=== PATIENT | male | born 1975 | race Caucasian/White ===

== ENCOUNTER 2020-04-12 09:18 | Outpatient (REF) | payer MEDICAID, SELFPAY ==
--- NOTE | 2020-04-12 09:54 | XR_ITS ---
EXAMINATION: XR SHOULDER, LEFT CLINICAL INFORMATION: Pain COMPARISON: Previous x-ray May 2019 TECHNIQUE: AP external rotation, Grashey, scapular Y, and axillary views of the left shoulder. FINDINGS: Bone alignment is normal. No fracture or dislocation is seen. The glenohumeral joint is normal. There is mild arthritis at the acromioclavicular joint. Soft tissues are unremarkable. XR/XR shoulder LT min 2V IMPRESSION: Mild arthritis at the acromioclavicular joint.
[2020-04-12 10:15] LABS: Hematocrit 39.8 % (42-52); Hemoglobin 12.7 g/dl (14.0-18.0); Mean Corpuscular HGB Conc 31.9 g/dl (31.0-36.0); Mean Corpuscular Hemoglobin 27.1 pg (27.0-33.0); Mean Corpuscular Volume 84.9 fL (80-98); Mean Platelet Volume 11.3 fL (9.4-12.4); Platelet Count 146 X10*3/uL (160-400); Red Blood Count 4.69 X10*6/uL (4.60-5.80); White Blood Count 4.4 X10*3/uL (4.8-10.8)
[2020-04-12 10:21] LABS: Estimated Average Glucose 111 mg/dL; Hemoglobin A1c % 5.5 %
[2020-04-12 10:38] LABS: Alanine Aminotransferase 28 U/L (0-40); Albumin Level 4.5 g/dL (3.5-5.0); Alkaline Phosphatase 67 U/L (39-117); Anion Gap 13 (12-20); Aspartate Amino Transferase 25 U/L (5-37); Bilirubin Direct 0.6 mg/dL (0.0-0.5); Bilirubin Total 1.4 mg/dL (0.0-1.0); Blood Urea Nitrogen 15 mg/dL (9-16); Calcium 9.1 mg/dL (8.4-10.2); Carbon Dioxide 28 mmol/L (22-29); Chloride 103 mmol/L (96-108); Cholesterol 103 mg/dL; Estimated Glomerular Filt Rate > 60; Glucose Random 86 mg/dL (60-115); HDL Cholesterol 50 mg/dL; LDL Cholesterol Calculated 46 mg/dl; Potassium 4.1 mmol/l (3.3-5.1); Sodium 140 mmol/L (135-145); Total Protein 7.5 g/dL (6.5-8.0); Triglycerides 37 mg/dL
[2020-04-12 10:56] LABS: TSH reflex Free T4 0.66 mIU/mL (0.32-4.0)
== END 2020-04-12 09:19 | disposition home or self-care (01) ==
LOC: HO.LAB 09:18
PROVIDERS: PCP General Practice; Visit Provider General Practice
DX: R53.83 Other fatigue (principal); M25.512 Pain in left shoulder
CPT/HCPCS: 36415; 73030; 80048; 80061; 80076; 83036; 84443; 85027

== ENCOUNTER 2020-07-19 08:44 | Outpatient (REF) | payer MEDICAID, SELFPAY ==
[2020-07-19 09:42] LABS: Hematocrit 41.3 % (42-52); Hemoglobin 13.2 g/dl (14.0-18.0); Mean Corpuscular Hemoglobin 27.2 pg (27.0-33.0); Mean Corpuscular Volume 85.2 fL (80-98); Mean Platelet Volume 11.5 fL (9.4-12.4); Platelet Count 149 X10*3/uL (160-400); Red Blood Count 4.85 X10*6/uL (4.60-5.80); White Blood Count 4.1 X10*3/uL (4.8-10.8)
[2020-07-19 10:10] LABS: Alanine Aminotransferase 24 U/L (0-40); Albumin Level 4.8 g/dL (3.5-5.0); Alkaline Phosphatase 69 U/L (39-117); Anion Gap 12 (12-20); Aspartate Amino Transferase 22 U/L (5-37); Bilirubin Direct 0.7 mg/dL (0.0-0.5); Bilirubin Total 1.3 mg/dL (0.0-1.0); Blood Urea Nitrogen 13 mg/dL (9-16); Calcium 9.3 mg/dL (8.4-10.2); Carbon Dioxide 28 mmol/L (22-29); Chloride 105 mmol/L (96-108); Cholesterol 103 mg/dL; Estimated Glomerular Filt Rate > 60; Glucose Random 105 mg/dL (60-115); HDL Cholesterol 53 mg/dL; LDL Cholesterol Calculated 44 mg/dl; Potassium 4.3 mmol/L (3.3-5.1); Sodium 141 mmol/L (135-145); Total Protein 7.9 g/dL (6.5-8.0); Triglycerides 30 mg/dL
[2020-07-19 10:17] LABS: Estimated Average Glucose 108 mg/dL; Hemoglobin A1c % 5.4 %
[2020-07-19 10:30] LABS: TSH reflex Free T4 1.21 uIU/mL (0.32-4.0)
== END 2020-07-19 08:45 | disposition home or self-care (01) ==
LOC: HO.LAB 08:44
PROVIDERS: Visit Provider General Practice
DX: R53.83 Other fatigue (principal)
CPT/HCPCS: 36415; 80048; 80061; 80076; 83036; 84443; 85027

== ENCOUNTER → 2020-07-26 10:34 | Outpatient (BNVA) | payer MEDICAID, SELFPAY | PROVIDERS: Visit Provider Internal Medicine | DX: I25.10 Atherosclerotic heart disease of native coronary artery without angina pectoris (principal); I49.9 Cardiac arrhythmia, unspecified | CPT/HCPCS: 93005; 99212 ==

== ENCOUNTER → 2020-09-15 13:51 | Outpatient (REF) | payer MEDICAID, SELFPAY ==
--- NOTE | 2020-09-15 13:55 | HM_ITS ---
IDENTIFICATION DATA: The patient is a 45-year-old male. REQUESTING PROVIDER: Dr. Fitzpatrick. REASON FOR TEST: Palpitations. HOOKUP DATE: 09/15/2020 for a total period of 30 days. FINDINGS: Baseline rhythm was normal sinus rhythm varying from 58 to 72 beats per minute. There were no arrhythmias noted. There were no patient reported events. CONCLUSION: Event monitor is remarkable for: 1. Baseline normal sinus rhythm with no significant pauses. 2. No significant arrhythmias. 3. No patient reported events. Aldo Light MD NRS/MODL / [id number]
== END ==
LOC: HO.CARD 13:51
PROVIDERS: Visit Provider Internal Medicine
DX: I49.9 Cardiac arrhythmia, unspecified (principal); R00.2 Palpitations
CPT/HCPCS: 93270; 93272

== ENCOUNTER 2020-10-06 09:09 | Outpatient (REF) | payer MEDICAID, SELFPAY ==
[2020-10-06 10:19] LABS: COVID-19 Test Negative (Negative)
== END 2020-10-06 09:10 | disposition home or self-care (01) ==
LOC: HO.LAB 09:09
PROVIDERS: Visit Provider Internal Medicine
DX: Z20.822 Contact with and (suspected) exposure to COVID-19 (principal)
CPT/HCPCS: 36415; 87635; C9803

== ENCOUNTER → 2020-10-25 14:53 | Outpatient (BNVA) | payer MEDICAID, SELFPAY | PROVIDERS: PCP General Practice; Visit Provider Surgery Vascular Surgery | DX: I83.12 Varicose veins of left lower extremity with inflammation (principal) | CPT/HCPCS: 99212 ==

== ENCOUNTER 2020-10-27 08:12 | Emergency (ER) | payer MEDICAID, SELFPAY ==
--- NOTE | ~2020-10-27 | CT_ITS ---
EXAMINATION: CT ABDOMEN AND PELVIS WITH CONTRAST CLINICAL INFORMATION: Suprapubic and left lower quadrant pain. COMPARISON: None TECHNIQUE: Multidetector volumetric images were obtained from the superior aspect of the liver through the pubic symphysis following administration 85 mL of Omnipaque 350 intravenous contrast. Sagittal and coronal reformatted images were obtained on the technologist's workstation. Oral contrast: No This CT examination was performed using dose optimization techniques as appropriate, variously including the following: *Automated exposure control *Adjustment of mA and/or kV according to patient size (this includes techniques or standardized protocols for targeted exams where dose is matched to indication/reason for exam; i.e. extremities or head) *Use of iterative reconstruction technique DLP: 745 mGy-cm FINDINGS: LUNG BASES: The visualized lung bases are unremarkable. LIVER, GALLBLADDER, AND BILIARY TREE: The liver is normal in size, shape, and attenuation. No focal hepatic lesion or biliary ductal dilatation is present. The gallbladder is unremarkable with no evidence of radiopaque gallstones, gallbladder wall thickening, or obvious pericholecystic inflammatory changes. PANCREAS: Unremarkable. SPLEEN: Unremarkable. ADRENAL GLANDS: Unremarkable. KIDNEYS AND URETERS: The kidneys are normal in size, shape, and attenuation. No hydronephrosis, hydroureter, or calculi seen. No perinephric stranding. BLADDER: Unremarkable. GASTROINTESTINAL TRACT: There is a short retrocecal appendix only 2 cm in length possibly an appendiceal stump. The diameter is 0.9 cm. There is no fluid in the lumen or hyperenhancement of the wall or surrounding inflammatory changes. There is no bowel obstruction or inflammatory changes in the bowel or mesentery. No ascites or fluid collection. No pneumatosis or free air. ABDOMINAL WALL: No significant hernia is appreciated. Borderline fat-containing umbilical hernia under 2 cm and small fat-containing left inguinal hernia 3 cm in length. LYMPH NODES: No lymphadenopathy. VASCULAR: Unremarkable. PELVIC VISCERA: Unremarkable. OSSEOUS STRUCTURES: Unremarkable. CT/CT abdomen pelvis w con IMPRESSION: 1. Short mildly thickened appendix versus appendiceal stump. No fluid in the lumen or enhancing wall or surrounding inflammatory changes to suggest appendicitis. Recommend correlation with clinical impression. 2. No bowel obstruction or inflammatory changes in bowel or mesentery. No ascites or fluid collection. 3. No hydronephrosis or calculi.
[2020-10-27 08:26] VITALS: BP 135/76; PULSE 74; RESP 18; TEMP 37.1; O2SAT 99; BMI 32.8
[2020-10-27 09:21] LABS: Glucose Urine UA NEG (NEG); Leukocyte Esterase Urine NEG (NEG); Nitrite Urine NEG (NEG); Specific Gravity - Urine <= 1.005 (1.005-1.025); Urine Blood NEG (NEG); Urine Ketones NEG (NEG); Urine Protein NEG (NEG-TRACE)
[2020-10-27 09:22] LABS: Basophils Percent Auto 0.3 % (0-2); Eosinophils Absolute Auto 0.1 X10*3/uL (0.0-0.4); Eosinophils Percent Auto 1.7 % (0-4); MANUAL DIFF FLAG SCAN; Mean Platelet Volume 10.9 fL (9.4-12.4); PLT CLUMP 1; SCAN SMEAR FLAG 1
[2020-10-27 09:23] LABS: Appearance Urine CLEAR; Color Urine YELLOW
[2020-10-27 09:24] LABS: Hematocrit 37.3 % (42-52); Hemoglobin 11.9 g/dl (14.0-18.0); Imm Gran Abs Auto 0.01 X10*3/uL (0.00-0.03); Imm Gran Pct Auto 0.3 % (0.0-0.4); Lymphocytes Absolute Auto 1.3 X10*3/uL (1.2-4.9); Lymphocytes Percent Auto 36.7 % (20-40); Mean Corpuscular HGB Conc 31.9 g/dl (31.0-36.0); Mean Corpuscular Volume 84.8 fL (80-98); Monocytes Absolute Auto 0.3 X10*3/uL (0.1-1.2); Monocytes Percent Auto 9.3 % (2-11); Neutrophils Absolute Auto 1.8 X10*3/uL (2.0-8.3); Neutrophils Percent Auto 51.7 % (45-73); Platelet Count 135 X10*3/uL (160-400); Red Cell Distribution Width 12.8 % (11.0-16.0)
[2020-10-27 09:27] LABS: White Blood Count 3.5 X10*3/uL (4.8-10.8)
[2020-10-27 09:49] LABS: Alanine Aminotransferase 23 U/L (0-40); Albumin Level 4.2 g/dL (3.5-5.0); Alkaline Phosphatase 65 U/L (39-117); Anion Gap 10 (12-20); Aspartate Amino Transferase 19 U/L (5-37); Bilirubin Total 1.1 mg/dL (0.0-1.0); Blood Urea Nitrogen 11 mg/dL (9-16); Calcium 9.2 mg/dL (8.4-10.2); Carbon Dioxide 28 mmol/L (22-29); Chloride 105 mmol/L (96-108); Creatinine Clr Calc Pharmacy 124.7; Estimated Glomerular Filt Rate > 60; Glucose Random 91 mg/dL (60-115); Lipase 42 U/L (8-78); Potassium 4.2 mmol/L (3.3-5.1); Sodium 139 mmol/L (135-145); Total Protein 6.9 g/dL (6.5-8.0)
[2020-10-27] MEDS: iohexoL 350 MG/ML 100 ML INFUS..BTL 85 ML IV (10:23)
--- NOTE | 2020-10-27 11:23 | ED.ABDPAIN ---
HPI - Abdominal Pain General Chief Complaint: Abdominal Pain Stated Complaint: hip to leg pain Time Seen by Provider: 10/27/20 08:33 Source: patient Mode of arrival: ambulatory Limitations: language barrier (Ukrainian speaking only, fountain pen nibs inspector used) History of Present Illness HPI narrative: 45-year-old male who presents emergency department for evaluation of left lower quadrant pain. The patient states that he has had constant left-sided abdominal pain x3 weeks. He states the pain waxes and wanes in intensity and is 6/10 at its worst. The pain is sharp pain. The pain does radiate to his left groin into his testicles bilaterally. He denied frequency, urgency or dysuria. He denied penile discharge. He denied fever, chills, nausea, vomiting. He states that he is constipated and moves his bowels once every 7 days. States that he moved his bowels on Saturday, 3 days prior to evaluation. Patient states he called his PCP's office and was referred to the emergency department for evaluation. The patient states that he has not had a COVID-19 infection during this pandemic. He states that he got his 1st trend.ly COVID 19 vaccination 1 week prior. Related Data Home Medications Medication Instructions Recorded Confirmed aspirin 81 mg tablet,delayed 81 mg PO DAILY 07/26/20 07/26/20 release ferrous sulfate 325 mg (65 mg 325 mg PO DAILY 10/25/20 iron) tablet fluticasone propionate 50 2 spray INTRANASAL DAILY 10/25/20 mcg/actuation nasal spray,suspension gabapentin 300 mg capsule 300 mg PO BID 10/25/20 tramadol 50 mg tablet 50 mg PO DAILY 10/25/20 Previous Rx's Medication Instructions Recorded rosuvastatin 10 mg tablet 10 mg PO DAILY #90 tab 07/15/20 Allergies Allergy/AdvReac Type Severity Reaction Status Date / Time No Known Allergies Allergy Verified 10/25/20 14:56 [No Known Allergies*] Review of Systems Review of Systems Yes all other systems are reviewed and are negative Physical Exam Vital Signs: Vital Signs: Last Vital Signs Temp 98.7 F 10/27/20 08:26 Pulse 74 10/27/20 08:26 Resp 18 10/27/20 08:26 BP 135/76 10/27/20 08:26 Pulse Ox 99 10/27/20 08:26 Body Mass Index 32.8 Const: General: cooperative Orientation/consciousness: oriented to person and oriented to place Limitations: no limitations HENMT: Head: Yes normal to inspection, Yes normocephalic and Yes atraumatic Ears: external ears normal General nose exam: Normal external nose present Face and sinus: Yes normal facial exam Mouth: Normal oral and palatal mucosa present Throat: Yes posterior oropharynx normal Eyes: Periorbital: periorbital findings normal Eyelids: Yes eyelids normal Conjunctivae: conjunctivae normal Sclerae: sclerae normal Corneas: corneas normal Pupils: Equal, round and reactive pupils present Direct Ophthalmoscopy: normal light reflex Neck: Neck: Yes full ROM, Yes no lymphadenopathy, Yes no meningeal signs, Yes trachea midline and Yes supple Chest: Chest palpation & inspection: normal inspection of the chest and normal palpation of entire chest wall Resp: Effort & Inspection: normal respiratory effort and able to speak in complete sentences Auscultation: clear to auscultation bilaterally Cardio: Rate: regular rate Rhythm: regular rhythm Heart sounds: S1 normal heart sound present, S2 normal heart sound present and no murmurs GI: Inspection: Yes normal to inspection Palpation (GI): Soft to palpation, Tenderness to palpation present (GI) in the LUQ (Moderate) and suprapubicly (Mild), no guarding, not rigid and No hepatosplenomegaly present : General: Yes no CVA tenderness Male General Exam: Yes normal external exam Penis: normal penis and circumcised Meatus: meatus normal Scrotum: scrotum normal, testes descended bilaterally, no inguinal hernias, no masses and no scrotal swelling Testes: Testes normal, no epidiymal tenderness, no testicular swelling and no testicular tenderness Back/Spine/Pelvis: Back: no CVA tenderness Cervical Spine: normal cervical lordosis Thoracic/Lumbar Spine: thoracic and lumbar spine normal to inspection Skin: Lesions: no lesions Rashes: no rashes Wounds: no wounds Neuro: General: oriented to person, oriented to place and no meningeal signs Cranial nerves: Yes CN's II-XII intact bilaterally and Yes Equal, round and reactive pupils present Cognition (Neuro): normal cognition Motor exam (neuro): 5/5 motor strength present throughout Extrem: General: Yes normal to inspection and Yes full ROM Psych: Appearance: well kempt Mental Status: mental status grossly normal Speech and movement: Normal speech and movement present Affect: normal affect Attitude: cooperative Thought process: Normal thought process present Thought content: Normal thought content present Course Course Course Narrative: 45-year-old male who presents emergency department for evaluation of 3 weeks constant, left-sided abdominal pain radiating to his groin into his testicles. The patient's physical examination did reveal left lower quadrant and left suprapubic tenderness, is examination was unremarkable with no testicular abnormalities or testicular tenderness. I did order laboratory evaluation and a CT scan of the abdomen pelvis with IV contrast. 1129: The patient's laboratory evaluation revealed a slightly low white blood cell count of 3500, anemia with an H&H of 11.9 and 37.3. The platelet count was low at 821776. MCV was normal. CBC findings are chronic. MDM - Abdominal Pain Lab Data Result diagrams: 10/27/20 09:13 10/27/20 09:13 Labs: Lab Results 10/27/20 10/27/20 10/27/20 Range/Units 09:13 09:13 09:13 WBC 3.5 L (4.8-10.8) X10*3/uL RBC 4.40 L (4.60-5.80) X10*6/uL Hgb 11.9 L (14.0-18.0) g/dl Hct 37.3 L (42-52) % MCV 84.8 (80-98) fL MCH 27.0 (27.0-33.0) pg MCHC 31.9 (31.0-36.0) g/dl RDW 12.8 (11.0-16.0) % Plt Count 135 L (160-400) X10*3/uL MPV 10.9 (9.4-12.4) fL Immature Gran % (Auto) 0.3 (0.0-0.4) % Neut % (Auto) 51.7 (45-73) % Lymph % (Auto) 36.7 (20-40) % [place] % (Auto) 9.3 (2-11) % Eos % (Auto) 1.7 (0-4) % Baso % (Auto) 0.3 (0-2) % Lymph # (Auto) 1.3 (1.2-4.9) X10*3/uL [place] # (Auto) 0.3 (0.1-1.2) X10*3/uL Eos # (Auto) 0.1 (0.0-0.4) X10*3/uL Baso # (Auto) 0.0 (0.0-0.2) X10*3/uL Abs Immat Gran (auto) 0.01 (0.00-0.03) X10*3/uL Absolute Neuts (auto) 1.8 L (2.0-8.3) X10*3/uL Absolute Nucleated RBC 0.000 (0.0-0.012) X10*3/uL Nucleated RBC % (auto) 0.0 (0.0-0.2) /100WBC Smear Tech's Comments Not Reportable Sodium 139 (135-145) mmol/L Potassium 4.2 (3.3-5.1) mmol/L Chloride 105 (96-108) mmol/L Carbon Dioxide 28 (22-29) mmol/L Anion Gap 10 L (12-20) BUN 11 (9-16) mg/dL Creatinine 0.84 (0.5-1.4) mg/dL Estim Creat Clear Calc 124.7 Estimated GFR > 60 Random Glucose 91 (60-115) mg/dL Calcium 9.2 (8.4-10.2) mg/dL Total Bilirubin 1.1 H (0.0-1.0) mg/dL AST 19 (5-37) U/L ALT 23 (0-40) U/L Alkaline Phosphatase 65 (39-117) U/L Total Protein 6.9 (6.5-8.0) g/dL Albumin 4.2 (3.5-5.0) g/dL Lipase 42 (8-78) U/L Urine Color YELLOW Urine Appearance CLEAR Urine pH 6.0 (5.0-8.0) Ur Specific [place] <= 1.005 (1.005-1.025) Urine Protein NEG (NEG-TRACE) MG/DL Urine Glucose (UA) NEG (NEG) MG/DL Urine Ketones NEG (NEG) MG/DL Urine Blood NEG (NEG) Urine Nitrite NEG (NEG) Ur Leukocyte Esterase NEG (NEG) Discharge Plan Discharge Prescriptions: No Action rosuvastatin 10 mg tablet 10 mg PO DAILY Qty: 90 RF: 3 aspirin [Adult Low Dose Aspirin] 81 mg tablet,delayed release (DR/EC) 81 mg PO DAILY RF: 0 PMFSH Past Medical History [facility] Narrative: Past medical history significant for coronary artery disease. No past surgical history. He denies tobacco, alcohol and drug use. Medical History Atherosclerotic cardiovascular disease Surgical History History of cardiac catheterization (~04/2015) Family History Family History Other Unknown family medical history Social History Social History Alcohol intake: never Smoking Status: Never smoker Use of substances other than those prescribed or required for medical reasons: No Advance Directives: Yes Advance Directives Information Provided: Yes Advance Directives on File: No
== END 2020-10-27 12:02 | disposition home or self-care (01) ==
PROVIDERS: Emergency Provider Emergency Medicine Emergency Medical Services; PCP General Practice
DX: R10.32 Left lower quadrant pain (principal); K59.00 Constipation, unspecified; D64.9 Anemia, unspecified; D69.6 Thrombocytopenia, unspecified
CPT/HCPCS: 36415; 74177; 80053; 81003; 83690; 85025; 99284; Q9967

== ENCOUNTER 2020-11-14 12:48 | Outpatient (REF) | payer MEDICAID, SELFPAY ==
--- NOTE | ~2020-11-14 | US_ITS ---
EXAMINATION: US VENOUS REFLUX/INSUFFICIENCY CLINICAL INFORMATION: Venous reflux. COMPARISON: None. TECHNIQUE: Bilateral lower extremity venous insufficiency ultrasound was performed with velocity measurements. Color flow Doppler imaging was performed. FINDINGS: RIGHT SIDE: GREATER SAPHENOUS VEIN: The right saphenofemoral junction measures 0.9cm. No reflux. Proximal thigh measures 0.5cm. Reflux time is 2672ms. Mid thigh measures 0.5cm. Reflux time is 3276ms. Above-knee measures 0.3cm. No reflux At the knee measures 0.3cm. Reflux time is 2760ms. Below the knee measures 3.2cm. Reflux time is 07/17/2004ms. Mid calf measures are 0.2cm. Reflux time is 892ms. At the level of the ankle it measures0.2cm. No reflux. SMALL SAPHENOUS VEIN: The upper right small saphenous vein measures 4.3 cm. No reflux The lower small saphenous vein measures 3.4cm. No reflux. LEFT SIDE: GREATER SAPHENOUS VEIN: The left saphenofemoral junction measures 0.7cm. No reflux. Proximal thigh measures 0.6cm. No reflux Mid thigh measures 0.2cm. Reflux time is 3452ms. Above-knee measures 1.2cm. Reflux time is 20 180ms. At the knee measures 0.1cm. No reflux Below the knee measures 0.2cm. Reflux time is 20 124ms. Mid calf measures 0.2cm. Reflux time is 1524ms. At the level of the ankle it measures0.5cm. No reflux SMALL SAPHENOUS VEIN: The upper left small saphenous vein measures 0.3 cm. No reflux The lower small saphenous vein measures 0.2cm. Reflux time is 3020 ms. PERFORATORS: 0.2 cm perforators in the proximal and mid calf on the right and in the mid calf on the left. VARICOSITIES: Multiple varicose veins bilaterally in the thigh, at the knee, and in the proximal calf. DEEP VENOUS ULTRASOUND OF THE RIGHT LOWER EXTREMITY: Common Femoral Vein: Compressible, normal respiratory variation and augmented flow. Femoral vein: Compressible, normal color flow and augmentation. Popliteal Vein: Compressible, normal augmentation. Deep Reflux: Reflux with in the mid femoral vein and popliteal vein. DEEP VENOUS ULTRASOUND OF THE LEFT LOWER EXTREMITY: Common Femoral Vein: Compressible, normal respiratory variation and augmented flow. Femoral vein: Compressible, normal color flow and augmentation. Popliteal Vein: Compressible, normal augmentation. Deep Reflux: Reflux within the mid femoral vein and popliteal vein. US/US venous duplex LE BI IMPRESSION: 1. Bilateral lower extremity venous reflux within both the deep and superficial system. 2. Multiple varicose veins and venous perforators in the thigh, knee, and the calf.
== END 2020-11-14 12:49 | disposition home or self-care (01) ==
LOC: HO.US 12:48
PROVIDERS: PCP General Practice; Visit Provider Surgery Vascular Surgery
DX: I83.12 Varicose veins of left lower extremity with inflammation (principal); I83.893 Varicose veins of bilateral lower extremities with other complications
CPT/HCPCS: 93970

== ENCOUNTER 2020-11-14 15:25 | Outpatient (REF) | payer MEDICAID, SELFPAY ==
--- NOTE | 2020-11-14 16:19 | MHC.AU.ANR ---
Adult Audiological Evaluation Date of Visit: 11/14/20 Car Filler Used: Slovenian- By Phone Reason for Appointment: Audiological evaluation due to concern for decreased hearing. Patient reports difficulties hearing and understanding the TV and music. He notes tinnitus in his right ear and notes that there has been some pain in his right ear as well. 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 Does patient feel they have a hearing loss?: Yes If Yes, Which Ear?: Both Ears Has hearing been tested previously?: No Hearing Handicap Inventory: HHIE SCORE: 40 Based on HHIE score, patient has: Severe perceived hearing handicap Ear History: Bothersome Tinnitus/Ringing/Noises in Ears: Right Ear History of occupational noise exposure?: Yes: Construction, 18 years, HPDs used Medical History: Medical History: Headache, Migraines, Vascular Problems Medical History (Other): Scoliosis, sleep apnea, depression Medication List: Rosuvastatin calcium 10 mg, Flonase, Aspirin 81 mg, Vitamin D3 50 mcg, Ferrous sulfate 325 mg, Vitamin B-12 500 mcg, Tramadol HCl 50 mg, Folic acid 0.4 mg, escitalopram oxalate 10 mg, gabapentin 300 mg, zolpidem 10 mg, fluticasone propionate Otoscopy: Right Ear: Unremarkable Left Ear: Unremarkable Tympanometry: Tympanometry performed due to: To assess integrity of the middle ear system Right Ear: Normal Middle Ear System (Type A) Left Ear: Normal Middle Ear System (Type A) Hearing Evaluation: Transducer(s) Used: Insert Earphones, Bone Conduction Method: Conventional Audiometry Stimuli Used: Pure Tones Right Ear: Description of Hearing: Normal hearing from 250-8000 Hz. Left Ear: Description of Hearing: Normal hearing from 250-2000 Hz, sloping to a mild sensorineural hearing loss at 4000 Hz, and rising to normal hearing at 8000 Hz. Speech Recognition Threshold (SRT): Method Used: Recorded Lists Stimuli Used: Spondee Words Right Ear: 35 dBHL Left Ear: 30 dBHL Word Discrimination: Method: Recorded Lists Word Lists Used: Lista Bisil?bica (Slovenian) Right Ear: 96% at 70 dBHL Left Ear: 100% at 70 dBHL Recommendations: Audiological re-evaluation to monitor in 1-2 years or sooner if changes are noted. Amplification is not warranted at this time. Hearing protection should be used when around loud noise. Diagnosis: Primary Diagnosis: H90.42 SNHL Unilateral Left Side, W/Unrestricted Contralateral Hearing Secondary Diagnosis: H93.11 Tinnitus, Right Ear Services Performed: Services Performed: Comprehensive Audiological Evaluation (CPT 25062) Tympanometry (CPT 72135) Signature: Provider: Brennen Carson, CCC-A
== END 2020-11-14 15:26 | disposition home or self-care (01) ==
LOC: HO.SH 15:25
PROVIDERS: Visit Provider General Practice
DX: H91.93 Unspecified hearing loss, bilateral (principal)
CPT/HCPCS: 92557; 92567

== ENCOUNTER → 2020-11-17 14:54 | Outpatient (BNVA) | payer MEDICAID, SELFPAY | PROVIDERS: PCP General Practice; Visit Provider Surgery Vascular Surgery | DX: I83.12 Varicose veins of left lower extremity with inflammation (principal) | CPT/HCPCS: 99212 ==

== ENCOUNTER 2020-12-21 07:37 | Outpatient (REF) | payer MEDICAID, SELFPAY | END 2020-12-21 07:38 | disposition home or self-care (01) | LOC: HO.LAB 07:37 | PROVIDERS: PCP General Practice; Visit Provider Internal Medicine | DX: Z20.822 Contact with and (suspected) exposure to COVID-19 (principal); K40.90 Unilateral inguinal hernia, without obstruction or gangrene, not specified as recurrent | CPT/HCPCS: 99202; C9803; U0003; U0005 ==

== ENCOUNTER 2021-01-04 11:00 | Outpatient (RCR) | payer MEDICAID, SELFPAY ==
[2020-12-09 10:47] VITALS: BP 140/80
== END 2021-01-09 10:30 | disposition home or self-care (01) ==
LOC: HO.PT 11:00
PROVIDERS: PCP General Practice; Visit Provider General Practice
DX: M25.512 Pain in left shoulder (principal)
CPT/HCPCS: 97110; 97112; 97140; 97162

== ENCOUNTER 2021-01-06 08:28 | Day surgery (SDC) | payer MEDICAID, SELFPAY ==
[2020-12-30 11:13] VITALS: BMI 35.5
--- NOTE | 2021-01-05 12:02 | HO.ANESPROP2 ---
Documented by User: Jackelin López 01/05/21 12:06 HPI - Anesthesia Eval Consult details Narrative: 45yo M for Left Hernia Repair Inguinal PMFSH Active Problems Active Problems: All Active Problems (Updated 12/30/20 @ 11:19 by Abigail Avilez) Cardiac arrhythmia, unspecified (Acute) Varicose veins of left lower extremity with inflammation (Acute) Left inguinal hernia (Acute) Chronic back pain (Acute) Atherosclerotic cardiovascular disease (Acute) Past Medical History Medical History Anxiety and depression Atherosclerotic cardiovascular disease CAD (coronary artery disease) Chronic back pain Left inguinal hernia Family History Family History Other Unknown family medical history Surgical History Surgical History History of cardiac catheterization (~04/2015) Social History Social History Alcohol intake: never Patient Tobacco Use Status: Never used Tobacco Are you DNR?: No Advance Directives: No Advance Directives Information Provided: No Advance Directives on File: No Meds Allergies Allergy/AdvReac Type Severity Reaction Status Date / Time No Known Allergies Allergy Verified 12/30/20 11:14 [No Known Allergies*] Home Medications Medication Instructions Recorded Confirmed Last Taken Type aspirin 81 mg tablet,delayed 81 mg PO DAILY 07/26/20 12/30/20 12/27/20 History release (Adult Low Dose Aspirin) ferrous sulfate 325 mg (65 mg 325 mg PO DAILY 10/25/20 12/30/20 Unknown History iron) tablet fluticasone propionate 50 2 spray INTRANASAL DAILY 10/25/20 12/30/20 Unknown History mcg/actuation nasal spray,suspension (Flonase Allergy Relief) gabapentin 300 mg capsule 300 mg PO BID 10/25/20 12/30/20 Unknown History tramadol 50 mg tablet 50 mg PO DAILY 10/25/20 12/30/20 Unknown History cholecalciferol (vitamin D3) 50 50 mcg PO DAILY 12/21/20 12/30/20 Unknown History mcg (2,000 unit) capsule cyanocobalamin (vitamin B-12) 500 500 mcg PO DAILY 12/21/20 12/30/20 Unknown History mcg tablet,extended release folic acid 400 mcg tablet 0.4 mg PO DAILY 12/21/20 12/30/20 Unknown History zolpidem 10 mg tablet 10 mg PO BEDTIME PRN 12/21/20 12/30/20 Unknown History escitalopram oxalate 20 mg tablet 1 tab PO DAILY 12/30/20 12/30/20 Unknown History Exam Exam Date and Time: January 05, 2021 1202 Height,Weight and Vital Signs: Height 5 ft 6 in Weight 99.79 kg Pertinent Lab Results Pertinent Lab Results: Laboratory Tests 10/27/20 10/27/20 09:13 09:13 WBC 3.5 L Hgb 11.9 L Hct 37.3 L Plt Count 135 L Sodium 139 Potassium 4.2 Chloride 105 Carbon Dioxide 28 BUN 11 Creatinine 0.84 Narrative Narrative: Per cardiac OV 07/2020 Cardiac catheterization [place] 2014-atherosclerotic plaques in LAD, mid to distal, proximal circumflex, proximal and mid RCA based on cath diagram but no obstructive disease. Echocardiogram-LVEF 60-65% and no significant valvular pathology and normal diastolic function. Holter-sinus rhythm, rare PACs and PVCs. EKG 07/2020 sinus rhythm at 65/Min; no significant ST-T changes and otherwise unremarkable. Holter 09/2020 CONCLUSION:? Event monitor is remarkable for: 1. Baseline normal sinus rhythm with no significant pauses. 2. No significant arrhythmias. 3. No patient reported events. Assessment and Plan Assessment Anesthesia Assessment: Chart Reviewed Documented by User: Sonia Muro 01/06/21 10:28 [facility] Past Medical History Medical History Anxiety and depression Atherosclerotic cardiovascular disease CAD (coronary artery disease) Chronic back pain Left inguinal hernia Family History Family History Other Unknown family medical history Family history of problems with anesthesia: No Surgical History Surgical History History of cardiac catheterization (~04/2015) History of Problems with Anesthesia: Yes Social History Social History Alcohol intake: never Patient Tobacco Use Status: Never used Tobacco Are you DNR?: No Advance Directives: No Advance Directives Information Provided: No Advance Directives on File: No Meds Allergies Allergy/AdvReac Type Severity Reaction Status Date / Time No Known Allergies Allergy Verified 12/30/20 11:14 [No Known Allergies*] Home Medications Medication Instructions Recorded Confirmed Last Taken Type aspirin 81 mg tablet,delayed 81 mg PO DAILY 07/26/20 12/30/20 12/27/20 History release (Adult Low Dose Aspirin) ferrous sulfate 325 mg (65 mg 325 mg PO DAILY 10/25/20 12/30/20 Unknown History iron) tablet fluticasone propionate 50 2 spray INTRANASAL DAILY 10/25/20 12/30/20 Unknown History mcg/actuation nasal spray,suspension (Flonase Allergy Relief) gabapentin 300 mg capsule 300 mg PO BID 10/25/20 12/30/20 Unknown History tramadol 50 mg tablet 50 mg PO DAILY 10/25/20 12/30/20 Unknown History cholecalciferol (vitamin D3) 50 50 mcg PO DAILY 12/21/20 12/30/20 Unknown History mcg (2,000 unit) capsule cyanocobalamin (vitamin B-12) 500 500 mcg PO DAILY 12/21/20 12/30/20 Unknown History mcg tablet,extended release folic acid 400 mcg tablet 0.4 mg PO DAILY 12/21/20 12/30/20 Unknown History zolpidem 10 mg tablet 10 mg PO BEDTIME PRN 12/21/20 12/30/20 Unknown History escitalopram oxalate 20 mg tablet 1 tab PO DAILY 12/30/20 12/30/20 Unknown History Exam Airway Mallampati Class: II TM Dist: >3cm Neck ROM: Full Assessment and Plan Assessment Anesthesia Assessment: Anesthesia Plan Discussed Final Anesthetic Review Family History of Problems with Anesthesia: No History of Problems with Anesthesia: Yes NPO: Yes ASA Class: II Final Preanesthetic Review: No Changes in Pt Med Stat, Meds/Allgs Chart Reviewed, Consent Obtained/Reviewed and Anes Risks/Benef Reviewed Patient Risk: Low Procedure Risk: Low Assessment/Block/Sedation in SS: Assess/Block/Sedation-SS Anesthetic Plan Anesthetic Plan: GA Disposition: Standard PACU
[2021-01-06] VITALS (7 sets, daily range): BP systolic 118–152; BP diastolic 60–82; PULSE 65–98; RESP 16–18; TEMP 36.1–36.7; O2SAT 99–100
[2021-01-06] MEDS: Lactated Ringers 1,000 ML 100 ML IVCONT (08:48)
--- NOTE | 2021-01-06 09:48 | MHC.SHP ---
Pre-Procedural Eval Section A Date of Service: 01/06/21 Section B Chief Complaint: Left Inguinal Hernia Allergies: Allergies Allergy/AdvReac Type Severity Reaction Status Date / Time No Known Allergies Allergy Verified 12/30/20 11:14 [No Known Allergies*] Plan I have reviewed the history and physical and performed a pertinent physical examination on my patient. No changes have occurred unless specified.
--- NOTE | 2021-01-06 10:41 | W.PM.OPN ---
Operative Note Operative Note Date of Service: 01/06/21 Narrative: Preop diagnosis: Left inguinal hernia Postop diagnosis: Left inguinal hernia, indirect Procedure: Repair of a left inguinal hernia with mesh Surgeon: Tejas Echols MD assistant cross country coach: GENEVIEVE Hammonds The patient is a 45-year-old male with chronic pain in the left groin. He had a CAT scan showing a small fat containing left inguinal hernia. In view of this hernia along with symptoms that were likely because of this, he wanted to proceed with repair of the hernia. He understood the technique of the procedure as well as the risks, benefits, and alternatives. His was also involved with the decision making The patient was brought to the operating room placed in supine position under general anesthesia via laryngeal mask airway. The left groin was prepped and draped in the usual sterile fashion. A surgical time-out was done. The patient received cefazolin 2 g IV preoperatively. I infiltrated the planned line of incision using lidocaine 1%. I made the incision using blade 15. And this was carried down through the full-thickness of the skin subcutaneous fat. I then proceeded to bluntly dissect the external oblique aponeurosis to expose the external ring. I proceeded to then make an incision on the external oblique aponeurosis using blade 15. And this was extended inferomedially along the fibers to connect with the external ring. The inguinal canal was therefore entered. I applied hemostats on the edges of the external oblique aponeurosis. I bluntly dissected the underside to create space for the mesh. I bluntly dissected the spermatic cord and its contents using an index finger until was able to pass a Gardners drain around this. This Claudio drain was used for retraction. I proceeded to examine the cord contents. The vas deferens was seen along with its accompanying vessels. I was able to be a small hernia sac and this was bluntly dissected off of the rest of the cord contents and reduced to the internal ring. I reinforced the internal ring with a small-sized Prolene plug. The plug was secured to the internal oblique medially and superiorly, as well as the shelving edge of the inguinal meant laterally using its inner leaves. I then used a keyhole mesh to reinforce the floor of the canal. The tails of the mesh were passed around the cord at the level of the internal ring and were secured together with Prolene 2 sutures. The mesh was also secured to the shelving edge of the inguinal and laterally and the internal oblique superiorly as well as medially. I I radiated. I removed the Gardners drain and closed the external oblique aponeurosis with Dexon 2 running stitch to re-create the external ring. The subcutaneous layer was reapposed with Dexon 3-0 interrupted sutures. Skin closure was achieved with Dexon 4-0 subcuticular running stitch. The incision was infiltrated with Marcaine 0.5% for postop analgesia. Steri-Strips and dressings were applied. The procedure was then completed The patient tolerated well. The complication noted. Initial and finalcounts of sponges and instruments were correct. Estimated blood loss was about 3cc. The patient extubated without difficulty and transferred to the recovery room with stable vital signs.
--- NOTE | 2021-01-06 10:49 | PM.OP ---
Brief Operative Note Date of Service: 01/06/21 Pre-op diagnosis: Left inguinal hernia Post-op diagnosis: same Procedure: Repair of left inguinal hernia with mesh Implants: Mesh Surgeon: Tejas Echols MD Anesthesia: GLMA Was an Cartridge Assembling Machine Adjuster used for this Procedure?: No Cartridge Assembling Machine Adjuster: Adilia Hammonds Estimated blood loss (mL): 3 Pathology: none sent Condition: stable Disposition: PACU
[2021-01-06] MEDS: oxyCODONE HCl Immed Release 5 MG TABLET PO (11:39)
[2021-01-06] MEDS: Acetaminophen 325 MG TABLET 650 MG PO (11:39)
== END 2021-01-06 12:31 | disposition home or self-care (01) ==
PROVIDERS: PCP General Practice; Visit Provider Surgery
PROC: (CPT 49505; principal; 2021-01-06 10:10)
DX: K40.90 Unilateral inguinal hernia, without obstruction or gangrene, not specified as recurrent (principal); F32.9 Major depressive disorder, single episode, unspecified; I25.10 Atherosclerotic heart disease of native coronary artery without angina pectoris; Z79.82 Long term (current) use of aspirin; Z79.899 Other long term (current) drug therapy
CPT/HCPCS: 49505; C1781; J0690; J1100; J1885; J2250; J2405; J3010

== ENCOUNTER → 2021-01-18 11:00 | Outpatient (BNVA) | payer MEDICAID, SELFPAY | PROVIDERS: PCP General Practice; Referring Provider General Practice; Visit Provider Physician Assistant ==

== ENCOUNTER → 2021-01-25 14:27 | Outpatient (BNVA) | payer MEDICAID, SELFPAY | PROVIDERS: PCP General Practice; Referring Provider General Practice; Visit Provider Surgery | DX: K40.90 Unilateral inguinal hernia, without obstruction or gangrene, not specified as recurrent (principal); F41.8 Other specified anxiety disorders; I25.10 Atherosclerotic heart disease of native coronary artery without angina pectoris; K62.5 Hemorrhage of anus and rectum | CPT/HCPCS: 99212 ==

== ENCOUNTER → 2021-02-08 14:01 | Outpatient (BNVA) | payer MEDICAID, SELFPAY | PROVIDERS: PCP General Practice; Visit Provider Surgery | DX: K40.90 Unilateral inguinal hernia, without obstruction or gangrene, not specified as recurrent (principal); N50.812 Left testicular pain; I25.10 Atherosclerotic heart disease of native coronary artery without angina pectoris; G89.29 Other chronic pain; M54.9 Dorsalgia, unspecified | CPT/HCPCS: 99212 ==

== ENCOUNTER 2021-03-02 14:22 | Outpatient (REF) | payer MEDICAID, SELFPAY ==
--- NOTE | ~2021-03-02 | US_ITS ---
EXAMINATION: US SCROTUM CLINICAL INFORMATION: Left testicular pain. COMPARISON: None TECHNIQUE: A sonogram of the scrotum was performed assessing morocho-scale appearance and color Doppler flow. Spectral Doppler analysis of the arterial and venous flow were performed in the testes bilaterally. FINDINGS: RIGHT: Right testicle measures 4.4 x 1.8 x 3.5 cm, volume 14.3 mL. No focal testicular parenchymal lesions are visualized. Spectral Doppler analysis of the arterial and venous flow is normal in the right testis. Right epididymal head is normal in size. There is an anechoic cyst with septation measuring 0.4 x 0.8 x 0.4 cm. No right hydrocele or varicocele is seen. Right epididymal Doppler flow is normal. LEFT: Left testicle measures 3.7 x 2.0 x 2.9 cm, volume 11.2 mL. No focal testicular parenchymal lesions are visualized. Spectral Doppler analysis of the arterial and venous flow is normal in the left testis. Left epididymal head is normal in size. There is a small left hydrocele No left varicocele is seen. There is anechoic cyst with echogenic anterior wall measuring 0.3 x 0.4 x 0.2 cm. Left epididymal Doppler flow is normal. US/US scrotum IMPRESSION: 1. Bilateral epididymal cysts. 2. Small left hydrocele. 3. Bilateral testes are unremarkable.
== END 2021-03-02 14:23 | disposition home or self-care (01) ==
LOC: HO.US 14:22
PROVIDERS: Visit Provider Surgery
DX: N50.812 Left testicular pain (principal)
CPT/HCPCS: 76870

== ENCOUNTER → 2021-03-13 11:10 | Outpatient (BNVA) | payer MEDICAID, SELFPAY | PROVIDERS: PCP General Practice; Referring Provider General Practice; Visit Provider Surgery | DX: N50.812 Left testicular pain (principal) | CPT/HCPCS: 99212 ==

== ENCOUNTER 2021-04-11 07:59 | Emergency (ER) | payer MEDICAID, SELFPAY ==
--- NOTE | ~2021-04-11 | US_ITS ---
EXAMINATION: US SCROTUM CLINICAL INFORMATION: Left testicular pain. Rule out torsion. COMPARISON: Ultrasound dated from 03/02/2021. TECHNIQUE: A sonogram of the scrotum was performed assessing morocho-scale appearance and color Doppler flow. Spectral Doppler analysis of the arterial and venous flow were performed in the testes bilaterally. FINDINGS: RIGHT: Right testicle measures 4.2 x 2.5 x 3.4 cm, volume 19 mL. There are a few hyperechoic foci consistent with microlithiasis. No suspicious focal lesions. Spectral Doppler analysis of the arterial and venous flow is normal in the right testis. Right epididymal head is normal in size with multiple epididymal cysts. No right hydrocele or varicocele is seen. Right epididymal Doppler flow is normal. LEFT: Left testicle measures 4.2 x 2.4 x 2.8 cm, volume 15 mL. Similar to the right side, there are a few hyperechoic foci compatible with microlithiasis. No suspicious focal lesions. Spectral Doppler analysis of the arterial and venous flow is normal in the left testis. Left epididymal head is normal in size with also multiple epididymal cysts. No left hydrocele is seen. Left epididymal Doppler flow is normal. There are questionable engorged vessels around the left epididymis raising the possibility of varicocele. OTHERS: The patient is status post left inguinal hernia repair on 01/06/2021 with an indeterminate hypoechoic area measuring up to 1.1 cm in the surgical bed appearing to disrupt the fascial planes although incompletely characterize in this study. There are also a few prominent right inguinal lymph nodes nearby the surgical bed measuring up to 1.7 cm and demonstrating a preserved fatty hilum, these are likely reactive. US/US scrotum doppler IMPRESSION: 1. No evidence of testicular torsion at the moment of this examination. 2. Microlithiasis bilaterally without suspicious focal masses. Recommend attention on follow-up per clinical guidelines. 3. Epididymal cyst without suspicious features. 4. Postsurgical changes in the right inguinal canal with questionable fascial disruption versus surgical scarring in the postoperative bed, and a few reactive lymph nodes. Correlate clinically and consider further evaluation with a CT of the pelvis if clinically indicated.
[2021-04-11 08:08] VITALS: BP 139/74; PULSE 90; RESP 18; TEMP 36.7; O2SAT 100; BMI 35.9
--- NOTE | 2021-04-11 08:46 | ED.GENADULT ---
HPI - General Adult General Chief complaint: General Medical Stated complaint: pain post surgery Time Seen by Provider: 04/11/21 08:07 Source: patient Mode of arrival: ambulatory Limitations: no limitations History of Present Illness HPI narrative: 45-year-old male who presents emergency department for evaluation of left groin pain over his hernia incision site and left testicular pain. Patient states that he has been having pain in his left groin area for approximately 3 months after he had a left inguinal hernia repair with mesh placement. In reviewing his records, the patient was 1st seen in the emergency department by me on 10/27/2020 for left groin pain radiating to his left testicle and he was diagnosed with a left inguinal hernia which contained fat only and no bowel The patient then had a left inguinal hernia repair on 01/06/[address] Echols. The patient has had multiple follow-up visits with Dr. Cunningham and has continued to complain of left groin. He had a scrotal ultrasound on 03/02/2021 left hydrocele and bilateral epidermal cysts otherwise no other significant abnormalities. The patient states that he is continuing to have pain in his left groin area over the inguinal incision site, and he states that the incision site occasionally drains fluid. He also states he is having pain that goes into his left testicle. He states the pain is constant but waxes and wanes in intensity and is 8/10 at its worst. The pain is worse if he coughs or if he moves. He states he has had associated nausea with no vomiting. He states the moves his bowels 2 to 3 times a week. Related Data Home Medications Medication Instructions Recorded Confirmed aspirin 81 mg tablet,delayed 81 mg PO DAILY 07/26/20 03/13/21 release (Adult Low Dose Aspirin) ferrous sulfate 325 mg (65 mg 325 mg PO DAILY 10/25/20 03/13/21 iron) tablet fluticasone propionate 50 2 spray INTRANASAL DAILY 10/25/20 03/13/21 mcg/actuation nasal spray,suspension (Flonase Allergy Relief) gabapentin 300 mg capsule 300 mg PO BID 10/25/20 03/13/21 tramadol 50 mg tablet 50 mg PO DAILY 10/25/20 03/13/21 cholecalciferol (vitamin D3) 50 50 mcg PO DAILY 12/21/20 03/13/21 mcg (2,000 unit) capsule cyanocobalamin (vitamin B-12) 500 500 mcg PO DAILY 12/21/20 03/13/21 mcg tablet,extended release folic acid 400 mcg tablet 0.4 mg PO DAILY 12/21/20 03/13/21 zolpidem 10 mg tablet 10 mg PO BEDTIME PRN 12/21/20 03/13/21 escitalopram oxalate 20 mg tablet 1 tab PO DAILY 12/30/20 03/13/21 Previous Rx's Medication Instructions Recorded rosuvastatin 10 mg tablet 10 mg PO DAILY #90 tab 07/15/20 ibuprofen 600 mg tablet 600 mg PO Q6H PRN #30 tab 01/06/21 oxycodone-acetaminophen 5 mg-325 1 - 2 tab PO Q4-6H PRN #30 tab 01/06/21 mg tablet (Percocet) docusate sodium 100 mg capsule 200 mg PO BEDTIME #60 cap 01/18/21 (Colace) ibuprofen 600 mg tablet 600 mg PO TID PRN #30 tab 01/25/21 oxycodone-acetaminophen 5 mg-325 1 tab PO TID PRN #25 tab 01/25/21 mg tablet (Percocet) ibuprofen 600 mg tablet 600 mg PO TID PRN #30 tab 02/08/21 ibuprofen 600 mg tablet 600 mg PO Q6H PRN #30 tab 04/11/21 ondansetron 4 mg disintegrating 4 mg PO Q6-8H PRN #14 tab 04/11/21 tablet Allergies Allergy/AdvReac Type Severity Reaction Status Date / Time No Known Allergies Allergy Verified 02/08/21 14:10 [No Known Allergies*] Review of Systems Review of Systems: Yes all other systems are reviewed and are negative PMF Past Medical History Medical History Anxiety and depression Atherosclerotic cardiovascular disease CAD (coronary artery disease) Chronic back pain Left inguinal hernia Rectal bleeding Testicular pain, left Surgical History History of cardiac catheterization (~04/2015) History of left inguinal hernia repair Family History Family History Other Unknown family medical history Social History Social History Household Members: Spouse Alcohol intake: never Patient Tobacco Use Status: Never used Tobacco Use of substances other than those prescribed or required for medical reasons: No Advance Directives: No Current occupational status: disabled Physical Exam Vital Signs: Vital Signs: Last Vital Signs Temp 98.1 F 04/11/21 12:15 Pulse 80 04/11/21 12:15 Resp 15 04/11/21 12:15 BP 122/72 04/11/21 12:15 Pulse Ox 100 04/11/21 12:15 Body Mass Index 35.9 Const: General: cooperative and no acute distress Orientation/consciousness: oriented to person and oriented to place Limitations: no limitations HENMT: Head: Yes normal to inspection, Yes normocephalic and Yes atraumatic Ears: external ears normal General nose exam: Normal external nose present Face and sinus: Yes normal facial exam Mouth: Normal oral and palatal mucosa present Throat: Yes posterior oropharynx normal Eyes: General: appearance normal, both eyes and all related structures Pupils: Equal, round and reactive pupils present Neck: Neck: Yes normal visual inspection, Yes no lymphadenopathy, Yes trachea midline and Yes supple Chest: Chest palpation & inspection: normal inspection of the chest and normal palpation of entire chest wall Resp: Effort & Inspection: normal respiratory effort and able to speak in complete sentences Auscultation: clear to auscultation bilaterally Cardio: Rate: regular rate Rhythm: regular rhythm Heart sounds: S1 normal heart sound present, S2 normal heart sound present and no murmurs GI: Other: The patient has a small well-healed incision in his left inguinal region, there is no palpable mass or drainage from the wound, patient does have tenderness palpation over this area. There is no erythema or increased warmth Auscultation: normal bowel sounds : Other: Circumcised male penis, no lesions noted on the penis, both testicles are descended, he has left testicular tenderness compared to the right, there is no swelling of the epididymis. The scrotum appears to be normal with no erythema or increased warmth. There is no penile discharge noted. General: Yes no CVA tenderness Back/Spine/Pelvis: Back: no CVA tenderness Skin: General skin exam: no rashes or lesions noted Neuro: General: oriented to person and oriented to place Cranial nerves: Yes CN's II-XII intact bilaterally and Yes Equal, round and reactive pupils present Cognition (Neuro): normal cognition Motor exam (neuro): 5/5 motor strength present throughout Extrem: General: Yes normal to inspection Psych: Appearance: grossly normal Speech and movement: Normal speech and movement present Affect: normal affect Attitude: cooperative Thought process: Normal thought process present Thought content: Normal thought content present Course Course Course Narrative: 45-year-old male who presents emergency department for evaluation of left groin pain x3 months, the patient had a left inguinal fat hernia repair on 01/06/2021 with mesh placed. The patient had pain in this area for at least 2 months prior to the procedure and continues to complain of similar pain after the procedure. The patient had a negative Doppler ultrasound on 03/02/2021. The patient's exam did reveal tenderness palpation over his left inguinal hernia and with palpation is left testicle. I did order an ultrasound of the left groin area to make sure there is no abscess or fluid collection over the surgeon site as well as a duplex ultrasound of the left testicle rule out torsion. 0048: The patient's duplex ultrasound of the left groin and scrotum bilaterally did not reveal a clear cause for the patient's pain. There are other incidental findings but I do not think that they are causing the patient's pain. The patient was prescribed ibuprofen 600 mg every 6 hours as needed for pain and Zofran 4 mg dissolving tablets every 6-8 hours as needed for nausea and vomiting. I also advised the patient to by a hernia truss to see if pressure over the incision site might help improve his pain. Patient was discharged home with printed and verbal instructions Medical Decision Making Lab Data Labs: Lab Results 04/11/21 Range/Units 08:58 Urine Color YELLOW Urine Appearance CLEAR Urine pH 6.5 (5.0-8.0) Ur Specific [place] 1.020 (1.005-1.025) Urine Protein NEG (NEG-TRACE) MG/DL Urine Glucose (UA) NEG (NEG) MG/DL Urine Ketones NEG (NEG) MG/DL Urine Blood NEG (NEG) Urine Nitrite NEG (NEG) Ur Leukocyte Esterase NEG (NEG) Imaging Data Groin ultrasound: Radiologist's impression: IMPRESSION: 1.? No evidence of testicular torsion at the moment of this examination. 2.? Microlithiasis bilaterally without suspicious focal masses. Recommend attention on follow-up per clinical guidelines. 3.? Epididymal cyst without suspicious features. 4.? Postsurgical changes in the right inguinal canal with questionable fascial disruption versus surgical scarring in the postoperative bed, and a few reactive lymph nodes. Correlate clinically and consider further evaluation with a CT of the pelvis if clinically indicated. Dictated By: Karen Chairez Discharge Plan Discharge Patient Disposition: Home, Self-Care Additional Instructions: The ultrasound of your left groin area over the in syndrome site did not reveal any significant finding to explain your pain. The ultrasound of your testicles did not reveal a clear cause for your pain either. I suspect that the pain in your left groin is part of the healing process in you may have a small seroma (collection of fluid) that is draining by itself but does not need to be surgically drained. Take ibuprofen 600 mg pills, 1 pills every 6 hours as needed for pain. Take Tylenol (acetaminophen) 500 mg pills, 2 pills every 4 to 6 hours as needed for pain. Take Zofran ODT 4 mg pills, 1 pill dissolved in your mouth every 8 hours as needed for nausea and vomiting. Purchase a hernia truss and wear this for at least 2 weeks to see if this improves her pain. Follow-up with your doctor in 2 days. Please return to the emergency department if your symptoms get worse or if you develop any symptoms that are concerning to you. Prescriptions: New ibuprofen 600 mg tablet 600 mg PO Q6H PRN (Reason: pain) Qty: 30 RF: 0 ondansetron 4 mg tablet,disintegrating 4 mg PO Q6-8H PRN (Reason: nausea and vomiting) Qty: 14 RF: 0 No Action rosuvastatin 10 mg tablet 10 mg PO DAILY Qty: 90 RF: 3 escitalopram oxalate 20 mg tablet 1 tab PO DAILY RF: 0 oxycodone-acetaminophen [Percocet] 5-325 mg tablet 1 - 2 tab PO Q4-6H PRN (Reason: pain) Qty: 30 RF: 0 ibuprofen 600 mg tablet 600 mg PO Q6H PRN (Reason: pain) Qty: 30 RF: 0 aspirin [Adult Low Dose Aspirin] 81 mg tablet,delayed release (DR/EC) 81 mg PO DAILY RF: 0 docusate sodium [Colace] 100 mg capsule 200 mg PO BEDTIME Qty: 60 RF: 5 oxycodone-acetaminophen [Percocet] 5-325 mg tablet 1 tab PO TID PRN (Reason: pain) Qty: 25 RF: 0 ibuprofen 600 mg tablet 600 mg PO TID PRN (Reason: pain) Qty: 30 RF: 0 ibuprofen 600 mg tablet 600 mg PO TID PRN (Reason: pain) Qty: 30 RF: 0 tramadol 50 mg tablet 50 mg PO DAILY RF: 0 gabapentin 300 mg capsule 300 mg PO BID RF: 0 fluticasone propionate [Flonase Allergy Relief] 50 mcg/actuation spray,suspension 2 spray intranasal DAILY RF: 0 ferrous sulfate 325 mg (65 mg iron) tablet 325 mg PO DAILY RF: 0 zolpidem 10 mg tablet 10 mg PO BEDTIME PRN (Reason: Insomnia) RF: 0 cholecalciferol (vitamin D3) 50 mcg (2,000 unit) capsule 50 mcg PO DAILY RF: 0 folic acid 400 mcg tablet 0.4 mg PO DAILY RF: 0 cyanocobalamin (vitamin B-12) 500 mcg tablet extended release 500 mcg PO DAILY RF: 0
[2021-04-11 08:55] VITALS: BP 123/69; PULSE 78; RESP 15; TEMP 36.9; O2SAT 100
[2021-04-11 09:15] LABS: Appearance Urine CLEAR; Color Urine YELLOW; Glucose Urine UA NEG (NEG); Leukocyte Esterase Urine NEG (NEG); Nitrite Urine NEG (NEG); PH 6.5 (5.0-8.0); Urine Blood NEG (NEG); Urine Ketones NEG (NEG); Urine Protein NEG (NEG-TRACE)
[2021-04-11 12:15] VITALS: BP 122/72; PULSE 80; RESP 15; TEMP 36.7; O2SAT 100
== END 2021-04-11 13:21 | disposition home or self-care (01) ==
PROVIDERS: Emergency Provider Emergency Medicine Emergency Medical Services; PCP General Practice
DX: R10.32 Left lower quadrant pain (principal); N50.812 Left testicular pain; N50.811 Right testicular pain; R60.0 Localized edema; I25.10 Atherosclerotic heart disease of native coronary artery without angina pectoris; Z79.899 Other long term (current) drug therapy; Z79.82 Long term (current) use of aspirin
CPT/HCPCS: 76870; 81003; 93975; 99284

== ENCOUNTER 2021-05-11 09:05 | Outpatient (REF) | payer MEDICAID, SELFPAY ==
[2021-05-11 09:33] LABS: MANUAL DIFF FLAG NO
[2021-05-11 10:18] LABS: Basophils Percent Auto 0.2 % (0-2); Eosinophils Absolute Auto 0.1 X10*3/uL (0.0-0.4); Eosinophils Percent Auto 1.6 % (0-4); Hemoglobin 13.2 g/dl (14.0-18.0); Imm Gran Abs Auto 0.01 X10*3/uL (0.00-0.03); Imm Gran Pct Auto 0.2 % (0.0-0.4); Lymphocytes Absolute Auto 1.8 X10*3/uL (1.2-4.9); Lymphocytes Percent Auto 41.4 % (20-40); Mean Corpuscular HGB Conc 31.4 g/dl (31.0-36.0); Mean Corpuscular Hemoglobin 26.8 pg (27.0-33.0); Mean Corpuscular Volume 85.4 fL (80.0-98.0); Mean Platelet Volume 11.1 fL (9.4-12.4); Monocytes Absolute Auto 0.4 X10*3/uL (0.1-1.2); Monocytes Percent Auto 8.2 % (2-11); Neutrophils Absolute Auto 2.1 x10*3/uL (2.0-8.3); Neutrophils Percent Auto 48.4 % (45-73); Platelet Count 173 X10*3/uL (160-400); Red Blood Count 4.92 X10*6/uL (4.60-5.80); Red Cell Distribution Width 12.8 % (11.0-16.0); White Blood Count 4.4 X10*3/uL (4.8-10.8)
[2021-05-11 10:58] LABS: Alanine Aminotransferase 23 U/L (0-40); Albumin Level 4.5 g/dL (3.5-5.0); Alkaline Phosphatase 67 U/L (39-117); Anion Gap 12 (12-20); Aspartate Amino Transferase 21 U/L (5-37); Bilirubin Total 1.3 mg/dL (0.0-1.0); Blood Urea Nitrogen 10 mg/dL (9-16); Calcium 9.5 mg/dL (8.4-10.2); Carbon Dioxide 29 mmol/L (22-29); Chloride 104 mmol/L (96-108); Erythrocyte Sedimentation Rate 7 MM/HR (0-15); Estimated Glomerular Filt Rate > 60; Glucose Random 95 mg/dL (60-115); Lipase 63 U/L (8-78); Potassium 4.6 mmol/L (3.3-5.1); Sodium 140 mmol/L (135-145); Total Protein 7.7 g/dL (6.5-8.0)
== END 2021-05-11 09:06 | disposition home or self-care (01) ==
LOC: HO.LAB 09:05
PROVIDERS: Physician Assistant; PCP General Practice; Visit Provider General Practice
DX: R10.9 Unspecified abdominal pain (principal); K62.5 Hemorrhage of anus and rectum
CPT/HCPCS: 36415; 80053; 83690; 85025; 85652; 87338

== ENCOUNTER 2021-06-08 08:18 | Outpatient (REF) | payer MEDICAID, SELFPAY ==
--- NOTE | ~2021-06-08 | XR_ITS ---
EXAMINATION: XR FOOT, LEFT CLINICAL INFORMATION: Pain in left foot COMPARISON: None TECHNIQUE: AP, lateral, and oblique views of the left foot. FINDINGS: No radiographic evidence of acute fracture or subluxation. Joint spaces are maintained. No radiopaque foreign bodies. Tiny spur of the calcaneus at the insertion of the Achilles tendon. XR/XR foot LT min 3V IMPRESSION: Tiny calcaneal spur. No acute findings.
== END 2021-06-08 08:19 | disposition home or self-care (01) ==
LOC: HO.XRAY 08:18
PROVIDERS: PCP Registered Nurse; Visit Provider Registered Nurse
DX: M79.672 Pain in left foot (principal)
CPT/HCPCS: 73630

== ENCOUNTER → 2021-08-07 11:50 | Outpatient (BNVA) | payer MEDICAID, SELFPAY | PROVIDERS: PCP General Practice; Referring Provider General Practice; Visit Provider Physician Assistant | DX: K59.09 Other constipation (principal); K21.9 Gastro-esophageal reflux disease without esophagitis; R68.81 Early satiety; Z78.9 Other specified health status | CPT/HCPCS: 99212 ==

== ENCOUNTER → 2021-08-09 13:53 | Outpatient (BNVA) | payer MEDICAID, SELFPAY | PROVIDERS: PCP General Practice; Referring Provider General Practice; Visit Provider Internal Medicine | DX: I25.10 Atherosclerotic heart disease of native coronary artery without angina pectoris (principal); I49.9 Cardiac arrhythmia, unspecified | CPT/HCPCS: 93005; 99212 ==

== ENCOUNTER → 2021-09-06 14:52 | Outpatient (BNVA) | payer MEDICAID, SELFPAY | PROVIDERS: PCP General Practice; Referring Provider General Practice; Visit Provider Physician Assistant | DX: R21 Rash and other nonspecific skin eruption (principal) | CPT/HCPCS: 99212 ==

== ENCOUNTER → 2021-11-02 13:10 | Outpatient (BNVA) | payer MEDICAID, SELFPAY | PROVIDERS: PCP General Practice; Visit Provider Surgery Vascular Surgery | DX: I83.12 Varicose veins of left lower extremity with inflammation (principal) | CPT/HCPCS: 99212 ==

== ENCOUNTER → 2021-11-10 12:10 | Outpatient (BNVA) | payer MEDICAID, SELFPAY | PROVIDERS: PCP General Practice; Visit Provider Surgery Vascular Surgery | DX: I83.12 Varicose veins of left lower extremity with inflammation (principal) | CPT/HCPCS: 36475 ==

== ENCOUNTER 2021-11-13 15:01 | Outpatient (REF) | payer MEDICAID, SELFPAY ==
--- NOTE | ~2021-11-13 | US_ITS ---
EXAMINATION: US VENOUS ULTRASOUND WITH DOPPLER LOWER EXTREMITY, LEFT CLINICAL INFORMATION: Post RF ablation 11/10/2021 COMPARISON: None TECHNIQUE: Ultrasound of the deep veins is performed from the hip to the calf with compression sonography and color and pulse Doppler assessment. Spectral analysis with color-flow imaging is performed. FINDINGS: There is normal venous compression and respiratory variation and augmented flow. The visualized common femoral vein, superficial femoral vein, profunda femoral vein, popliteal vein, and the trifurcation region shows no evidence of deep venous thrombosis. There is echogenic material in the greater saphenous vein post RF ablation. This extends to 2.2 cm from the saphenofemoral junction. The greater saphenous vein is closed. There is no significant popliteal fossa cyst. US/US venous duplex LE LT IMPRESSION: No DVT demonstrated in the left lower extremity.
== END 2021-11-13 15:02 | disposition home or self-care (01) ==
LOC: HO.US 15:01
PROVIDERS: PCP General Practice; Visit Provider Surgery Vascular Surgery
DX: M79.605 Pain in left leg (principal)
CPT/HCPCS: 93971

== ENCOUNTER → 2021-11-20 09:56 | Outpatient (BNVA) | payer MEDICAID, SELFPAY | PROVIDERS: PCP General Practice; Visit Provider Physician Assistant | DX: K21.9 Gastro-esophageal reflux disease without esophagitis (principal); K59.09 Other constipation | CPT/HCPCS: 99212 ==

== ENCOUNTER → 2021-11-21 14:45 | Outpatient (BNVA) | payer MEDICAID, SELFPAY | PROVIDERS: PCP General Practice; Visit Provider Surgery Vascular Surgery | DX: I83.11 Varicose veins of right lower extremity with inflammation (principal) | CPT/HCPCS: 99212 ==

== ENCOUNTER → 2022-01-01 11:30 | Outpatient (BNVA) | payer MEDICAID, SELFPAY | PROVIDERS: PCP General Practice; Referring Provider General Practice; Visit Provider Physician Assistant | DX: K59.09 Other constipation (principal); K62.5 Hemorrhage of anus and rectum | CPT/HCPCS: 99212 ==

== ENCOUNTER → 2022-02-22 09:08 | Outpatient (BNVA) | payer MEDICAID, SELFPAY | PROVIDERS: PCP General Practice; Visit Provider Surgery Vascular Surgery | DX: I83.11 Varicose veins of right lower extremity with inflammation (principal) | CPT/HCPCS: 99212 ==

== ENCOUNTER 2022-06-08 08:51 | Day surgery (SDC) | payer MEDICAID, SELFPAY ==
[2022-06-01 14:11] VITALS: BMI 38.8
--- NOTE | 2022-06-07 12:31 | HO.ANESPROP2 ---
Documented by User: Jackelin López NP 06/07/22 12:33 HPI - Anesthesia Eval Consult details Narrative: 47yo M for Colonoscopy [facility] Active Problems Active Problems: All Active Problems (Updated 01/01/22 @ 13:09 by Marleen Kim PA-C) Cardiac arrhythmia, unspecified (Acute) Varicose veins of left lower extremity with inflammation (Acute) Poor historian (Acute) Chronic constipation (Acute) Acid reflux (Acute) Early satiety (Acute) Rash (Acute) Varicose veins of right lower extremity with inflammation (Acute) Testicular pain, left (Acute) Rectal bleeding (Acute) Left inguinal hernia (Acute) Chronic back pain (Acute) Atherosclerotic cardiovascular disease (Acute) Past Medical History Medical History Anxiety and depression Atherosclerotic cardiovascular disease CAD (coronary artery disease) Chronic back pain Left inguinal hernia Rectal bleeding Testicular pain, left Family History Family History Other Unknown family medical history Family history of problems with anesthesia: No Surgical History Surgical History History of cardiac catheterization (~04/2015) History of left inguinal hernia repair History of surgery History of Problems with Anesthesia: Yes Social History Social History Household Members: Spouse Alcohol intake: never Patient Tobacco Use Status: Never used Tobacco Use of substances other than those prescribed or required for medical reasons: No Are you DNR?: No Advance Directives: No Advance Directives Information Provided: Yes Current occupational status: disabled Meds Allergies Allergy/AdvReac Type Severity Reaction Status Date / Time No Known Allergies Allergy Verified 02/22/22 09:12 [No Known Allergies*] Home Medications Medication Instructions Recorded Confirmed Last Taken Type aspirin 81 mg tablet,delayed 81 mg PO DAILY 07/26/20 06/01/22 12/27/20 History release (Adult Low Dose Aspirin) ferrous sulfate 325 mg (65 mg 325 mg PO DAILY 10/25/20 06/01/22 Unknown History iron) tablet fluticasone propionate 50 2 spray intranasal DAILY 10/25/20 06/01/22 Unknown History mcg/actuation nasal spray,suspension (Flonase Allergy Relief) gabapentin 300 mg capsule 300 mg PO BID 10/25/20 06/01/22 Unknown History tramadol 50 mg tablet 50 mg PO DAILY 10/25/20 06/01/22 Unknown History cholecalciferol (vitamin D3) 50 50 mcg PO DAILY 12/21/20 06/01/22 Unknown History mcg (2,000 unit) capsule cyanocobalamin (vitamin B-12) 500 500 mcg PO DAILY 12/21/20 06/01/22 Unknown History mcg tablet,extended release folic acid 400 mcg tablet 0.4 mg PO DAILY 12/21/20 06/01/22 Unknown History zolpidem 10 mg tablet 10 mg PO BEDTIME PRN Insomnia 12/21/20 06/01/22 Unknown History escitalopram oxalate 20 mg tablet 1 tab PO DAILY 12/30/20 06/01/22 Unknown History bupropion HCl 150 mg 24 hr tablet, 150 mg PO QAM 08/07/21 11/20/21 Unknown History extended release omeprazole 20 mg capsule,delayed 20 mg PO BID 08/07/21 06/01/22 Unknown History release polyethylene glycol 3350 17 17 g PO DAILY 08/07/21 06/01/22 Unknown History gram/dose oral powder (Miralax) verapamil 120 mg 24 hr 120 mg PO DAILY 08/07/21 06/01/22 Unknown History capsule,extended release bupropion HCl 300 mg 24 hr tablet, 300 mg PO QAM 11/02/21 06/01/22 Unknown History extended release hydroxyzine HCl 10 mg tablet 10 - 20 mg PO BID PRN itch 11/02/21 06/01/22 Unknown History permethrin 5 % topical cream 1 appl topical DAILY 11/02/21 06/01/22 Unknown History chlorthalidone 25 mg tablet 25 mg PO DAILY 11/20/21 06/01/22 Unknown History Exam Exam Date and Time: June 07, 2022 1231 Height,Weight and Vital Signs: Height 5 ft 7 in Weight 112.491 kg Narrative Narrative: EKG 08/2021 sinus rhythm at 67/Min; no significant ST-T changes and otherwise unremarkable. [id number], Complete (Per 08/2021 cardiac office visit note) Cardiac catheterization [place] 2014-atherosclerotic plaques in LAD, mid to distal, proximal circumflex, proximal and mid RCA based on cath diagram but no obstructive disease. Echocardiogram-LVEF 60-65% and no significant valvular pathology and normal diastolic function. Holter-sinus rhythm, rare PACs and PVCs. Assessment and Plan Assessment Anesthesia Assessment: Chart Reviewed Final Anesthetic Review Family History of Problems with Anesthesia: No History of Problems with Anesthesia: Yes Documented by User: Yenifer Holbrook MD 06/08/22 09:37 [facility] Past Medical History Medical History Anxiety and depression Atherosclerotic cardiovascular disease CAD (coronary artery disease) Chronic back pain Left inguinal hernia Rectal bleeding Testicular pain, left Family History Family History Other Unknown family medical history Surgical History Surgical History History of cardiac catheterization (~04/2015) History of left inguinal hernia repair History of surgery History of Problems with Anesthesia: No Social History Social History Household Members: Spouse Alcohol intake: never Patient Tobacco Use Status: Never used Tobacco Use of substances other than those prescribed or required for medical reasons: No Are you DNR?: No Advance Directives: No Advance Directives Information Provided: Yes Current occupational status: disabled Meds Allergies Allergy/AdvReac Type Severity Reaction Status Date / Time No Known Allergies Allergy Verified 02/22/22 09:12 [No Known Allergies*] Home Medications Medication Instructions Recorded Confirmed Last Taken Type aspirin 81 mg tablet,delayed 81 mg PO DAILY 07/26/20 06/01/22 12/27/20 History release (Adult Low Dose Aspirin) ferrous sulfate 325 mg (65 mg 325 mg PO DAILY 10/25/20 06/01/22 Unknown History iron) tablet fluticasone propionate 50 2 spray intranasal DAILY 10/25/20 06/01/22 Unknown History mcg/actuation nasal spray,suspension (Flonase Allergy Relief) gabapentin 300 mg capsule 300 mg PO BID 10/25/20 06/01/22 Unknown History tramadol 50 mg tablet 50 mg PO DAILY 10/25/20 06/01/22 Unknown History cholecalciferol (vitamin D3) 50 50 mcg PO DAILY 12/21/20 06/01/22 Unknown History mcg (2,000 unit) capsule cyanocobalamin (vitamin B-12) 500 500 mcg PO DAILY 12/21/20 06/01/22 Unknown History mcg tablet,extended release folic acid 400 mcg tablet 0.4 mg PO DAILY 12/21/20 06/01/22 Unknown History zolpidem 10 mg tablet 10 mg PO BEDTIME PRN Insomnia 12/21/20 06/01/22 Unknown History escitalopram oxalate 20 mg tablet 1 tab PO DAILY 12/30/20 06/01/22 Unknown History bupropion HCl 150 mg 24 hr tablet, 150 mg PO QAM 08/07/21 11/20/21 Unknown History extended release omeprazole 20 mg capsule,delayed 20 mg PO BID 08/07/21 06/01/22 Unknown History release polyethylene glycol 3350 17 17 g PO DAILY 08/07/21 06/01/22 Unknown History gram/dose oral powder (Miralax) verapamil 120 mg 24 hr 120 mg PO DAILY 08/07/21 06/01/22 Unknown History capsule,extended release bupropion HCl 300 mg 24 hr tablet, 300 mg PO QAM 11/02/21 06/01/22 Unknown History extended release hydroxyzine HCl 10 mg tablet 10 - 20 mg PO BID PRN itch 11/02/21 06/01/22 Unknown History permethrin 5 % topical cream 1 appl topical DAILY 11/02/21 06/01/22 Unknown History chlorthalidone 25 mg tablet 25 mg PO DAILY 11/20/21 06/01/22 Unknown History Exam Airway Mallampati Class: II TM Dist: >3cm Neck ROM: Full Loose/Missing/Broken Teeth: No Heart: RRR Lungs: CTA Assessment and Plan Assessment Anesthesia Assessment: Anesthesia Plan Discussed Final Anesthetic Review History of Problems with Anesthesia: No NPO: Yes ASA Class: II Final Preanesthetic Review: Meds/Allgs Chart Reviewed, Consent Obtained/Reviewed and Anes Risks/Benef Reviewed Patient Risk: Low Procedure Risk: Low Anesthetic Plan Anesthetic Plan: MAC: Disposition: Standard PACU
[2022-06-08 10:02] VITALS: BP 137/77; PULSE 92; RESP 18; TEMP 36.8; O2SAT 99
--- NOTE | 2022-06-08 10:28 | MHC.SHP ---
Pre-Procedural Eval Section A Date of Service: 06/08/22 The patient is an INPATIENT: No The History & Physical has been completed within 30 days and I have reviewed it.: No Section B Chief Complaint: COLON CANCER SCREENING, constipation Details of Present Illness: Colon cancer screening, chronic constipation, rectal bleeding Relevant Family History (Specify if Yes): No Relevant Social History: None Present Medications: see Short Stay Collaborative assessment Medical History: Significant History (Anxiety and depression Atherosclerotic cardiovascular disease CAD (coronary artery disease) Chronic back pain Left inguinal hernia Rectal bleeding Testicular pain, left) History of Previous Operations: Relevant previous surgery/procedure and date(s) (History of cardiac catheterization (~04/2015) History of left inguinal hernia repair) Allergies: Allergies Allergy/AdvReac Type Severity Reaction Status Date / Time No Known Allergies Allergy Verified 02/22/22 09:12 [No Known Allergies*] Review of Systems Sugical H&P ROS: Negative: Constitution, Cardiovascular and Respiratory and Yes, Specify: Gastrointestinal (constipation) Exam Surgical H&P Exam: Normal: Heart, Normal: Lungs, Normal: Extremities and Normal: Abdomen Plan Diagnosis/Plan: Unchanged I have reviewed the history and physical and performed a pertinent physical examination on my patient. No changes have occurred unless specified. Time Spent With Patient Time: Total time managing care of this patient today ____ minutes.
--- NOTE | 2022-06-08 10:30 | PM.OP ---
Brief Operative Note Date of Service: 06/08/22 Pre-op diagnosis: Colon cancer screening, chronic constipation, rectal bleeding Post-op diagnosis: other (Diverticulosis, hemorrhoids, melanosis coli) Procedure: COLONOSCOPY TO CECUM WITH BIOPSIES Surgeon: Sidra Seymour MD Anesthesia: MAC Was an Social Worker Psychiatric used for this Procedure?: Yes Social Worker Psychiatric: Shaquille Osorio Estimated blood loss (mL): 0 Pathology: other (A) BX Right Colon (R/O Melanosis Coli)) Condition: stable Disposition: PACU
--- NOTE | 2022-06-08 10:30 | W.PM.OPN ---
Operative Note Operative Note Date of Service: 06/08/22 Narrative: Pre-op diagnosis: Colon cancer screening, chronic constipation, rectal bleeding Post-op diagnosis:?other (Diverticulosis, hemorrhoids, melanosis coli) Surgeon: Sidra Seymour MD Anesthesia:?MAC COLONOSCOPY TILL CECUM WITH BIOPSIES Consent: Indications for the procedure and potential complications of bleeding, perforation, reaction to medications and missed diagnosis were discussed with the patient with the help of a Vietnamese optical laboratory manager and informed consent was obtained. Instrument: Olympus PCF H 190 L variable stiffness pediatric colonoscope Monitoring: Vital signs and clinical assessment, intermittent blood pressure monitoring, continuous EKG monitoring, Pulse oximetry and Carbon Dioxide monitoring were done throughout the procedure. Colon withdrawl time was 12 minutes. Procedure: The patient was placed in the left lateral decubitis position and pre-procedure medications were administered. After a digital rectal examination of the ano-rectum, the video colonoscope was inserted into the rectum and advanced through the colon to the cecum. The colonoscope was slowly withdrawn in a retrograde panoramic fashion and the colon mucosa was carefully examined including a retroflexed view of the rectum. Findings and interventions are described below. Procedure Difficulty: Without difficulty Findings: Terminal Ileum: Not evaluated Cecum: Mild melanosis coli throughout the colon Ascending Colon: Mild melanosis coli throughout the colon - biopsies obtained from the right colon Transverse Colon: Mild melanosis coli throughout the colon Descending Colon: Mild melanosis coli throughout the colon Sigmoid Colon: Moderate diverticulosis Mild melanosis coli throughout the colon Rectum: Normal Ano-rectum: Moderate internal hemorrhoids Colon preparation: Excellent Impression and Post Procedure Diagnosis: Colonoscopy Findings: No polyps were detected. Mild melanosis coli throughout the colon - biopsies obtained from the right colon Moderate diverticulosis seen in the sigmoid colon Moderate hemorrhoids on retroflexed exam. Plan: Await pathology results Patient has an appointment on 06/21/22 in the GI Clinic with GENEVIEVE Son. Repeat Colonoscopy in 5 years since family hx is not known. Diverticulosis handout was given in the discharge area
[2022-06-08 11:05] VITALS: BP 93/60; PULSE 64; RESP 20; TEMP 36.2; O2SAT 100
[2022-06-08 11:20] VITALS: BP 103/58; PULSE 69; RESP 20; O2SAT 100
[2022-06-08 11:35] VITALS: BP 111/63; PULSE 67; RESP 19; TEMP 36.8; O2SAT 100
== END 2022-06-08 12:05 | disposition home or self-care (01) ==
PROVIDERS: PCP General Practice; Visit Provider Internal Medicine Gastroenterology
PROC: 0DJD8ZZ Inspection of Lower Intestinal Tract, Via Natural or Artificial Opening Endoscopic (ICD-10-PCS; CPT 45378; principal; 2022-06-08 10:10)
DX: K62.5 Hemorrhage of anus and rectum (principal); K59.09 Other constipation; K63.89 Other specified diseases of intestine; K57.30 Diverticulosis of large intestine without perforation or abscess without bleeding; K64.8 Other hemorrhoids; I25.10 Atherosclerotic heart disease of native coronary artery without angina pectoris; G89.29 Other chronic pain; M54.9 Dorsalgia, unspecified; N50.812 Left testicular pain; F41.8 Other specified anxiety disorders; Z79.82 Long term (current) use of aspirin; Z79.899 Other long term (current) drug therapy
CPT/HCPCS: 45380; 88305

== ENCOUNTER → 2022-06-21 08:50 | Outpatient (BNVA) | payer MEDICAID, SELFPAY | PROVIDERS: PCP General Practice; Referring Provider General Practice; Visit Provider Physician Assistant | DX: Z13.89 Encounter for screening for other disorder (principal) ==

== ENCOUNTER → 2022-08-15 15:08 | Outpatient (BNVA) | payer MEDICAID, SELFPAY | PROVIDERS: PCP General Practice; Referring Provider General Practice; Visit Provider Internal Medicine | DX: I25.10 Atherosclerotic heart disease of native coronary artery without angina pectoris (principal); I49.9 Cardiac arrhythmia, unspecified | CPT/HCPCS: 93005; 99212 ==

== ENCOUNTER 2022-10-22 14:30 | Outpatient (REF) | payer MEDICAID, SELFPAY ==
--- NOTE | ~2022-10-22 | XR_ITS ---
EXAMINATION: XR SHOULDER, RIGHT CLINICAL INFORMATION: Pain, limited range of motion COMPARISON: None available. TECHNIQUE: AP external rotation, Grashey, scapular Y, and axillary views of the right shoulder. FINDINGS: There is moderate acromioclavicular osteoarthritis. Glenohumeral joint is well preserved. No fracture. Alignment is anatomic. Soft tissues are normal with no abnormal calcifications. XR/XR shoulder RT min 2V IMPRESSION: Moderate acromioclavicular joint arthritis.
== END 2022-10-22 14:31 | disposition home or self-care (01) ==
LOC: HO.HHCX 14:30
PROVIDERS: Visit Provider General Practice
DX: M25.511 Pain in right shoulder (principal)
CPT/HCPCS: 73030

== ENCOUNTER 2022-12-20 13:14 | Outpatient (AMB) | payer MEDICAID, SELFPAY ==
--- NOTE | 2022-12-20 13:18 | MHC.OFFVIS ---
Intake Vital Signs 12/20/22 13:23 Height 5 ft 11 in Weight 249 lb 1.957 oz BMI 34.7 BP 114/66 Blood Pressure Location Lt brachial Position Sitting Pulse 65 Intake Visit Reasons: chronic constipation Intake Note: Contreras presents in the office as a new patient for chronic constipation. CC: I tried to go through medications with patient. He states that it should all be in the system. He states that he has medication for gas and for his stomach. He states that he takes 2-3 BM in a week. There was be up to 5 days where he will not pass his bowels. Denies blood. Social Work Msw Required: Yes Social Work Msw Name: [id number] Dolly Allergies No Known Allergies [No Known Allergies*] Allergy (Verified 12/20/22 13:23) Medication List - Last Reconciled 12/20/22 by Marleen Kim PA-C aspirin (Adult Low Dose Aspirin) 81 mg PO DAILY bisacodyl (Dulcolax (bisacodyl)) 10 mg [place] DAILY PRN bupropion HCl 300 mg PO QAM chlorthalidone 25 mg PO DAILY cholecalciferol (vitamin D3) 50 mcg PO DAILY cyanocobalamin (vitamin B-12) 500 mcg PO DAILY dicyclomine 20 mg PO docusate sodium (Colace) 200 mg (2 x 100 mg) PO BEDTIME escitalopram oxalate 20 mg PO DAILY ferrous sulfate 325 mg PO DAILY fluticasone propionate 50 mcg/actuation (Flonase Allergy Relief) 2 sprays intranasal DAILY folic acid 0.4 mg PO DAILY gabapentin 300 mg PO BID hydroxyzine HCl 10 - 20 mg PO BID PRN ibuprofen 600 mg PO Q6H PRN menthol-zinc oxide 0.44-20.6 % (Calmoseptine) 1 appl topical BID PRN methylcellulose (laxative) (Citrucel) 500 mg PO BID omeprazole 20 mg PO BID ondansetron 4 mg PO Q6-8H PRN permethrin 5% 1 appl topical DAILY polyethylene glycol 3350 (Miralax) 17 grams PO DAILY 30 days rosuvastatin 10 mg PO DAILY sennosides (senna) 8.6 mg PO DAILY PRN simethicone (Gas Relief (simethicone)) 125 mg PO TID-QID PRN triamcinolone acetonide 0.1% topical BID verapamil ER 120 mg PO DAILY zolpidem 10 mg PO BEDTIME PRN HPI HPI Comments History of Present Illness Details 47-year-old male chronic constipation- follows regimen- goes fairly well;' He will at times have a bout of 3-4 days no BM- intermittent L-LBPradiates to LLQ- He does not get much excercise- He does not drink water- No abdominal pain, N/V fever or chills PFSH Medical History Anxiety and depression Atherosclerotic cardiovascular disease CAD (coronary artery disease) Chronic back pain Left inguinal hernia Rectal bleeding Testicular pain, left Surgical History History of cardiac catheterization (~04/2015) History of left inguinal hernia repair History of surgery Hx of colonoscopy Family History Father Diabetes Social History Household Members: Spouse Alcohol intake: never Patient Tobacco Use Status: Never used Tobacco Current occupational status: disabled Review of Systems Const All systems reviewed & are unremarkable except as noted in HPI and below Card Denies chest pain and Denies dyspnea Resp Denies dyspnea GI Denies abdominal pain, Denies hematochezia, Reports constipation, Denies nausea and Denies vomiting Physical Exam Vital Signs: Last Vital Signs Pulse 65 12/20/22 13:23 BP 114/66 12/20/22 13:23 BMI result Body Mass Index 34.7 Const General: cooperative, healthy appearing, comfortable and no acute distress Orientation/consciousness: patient oriented x3 Limitations: language barrier and ambulation with cane Resp Effort & Inspection: normal respiratory effort and able to speak in complete sentences Auscultation: clear to auscultation bilaterally Cardio Rate: regular rate Rhythm: regular rhythm Heart sounds: S1 normal heart sound present and S2 normal heart sound present GI Palpation (GI): Soft to palpation, nontender and no guarding Auscultation: normal bowel sounds Skin General skin exam: no rashes or lesions noted Neuro General: patient oriented x3 Psych Appearance: grossly normal and well kempt Speech and movement: Clear speech present Affect: Labile affect present Attitude: cooperative Results Reviewed Results Reviewed: Colonoscopy Findings: No polyps were detected. Mild melanosis coli throughout the colon - biopsies obtained from the right colon Moderate diverticulosis seen in the sigmoid colon Moderate hemorrhoids on retroflexed exam. Plan: Await pathology results Patient has an appointment on 06/21/22 in the GI Clinic with GENEVIEVE Son. Repeat Colonoscopy in 5 years since family hx is not known. Diverticulosis handout was given in the discharge area Name:?Contreras Schrader Age/Sex: 47/M Attending: Sidra Seymour MD : 1975 Submitted by: Sidra Seymour MD Copies to: Nina Nassar MR #: [id number] ? Status: [facility] Collected: 06/08/22 Location: [facility] Received: 06/08/22 Diagnosis Colon, right, biopsy:? Colonic mucosa with lymphoid aggregate and pigmented lamina propria macrophages compatible with melanosis coli, otherwise no specific change; no evidence of microscopic colitis. Assessment & Plan Assessment & Plan (1) Chronic constipation: Comment: Chronic - c/o- some very vague- non consistent-left low back pain radiates to left lower quadrant-no fever Maintain high-fiber diet, continue with bowel regimen- Better hydration Code(s): K59.09 - Other constipation Plan: F/U pcp non GI (2) Diverticulosis of colon: Code(s): K57.30 - Diverticulosis of large intestine without perforation or abscess without bleeding Plan: Diverticulosis/ diverticulitis ER protocol HFD (3) Chronic back pain: Comment: Follow-up PCP Code(s): M54.9 - Dorsalgia, unspecified; G89.29 - Other chronic pain Patient Instructions: 47-year-old male follows up -constipation.? Continue bowel regimen however had run out of MiraLax.? We discussed importance of consistent bowel regimen maintain a high-fiber diet if he has issues he should call Stay better hydrated Diverticulosis/ diverticulitis ER protocol HFD No major barriers to understanding were identified Social Work Msw reinforced instruction Repeat asymptomatic colonoscopy 5 years Coding Level of Care Code Est Pt Level 4 (55563) Diagnoses Chronic constipation K59.09 Diverticulosis of colon K57.30 Chronic back pain M54.9; G89.29 Time Spent (min) 30 Comment hospice spiritual care coordinator device [id number]
[2022-12-20 13:23] VITALS: BP 114/66; PULSE 65; BMI 34.7
== END 2022-12-20 14:00 | disposition home or self-care (01) ==
PROVIDERS: PCP General Practice; Visit Provider Physician Assistant
DX: K59.09 Other constipation (principal); K57.30 Diverticulosis of large intestine without perforation or abscess without bleeding; M54.9 Dorsalgia, unspecified; G89.29 Other chronic pain
CPT/HCPCS: 99214

== ENCOUNTER → 2022-12-20 13:14 | Outpatient (BNVA) | payer MEDICAID, SELFPAY | PROVIDERS: PCP General Practice; Visit Provider Physician Assistant | DX: K59.09 Other constipation (principal); K57.30 Diverticulosis of large intestine without perforation or abscess without bleeding; G89.29 Other chronic pain; M54.9 Dorsalgia, unspecified | CPT/HCPCS: 99214 ==

== ENCOUNTER 2022-12-24 14:29 | Outpatient (REF) | payer MEDICAID, SELFPAY ==
--- NOTE | ~2022-12-24 | XR_ITS ---
EXAMINATION: XR LUMBOSACRAL SPINE CLINICAL INFORMATION: Pain Patient states right-sided low back pain for 4 weeks COMPARISON: Scoliosis series 07/02/2018 TECHNIQUE: Three views of the lumbosacral spine. FINDINGS: The vertebral bodies and posterior elements are normal. The disc spaces are preserved. No change in mild retrolisthesis of L5 with respect to S1. Mild anterior wedging of the T11 and T12 vertebral bodies is unchanged. The paraspinal soft tissues are normal. XR/XR lumbar spine 2-3V IMPRESSION: 1. No significant interval change. 2. Mild retrolisthesis of L5 with respect to S1.
--- NOTE | ~2022-12-24 | XR_ITS ---
EXAMINATION: XR ABDOMEN KUB CLINICAL INDICATION: Pain Patient states abdominal pain right side for 4 weeks. Order states right lower quadrant pain. COMPARISON: None available. TECHNIQUE: AP view of the abdomen. FINDINGS: There is no free air under the diaphragm. The lung bases are clear. The bowel gas pattern is normal with no evidence of ileus or obstruction. No unusual soft tissue calcifications are noted. The bones are unremarkable. XR/XR KUB IMPRESSION: 1. No obstruction. 2. No free air under the diaphragm.
== END 2022-12-24 14:30 | disposition home or self-care (01) ==
LOC: HO.HHCX 14:29
PROVIDERS: Visit Provider Family Medicine
DX: R10.31 Right lower quadrant pain (principal); M54.50 Low back pain, unspecified
CPT/HCPCS: 72100; 74018

== ENCOUNTER 2022-12-24 16:12 | Outpatient (REF) | payer MEDICAID, SELFPAY ==
[2022-12-24 18:32] LABS: Creatinine Urine 101.49 mg/dL; Microalbumin Urine < 5.0 mg/L
== END 2022-12-24 16:13 | disposition home or self-care (01) ==
LOC: HO.HHCL 16:12
PROVIDERS: Visit Provider Family Medicine
DX: N50.812 Left testicular pain (principal)
CPT/HCPCS: 82043; 87086

== ENCOUNTER 2023-03-21 13:14 | Outpatient (AMB) | payer MEDICAID, SELFPAY ==
--- NOTE | 2023-03-21 13:18 | A.OFFVIS_ITS ---
Intake Vital Signs 03/21/23 13:19 Height 5 ft 11 in Weight 245 lb 2.464 oz BMI 34.2 BP 114/77 Blood Pressure Location Lt brachial Position Sitting Pulse 63 Intake Visit Reasons: 3 month fu Intake Note: Patient presents to in office visit today in 3 months follow up of constipation. CC: Patient reports he has been taking more water and that along with medications has been helping with constipation. Pt would like to stop Citrucel medication because the pharmacy has been charging him $10 every time he picks it up and he is not working. Allergies No Known Allergies [No Known Allergies*] Allergy (Verified 03/21/23 13:26) Medication List - Last Reconciled 03/21/23 by Marleen Kim PA-C aspirin (Adult Low Dose Aspirin) 81 mg PO DAILY bisacodyl (Dulcolax (bisacodyl)) 10 mg [place] DAILY PRN bupropion HCl 300 mg PO QAM chlorthalidone 25 mg PO DAILY cholecalciferol (vitamin D3) 50 mcg PO DAILY cyanocobalamin (vitamin B-12) 500 mcg PO DAILY dicyclomine 20 mg PO docusate sodium (Colace) 200 mg (2 x 100 mg) PO BEDTIME escitalopram oxalate 20 mg PO DAILY ferrous sulfate 325 mg PO DAILY fluticasone propionate 50 mcg/actuation (Flonase Allergy Relief) 2 sprays intranasal DAILY folic acid 0.4 mg PO DAILY gabapentin 300 mg PO BID hydroxyzine HCl 10 - 20 mg PO BID PRN ibuprofen 600 mg PO Q6H PRN menthol-zinc oxide 0.44-20.6 % (Calmoseptine) 1 appl topical BID PRN methylcellulose (laxative) (Citrucel) 500 mg PO BID omeprazole 20 mg PO BID ondansetron 4 mg PO Q6-8H PRN permethrin 5% 1 appl topical DAILY polyethylene glycol 3350 (Miralax) 17 grams PO DAILY 30 days rosuvastatin 10 mg PO DAILY sennosides (senna) 8.6 mg PO DAILY PRN simethicone (Gas Relief (simethicone)) 125 mg PO TID-QID PRN triamcinolone acetonide 0.1% topical BID verapamil ER 120 mg PO DAILY zolpidem 10 mg PO BEDTIME PRN HPI HPI Comments History of Present Illness Details A 47 y/o male f/u chronic constipation- and back pain- using cane He has increased water intake , 2 bottles a day that has been beneficial-reports his bowels have been more frequent Citrucel - copay too high-is taking MiraLax as well as stool softeners. Appetite is good no complaints there No nausea, vomiting, hematemesis, hematochezia fever chills Continues with low back pain uses a cane for ambulation/stability [facility] Medical History Testicular pain, left Rectal bleeding Anxiety and depression CAD (coronary artery disease) Left inguinal hernia Chronic back pain Atherosclerotic cardiovascular disease Surgical History Hx of colonoscopy History of surgery History of left inguinal hernia repair History of cardiac catheterization (~04/2015) Family History Father Diabetes Social History Household Members: Spouse Alcohol intake: never Patient Tobacco Use Status: Never used Tobacco Current occupational status: disabled Review of Systems Const All systems reviewed & are unremarkable except as noted in HPI and below Card Denies chest pain and Denies dyspnea Resp Denies dyspnea GI Denies abdominal pain, Reports constipation, Denies heartburn, Denies nausea and Denies vomiting Musc Reports abnormal gait, Reports back pain, Reports arthralgias and Reports stiffness Neuro Reports abnormal gait Physical Exam Vital Signs: Last Vital Signs Pulse 63 03/21/23 13:19 BP 114/77 03/21/23 13:19 BMI result Body Mass Index 34.2 Const General: cooperative, healthy appearing, comfortable and no acute distress Orientation/consciousness: patient oriented x3 Limitations: language barrier Eyes Sclerae: sclerae normal Resp Effort & Inspection: normal respiratory effort and able to speak in complete sentences Auscultation: clear to auscultation bilaterally, no rales, no rhonchi and no wheezes Cardio Rate: regular rate Rhythm: regular rhythm Heart sounds: S1 normal heart sound present and S2 normal heart sound present GI Palpation (GI): Soft to palpation and nontender Auscultation: normal bowel sounds Skin General skin exam: no rashes or lesions noted Neuro General: patient oriented x3 Extrem General: Yes full ROM Psych Appearance: grossly normal Mental Status: mental status grossly normal Speech and movement: Normal speech and movement present Affect: Labile affect present Attitude: cooperative Thought process: Normal thought process present Thought content: Normal thought content present Assessment & Plan Assessment & Plan (1) Chronic constipation: Comment: Chronic - c/o- some very vague- non consistent-left low back pain radiates to left lower quadrant-no fever Maintain high-fiber diet, continue with bowel regimen- Better hydration Code(s): K59.09 - Other constipation Medications: New methylcellulose (laxative) (Citrucel Sugar Free oral powder) 2 grams PO DAILY PRN 479 grams 3RF constipation Patient Instructions: Continue consistent bowel regimen Maintain high-fiber diet continue with increased water intake Will switch Citrucel tablets to powder hopefully better coverage by insurance carrier He will call with any questions or concerns Coding Level of Care Code Est Pt Level 3 (48402) Diagnoses Chronic constipation K59.09 Time Spent (min) 30
[2023-03-21 13:19] VITALS: BP 114/77; PULSE 63; BMI 34.2
== END 2023-03-21 14:10 | disposition home or self-care (01) ==
PROVIDERS: PCP General Practice; Visit Provider Physician Assistant
DX: K59.09 Other constipation (principal)
CPT/HCPCS: 99213

== ENCOUNTER → 2023-03-21 13:14 | Outpatient (BNVA) | payer MEDICAID, SELFPAY | PROVIDERS: PCP General Practice; Visit Provider Physician Assistant | DX: K59.09 Other constipation (principal) | CPT/HCPCS: 99212 ==

== ENCOUNTER 2023-08-21 14:46 | Outpatient (AMB) | payer MEDICAID, SELFPAY ==
--- NOTE | 2023-08-21 14:53 | A.OFFVIS_ITS ---
Intake Vital Signs 08/21/23 14:54 Height 5 ft 11 in Weight 229 lb 15.074 oz BMI 32.1 Intake Visit Reasons: 1 yr f/p Intake Note: 1 year follow up PT feels good Cyber Incident Analyst Required: Yes Cyber Incident Analyst Name: GEOVANNA Raphael [id number] Allergies No Known Allergies [No Known Allergies*] Allergy (Verified 03/21/23 13:26) HPI HPI Comments History of Present Illness Details 48-year-old male presents today for a fo llow-up. He reports he has been doing well with no concerning symptoms.He reports a rare palpitation. He states he has a low activity level due to chronic pain. He reports being compliant with medications but doesn't know the names due to having so many of them. [facility] Medical History Testicular pain, left Rectal bleeding Anxiety and depression CAD (coronary artery disease) Left inguinal hernia Chronic back pain Atherosclerotic cardiovascular disease Surgical History Hx of colonoscopy History of surgery History of left inguinal hernia repair History of cardiac catheterization (~04/2015) Family History Father Diabetes Social History Household Members: Spouse Alcohol intake: never Patient Tobacco Use Status: Never used Tobacco Current occupational status: disabled Review of Systems Const Denies weakness ENT Denies dizziness Card Denies chest pain, Denies chest pain with activity, Denies syncope, Denies rapid heart rate, Denies pedal edema, Denies edema, Denies leg edema, Denies lightheadedness, Denies palpitations, Denies dyspnea, Denies dyspnea on exertion and Denies orthopnea Resp Denies cough, Denies dyspnea and Denies dyspnea on exertion GI Denies hematochezia and Denies change in stool character Musc Denies abnormal gait, Denies muscle cramps, Denies muscle weakness, Denies numbness, Denies radiating pain into limb and Denies tingling Neuro Denies abnormal gait, Denies dizziness, Denies syncope, Denies numbness, Denies tingling and Denies weakness Endo Denies palpitations Physical Exam Vital Signs: BMI result Body Mass Index 32.1 Assessment & Plan Assessment & Plan (1) Atherosclerotic cardiovascular disease: Code(s): I25.10 - Atherosclerotic heart disease of [place] coronary artery without angina pectoris (2) Cardiac arrhythmia, unspecified: Code(s): I49.9 - Cardiac arrhythmia, unspecified Plan Had cardiac catheterization back in 2014 with no obstructive disease. No reports of anginal symptoms. He is on statins and ASA 81mg. Will call PCP to get most recent lab work. Reports rare occurrence of PACs and PVCs. Nothing sustained. Avoid stimulants. Will get echocardiogram to assess EF. Will call pharmacy to verify medications. Orders: Orders CA echo transthoracic complete 08/21/23 I25.10 - Atherosclerotic heart disease of [place] coronary artery without angina pectoris, I49.9 - Cardiac arrhythmia, unspecified Coding Level of Care Code Est Pt Level 3 (03961) Diagnoses Atherosclerotic cardiovascular disease I25.10 Cardiac arrhythmia, unspecified I49.9
[2023-08-21 14:54] VITALS: BMI 32.1
== END 2023-08-21 15:24 | disposition home or self-care (01) ==
PROVIDERS: Visit Provider Nurse Practitioner
DX: I25.10 Atherosclerotic heart disease of native coronary artery without angina pectoris (principal); I49.9 Cardiac arrhythmia, unspecified
CPT/HCPCS: 99213

== ENCOUNTER → 2023-08-21 14:46 | Outpatient (BNVA) | payer MEDICAID, SELFPAY | PROVIDERS: Visit Provider Nurse Practitioner | DX: I25.10 Atherosclerotic heart disease of native coronary artery without angina pectoris (principal); I49.9 Cardiac arrhythmia, unspecified | CPT/HCPCS: 99212 ==

== ENCOUNTER → 2023-09-16 09:58 | Outpatient (REF) | payer MEDICAID, SELFPAY ==
--- NOTE | 2023-09-16 10:02 | CA_ITS ---
Transthoracic Echocardiogram Patient (Last, First, Middle): Contreras Schrader L Gender: Male Date of : 1975 Age: 48 Procedure Date: 09/16/2023 Procedure Type: Transthoracic Echocardiogram Location: OP Height: 167.64 cm Weight: 108.86 kg BSA: 2.16 m2 Heart Rate: bpm BP: 130 / 82 mmHg Scientific Aide: ISSAC Referring MD: Giovanna Carlos NP Blood Typer: Aldo Light MD Symptoms: I25.10 - Atherosclerotic heart disease of [place] coronary artery without... Study Quality: Good ECG Rhythm: Sinus Conclusions: - Essentially normal study Findings Left Ventricle Normal left ventricular size, thickness, and systolic function. The visually estimated ejection fraction is between 55-60%. Spectral Doppler is indicative of a normal filling pattern. Right Ventricle Normal right ventricular cavity size and systolic function. Atria The left atrium is likely dilated. There is no evidence of interatrial shunt. The right atrium is normal in size. Aortic Valve Normal aortic valve structure and function. There is no aortic valve stenosis. There is no aortic valve regurgitation. Mitral Valve Normal mitral valve structure and function. There is trace mitral valve regurgitation. There is no mitral valve stenosis. Pulmonic Valve The pulmonic valve is likely normal. Tricuspid Valve Normal tricuspid valve structure. There is trace tricuspid valve regurgitation. The right ventricular systolic pressure is normal. The right ventricular systolic pressure is 30 mmHg. Normal right atrial pressure. There is no evidence of pulmonary hypertension. Great Vessels The pulmonary artery was not well visualized. There is no dilatation of the ascending aorta measuring 3.20 cm. Venous The inferior vena cava is normal in size and collapses greater than 50% with inspiration. Pericardium/Pleural There is no evidence of pericardial effusion. Measurements 2D Linear Measurements IVSd: 1.02 0.6-0.9/0.6-1.0 cm LVIDd: 4.68 3.9-5.3/4.2-5.9 cm LVIDd Index: 2.17 2.4-3.2/2.2-3.1 cm/m2 LVIDs: 2.93 2.0-3.6 cm LVPWd: 1.00 0.7-1.1 cm Ao Root: 2.90 2.1-3.5 cm LA Diam: 4.20 2.7-3.8/3.0-4.0 cm LAIDs Index: 1.94 1.5-2.3 cm/m2 LV Mass: 205.63 67-162/88-224 g LV Mass Index: 95.20 43-95/49-115 g/m2 LVOT Diam: 2.10 3.0+(-)1.3 cm 2D Systolic Function EF 4C: 56.20 >55% EF 2C: 53.80 >55% EF BiP: 56.80 >55% Mitral Valve MV Pk E: 0.95 MV PK A: 0.61 MV Decel Time: 239.00 E/A: 1.60 E'Lateral: 13.50 E'Medial: 8.05 E/E' Med: 11.80 E/E' Lat: 7.00 PHT: 70.00 MVA PHT: 3.14 Decel Cottle: 3.98 Aortic Valve AoV Pk [place]ouard: 1.52 AoV Mn [place]: 1.01 AoV VTI: 0.36 AoV Pk Grad: 9.00 Aov Mn Grad: 5.00 EDDI Cont.VTI: 2.22 LVOT LVOT Pk [place]: 0.96 LVOT Mn [place]: 0.62 LVOT VTI: 0.23 LVOT Pk Grad: 4.00 LVOT Mn Grad: 2.00 LVOT Diam: 2.10 LVOT Area: 3.46 Diastolic Function MV Pk E: 0.95 MV Pk A: 0.61 E/A: 1.60 E'Medial: 8.05 E/E' Med: 11.80 E' Laterial: 13.50 E/E' Lat: 7.00 Right Ventricle TAPSE (mm): 29.00 TVS' [place]: 18.00 Tricuspid Valve TR Pk [place]: 2.58 TR Pk Grad: 27.00 RA Press: 3.00 RVSP: 30.00 Great Vessels Aorta Ao Root-2D: 2.90 2.0-3.7 cm Ao Asc: 3.20 2.1-3.4 cm Pulmonary Valve PV Pk [place]ard: 1.08 Peak PV Grad: 5.00 Updated in Other Vendor System with Status of Final Aldo Light MD electronically signed on 09/16/2023 2:42:43 PM with status of Final
== END ==
LOC: HO.CARD 09:58
PROVIDERS: PCP General Practice; Visit Provider Nurse Practitioner
DX: I25.10 Atherosclerotic heart disease of native coronary artery without angina pectoris (principal); I49.9 Cardiac arrhythmia, unspecified
CPT/HCPCS: 93306

== ENCOUNTER → 2023-09-16 10:02 | Outpatient (BNV) | payer MEDICAID, SELFPAY | PROVIDERS: PCP General Practice; Visit Provider Internal Medicine Cardiovascular Disease | DX: I25.10 Atherosclerotic heart disease of native coronary artery without angina pectoris (principal) | CPT/HCPCS: 93306 ==

== ENCOUNTER 2023-10-28 12:11 | Outpatient (REF) | payer MEDICAID, SELFPAY ==
[2023-10-28 17:07] LABS: Estimated Average Glucose 114 mg/dL; Hemoglobin A1c % 5.6 % (<6.0)
[2023-10-28 17:12] LABS: Alanine Aminotransferase 19 U/L (0-40); Albumin Level 4.4 g/dL (3.5-5.0); Alkaline Phosphatase 71 U/L (39-117); Anion Gap 13 (12-20); Aspartate Amino Transferase 19 U/L (5-37); Blood Urea Nitrogen 14 mg/dL (9-16); Calcium 9.7 mg/dL (8.4-10.2); Carbon Dioxide 28 mmol/L (22-29); Chloride 105 mmol/L (96-108); Cholesterol 115 mg/dL (<200); Estimated Glomerular Filt Rate > 60; Glucose Random 69 mg/dL (60-115); HDL Cholesterol 47 mg/dL (>40); LDL Cholesterol Calculated 60 mg/dL (<100); Potassium 3.8 mmol/L (3.3-5.1); Sodium 142 mmol/L (135-145); Total Protein 7.8 g/dL (6.5-8.0); Triglycerides 44 mg/dL (<150)
== END 2023-10-28 12:12 | disposition home or self-care (01) ==
LOC: HO.HHCL 12:11
PROVIDERS: Visit Provider General Practice
DX: I10 Essential (primary) hypertension (principal)
CPT/HCPCS: 36415; 80053; 80061; 83036

== ENCOUNTER 2024-03-25 09:17 | Emergency (ER) | payer MEDICAID, SELFPAY ==
--- NOTE | ~2024-03-25 | US_ITS ---
EXAMINATION: US SCROTUM CLINICAL INFORMATION: 48-year-old male with left testicular pain. COMPARISON: 04/11/2021 TECHNIQUE: A sonogram of the scrotum was performed assessing morocho-scale appearance and color Doppler flow. Spectral Doppler analysis of the arterial and venous flow were performed in the testes bilaterally. FINDINGS: RIGHT: Right testicle measures 4.2 x 2.4 x 3.0 cm, volume 15.6 mL. No focal testicular parenchymal lesions are visualized. Spectral Doppler analysis of the arterial and venous flow is normal in the right testis. There is mild microlithiasis Right epididymal head is normal in size. No right hydrocele or varicocele is seen. Right epididymal Doppler flow is normal there is small epididymal head cyst measured 0.5 cm LEFT: Left testicle measures 4.2 x 2.2 x 2.9 cm, volume 13.8 mL. No focal testicular parenchymal lesions are visualized. Spectral Doppler analysis of the arterial and venous flow is normal in the left testis. There is mild microlithiasis. Left epididymal head is normal in size. No left hydrocele or varicocele is seen. Left epididymal Doppler flow is normal. There is 0.3 x 0.2 x 0.3 cm and 0.2 x 0.1 x 0.1 cm simple epididymal head cysts on the left. US/US scrotum IMPRESSION: 1. Mild microlithiasis bilaterally. 2. Small bilateral epididymal head cysts. Electronically signed by: Keri Lopes MD 03/25/2024 02:17 PM EDT
--- NOTE | ~2024-03-25 | US_ITS ---
EXAMINATION: US SCROTUM CLINICAL INFORMATION: 48-year-old male with left testicular pain. COMPARISON: 04/11/2021 TECHNIQUE: A sonogram of the scrotum was performed assessing morocho-scale appearance and color Doppler flow. Spectral Doppler analysis of the arterial and venous flow were performed in the testes bilaterally. FINDINGS: RIGHT: Right testicle measures 4.2 x 2.4 x 3.0 cm, volume 15.6 mL. No focal testicular parenchymal lesions are visualized. Spectral Doppler analysis of the arterial and venous flow is normal in the right testis. There is mild microlithiasis Right epididymal head is normal in size. No right hydrocele or varicocele is seen. Right epididymal Doppler flow is normal there is small epididymal head cyst measured 0.5 cm LEFT: Left testicle measures 4.2 x 2.2 x 2.9 cm, volume 13.8 mL. No focal testicular parenchymal lesions are visualized. Spectral Doppler analysis of the arterial and venous flow is normal in the left testis. There is mild microlithiasis. Left epididymal head is normal in size. No left hydrocele or varicocele is seen. Left epididymal Doppler flow is normal. There is 0.3 x 0.2 x 0.3 cm and 0.2 x 0.1 x 0.1 cm simple epididymal head cysts on the left. US/US scrotum doppler IMPRESSION: 1. Mild microlithiasis bilaterally. 2. Small bilateral epididymal head cysts. Electronically signed by: Keri Lopes MD 03/25/2024 02:17 PM EDT
[2024-03-25 09:25] VITALS: BP 149/83; PULSE 76; RESP 16; TEMP 36.6; O2SAT 100; BMI 37.1
[2024-03-25 09:45] LABS: MANUAL DIFF FLAG NO
[2024-03-25 09:47] LABS: Appearance Urine Clear; Color Urine Yellow; Glucose Urine UA Negative (Negative); Leukocyte Esterase Urine Negative (Negative); Nitrite Urine Negative (Negative); Specific Gravity - Urine <= 1.005 (1.005-1.025); Urine Blood Negative (Negative); Urine Ketones Negative (Negative); Urine Protein Negative (Neg-Trace)
[2024-03-25 09:51] LABS: Basophils Percent Auto 0.2 % (0-2); Eosinophils Absolute Auto 0.1 X10*3/uL (0.0-0.4); Eosinophils Percent Auto 1.2 % (0-4); Hematocrit 39.9 % (42.0-52.0); Hemoglobin 13.2 g/dl (14.0-18.0); Imm Gran Abs Auto 0.01 X10*3/uL (0.00-0.03); Imm Gran Pct Auto 0.2 % (0.0-0.4); Lymphocytes Absolute Auto 1.4 X10*3/uL (1.2-4.9); Lymphocytes Percent Auto 31.3 % (20-40); Mean Corpuscular HGB Conc 33.1 g/dl (31.0-36.0); Mean Corpuscular Hemoglobin 27.3 pg (27.0-33.0); Mean Corpuscular Volume 82.4 fL (80.0-98.0); Mean Platelet Volume 10.6 fL (9.4-12.4); Monocytes Absolute Auto 0.4 X10*3/uL (0.1-1.2); Monocytes Percent Auto 8.6 % (2-11); Neutrophils Absolute Auto 2.5 x10*3/uL (2.0-8.3); Neutrophils Percent Auto 58.5 % (45-73); Platelet Count 152 X10*3/uL (160-400); Red Blood Count 4.84 X10*6/uL (4.60-5.80); Red Cell Distribution Width 12.8 % (11.0-16.0); White Blood Count 4.3 X10*3/uL (4.8-10.8)
[2024-03-25 10:19] LABS: Anion Gap 12 (12-20); Blood Urea Nitrogen 11 mg/dL (9-16); Carbon Dioxide 28 mmol/L (22-29); Chloride 104 mmol/L (96-108); Creatinine Clr Calc Pharmacy 130.5; Estimated Glomerular Filt Rate > 60; Glucose Random 103 mg/dL (60-115); Potassium 3.6 mmol/L (3.3-5.1); Sodium 140 mmol/L (135-145)
--- NOTE | 2024-03-25 11:53 | ED_ITS ---
HPI - General Adult General Chief complaint: Abdominal Pain Stated complaint: private area pain-nausea Time Seen by Provider: 03/25/24 11:04 Source: patient, RN notes reviewed, old records reviewed and educational interpreter Mode of arrival: ambulatory Limitations: language barrier History of Present Illness ED Provider: Maria T Khan PA-C HPI narrative: 48 yo M with a with a PMH of anxiety, depression, ACS, CAD s/p cardiac catheterization approximately 04/2015, left inguinal hernia s/p repair with mesh on 01/06/[address] Echols, chronic back pain, diverticulosis of colon, rectal bleeding and hemorrhoids, chronic constipation, presents to the ED c/o intermittent, sharp left testicular pain x3 weeks. Patient was recently seen for similar symptoms by Dr. Echols at his follow-up for his left inguinal hernia on 03/13/2024. A scrotal ultrasound was performed and was remarkable for a small hydrocele on the left. Was offered an appointment who see the urologist, but declined and was waiting for his primary care physician to do that. Endorses a mucus-like discharge from his penis within the past 2 weeks that has since resolved, dysuria, & constipation with last bowel movement 4 days ago. Denies radiation of pain to the abdomen or back, N/V, abdominal pain, fever, chills, concern for STIs. Related Data Home Medications ?Medication ?Instructions ?Recorded ?Confirmed aspirin 81 mg tablet,delayed 81 mg PO DAILY 07/26/20 08/15/22 release (Adult Low Dose Aspirin) ferrous sulfate 325 mg (65 mg 325 mg PO DAILY 10/25/20 08/15/22 iron) tablet fluticasone propionate 50 2 spray intranasal DAILY 10/25/20 08/15/22 mcg/actuation nasal spray,suspension (Flonase Allergy Relief) gabapentin 300 mg capsule 300 mg PO BID 10/25/20 08/15/22 cholecalciferol (vitamin D3) 50 50 mcg PO DAILY 12/21/20 08/15/22 mcg (2,000 unit) capsule folic acid 400 mcg tablet 0.4 mg PO DAILY 12/21/20 08/15/22 zolpidem 10 mg tablet 10 mg PO BEDTIME PRN Insomnia 12/21/20 08/15/22 omeprazole 20 mg capsule,delayed 20 mg PO BID 08/07/21 08/15/22 release verapamil 120 mg 24 hr 120 mg PO DAILY 08/07/21 08/15/22 capsule,extended release bupropion HCl 300 mg 24 hr tablet, 300 mg PO QAM 11/02/21 08/15/22 extended release hydroxyzine HCl 10 mg tablet 10 - 20 mg PO BID PRN itch 11/02/21 08/15/22 permethrin 5 % topical cream 1 appl topical DAILY 11/02/21 08/15/22 chlorthalidone 25 mg tablet 25 mg PO DAILY 11/20/21 08/15/22 escitalopram oxalate 20 mg tablet 20 mg PO DAILY 08/15/22 08/15/22 cyanocobalamin (vitamin B-12) 500 500 mcg PO DAILY 12/20/22 mcg tablet dicyclomine 20 mg tablet 20 mg PO gas 12/20/22 triamcinolone acetonide 0.1 % topical BID 12/20/22 topical ointment Previous Rx's ?Medication ?Instructions ?Recorded ibuprofen 600 mg tablet 600 mg PO Q6H PRN pain #30 tabs 04/11/21 ondansetron 4 mg disintegrating 4 mg PO Q6-8H PRN nausea and 04/11/21 tablet vomiting #14 tabs menthol 0.44 %-zinc oxide 20.6 % 1 appl topical BID PRN skin 08/07/21 topical ointment (Calmoseptine) irritation #113 grams bisacodyl 10 mg rectal suppository 10 mg [place] DAILY PRN constipation 11/20/21 (Dulcolax (bisacodyl)) #20 ea sennosides 8.6 mg tablet (senna) 8.6 mg PO DAILY PRN for 04/23/22 constipation #30 tabs methylcellulose (laxative) 500 mg 500 mg PO BID #60 tabs 06/21/22 tablet (Citrucel) polyethylene glycol 3350 17 17 g PO DAILY 30 days #510 grams 06/21/22 gram/dose oral powder (Miralax) simethicone 125 mg chewable tablet 125 mg PO TID-QID PRN abdominal 06/21/22 (Gas Relief (simethicone)) distention #90 tabs rosuvastatin 10 mg tablet 10 mg PO DAILY #90 tabs 09/10/22 methylcellulose (laxative) 2 g PO DAILY PRN constipation #479 03/21/23 (Citrucel Sugar Free oral powder) grams docusate sodium 100 mg capsule 200 mg (2 x 100 mg) PO BEDTIME #60 12/24/23 caps Allergies Allergy/AdvReac Type Severity Reaction Status Date / Time No Known Allergies Allergy Verified 03/25/24 09:28 [No Known Allergies*] Review of Systems 2 Review of Systems: Yes all other systems are reviewed and are negative Constitutional: Constitutional: Reports as per [facility] Past Medical History Attestation statement: The following information was validated with the patient. Source: old records reviewed Medical History Testicular pain, left Rectal bleeding Anxiety and depression CAD (coronary artery disease) Left inguinal hernia Chronic back pain Atherosclerotic cardiovascular disease Surgical History Hx of colonoscopy History of surgery History of left inguinal hernia repair History of cardiac catheterization (~04/2015) Family History Family History Father Diabetes Social History Social History Household Members: Spouse Alcohol intake: never Patient Tobacco Use Status: Never used Tobacco Advance Directives: No Current occupational status: disabled Physical Exam ED Vital Signs: Vital Signs - 24 hr 03/25/24 09:25 03/25/24 14:28 03/25/24 14:31 Temperature 98 F 97.6 F Pulse Rate 76 66 74 Respiratory Rate 16 16 16 Blood Pressure 149/83 H 137/78 140/78 H Pulse Oximetry 100 100 100 Oxygen Delivery Method Room Air Room Air Room Air BMI result Body Mass Index 37.1 Const General: cooperative, healthy appearing and no acute distress Orientation/consciousness: patient oriented x3 Limitations: no limitations HENMT Head: Yes normal to inspection and Yes atraumatic Ears: hearing grossly normal bilaterally General nose exam: Normal external nose present Face and sinus: Yes normal facial exam Eyes General: appearance normal, both eyes and all related structures EOM: EOMs intact bilaterally Neck Neck: Yes normal visual inspection and Yes no meningeal signs Resp Effort & Inspection: normal respiratory effort and no respiratory distress Cardio Rate: regular rate GI Inspection: Yes normal to inspection Palpation (GI): Soft to palpation, nontender, no guarding and not rigid General: Yes no CVA tenderness Male General Exam: Yes normal external exam and No Genital lesions present Penis: normal penis, uncircumcised, no ecchymosis, not edematous, not erythematous, no masses, no nodules, no swelling, no ulcerations and No Genital lesions present Scrotum: scrotum normal, no ecchymosis, not edematous, not erythematous, testes descended bilaterally, no inguinal hernias, no masses, no scrotal swelling and no ulcerations Testes: Testes normal, testicular lie normal, no testicular mass, no testicular swelling and no testicular tenderness Back/Spine/Pelvis Back: no CVA tenderness Skin Rashes: no rashes Wounds: no wounds Neuro General: patient oriented x3, tone normal and no meningeal signs Cranial nerves: Yes CN's II-XII intact bilaterally Gait exam (Neuro): Normal gait present Extrem General: Yes normal to inspection Course Course Course Narrative: -1338--labs reassuring. UA negative -1425--US scrotum IMPRESSION: 1. Mild microlithiasis bilaterally. 2. Small bilateral epididymal head cysts. Results discussed with patient including worrisome signs and symptoms and strict return precautions, and needed close follow-up with Urology. Provided with printout of ultrasound results. Discussed when to return to the emergency department. They verbalized understanding and feel safe for discharge at this time. Medical Decision Making Medical Decision Making [facility] Narrative: 48 yo M with a with a PMH of anxiety, depression, ACS, CAD s/p cardiac catheterization approximately 04/2015, left inguinal hernia s/p repair with mesh on 01/06/[address] Echols, chronic back pain, diverticulosis of colon, rectal bleeding and hemorrhoids, chronic constipation, presents to the ED c/o intermittent, sharp left testicular pain x3 weeks. Recently saw Dr. Echols & c/o similar sx, scrotal ultrasound showed small hydrocele on the left. On exam, patient is lying comfortably in bed, nontoxic appearing, abdomen is soft, nontender, nondistended, no rigidity or guarding. exam unremarkable w/o lesions, tenderness or swelling. No inguinal hernias appreciated. Concern for continued hydrocele vs varicocele vs epididymitis orchitis vs ? STI. Rule out UTI. Lower suspicion for renal stone, testicular torsion, appendicitis/diverticulitis Plan: Labs, UA, STI testing, scrotal ultrasound, re-evaluation Please refer to course for remaining clinical decision making, interpretation of labs/imaging results, and discussions with consultants and/or family members. Differential Diagnosis Differential Diagnoses: The differential diagnosis associated with the presentation includes As above Admission/Observation Consideration of admission/observation: Escalation of care including admission/observation considered Lab Data MDM Lab Attestation statement: I reviewed the patient's lab results. 03/25/24 09:38 03/25/24 09:38 Labs: Lab Results 03/25/24 03/25/24 Range/Units 09:38 12:37 WBC 4.3 L (4.8-10.8) X10*3/uL RBC 4.84 (4.60-5.80) X10*6/uL Hgb 13.2 L (14.0-18.0) g/dl Hct 39.9 L (42.0-52.0) % MCV 82.4 (80.0-98.0) fL MCH 27.3 (27.0-33.0) pg MCHC 33.1 (31.0-36.0) g/dl RDW 12.8 (11.0-16.0) % Plt Count 152 L (160-400) X10*3/uL MPV 10.6 (9.4-12.4) fL Immature Gran % (Auto) 0.2 (0.0-0.4) % Neut % (Auto) 58.5 (45-73) % Lymph % (Auto) 31.3 (20-40) % [place] % (Auto) 8.6 (2-11) % Eos % (Auto) 1.2 (0-4) % Baso % (Auto) 0.2 (0-2) % Lymph # (Auto) 1.4 (1.2-4.9) X10*3/uL [place] # (Auto) 0.4 (0.1-1.2) X10*3/uL Eos # (Auto) 0.1 (0.0-0.4) X10*3/uL Baso # (Auto) 0.0 (0.0-0.2) X10*3/uL Abs Immat Gran (auto) 0.01 (0.00-0.03) X10*3/uL Absolute Neuts (auto) 2.5 (2.0-8.3) x10*3/uL Absolute Nucleated RBC 0.000 (0.0-0.012) X10*3/uL Nucleated RBC % (auto) 0.0 (0.0-0.2) /100WBC Sodium 140 (135-145) mmol/L Potassium 3.6 (3.3-5.1) mmol/L Chloride 104 (96-108) mmol/L Carbon Dioxide 28 (22-29) mmol/L Anion Gap 12 (12-20) BUN 11 (9-16) mg/dL Creatinine 0.80 (0.5-1.4) mg/dL Estim Creat Clear Calc 130.5 Estimated GFR > 60 Random Glucose 103 (60-115) mg/dL Calcium 10.0 (8.4-10.2) mg/dL Magnesium 1.8 (1.6-2.6) mg/dL Total Bilirubin 2.0 H (0.0-1.0) mg/dL Direct Bilirubin 0.6 H (0.0-0.5) mg/dL AST 22 (5-37) U/L ALT 16 (0-40) U/L Alkaline Phosphatase 69 (39-117) U/L Total Protein 7.6 (6.5-8.0) g/dL Albumin 4.5 (3.5-5.0) g/dL Lipase 24 (8-78) U/L Urine Color Yellow Urine Appearance Clear Urine pH 7.0 (5.0-9.0) Ur Specific [place] <= 1.005 (1.005-1.025) Urine Protein Negative (Neg-Trace) mg/dL Urine Glucose (UA) Negative (Negative) mg/dL Urine Ketones Negative (Negative) mg/dL Urine Blood Negative (Negative) Urine Nitrite Negative (Negative) Ur Leukocyte Esterase Negative (Negative) Chlam trachomat DNA PCR NOT DETECTED (Not Detect.) N.gonorrhoeae DNA (PCR) NOT DETECTED (Not Detect.) Independent Interpretation I performed an independent interpretation of an: Ultrasound Radiology Impression Discussion of test interpretation with radiology: I have reviewed the radiologist's reading. External Record Review External record reviewed: Inpatient record, Office record, Outpatient record, Prior outpatient labs, Prior outpatient radiology, Primary care record and Outside ED record Tests considered The following testing was considered but not selected: As above Prescription Management I considered prescription management with: Pain Medication and Antibiotic Chronic Conditions Patient?s care impacted by: Other Social Determinants Patient?s care significantly limited by Social Determinants of Health including: Other Social Determinant of Health Discharge Plan Discharge Clinical Impression: Left testicular pain, Cyst of epididymis determined by ultrasound, Testicular microlithiasis Patient Disposition: Home, Self-Care Instructions: Testicle Pain (ED) Additional Instructions: Your blood work is reassuring Your urine is unremarkable Your ultrasound shows mild microlithiasis which is calcium deposits, as well as small bilateral epididymal head cysts. YOU NEED TO FOLLOW-UP WITH UROLOGY. CALL TO MAKE AN APPOINTMENT. Prescriptions: No Action sennosides [senna] 8.6 mg tablet 8.6 mg PO DAILY PRN (Reason: for constipation) Qty: 30 0RF rosuvastatin 10 mg tablet 10 mg PO DAILY Qty: 90 3RF docusate sodium 100 mg capsule 200 mg PO BEDTIME Qty: 60 2RF escitalopram oxalate 20 mg tablet 20 mg PO DAILY ibuprofen 600 mg tablet 600 mg PO Q6H PRN (Reason: pain) Qty: 30 0RF ondansetron 4 mg tablet,disintegrating 4 mg PO Q6-8H PRN (Reason: nausea and vomiting) Qty: 14 0RF aspirin [Adult Low Dose Aspirin] 81 mg tablet,delayed release (DR/EC) 81 mg PO DAILY gabapentin 300 mg capsule 300 mg PO BID fluticasone propionate [Flonase Allergy Relief] 50 mcg/actuation spray,suspension 2 spray intranasal DAILY Rx Instructions: administer into each nostril ferrous sulfate 325 mg (65 mg iron) tablet 325 mg PO DAILY zolpidem 10 mg tablet 10 mg PO BEDTIME PRN (Reason: Insomnia) cholecalciferol (vitamin D3) 50 mcg (2,000 unit) capsule 50 mcg PO DAILY folic acid 400 mcg tablet 0.4 mg PO DAILY verapamil 120 mg capsule,ext rel. pellets 24 hr 120 mg PO DAILY omeprazole 20 mg capsule,delayed release(DR/EC) 20 mg PO BID menthol-zinc oxide [Calmoseptine] 0.44-20.6 % ointment 1 appl topical BID PRN (Reason: skin irritation) Qty: 113 1RF bupropion HCl 300 mg tablet extended release 24 hr 300 mg PO QAM hydroxyzine HCl 10 mg tablet 10 - 20 mg PO BID PRN (Reason: itch) permethrin 5 % cream 1 appl topical DAILY chlorthalidone 25 mg tablet 25 mg PO DAILY bisacodyl [Dulcolax (bisacodyl)] 10 mg suppository 10 mg WV DAILY PRN (Reason: constipation) Qty: 20 0RF polyethylene glycol 3350 [Miralax] 17 gram/dose powder 17 g PO DAILY 30 Days Qty: 510 2RF Citrucel 500 mg tablet 500 mg PO BID Qty: 60 5RF simethicone [Gas Relief (simethicone)] 125 mg tablet,chewable 125 mg PO TID-QID PRN (Reason: abdominal distention) Qty: 90 5RF triamcinolone acetonide 0.1 % ointment topical BID cyanocobalamin (vitamin B-12) 500 mcg tablet 500 mcg PO DAILY dicyclomine 20 mg tablet 20 mg PO Citrucel Sugar Free Powder 2 g PO DAILY PRN (Reason: constipation) Qty: 479 3RF Referrals: [facility] Urology Services [Provider Group] - 5 days Discharge Date/Time: 03/25/24 14:36 Print Language: English
[2024-03-25 12:01] LABS: Alanine Aminotransferase 16 U/L (0-40); Albumin Level 4.5 g/dL (3.5-5.0); Alkaline Phosphatase 69 U/L (39-117); Aspartate Amino Transferase 22 U/L (5-37); Bilirubin Direct 0.6 mg/dL (0.0-0.5); Lipase 24 U/L (8-78); Magnesium 1.8 mg/dL (1.6-2.6); Total Protein 7.6 g/dL (6.5-8.0)
[2024-03-25 14:20] LABS: CT PCR NOT DETECTED (Not Detect.); NG PCR NOT DETECTED (Not Detect.)
[2024-03-25 14:28] VITALS: BP 137/78; PULSE 66; RESP 16; O2SAT 100
[2024-03-25 14:31] VITALS: BP 140/78; PULSE 74; RESP 16; TEMP 36.4; O2SAT 100
== END 2024-03-25 14:36 | disposition home or self-care (01) ==
PROVIDERS: Physician Assistant; Emergency Provider Emergency Medicine; PCP General Practice
DX: N50.3 Cyst of epididymis (principal); N50.89 Other specified disorders of the male genital organs; N50.812 Left testicular pain; Z79.82 Long term (current) use of aspirin; Z79.899 Other long term (current) drug therapy; Z79.02 Long term (current) use of antithrombotics/antiplatelets
CPT/HCPCS: 36415; 76870; 80048; 80076; 81003; 83690; 83735; 85025; 87491; 87591; 93975; 99283; 99284

== ENCOUNTER 2024-07-20 15:39 | Outpatient (AMB) | payer MEDICAID, SELFPAY ==
--- NOTE | 2024-07-20 15:45 | MHC.OFFVIS ---
Intake Visit Reasons: nocturia Intake Note: Patient is present for NOCTURIA Urology Medication:VITAMIN B12 Antibiotic Allergy:NONE Blood Thinner:ASPIRIN TODAY'S PVR:62ML'S Liquid Flavor Compounder Required: No Allergies No Known Allergies [No Known Allergies*] Allergy (Verified 07/20/24 15:46) PFSH Medical History Testicular pain, left Rectal bleeding Anxiety and depression CAD (coronary artery disease) Left inguinal hernia Chronic back pain Atherosclerotic cardiovascular disease Surgical History Hx of colonoscopy History of surgery History of left inguinal hernia repair History of cardiac catheterization (~04/2015) Family History Father Diabetes Social History Household Members: Spouse Alcohol intake: never Patient Tobacco Use Status: Never used Tobacco Current occupational status: disabled Review of Systems Const All systems reviewed & are unremarkable except as noted in HPI and below Reports no additional complaints Eyes Reports no additional complaints ENT Reports no additional complaints Card Reports no additional complaints Resp Reports no additional complaints GI Reports no additional complaints Reports as per HPI Musc Reports no additional complaints Skin/Breast Reports system reviewed and no additional complaints, except as documented Neuro Reports no additional complaints Psych Reports no additional complaints Endo Reports no additional complaints Alexandre/Lymph Reports no additional complaints Aller/Immun Reports no additional complaints Office Procedures Post Void Residual Post Residual Void Post Void Residual (PVR): 62 [id number] Void Residual by ultrasound Results AMB Urinalysis, Automated UA Leukoctes 0 Kay/uL Last Edit by HITESH Chew on 07/20/24 16:30 UA Nitrite Negative Last Edit by HITESH Chew on 07/20/24 16:30 UA Urobilinogen 17 mg/dL Last Edit by HITESH Chew on 07/20/24 16:30 UA Protein 0 mg/dL Last Edit by HITESH Chew on 07/20/24 16:30 UA pH 6.5 Last Edit by HITESH Chew on 07/20/24 16:30 UA Blood 0 Doni/uL Last Edit by HITESH Chew on 07/20/24 16:30 UA Specific [place] 1.020 Last Edit by HITESH Chew on 07/20/24 16:30 UA Ketone Negative Last Edit by HITESH Chew on 07/20/24 16:30 UA Bilirubin 0 mg/dL Last Edit by HITESH Chew on 07/20/24 16:30 UA Glucose 0 mg/dL Last Edit by HITESH Chew on 07/20/24 16:30 Results Reviewed Results Reviewed: Laboratory Last Values Urine pH (Auto) 6.5 07/20/24 16:29 Specific [place] (Auto) 1.020 07/20/24 16:29 Urine Protein (Auto) 0 mg/dL 07/20/24 16:29 Glucose (UA)(Auto) 0 mg/dL 07/20/24 16:29 Urine Ketones (Auto) Negative 07/20/24 16:29 Urine Blood (Auto) 0 Doni/uL 07/20/24 16:29 Urine Nitrite (Auto) Negative 07/20/24 16:29 Urine Bilirubin (Auto) 0 mg/dL 07/20/24 16:29 Urine Urobilinogen (Auto) 17 mg/dL 07/20/24 16:29 Leukocyte Esterase (Auto) 0 Kay/uL 07/20/24 16:29 Assessment & Plan Assessment & Plan Orders: Orders AMB Urinalysis Automated Today Z13.9 - Encounter for screening, unspecified Medications: New clotrimazole-betamethasone 1-0.05 % 1 appl topical BID 45 grams 1RF Coding CPT Codes Post Residual Void - PVR CPT Code: [id number] Void Residual by ultrasound ([id number])
== END 2024-07-20 16:40 | disposition home or self-care (01) ==
LOC: HO.HUSH 15:39
PROVIDERS: PCP General Practice; Visit Provider Urology
DX: Z13.9 Encounter for screening, unspecified (principal)

== ENCOUNTER → 2024-07-20 15:39 | Outpatient (BNVA) | payer MEDICAID, SELFPAY | PROVIDERS: PCP General Practice; Visit Provider Urology | DX: N50.812 Left testicular pain (principal); N48.89 Other specified disorders of penis | CPT/HCPCS: 51798; 81003; 99202 ==

== ENCOUNTER 2024-07-31 13:49 | Outpatient (REF) | payer MEDICAID, SELFPAY ==
--- OUTSIDE RECORDS SUMMARY | 2024-07-31 14:16 | XMS_ITS | Encounter Summary ---
Author Organization [employer] Address [address] [place] [address] [address] [place] [address] Care Team Providers Care Check Processor Name Role Phone Nina Nassar MD Primary Care Provider Reason for Visit * Reason Comments Med Refill Encounter Details Date Type Department Care Team (Late st Contact Info) Description 02/02/2024 Refill [facility]ICINE [address] [place], [place] [phone] Ashley Contreras MD [address] [place], [place] [phone] Xerosis of skin Social History Tobacco Use Types Packs/Day Years Used Date Smoking Tobacco: Never Passive Smoke Exposure: Never Smokeless Tobacco: Never Alcohol Use Standard Drinks/Week Comments Never 0 (1 standard drink = 0.6 oz pur e alcohol) Alcohol Answer Date Recorded Frequency of Alcohol Consumption Not on file 10/28/2023 Average Number of Drinks Not on file 024 Frequency of Binge Drinking Not on file 10/09 Score 0 10/28/2023 Depression Answer Date Recorded Patient Health Questionnaire-9 Score 14 10/28/2023 Patient Health Questionnaire-9 Score 14 10/28/2023 Last PHQ-9: Questionnaire Data Not on file 0 10/28/2023 Housing Stability Answer Date Recorded What is your housing situation today? I have taty donohue 03/25/[address] you li ve. Do you have problems with any of the following? None of the above 03/25/2023 Food Insecurity Answer Date Recorded Within the past 12 months, y ou worried that your food would run out before you got money to buy more: Never True 03/25/2023 Within the past 12 months,th e food you bought just didn't last and you didn't have enough money to get more: Never True Transportation Answer Date Recorded In the past 12 months, has l ack of transportation kept you from medical appts, meetings, work or from getting things needed for daily living? Yes, it has kept me from medical appointments or getting medications. 10/28/2023 Utilities Answer Date Recorded In the past 12 months, has t he electric, gas, oil or water company threatened to shut off services in your home? No 03/25/2023 Depression Answer Date Recorded Patient Health Questionnaire-2 Score 0 10/28/2023 Sex and Gender Information Value Date Recorded Sex Assigned at Male 04/09/2022 10:33 AM EDT Legal Sex Male 10:33 AM EDT Gender Identity Male 04/09/2022 10:33 AM EDT Sexual Orientation Straight 04/09/2022 10 :33 AM EDT documented as of this encounter Plan of Treatment Upcoming Encounters Date Type Department Care Team (Late st Contact Info) Description 08/14/2024 11:30 AM EST Office Visit [facility] MEDICINE [address] [place] [phone] Ashley Contreras MD [address] [place] [phone] 10/12/2024 8:00 AM EDT Office Visit [facility] ADULT DENTAL [address] [place] [phone] Miley Holt [address] [place] [address] documented as of this encounter Visit Diagnoses Diagnosis Xerosis of skin documented in this encounter Additional Health Concerns Assessment Noted Time PHQ-9 Depression Total Score: 14 024 10:35 AM EDT documented as of this encounter Care Teams Check Processor Relationship Specialty Start Date End Date Nina Nassar MD [address] [place] [phone] PCP - General Family Medicine 03/29/20 documented as of this encounter
--- OUTSIDE RECORDS SUMMARY | 2024-07-31 14:16 | XMS_ITS | Clinical Summary ---
Author Organization [employer] Address [address] [facility] 7t [place] [address] Care Team Providers Care Record Clerk Name Role Phone Nina Nassar MD Primary Care Provider [phone] Allergies No known active allergies Medications docusate sodium (Colace) 100 MG capsule Take 200 mg by mouth at bedtime. 06/13/19 23 Active escitalopram (Lexapro) 20 MG tablet Take 20 mg by mouth in the morning. 09/22/19 23 Active Citrucel 500 MG tablet Take 1 tablet by mouth 2 times daily. 09/11/19 23 Active polyethylene glycol, PEG, 3350 (Glycolax) 17 GM/SCOOP powder DISSOLVE 1 CAPFUL IN LIQUID AND DRINK BY MOUTH DAILY FOR 30 DAYS 07/19/19 23 Active Gas Relief Extra Strength 125 MG chewable tablet CHEW 1 TABLET BY MOUTH THREE TIMES DAILY TO FOUR TIMES DAILY NEEDED FOR DISTENTION 06/22/19 23 Active zolpidem (Ambien) 10 MG tablet Take 10 mg by mouth if needed at bedtime. 09/08/19 23 Active buPROPion XL (Wellbutrin XL) 300 MG 24 hr tablet TAKE 1 TABLET (300 MG) BY MOUTH IN THE MORNING 90 tablet 3 07/08/19 24 Active dicyclomine (Bentyl) 20 MG tablet TAKE 1 TABLET BY MOUTH UP TO 2 TIMES EVERY DAY FOR GAS 180 tablet 3 10/16/19 24 Active rosuvastatin (Crestor) 10 MG tablet TAKE 1 TABLET BY MOUTH EVERY MORNING 90 tablet 3 10/16/19 24 Active chlorthalidone (Hygroton) 25 MG tablet TAKE 1 TABLET BY MOUTH EVERY DAY IN THE MORNING 90 tablet 3 10/17/19 24 Active tacrolimus (Protopic) 0.03 % ointmentIndicat ions:Inverse psoriasis Apply topically Once per day. Apply to rash above rectum 100 g 10/28/19 24 025 Active cyanocobalamin (Vitamin B-12) 500 MCG tablet Take 1 tablet (500 mcg) by mouth Once per day. 90 tablet 3 10/28/19 24 Active fluticasone (Flonase) 50 MCG/ACT nasal spray SHAKE LIQUID AND USE 2 SPRAYS IN EACH NOSTRIL EVERY DAY 48 g 10/28/19 24 Active econazole nitrate 1 % creamIndication s:Intertrigo Apply topically 2 times daily. 30 g 01/17/20 24 025 Active triamcinolone (Kenalog) 0.1 % creamIndication s:Xerosis of skin Mix with Cerave and apply after showers neck down. 30 g 2 01/17/20 24 Active aspirin (Aspirin Low Dose) 81 MG EC tablet TAKE 1 TABLET BY MOUTH EVERY MORNING 90 tablet 3 01/20/20 24 Active ferrous sulfate 325 (65 Fe) MG tabletIndicatio ns:Iron deficiency anemia, unspecified iron deficiency anemia type TAKE 1 TABLET BY MOUTH EVERY MORNING 90 tablet 3 01/20/20 24 Active cholecalciferol (D3 Super Strength) 50 MCG (2000 UT) capsuleIndicati ons:Vitamin D deficiency TAKE 1 CAPSULE BY MOUTH EVERY MORNING 90 capsule 3 01/20/20 24 Active ibuprofen 600 MG tabletIndicatio ns:Other chronic pain TAKE 1 TABLET BY MOUTH THREE TIMES DAILY WITH FOOD NEEDED FOR PAIN 90 tablet 3 02/18/20 24 Active gabapentin (Neurontin) 300 MG capsule TAKE 1 CAPSULE BY MOUTH TWICE A DAY 60 capsule 6 06/15/19 25 Active carboxymethylce llulose sodium (Refresh Contacts) solution OPHTHalmic solution Administer 1 drop into both eyes 3 times daily. 12 mL 06/15/19 25 Active hydrOXYzine HCl (Atarax) 10 MG tablet Take 1 tablet (10 mg) by mouth every 12 (twelve) hours if needed for itching or anxiety. 90 tablet 3 06/15/19 25 025 Active betamethasone valerate (Valisone) 0.1 % cream Apply topically if needed in the morning and at bedtime for rash. 45 g 2 06/15/19 25 Active clotrimazole-be tamethasone (Lotrisone) cream APLIQUE AL JONG AFECTADA DOS VECES AL D A FOR 14 DAYS 12/24/19 24 Active cephalexin (Keflex) 500 MG capsule TOME 1 C PSULA POR V A ORAL GARO VECES AL D A POR 7 D 12/02/19 24 Active hydrOXYzine HCl (Atarax) 25 MG tablet TAKE 1 TABLET (ORAL) DAILY ( NEEDED FOR ITCHING) FOR 10 DAYS 12/16/19 24 Active folic acid (Folvite) 400 MCG tabletIndicatio ns:Folic acid deficiency TAKE 1 TABLET (400 MCG) BY MOUTH IN THE MORNING. 90 tablet 3 07/15/19 25 Active acetaminophen (Tylenol) 500 MG tabletIndicatio ns:Leg cramping Take 2 tablets (1,000 mg) by mouth every 6 (six) hours if needed for moderate pain for up to 25 doses. 50 tablet 07/31/19 25 Active folic acid (Folvite) 400 MCG tabletIndicatio ns:Folic acid deficiency TAKE 1 TABLET (400 MCG) BY MOUTH IN THE MORNING. 90 tablet 3 07/19/19 24 025 Discontinued Active Problems Problem Noted Date Diagnosed Date Gingival bleeding 04/13/2024 Tooth hypersensitivity 04/13/2024 Requires assistance with activities of daily meron ing (ADL) 05/04/2023 Assessment & Plan (05/04/2023 8:02 AM EST): Instructed patient to go to medical records to contact [employer] agency and re- establish care for assistance with bathing, washing, shopping, cooking Dental calculus 01/07/2023 Periodontal disease 01/07/2023 Localized gingival recession 01/07/2023 Right anterior shoulder pain 10/22/2022 Assessment & Plan (05/04/2023 8:09 AM EST): Xray with moderate AC joint arthritis Sp med and injection trial without benefit Declines PT for now due to transportation issues Will work on getting [employer] care re-established Gentle stretching at home Assessment & Plan (10/26/2022 5:31 AM EDT): Xray Ddx: arthritis, frozen 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 Assessment & Plan (06/17/2024 12:45 PM EST): Still present, last seen by derm 02/2024, request followup for repeat recommendations Assessment & Plan (05/04/2023 8:08 AM EST): Protopic and econazole daily x 3 months per derm Assessment & Plan (10/26/2022 5:31 AM EDT): Per derm, of gluteal cleft Triamcinolone ointment 0.1% BID x 14 days, then weekends for maintenance Essential hypertension 08/31/2022 Assessment & Plan (06/17/2024 12:47 PM EST): At goal Continue chlorthalidone 25mg daily Assessment & Plan (10/26/2022 5:30 AM EDT): At goal Gastroesophageal reflux disease 08/31/2022 Hand eczema 08/31/2022 Headache disorder 08/31/2022 Rhinitis 08/31/2022 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 Assessment & Plan (10/26/2022 5:30 AM EDT): Pending repeat ultrasound Depressive disorder 07/19/2020 Assessment & Plan (05/04/2023 8:03 AM EST): Discussed how this can be affecting his various pain complaints, mind-body connection He has thoughts of passive suicidality, no active plan He is lonely, works and daughter goes to school during the day Assessment & Plan (10/26/2022 5:32 AM EDT): Discussed how this can be affecting his various pain complaints, mind-body connection Obstructive sleep apnea syndrome 11/22/2017 Varicose veins of lower extremity with inflammat ion 11/22/2017 Assessment & Plan (10/30/2023 9:36 AM EDT): Order more compression stockings 20-30mmHg Assessment & Plan (10/26/2022 5:32 AM EDT): S/p ablation Healed well Chronic back pain 08/05/2017 Coronary arteriosclerosis 08/05/2017 Scoliosis deformity of spine 08/05/2017 Encounters Date Type Department Care Team Description 07/31/2024 1:00 PM EST Office Visit [facility] [address] [place] [phone] Leg cramping (Primary Dx); Dry mouth 07/15/2024 Refill [facility] [address] [place] [phone] Nina Nassar MD Folic acid deficiency 06/17/[address] [address] Nina Nassar MD 06/15/2024 4:00 PM EST Office Visit [facility] [address] [place] [address] Nina Nassar MD Inverse psoriasis (Primary Dx); Dietary counseling; Exercise counseling; Class 2 obesity without serious comorbidity with body mass index (BMI) of 37.0 to 37.9 in adult, unspecified obesity type; Essential hypertension; Depressive disorder 06/15/2024 Travel 05/06/2024 3:00 PM EST Office Visit [facility] [address] [place] [phone] Rendon-Coleman, Brit, DDS Periapical abscess without sinus (Primary Dx); Necrosis of dental pulp from Last 3 Months Immunizations Name Administration Dates Next Due INFLUENZA INJECTABLE QUADRIV ALANT CCIIV4 MDCK Multi-dose vial 06/08/2019 Influenza Injectable Quadriv alant Preservative Free IIV4 MDCK 03/10/2020 Influenza injectable quadriv alent IIV4 with preservative 08/05/2017 Influenza injectable quadriv alent preservative free 04/03/2023,03/08/2022,03/13/2021,2017 Pfizer Covid-19 Vaccine 12+ 11/09/2020, Pfizer Covid-19 Vaccine 12+ Bivalent 03/16/2022 Tdap 08/05/2017 Social History Tobacco Use Types Packs/Day Years Used Date Smoking Tobacco: Never Passive Smoke Exposure: Never Smokeless Tobacco: Never Tobacco Cessation:Counseling Given: Not Answered Alcohol Use Standard Drinks/Week Comments Never 0 [...] Orientation Straight 04/09/2022 10 :33 AM EDT Last Filed Vital Signs Vital Sign Reading Time Taken Comments Blood Pressure 118/76 07/31/2024 1:34 PM EST Pulse 91 07/31/2024 1:04 PM EST Temperature 36.6 ??C (97.9 ??F) 07/31/2024 1:04 PM ES T Respiratory Rate 18 07/31/2024 1:04 PM EST Oxygen Saturation 100% 06/15/2024 4:02 PM EST Inhaled Oxygen Concentration - - Weight 105 kg (230 lb 12.8 oz) 07/31/2024 1:04 P M EST Height 167.6 cm (5' 6 ) 07/31/2024 1:04 PM EST Body Mass Index 37.25 07/31/2024 1:04 PM EST Plan of Treatment Upcoming Encounters Date Type Department Care Team (Late st Contact Info) Description 08/14/2024 11:30 AM EST Office Visit [facility] [address] [place] [address] Ashley Contreras MD [address] [place] [address] 10/12/2024 8:00 AM EDT Office Visit [facility] [address] [place] [address] Jonathon, Miley [address] [place] [address] Health Maintenance Due Date Last Done Comments CT Colonography 1977 FIT DNA/Cologuard 1977 FIT 1977 FOBT 1977 Sigmoidoscopy 1977 Family Planning (PISQ) 1992 Hepatitis B Vaccines (1 of 3 - 19+ 3-dose series) 1996 Pneumococcal Vaccine: Pediatrics (0 to 5 Years) and At-Risk Patients (6 to 49) Years) (1 of 2 - PCV) 1996 Dental Oral Exam 07/11/2023 01/07/2023, , 06/20/2020, Additional history exists COVID-19 Vaccine ( - 2023- season) 2024 03/16/2022, 11/09/2020, 10/20/2020 Influenza Vaccine (#1) 2024 , 03/08/2022, 03/13/2021, Additional history exists Depression Monitoring (PHQ-9) 04/29/2024 10/28/2023, 10/28/2023 Dental X-Ray: Full Mouth 08/03/2024 08/02/2021, 02/09 Dental Prophylaxis 10/12/2024 04/13/2024, 0 11/18/2023, 01/07/2023, Additional history exists Alcohol/Substance Use Screening 10/27/2024 10/28/2023 Depression Screening 10/27/2024 10/28/2023, 10/28/19 SDOH Screening 10/27/2024 10/28/2023 Dental X-Ray: Bitewings 04/14/2025 04/13/20 24, 01/07/2023, 08/02/2021, Additional history exists Tobacco Screening 07/31/2025 07/31/2024 Zoster Vaccines (1 of 2) 2027 Colonoscopy 05/10/2027 Colorectal Cancer Screening 05/10/2027 DTaP/Tdap/Td Vaccines (2 - Td or Tdap) 08/05/2027 08/05/2017 Lipid Panel 10/27/2028 10/28/2023 RSV Patients and Patients Aged 60 years or older (1 - 1-dose 75+ series) 2052 HIV Screening Completed 09/13/2021 Hepatitis C Screening Completed 09/13/2021 HIB Vaccines Aged Out No longer eligi ble based on patient's age to complete this topic HPV Vaccines Aged Out No longer eligi ble based on patient's age to complete this topic Hepatitis A Vaccines Aged Out No long er eligible based on patient's age to complete this topic IPV Vaccines Aged Out No longer eligi ble based on patient's age to complete this topic Meningococcal Vaccine Aged Out No khoa hever eligible based on patient's age to complete this topic RSV under 20 months Aged Out No longe r eligible based on patient's age to complete this topic Rotavirus Vaccines Aged Out No longer eligible based on patient's age to complete this topic Procedures Procedure Name Priority Date/Time Associated Diagnosis Comments CASE PRESENTATION, DETAILED AND EXTENSIVE TREATMENT PLANNING Routine 05/06/2024 3:00 PM EST Periapical abscess without sinus Necrosis of dental pulp 9 LIMITED ORAL EVALUATION - PROBLEM FOCUSED Routine 05/06/2024 3:00 PM EST Periapical abscess without sinus Necrosis of dental pulp PROPHYLAXIS - ADULT Routine 04/13/2024 1 0:00 AM EST Dental calculus Periodontal disease Localized gingival recession Gingival bleeding BITEWINGS - 4 RADIOGRAPHIC IMAGES Routine 04/13/2024 10:00 AM EST Dental calculus Periodontal disease Localized gingival recession Gingival bleeding LIPID PANEL, STANDARD Routine 10/28/2023 12:11 PM EDT Essential hypertension PERIODIC ORAL EVALUATION - ESTABLISHED PATIENT Routine 01/07/2023 10:00 AM EDT ZZZ HISTORICAL HEPATITIS C AB W/REFL TO HCV RNA, QN, PCR Routine 09/13/2021 3:23 PM EDT HIV 1/2 ANTIGEN/ANTIBODY, FOURTH GENERATION W/RFL Routine 09/13/2021 3:23 PM EDT INTRAORAL - COMPLETE SERIES OF RADIOGRAPHIC IMAGES Routine 08/02/2021 12:00 AM EST from Last 3 Months or Most Recently Relevant to Health Maintenance Results * Lipid Panel, Standard (10/28/2023 12:11 PM EDT) Triglycerides 44 <150 mg/dL [facility] Comment:Desirable Triglyceri de: less than 150 mg/dLBorderline High Triglyceride 150-199 mg/dLHigh Triglyceride: 200-499 mg/dLVery High Triglyceride: greater than or equal to 5OO mg/dL Cholesterol 115 <200 mg/dL [facility] Comment:Desirable Cholestero l: less than 200 mg/dLBorderline High Cholesterol: 200-239 mg/dLHigh Cholesterol: greater than 239 mg/dL LDL Cholesterol Calculated 60 <100 mg/dL [facility] Comment:Desirable LDL: less than 100 mg/dLNear Optimal/Above Optimal LDL: 110- 129 mg/dLBorderline High LDL: 130-159 mg/dLHigh LDL: 160-189 mg/dLVery High LDL: greater than or equal to 190 mg/dL HDL Cholesterol 47 >40 mg/dL [facility] Comment:Desirable HDL: great er than 40 mg/dL Note: This HDL assay may give artificially low results in patients with liver disease. Blood Venous blood specimen / Unknown 10/28/2023 12:11 PM EDT 10/28/2023 4:22 PM EDT Nina Nassar MD LAB BLOOD ORDERABLES Final Res ult Performing Organization Address City/[facility]/ZIP Co de Phone Number [facility] [address] [place] [address] [phone] * HEPATITIS C AB W/REFL TO HCV RNA, QN, PCR (09/13/2021 3:23 PM EDT) HEPATITIS C ANTIBODY NON-REACT PINKY NON-REACT PINKY [facility] INDEX 0.01 <1.00 [facility] Comment: ?? HCV antibody was non-reactive. There is no laboratory ?? evidence of HCV infection. ?? In most cases, no further action is required. However, if recent HCV exposure is suspected, a test for HCV RNA (test code 83311) is suggested. ?? For additional information please refer to http://PollGround.ShotSpotter/faq/XIW84r0 (This link is being provided for informational/ educational purposes only.) ?? 09/13/2021 3:23 PM EDT Nina Nassar MD HISTORICAL/NON ORDERABLE LABS Final Result Performing Organization Address [facility] Co de Phone Number [facility] [address] * HIV 1/2 ANTIGEN/ANTIBODY,FOURTH GENERATION W/RFL (09/13/2021 3:23 PM EDT) HIV-1/2 ANTIGEN AND ANTIBODIES, 4TH GENERATION W/ REFLEX NON-REACT PINKY NON-REACT PINKY [facility] Comment: HIV-1 antigen and HIV-1/HIV-2 antibodies were not detected. There is no laboratory evidence of HIV infection. ?? PLEASE NOTE: This information has been disclosed to you from records whose confidentiality may be protected by state law. ??If your state requires such protection, then the state law prohibits you from making any further disclosure of the information without the specific written consent of the person to whom it pertains, or as otherwise permitted by law. A general authorization for the release of medical or other information is NOT sufficient for this purpose. ? For additional information please refer to http://education.Breeze Tech.Nordic Neurostim/faq/AOS191 (This link is being provided for informational/ educational purposes only.) ? The performance of this assay has not been clinically validated in patients less than 2 years old. ?? 09/13/2021 3:23 PM EDT us Nina Nassar MD LAB BLOOD ORDERABLES Final Res ult [facility] [address] from Last 3 Months or Most Recently Relevant to Health Maintenance [place] [address] [place] [address] C3 [facility] MEDICAID STAND ADULT Care Teams Record Clerk Relationship Specialty Start Date End Date Nina Nassar MD [address] [place] [phone] PCP - General Family Medicine 03/29/20
--- OUTSIDE RECORDS SUMMARY | 2024-07-31 14:16 | XMS_ITS | Encounter Summary ---
Author Organization [employer] Address [address] [place] [address] 7 [place] [address] Care Team Providers Care Line Servicer Name Role Phone Nina Nassar MD Primary Care Provider [phone] Reason for Visit * Reason Comments Med Refill Encounter Details Date Type Department Care Team (Late st Contact Info) Description 02/26/2024 Refill [facility] [address] [place], [place] [phone] Ashley Contreras MD [address] [place], [place] [phone] Xerosis of skin Social History Tobacco Use [...] Description 08/14/2024 11:30 AM EST Office Visit [facility] [address] [place] [phone] Ashley Contreras MD [address] [place] [address] 10/12/2024 8:00 AM EDT Office Visit [facility] [address] [place] [address] Miley Holt [address] [place] [address] documented as of this encounter Visit Diagnoses Diagnosis Xerosis of skin documented in this encounter Additional Health Concerns Assessment Noted Time PHQ-9 Depression Total Score: 14 024 10:35 AM EDT documented as of this encounter Care Teams Line Servicer Relationship Specialty Start Date End Date Nina Nassar MD [address] [place] [phone] PCP - General Family Medicine 03/29/20 documented as of this encounter
--- OUTSIDE RECORDS SUMMARY | 2024-07-31 14:16 | XMS_ITS | Encounter Summary ---
Author Organization [employer] Address [address] [place] [address] 7 [place] [address] Care Team Providers Care Manager Of Application Development Name Role Phone Nina Nassar MD Primary Care Provider [phone] Reason for Visit * Reason Comments Med Refill Encounter Details Date Type Department Care Team (Late st Contact Info) Description 07/15/2024 Refill [facility] [address] [place], [place] [phone] Nina Nassar MD [address] [place] [address] Folic acid deficiency Social History Tobacco Use Types Packs/Day Years [...] Description 08/14/2024 11:30 AM EST Office Visit [facility] [address] [place] [phone] Ashley Contreras MD [address] [place] [address] 10/12/2024 8:00 AM EDT Office Visit [facility] [address] [place] [address] David Holtaris [address] [place] [address] documented as of this encounter Visit Diagnoses Diagnosis Folic acid deficiency Other B-complex deficiencies documented in this encounter Additional Health Concerns Assessment Noted Time PHQ-9 Depression Total Score: 14 024 10:35 AM EDT documented as of this encounter Care Teams Manager Of Application Development Relationship Specialty Start Date End Date Nina Nassar MD [address] [place] [phone] PCP - General Family Medicine 03/29/20 documented as of this encounter
--- OUTSIDE RECORDS SUMMARY | 2024-07-31 14:17 | XMS_ITS | Encounter Summary ---
Author Organization [employer] [facility] Address [address] [place] [address] 7 [place] [address] Care Team Providers Care Purchasing Administrator Name Role Phone Nina Nassar MD Primary Care Provider [phone] Encounter Details Date Type Department Care Team (Latest Contact Info) Description 08/27/2018 Abstract [facility] CONVERSIONS Dental, Provider, DDS Social History Tobacco Use Types Packs/Day Years Used Date Smoking Tobacco: Never Assessed Sex and Gender Information Value Date Recorded Sex Assigned at Male 04/09/2022 10:33 AM EDT Legal Sex Male 10:33 AM EDT Gender Identity Male 04/09/2022 10:33 AM EDT Sexual Orientation Straight 04/09/2022 10 :33 AM EDT documented as of this encounter Plan of Treatment Upcoming Encounters Date Type Department Care Team ( st Contact Info) Description 08/14/2024 11:30 AM EST Office Visit [facility] [address] [place] [address] Ashley Contreras MD [address] [place] [address] 10/12/2024 8:00 AM EDT Office Visit [facility] [address] [place] [address] Miley Holt [address] [place] [address] documented as of this encounter Visit Diagnoses Not on filedocumented in this encounter Care Teams Purchasing Administrator Relationship Specialty Start Date End Date Nina Nassar MD [address] [place] [phone] PCP - General Family Medicine 03/29/20 documented as of this encounter
--- OUTSIDE RECORDS SUMMARY | 2024-07-31 14:17 | XMS_ITS | Encounter Summary ---
Author Organization [employer] Address [address] [facility] [address] [place] [address] Care Team Providers Care Wastewater Operator Name Role Phone Nina Nassar MD Primary Care Provider [phone] Encounter Details Date Type Department Care Team ([facility] st Contact Info) Description 03/06/2024 Orders Only [facility] [address] [place], [place] [phone] Nina Nassar MD [address] [place], [place] [phone] Social History Tobacco Use Types Packs/Day Years [...] Description 08/14/2024 11:30 AM EST Office Visit [facility] [address] [place] [phone] Ashley Contreras MD [address] [place] [address] 10/12/2024 8:00 AM EDT Office Visit [facility] ADULT DENTAL [address] [place] [address] Miley Holt [address] [place] [address] documented as of this encounter Procedures Procedure Name Priority Date/Time Associated Diagnosis Comments CHLAMYDIA/N. GONORRHOEAE RNA, TMA, UROGENITAL Routine 03/25/2024 12:37 PM EDT US SCROTUM DOPPLER Routine 03/25/2024 12 :01 PM EDT US SCROTUM Routine 03/25/2024 12:01 PM EDT CBC WITH AUTO DIFFERENTIAL Routine 03/25/2024 9:38 AM EDT URINALYSIS WITH REFLEX MICROSCOPIC Routine 03/25/2024 9:38 AM EDT MAGNESIUM Routine 03/25/2024 9:38 AM EDT LIPASE Routine 03/25/2024 9:38 AM EDT HEPATIC FUNCTION PANEL Routine 03/25/2024 9:38 AM EDT BASIC METABOLIC PANEL Routine 03/25/2024 9:38 AM EDT documented in this encounter Results * Chlamydia/N. Gonorrhoeae RNA, TMA, Urogenitial (03/25/2024 12:37 PM EDT) CT PCR NOT DETECTED Not Detect. [facility] Comment:A not detected test result does not exclude the possibilityof infection because test results can be affected byimproper specimen collection, concurrent antibiotic therapy,or the number of organisms in the specimen which may bebelow the sensitivity of the test. As with many diagnostictests, results from the Xpert CT/NG assay should beinterpreted in conjunction with other laboratory andclinical data available to the clinician.Xpert CT/NG performance has not been evaluated in patientsless than 14 years of age. The assay should not be used forthe evaluationof suspected sexual abuse or for other medico-legalindications. Additional testing is recommended in anycircumstance when false positive or false negative resultscould lead to adverse medical, social or psychologicalconsequences. NG PCR NOT DETECTED Not Detect. [facility] Comment:A not detected test result does not exclude the possibilityof infection because test results can be affected byimproper specimen collection, concurrent antibiotic therapy,or the number of organisms in the specimen which may bebelow the sensitivity of the test. As with many diagnostictests, results from the Xpert CT/NG assay should beinterpreted in conjunction with other laboratory andclinical data available to the clinician.Xpert CT/NG performance has not been evaluated in patientsless than 14 years of age. The assay should not be used forthe evaluationof suspected sexual abuse or for other medico-legalindications. Additional testing is recommended in anycircumstance when false positive or false negative resultscould lead to adverse medical, social or psychologicalconsequences. 03/25/2024 12:3 7 PM EDT 03/25/2024 12:45 PM EDT Narrative [facility] - 03/25/2024 2:20 PM EDT Urine us Generic External Data Provider LAB MICROBIOLOGY - GENERAL ORDERABLES Final Result [facility] [address] [place] [address] [phone] * US SCROTUM DOPPLER (03/25/2024 12:01 PM EDT) Anatomical Region Laterality Modality Abdomen Ultrasound 03/25/2024 12:0 1 PM EDT Narrative 05/01/2024 1:11 PM EST ? [facility] ?[address] ?[place] [address] ? Ultrasound Report ? Signed ? Patient: Contreras Schrader ?MR#: ?? [id number] ? : 1975 ?Acct:[id number] ? Age/Sex: 48 / M ?ADM Date: 03/25/24 ? Loc: HO.ED ? Attending Dr: ? Ordering Physician: Yumi Khan ?? Date of Service: 03/25/24 ?? Procedure(s): US scrotum doppler ?? Accession Number(s): [id number] ? cc: Nina Nassar; Yumi Khan ? EXAMINATION: ?? US SCROTUM ? CLINICAL INFORMATION: ?? 48-year-old male with left testicular pain. ? COMPARISON: ?? 04/11/2021 ? TECHNIQUE: ?? A sonogram of the scrotum was performed assessing morocho-scale appearance ?? and color Doppler flow. Spectral Doppler analysis of the arterial and ?? venous flow were performed in the testes bilaterally. ? FINDINGS: ? RIGHT: Right testicle measures 4.2 x 2.4 x 3.0 cm, volume 15.6 mL. No ?? focal testicular parenchymal lesions are visualized. Spectral Doppler ?? analysis of the arterial and venous flow is normal in the right testis. ?? There is mild microlithiasis ?? Right epididymal head is normal in size. No right hydrocele or ?? varicocele is seen. Right epididymal Doppler flow is normal there is ?? small epididymal head cyst measured 0.5 cm ? LEFT: Left testicle measures 4.2 x 2.2 x 2.9 cm, volume 13.8 mL. No ?? focal testicular parenchymal lesions are visualized. Spectral Doppler ?? analysis of the arterial and venous flow is normal in the left testis. ?? There is mild microlithiasis. Left epididymal head is normal in size. ?? No left hydrocele or varicocele is seen. Left epididymal Doppler flow ?? is normal. ?? There is 0.3 x 0.2 x 0.3 cm and 0.2 x 0.1 x 0.1 cm simple epididymal ?? head cysts on the left. ? US/US scrotum doppler ?? IMPRESSION: ?? 1. ??Mild microlithiasis bilaterally. ?? 2. ??Small bilateral epididymal head cysts. ? Electronically signed by: ??Keri Lopes MD ??03/25/2024 02:17 PM EDT RP ? Dictated By: ?Keri Lopes MD ? Signed By: ?<Electronically signed by Keri Lopes MD in OV> ? 05/01/24 1310 ? DD/ 1201 ? TD/TT: 03/25/24 1222 ? Security Assurance Specialist: ? Procedure Note Nick Patton - 05/01/[address] [address] Ultrasound Report Signed Patient: Contreras SchraderisMR#: [id number] : 1975Acct:[id number] Age/Sex: 48 / MADM Date: 03/25/24 Loc: HO.ED Attending Dr: Ordering Physician: Yumi Khan Date of Service: 03/25/24 Procedure(s): US scrotum doppler Accession Number(s): [id number] cc: Nina Nassar; Yumi Khan EXAMINATION: US SCROTUM CLINICAL INFORMATION: 48-year-old male with left testicular pain. COMPARISON: 04/11/2021 TECHNIQUE: A sonogram of the scrotum was performed assessing morocho-scale appearance and color Doppler flow. Spectral Doppler analysis of the arterial and venous flow were performed in the testes bilaterally. FINDINGS: RIGHT: Right testicle measures 4.2 x 2.4 x 3.0 cm, volume 15.6 mL. No focal testicular parenchymal lesions are visualized. Spectral Doppler analysis of the arterial and venous flow is normal in the right testis. There is mild microlithiasis Right epididymal head is normal in size. No right hydrocele or varicocele is seen. Right epididymal Doppler flow is normal there is small epididymal head cyst measured 0.5 cm LEFT: Left testicle measures 4.2 x 2.2 x 2.9 cm, volume 13.8 mL. No focal testicular parenchymal lesions are visualized. Spectral Doppler analysis of the arterial and venous flow is normal in the left testis. There is mild microlithiasis. Left epididymal head is normal in size. No left hydrocele or varicocele is seen. Left epididymal Doppler flow is normal. There is 0.3 x 0.2 x 0.3 cm and 0.2 x 0.1 x 0.1 cm simple epididymal head cysts on the left. US/US scrotum doppler IMPRESSION: 1. Mild microlithiasis bilaterally. 2. Small bilateral epididymal head cysts. Electronically signed by: Keri Lopes MD 03/25/2024 02:17 PM EDT Dictated By: Keri Lopes MD Signed By: <Electronically signed by Keri Lopes MD in OV> 05/01/24 1310 DD/ 1201 TD/TT: 03/25/24 1222 Security Assurance Specialist: us [facility] External Provider IMG US PROCEDURES Final Result * US Scrotum (03/25/2024 12:01 PM EDT) Anatomical Region Laterality Modality Body Ultrasound 03/25/2024 12:0 1 PM EDT Narrative 03/25/2024 2:20 PM EDT ? [facility] ?[address] ?[place] [address] ? Ultrasound Report ? Signed ? Patient: Kwame Han,Shawn ?MR#: ?? [id number] ? : 1975 ?Acct:[id number] ? Age/Sex: 48 / M ?ADM Date: 03/25/24 ? Loc: HO.ED ? Attending Dr: ? Ordering Physician: Blake Becker MD ?? Date of Service: 03/25/24 ?? Procedure(s): US scrotum ?? Accession Number(s): [id number] ? cc: Blake Becker MD; Nina Nassar ? EXAMINATION: ?? US SCROTUM ? CLINICAL INFORMATION: ?? 48-year-old male with left testicular pain. ? COMPARISON: ?? 04/11/2021 ? TECHNIQUE: ?? A sonogram of the scrotum was performed assessing morocho-scale appearance ?? and color Doppler flow. Spectral Doppler analysis of the arterial and ?? venous flow were performed in the testes bilaterally. ? FINDINGS: ? RIGHT: Right testicle measures 4.2 x 2.4 x 3.0 cm, volume 15.6 mL. No ?? focal testicular parenchymal lesions are visualized. Spectral Doppler ?? analysis of the arterial and venous flow is normal in the right testis. ?? There is mild microlithiasis ?? Right epididymal head is normal in size. No right hydrocele or ?? varicocele is seen. Right epididymal Doppler flow is normal there is ?? small epididymal head cyst measured 0.5 cm ? LEFT: Left testicle measures 4.2 x 2.2 x 2.9 cm, volume 13.8 mL. No ?? focal testicular parenchymal lesions are visualized. Spectral Doppler ?? analysis of the arterial and venous flow is normal in the left testis. ?? There is mild microlithiasis. Left epididymal head is normal in size. ?? No left hydrocele or varicocele is seen. Left epididymal Doppler flow ?? is normal. ?? There is 0.3 x 0.2 x 0.3 cm and 0.2 x 0.1 x 0.1 cm simple epididymal ?? head cysts on the left. ? US/US scrotum ?? IMPRESSION: ?? 1. ??Mild microlithiasis bilaterally. ?? 2. ??Small bilateral epididymal head cysts. ? Electronically signed by: ??Keri Lopes MD ??03/25/2024 02:17 PM EDT RP ? Dictated By: ?Keri Lopes MD ? Signed By: ?<Electronically signed by Keri Lopes MD in OV> ? 05/01/24 1310 ? DD/ 1201 ? TD/TT: 03/25/24 1222 ? Security Assurance Specialist: ? Procedure Note Donotuseinterpreter, Image - 05/01/2024 [place] [address] Ultrasound Report Signed Patient: Contreras SchraderR#: [id number] : 1975Acct:[id number] Age/Sex: 48 / MADM Date: 03/25/24 Loc: HO.ED Attending Dr: Ordering Physician: Blake Becker MD Date of Service: 03/25/24 Procedure(s): US scrotum Accession Number(s): [id number] cc: Blake Becker MD; Nina Nassar EXAMINATION: US SCROTUM CLINICAL INFORMATION: 48-year-old male with left testicular pain. COMPARISON: 04/11/2021 TECHNIQUE: A sonogram of the scrotum was performed assessing morocho-scale appearance and color Doppler flow. Spectral Doppler analysis of the arterial and venous flow were performed in the testes bilaterally. FINDINGS: RIGHT: Right testicle measures 4.2 x 2.4 x 3.0 cm, volume 15.6 mL. No focal testicular parenchymal lesions are visualized. Spectral Doppler analysis of the arterial and venous flow is normal in the right testis. There is mild microlithiasis Right epididymal head is normal in size. No right hydrocele or varicocele is seen. Right epididymal Doppler flow is normal there is small epididymal head cyst measured 0.5 cm LEFT: Left testicle measures 4.2 x 2.2 x 2.9 cm, volume 13.8 mL. No focal testicular parenchymal lesions are visualized. Spectral Doppler analysis of the arterial and venous flow is normal in the left testis. There is mild microlithiasis. Left epididymal head is normal in size. No left hydrocele or varicocele is seen. Left epididymal Doppler flow is normal. There is 0.3 x 0.2 x 0.3 cm and 0.2 x 0.1 x 0.1 cm simple epididymal head cysts on the left. US/US scrotum IMPRESSION: 1. Mild microlithiasis bilaterally. 2. Small bilateral epididymal head cysts. Electronically signed by: Keri Lopes MD 03/25/2024 02:17 PM EDT RP Dictated By: Keri Lopes MD Signed By: <Electronically signed by Keri Lopes MD in OV> 05/01/24 1310 DD/ 1201 TD/TT: 03/25/24 1222 Security Assurance Specialist: us [facility] External Provider IMG US PROCEDURES Edited Result - Final * Lipase (03/25/2024 9:38 AM EDT) Lipase 24 8 - 78 U/L [facility] 03/25/2024 9:38 AM EDT 03/25/2024 9:43 AM EDT Generic External Data Provider LAB BLOOD ORDERAB LES Final Result Performing Organization Address [facility] Co de Phone Number [facility] [address] [place] [phone] * Magnesium (03/25/2024 9:38 AM EDT) Pathologist [facility] Magnesium 1.8 1.6 - 2.6 mg/dL [facility] 03/25/2024 9:38 AM EDT 03/25/2024 9:43 AM EDT Generic External Data Provider LAB BLOOD ORDERAB LES Final Result Performing Organization Address [facility] Co de Phone Number [facility] [address] [place] [phone] * (ABNORMAL) Hepatic Function Panel (03/25/2024 9:38 AM EDT) Bilirubin, Total 2.0(H) 0.0 - 1.0 mg/dL [facility] Bilirubin, Direct 0.6(H) 0.0 - 0.5 mg/dL [facility] Aspartate Amino Transferase 22 5 - 37 U/L [facility] Alanine Aminotransferase 16 0 - 40 U/L [facility] Total Protein 7.6 6.5 - 8.0 g/dL [facility] Albumin Level 4.5 3.5 - 5.0 g/dL [facility] Alkaline Phosphatase 69 39 - 117 U/L [facility] 03/25/2024 9:38 AM EDT 03/25/2024 9:43 AM EDT us Generic External Data Provider LAB BLOOD ORDERAB LES Final Result [facility] [address] [place] [address] [phone] * Basic Metabolic Panel (03/25/2024 9:38 AM EDT) Sodium 140 135 - 145 mmol/L [facility] Potassium 3.6 3.3 - 5.1 mmol/L [facility] Chloride 104 96 - 108 mmol/L [facility] Carbon Dioxide 28 22 - 29 mmol/L [facility] Anion Gap 12 12 - 20 [facility] Urea Nitrogen (BUN) 11 9 - 16 mg/dL [facility] Creatinine, Serum 0.80 0.5 - 1.4 mg/dL [facility] Creatinine Clr Calc Pharmacy 130.5 [facility] Comment:eGFR (calculated fro m the MDRD study equation) and eCrCl(calculated from the Cockcroft-Gault equation) are based ondifferent parameters and may not yield comparable results.If eCrCl result is absurd, please check patient'sheight/weight. Estimated Glomerular Filt Rate >60 [facility] Comment:NOTE: For -Am erican individuals, multiply the result by 1.210.Chronic Kidney Disease: Estimated GFR < 60 mL/min/1.04x4Jghrrk Kidney Disease: Estimated GFR < 15 mL/min/1.73m2 Glucose 103 60 - 115 mg/dL [facility] Calcium 10.0 8.4 - 10.2 mg/dL [facility] 03/25/2024 9:38 AM EDT 03/25/2024 9:43 AM EDT us Generic External Data Provider LAB BLOOD ORDERAB LES Final Result [facility] [address] [place] [address] [phone] * (ABNORMAL) CBC auto differential (03/25/2024 9:38 AM EDT) White Blood Count 4.3(L) 4.8 - 10.8 X10*3/uL [facility] Red Blood Count 4.84 4.60 - 5.80 X10*6/uL [facility] Hemoglobin 13.2(L) 14.0 - 18.0 g/dl [facility] Hematocrit 39.9(L) 42.0 - 52.0 % [facility] Mean Corpuscular Volume 82.4 80.0 - 98.0 fL [facility] Mean Corpuscular Hemoglobin 27.3 27.0 - 33.0 pg [facility] Mean Corpuscular HGB Conc 33.1 31.0 - 36.0 g/dl [facility] Red Cell Distribution Width 12.8 11.0 - 16.0 % [facility] Platelet Count 152(L) 160 - 400 X10*3/uL [facility] Mean Platelet Volume 10.6 9.4 - 12.4 fL [facility] Neutrophils Percent Auto 58.5 45 - 73 % [facility] Imm Gran Pct Auto 0.2 0.0 - 0.4 % [facility] Lymphocytes Percent Auto 31.3 20 - 40 % [facility] Monocytes Percent Auto 8.6 2 - 11 % [facility] Eosinophils Percent Auto 1.2 0 - 4 % [facility] Basophils Percent Auto 0.2 0 - 2 % [facility] NRBC Pct Auto 0.0 0.0 - 0.2 /100WBC [facility] Neutrophils Absolute Auto 2.5 2.0 - 8.3 x10*3/uL [facility] Imm Gran Abs Auto 0.01 0.00 - 0.03 X10*3/uL [facility] Lymphocytes Absolute Auto 1.4 1.2 - 4.9 X10*3/uL [facility] Monocytes Absolute Auto 0.4 0.1 - 1.2 X10*3/uL [facility] Eosinophils Absolute Auto 0.1 0.0 - 0.4 X10*3/uL [facility] Basophils Absolute Auto 0.0 0.0 - 0.2 X10*3/uL [facility] NRBC Abs Auto 0.000 0.0 - 0.012 X10*3/uL [facility] 03/25/2024 9:38 AM EDT 03/25/2024 9:43 AM EDT us Generic External Data Provider LAB BLOOD ORDERAB LES Final Result [facility] [address] [place] [phone] * Urinalysis w/reflex microscopic (03/25/2024 9:38 AM EDT) Color Urine Yellow [facility] Appearance Urine Clear [facility] PH 7.0 5.0 - 9.0 [facility] Glucose Urine UA Negative Negative mg/dL [facility] Urine Blood Negative Negative [facility] Specific [place] - Urine <=1.005 1.005 - 1.025 [facility] Urine Protein Negative Neg-Trace mg/dL [facility] Urine Ketones Negative Negative mg/dL [facility] Nitrite Urine Negative Negative [facility] Leukocyte Esterase Urine Negative Negative [facility] 03/25/2024 9:38 AM EDT 03/25/2024 9:43 AM EDT Narrative [facility] - 03/25/2024 9:49 AM EDT [id number], [employer] us Generic External Data Provider LAB URINE ORDERAB LES Final Result [facility] [address] [place] [address] [phone] documented in this encounter Visit Diagnoses Not on filedocumented in this encounter Additional Health Concerns Assessment Noted Time PHQ-9 Depression Total Score: 14 024 10:35 AM EDT documented as of this encounter Care Teams Wastewater Operator Relationship Specialty Start Date End Date Nina Nassar MD [address] [place] [address] PCP - General Family Medicine 03/29/20 documented as of this encounter
--- OUTSIDE RECORDS SUMMARY | 2024-07-31 14:17 | XMS_ITS | Encounter Summary ---
Author Organization [employer] [facility] Address [address] [place] [address] 7t [place] [address] Care Team Providers Care Design Release Engineer Name Role Phone Nina Nassar MD Primary Care Provider [phone] Encounter Details Date Type Department Care Team (Late st Contact Info) Description 12/26/2022 Orders Only [facility] [address] [place] [address] [phone] Bonnie Gomes MD [address] [place], [place] [phone] Chronic midline low back pain without sciatica (Primary Dx) Social History Tobacco Use Types Packs/Day Years Used Date Smoking Tobacco: Never Passive Smoke Exposure: Never Smokeless Tobacco: Never Alcohol Use Standard Drinks/Week Comments Never 0 (1 standard drink = 0.6 oz pur e alcohol) Depression Answer Date Recorded Patient Health Questionnaire-9 Score 21 10/22/2022 Depression Answer Date Recorded Patient Health Questionnaire-2 Score 6 10/22/2022 Sex and Gender Information Value Date Recorded Sex Assigned at Male 04/09/2022 10:33 AM EDT Legal Sex Male 10:33 AM EDT Gender Identity Male 04/09/2022 10:33 AM EDT Sexual Orientation Straight 04/09/2022 10 :33 AM EDT documented as of this encounter Plan of Treatment Upcoming Encounters Date Type Department Care Team (Late st Contact Info) Description 08/14/2024 11:30 AM EST Office Visit [facility] [address] [place] [phone] Ashley Contreras MD [address] [place] [address] 10/12/2024 8:00 AM EDT Office Visit [facility] ADULT [facility]ENT[facility] [address] [place], [place] [phone] Miley Holt [address] [place], [place] [phone] documented as of this encounter Visit Diagnoses Diagnosis Chronic midline low back pain without sciatica- Primary documented in this encounter Additional Health Concerns Assessment Noted Time PHQ-9 Depression Total Score: 21 023 1:46 PM EDT documented as of this encounter Care Teams Design Release Engineer Relationship Specialty Start Date End Date Nina Nassar MD [address] [place], [place] [phone] PCP - General Family Medicine 03/29/20 documented as of this encounter
--- OUTSIDE RECORDS SUMMARY | 2024-07-31 14:17 | XMS_ITS | Encounter Summary ---
Author Organization [employer] [facility] Address [address] [place] [address] 7 [place] [address] Care Team Providers Care Professor Of Astronomy Name Role Phone Nina Nassar MD Primary Care Provider [phone] Encounter Details Date Type Department Care Team (Late st Contact Info) Description 01/22/2023 Abstract [facility] ADULT DENTAL [address] [place], [place] [phone] Miley Holt [address] [place] [address] Social History Tobacco Use Types Packs/Day Years [...] 11:30 AM EST Office Visit [facility] [address] [place], [place] [phone] Ashley Contreras MD [address] [place], [place] [phone] 10/12/2024 8:00 AM EDT Office Visit [facility] ADULT D[facility] [address] [place] [address] David Holtaris [address] [place] [address] documented as of this encounter Visit Diagnoses Not on filedocumented in this encounter Additional Health Concerns Assessment Noted Time PHQ-9 Depression Total Score: 21 023 1:46 PM EDT documented as of this encounter Care Teams Professor Of Astronomy Relationship Specialty Start Date End Date Nina Nassar MD [address] [place] [address] PCP - General Family Medicine 03/29/20 documented as of this encounter
--- OUTSIDE RECORDS SUMMARY | 2024-07-31 14:17 | XMS_ITS | Encounter Summary ---
Author Organization [employer] [facility] Address [address] [place] [address] 7 [place] [address] Care Team Providers Care Custody Assistant Name Role Phone Nina Nassar MD Primary Care Provider [phone] Encounter Details Date Type Department Care Team (Latest Contact Info) Description 08/02/2021 Abstract [facility] CONVERSIONS Dental, Provider, DDS Social History [...] Description 08/14/2024 11:30 AM EST Office Visit [facility] [address] [place] [address] Ashley Contreras MD [address] [place] [address] 10/12/2024 8:00 AM EDT Office Visit [facility] ADULT DENTAL [address] [place] [address] Miley Holt [address] [place] [address] documented as of this encounter Visit Diagnoses Not on filedocumented in this encounter Care Teams Custody Assistant Relationship Specialty Start Date End Date Nina Nassar MD [address] [place] [address] PCP - General Family Medicine 03/29/20 documented as of this encounter
--- OUTSIDE RECORDS SUMMARY | 2024-07-31 14:17 | XMS_ITS | Encounter Summary ---
Author Organization [employer] [facility] Address [address] [place] [address] 7 [place] [address] Care Team Providers Care Manager Roofing Name Role Phone Nina Nassar MD Primary Care Provider [phone] Encounter Details Date Type Department Care Team (Latest Contact Info) Description 06/20/2020 Abstract [facility] CONVERSIONS Dental, Provider, DDS Social History Tobacco [...] Description 08/14/2024 11:30 AM EST Office Visit [facility] [address] [place] [address] Ashley Contreras MD [address] [place] [address] 10/12/2024 8:00 AM EDT Office Visit [facility] ADULT DENTAL [address] [place] [address] Miley Holt [address] [place] [address] documented as of this encounter Visit Diagnoses Not on filedocumented in this encounter Care Teams Manager Roofing Relationship Specialty Start Date End Date Nina Nassar MD [address] [place] [address] PCP - General Family Medicine 03/29/20 documented as of this encounter
--- OUTSIDE RECORDS SUMMARY | 2024-07-31 14:17 | XMS_ITS | Encounter Summary ---
Author Organization [employer] Address [address] [place] [address] Care Team Providers Care Risk Adjustment Specialist Name Role Phone Nina Nassar MD Primary Care Provider [phone] Reason for Visit * Reason Comments Leg Pain Encounter Details Date Type Department Care Team (Late st Contact Info) Description 07/31/2024 1:00 PM EST Office Visit [facility] [address] [place] [address] Leg cramping (Primary Dx); Dry mouth Social History Tobacco Use Types Packs/Day Years [...] AM EDT documented as of this encounter Last Filed Vital Signs Vital Sign Reading Time Taken Comments Blood Pressure 118/76 07/31/2024 1:34 PM EST Pulse 91 07/31/2024 1:04 PM EST Temperature 36.6 ??C (97.9 ??F) 07/31/2024 1:04 PM ES T Respiratory Rate 18 07/31/2024 1:04 PM EST Oxygen Saturation - - Inhaled Oxygen Concentration - - Weight 105 kg (230 lb 12.8 oz) 07/31/2024 1:04 P M EST Height 167.6 cm (5' 6 ) 07/31/2024 1:04 PM EST Body Mass Index 37.25 07/31/2024 1:04 PM EST documented in this encounter Plan of Treatment Upcoming Encounters Date Type Department Care Team (Late st Contact Info) Description 08/14/2024 11:30 AM EST Office Visit [facility] MEDICINE [address] [place] [address] Ashley Contreras MD [address] [place] [address] 10/12/2024 8:00 AM EDT Office Visit [facility] ADULT DENTAL [address] [place] [address] David Holtaris [address] [place] [address] Scheduled Orders Name Type Priority Associated Diagnoses Orde r Schedule Basic Metabolic Panel Lab Routine Leg cramping Expected: 07/31/2024 (Approximate), Expires: 07/31/2025 Magnesium Lab Routine Leg cramping Expected: 07/31/2024, Expires: 07/31/2025 documented as of this encounter Visit Diagnoses Diagnosis Leg cramping- Primary Dry mouth Disturbance of salivary secretion documented in this encounter Additional Health Concerns Assessment Noted Time PHQ-9 Depression Total Score: 14 024 10:35 AM EDT documented as of this encounter Care Teams Risk Adjustment Specialist Relationship Specialty Start Date End Date Nina Nassar MD [address] [place] [address] PCP - General Family Medicine 03/29/20 documented as of this encounter
[2024-07-31 17:14] LABS: Anion Gap 14 (12-20); Blood Urea Nitrogen 15 mg/dL (9-16); Calcium 10.3 mg/dL (8.4-10.2); Carbon Dioxide 28 mmol/L (22-29); Chloride 100 mmol/L (96-108); Estimated Glomerular Filt Rate > 60; Glucose Random 99 mg/dL (60-115); Sodium 138 mmol/L (135-145)
== END 2024-07-31 13:50 | disposition home or self-care (01) ==
LOC: HO.HHCL 13:49
PROVIDERS: Visit Provider Nurse Practitioner
DX: R25.2 Cramp and spasm (principal)
CPT/HCPCS: 36415; 80048; 83735

== ENCOUNTER 2024-09-24 15:19 | Outpatient (AMB) | payer MEDICAID, SELFPAY ==
[2024-09-24 15:25] VITALS: BP 100/72; PULSE 67; BMI 37.9
--- NOTE | 2024-09-24 15:25 | A.OFFVIS_ITS ---
Vital Signs 09/24/24 15:25 Height 5 ft 6 in Weight 234 lb 9.149 oz BMI 37.9 BP 100/72 Blood Pressure Location Lt brachial Position Sitting Pulse 67 Pulse Source Monitor Intake Visit Reasons: r/s 08/20/24 1 yr followup w/ekg Salt Manager Required: Yes Salt Manager Language: Online Community Manager Name: voice martinez [phone] Allergies No Known Allergies [No Known Allergies*] Allergy (Verified 09/24/24 15:27) Medication List - Last Reconciled 09/24/24 by ZAYNAB Kirby aspirin (Adult Low Dose Aspirin) 81 mg PO DAILY bisacodyl (Dulcolax (bisacodyl)) 10 mg SD DAILY PRN bupropion HCl XL 300 mg PO QAM chlorthalidone 25 mg PO DAILY cholecalciferol (vitamin D3) 50 mcg PO DAILY clotrimazole-betamethasone 1-0.05 % 1 appl topical BID cyanocobalamin (vitamin B-12) 500 mcg PO DAILY dicyclomine 20 mg PO docusate sodium 200 mg (2 x 100 mg) PO BEDTIME escitalopram oxalate 20 mg PO DAILY ferrous sulfate 325 mg PO DAILY fluticasone propionate 50 mcg/actuation (Flonase Allergy Relief) 2 sprays intranasal DAILY folic acid 0.4 mg PO DAILY gabapentin 300 mg PO BID hydroxyzine HCl 10 - 20 mg PO BID PRN ibuprofen 600 mg PO Q6H PRN menthol-zinc oxide 0.44-20.6 % (Calmoseptine) 1 appl topical BID PRN methylcellulose (laxative) (Citrucel) 500 mg PO BID methylcellulose (laxative) (Citrucel Sugar Free oral powder) 2 grams PO DAILY PRN omeprazole 20 mg PO BID ondansetron 4 mg PO Q6-8H PRN permethrin 5% 1 appl topical DAILY polyethylene glycol 3350 (Miralax) 17 grams PO DAILY 30 days rosuvastatin 10 mg PO DAILY sennosides (senna) 8.6 mg PO DAILY PRN simethicone (Gas Relief (simethicone)) 125 mg PO TID-QID PRN triamcinolone acetonide 0.1% topical BID verapamil ER 120 mg PO DAILY zolpidem 10 mg PO BEDTIME PRN HPI HPI r/s 08/20/24 1 yr followup w/ekg: Details: Contreras is a 49-year-old male with past medical history of hyperlipidemia, nonobstructive coronary artery disease who presents for follow-up. Today he reports that he has doing well with no concerning symptoms. He patient regularly takes these medications and believes they are beneficial. Since his last cardiovascular assessment, he reports no chest pain, dyspnea, palpitations, or dizziness. His occupation involves physical activity that requires climbing stairs, which has not induced cardiovascular symptoms. The patient has managed weight loss over this period and seeks to continue monitoring and maintaining his heart health. [facility] Medical History Testicular pain, left Rectal bleeding Anxiety and depression CAD (coronary artery disease) Left inguinal hernia Chronic back pain Atherosclerotic cardiovascular disease Surgical History Hx of colonoscopy History of surgery History of left inguinal hernia repair History of cardiac catheterization (~04/2015) Family History Father Diabetes Social History Household Members: Spouse Alcohol intake: never Patient Tobacco Use Status: Never used Tobacco Current occupational status: disabled Review of Systems Const All systems reviewed & are unremarkable except as noted in HPI and below ENT Denies dizziness Card Denies chest pain, Denies chest pain at rest, Denies chest pain with activity, Denies rapid heart rate, Denies pedal edema, Denies edema, Denies leg edema, Denies lightheadedness, Denies palpitations, Denies dyspnea, Denies dyspnea on exertion and Denies orthopnea Resp Denies cough, Denies dyspnea and Denies dyspnea on exertion GI Denies hematochezia and Denies change in stool character Musc Denies abnormal gait, Denies limited range of motion, Denies muscle cramps, Denies muscle weakness, Denies numbness, Denies radiating pain into limb, Denies stiffness and Denies tingling Neuro Denies abnormal gait, Denies dizziness, Denies numbness and Denies tingling Endo Denies palpitations Physical Exam Vital Signs: Last Vital Signs Pulse 67 09/24/24 15:25 BP 100/72 09/24/24 15:25 BMI result Body Mass Index 37.9 Const General: cooperative, healthy appearing, comfortable and no acute distress Orientation/consciousness: patient oriented x3 Neck Neck: Yes normal visual inspection and Yes no JVD Resp Effort & Inspection: normal respiratory effort Auscultation: clear to auscultation bilaterally, no rales, no rhonchi and no wheezes Cardio Rate: regular rate Rhythm: regular rhythm Heart sounds: S1 normal heart sound present, S2 normal heart sound present, no gallops, no murmurs and no rubs Neuro General: patient oriented x3 Extrem General: Yes normal to inspection, No no pedal edema and No calf tenderness Psych Appearance: grossly normal Mental Status: mental status grossly normal Speech and movement: Normal speech and movement present Office Procedures EKG Details: Today, read by me, normal sinus rhythm, rate 67, QTC 416 millisecond [id number], Complete Assessment & Plan Assessment & Plan (1) Atherosclerotic cardiovascular disease: Code(s): I25.10 - Atherosclerotic heart disease of [place] coronary artery without angina pectoris Category: Medical Plan: History of nonobstructive coronary artery disease as seen on cardiac catheterization while in [place]. He has no anginal symptoms. Continue med management including aspirin indefinitely. Continue pravastatin to maintain good cholesterol control. Continue carvedilol periods signs and symptoms of angina reviewed. Cardiology follow-up in 1 year, sooner if needed. (2) History of cardiac catheterization: Onset Date: ~04/2015 Comment: done in [place] Code(s): Z98.890 - Other specified postprocedural states Category: Surgical (3) Hyperlipidemia: Code(s): E78.5 - Hyperlipidemia, unspecified Category: Medical Plan: [place] LDL goal less than 70. No recent lipid profile in our system. Will reach out to his PCP for most recent values. Plan In our discussion, I advised the patient about the necessity of aspirin and atorvastatin in preventing further coronary blockage. We clarified any confusion about the medication rosuvastatin and reviewed his current treatment plan, emphasizing the maintenance of his current regimen. I emphasized the long-term benefits of this treatment, potential adverse risks, and the importance of compliance. The patient expressed understanding and compliance with the medication plan. Discussed cardiac symptom vigilance and importance of prompt medical attention if new symptoms arise. Patient's encouragement of maintaining an active lifestyle was given due emphasis. Consent for the continued management plan and upcoming follow-up was obtained . Coding Level of Care Code Est Pt Level 4 (97086) Complex EM visit Add On G2211 Diagnoses Atherosclerotic cardiovascular disease I25.10 History of cardiac catheterization Z98.890 Hyperlipidemia E78.5 CPT Codes EKG - CPT: 58214-[id number], Complete ([id number]) Time Spent (min) 28
--- OUTSIDE RECORDS SUMMARY | 2024-09-24 18:01 | XMS_ITS | Encounter Summary ---
Author Organization [employer] [facility] Address [address] [place] [address] 7 [place] [address] Care Team Providers Care Grommet Man Name Role Phone Nina Nassar MD Primary Care Provider [phone] Encounter Details Date Type Department Care Team (Latest Contact Info) Description 08/27/2018 Abstract [facility] CONVERSIONS Dental, Provider, DDS Social [...] Care Team ( st Contact Info) Description 10/12/2024 8:00 AM EDT Office Visit [facility] ADULT DENTAL [address] [place] [address] Jonathon, Miley [address] [place] [address] documented as of this encounter Visit Diagnoses Not on filedocumented in this encounter Care Teams Grommet Man Relationship Specialty Start Date End Date Nina Nassar MD [address] [place] [address] PCP - General Family Medicine 03/29/20 documented as of this encounter
--- OUTSIDE RECORDS SUMMARY | 2024-09-24 18:01 | XMS_ITS | Encounter Summary ---
Author Organization [employer] [facility] Address [address] [place] [address] [address] [place] [address] Care Team Providers Care Card Cleaner Name Role Phone Nina Nassar MD Primary Care Provider [phone] Encounter Details Date Type Department Care Team (Latest Contact Info) Description 06/20/2020 Abstract [facility] CONVERSIONS Dental, Provider, DDS Social History Tobacco [...] Care Team (Late st Contact Info) Description 10/12/2024 8:00 AM EDT Office Visit [facility] ADULT DENTAL [address] [place] [address] Jonathon, Miley [address] [place] [address] documented as of this encounter Visit Diagnoses Not on filedocumented in this encounter Care Teams Card Cleaner Relationship Specialty Start Date End Date Nina Nassar MD [address] [place] [address] PCP - General Family Medicine 03/29/20 documented as of this encounter
--- OUTSIDE RECORDS SUMMARY | 2024-09-24 18:01 | XMS_ITS | Encounter Summary ---
Author Organization [employer] [facility] Address [address] [place] [address] [address] [place] [address] Care Team Providers Care Dog Catcher Name Role Phone Nina Nassar MD Primary Care Provider [phone] Reason for Visit * Reason Comments Med Refill Encounter Details Date Type Department Care Team (Late st Contact Info) Description 02/26/2024 Refill [facility] MEDICINE [address] [place], [place] [phone] Ashley Contreras MD [address] [place], [place] [phone] Xerosis of skin Social History Tobacco Use [...] Description 10/12/2024 8:00 AM EDT Office Visit [facility] ADULT DENTAL [address] [place] [address] Jonathon, Miley [address] [place] [address] documented as of this encounter Visit Diagnoses Diagnosis Xerosis of skin documented in this encounter Additional Health Concerns Assessment Noted Time PHQ-9 Depression Total Score: 14 024 10:35 AM EDT documented as of this encounter Care Teams Dog Catcher Relationship Specialty Start Date End Date Nina Nassar MD [address] [place] [address] PCP - General Family Medicine 03/29/20 documented as of this encounter
--- OUTSIDE RECORDS SUMMARY | 2024-09-24 18:01 | XMS_ITS | Encounter Summary ---
Author Organization [employer] [facility] Address [address] [place] [address] [address] [place] [address] Care Team Providers Care Gaming Host Name Role Phone Nina Nassar MD Primary Care Provider [phone] Encounter Details Date Type Department Care Team (Latest Contact Info) Description 08/02/2021 Abstract [facility] CONVERSIONS Dental, Provider, DDS Social History Tobacco [...] Description 10/12/2024 8:00 AM EDT Office Visit [facility] ADULT DENTAL [address] [place] [address] Jonathon, Miley [address] [place] [address] documented as of this encounter Visit Diagnoses Not on filedocumented in this encounter Care Teams Gaming Host Relationship Specialty Start Date End Date Nina Nassar MD [address] [place] [address] PCP - General Family Medicine 03/29/20 documented as of this encounter
--- OUTSIDE RECORDS SUMMARY | 2024-09-24 18:01 | XMS_ITS | Encounter Summary ---
Author Organization [employer] [facility] Address [address] [place] [address] [address] [place] [address] Care Team Providers Care Resource Management Planner Name Role Phone Nina Nassar MD Primary Care Provider [phone] Encounter Details Date Type Department Care Team (Late st Contact Info) Description 01/22/2023 Abstract [facility] ADULT DENTAL [address] [place] [address] Miley Holt [address] [place] [address] Social History Tobacco Use Types Packs/Day Years [...] Description 10/12/2024 8:00 AM EDT Office Visit [facility] ADULT DENTAL [address] [place] [address] Miley Holt [address] [place] [address] documented as of this encounter Visit Diagnoses Not on filedocumented in this encounter Additional Health Concerns Assessment Noted Time PHQ-9 Depression Total Score: 21 023 1:46 PM EDT documented as of this encounter Care Teams Resource Management Planner Relationship Specialty Start Date End Date Nina Nassar MD [address] [place] [address] PCP - General Family Medicine 03/29/20 documented as of this encounter
--- OUTSIDE RECORDS SUMMARY | 2024-09-24 18:01 | XMS_ITS | Clinical Summary ---
Author Organization [employer] Address [address] [place] [address] 7[address] [place] [address] Care Team Providers Care Hot Stone Setter Name Role Phone Nina Nassar MD Primary Care Provider [phone] Allergies No known active allergies Medications docusate [...] Apply to rash above rectum 100 g 3 10/28/19 24 025 Active cyanocobalamin (Vitamin B-12) 500 MCG tablet Take 1 tablet (500 mcg) by mouth Once per day. 90 tablet 3 10/28/19 24 Active fluticasone (Flonase) 50 MCG/ACT nasal spray SHAKE LIQUID AND USE 2 SPRAYS IN EACH NOSTRIL EVERY DAY 48 g 3 10/28/19 24 Active econazole nitrate 1 % creamIndication s:Intertrigo Apply topically 2 times daily. 30 g 01/17/20 24 025 Active aspirin (Aspirin Low Dose) 81 MG [...] MORNING 90 capsule 3 01/20/20 24 Active gabapentin (Neurontin) 300 MG capsule TAKE 1 CAPSULE BY MOUTH TWICE A DAY 60 capsule 6 06/15/19 25 Active carboxymethylce llulose sodium (Refresh Contacts) solution OPHTHalmic solution Administer 1 drop into both eyes 3 times daily. 12 mL 3 06/15/19 25 Active hydrOXYzine HCl (Atarax) 10 MG tablet Take 1 tablet (10 mg) by mouth every 12 (twelve) hours if needed for itching or anxiety. 90 tablet 3 06/15/19 25 025 Active cephalexin (Keflex) 500 MG capsule TOME [...] 25 doses. 50 tablet 07/31/19 25 Active triamcinolone (Kenalog) 0.1 % creamIndication s:Xerosis of skin Mix with Cerave and apply after showers neck down. 80 g 2 08/15/19 25 Active ibuprofen 600 MG tabletIndicatio ns:Other chronic pain TAKE 1 TABLET BY MOUTH THREE TIMES DAILY WITH FOOD NEEDED FOR PAIN 90 tablet 3 09/10/19 25 Active ibuprofen 600 MG tabletIndicatio ns:Other chronic pain TAKE 1 TABLET BY MOUTH THREE TIMES DAILY WITH FOOD NEEDED FOR PAIN 90 tablet 3 02/18/20 24 025 Discontinued Active Problems Problem Noted Date Diagnosed Date Gingival bleeding 04/13/2024 Tooth hypersensitivity 04/13/2024 Requires assistance with activities of daily meron ing (ADL) 05/04/2023 Assessment & Plan (05/04/2023 8:02 AM EST): Instructed patient to go to medical records to contact [employer] [employer] agency and re- establish care for assistance with bathing, washing, shopping, cooking Dental calculus 01/07/2023 Periodontal disease 01/07/2023 Localized gingival recession 01/07/2023 Right anterior shoulder pain 10/22/2022 Assessment & Plan (05/04/2023 8:09 AM EST): Xray with moderate AC joint arthritis Sp med and injection trial without benefit Declines PT for now due to transportation issues Will work on getting [facility] [employer] care re-established Gentle stretching at home Assessment [...] Encounters Date Type Department Care Team Description 09/08/2024 Refill [facility] [address] [place] [phone] Nina Nassar MD Other chronic pain 08/21/2024 Population Health Risk Score [facility] (C3) Department [address] [place] [phone] Provider, Population Health Generic 08/14/2024 11:30 AM EST Office Visit [facility] [address] [place] [address] Ashley Contreras MD Xerosis of skin (Primary Dx) 08/14/2024 Telephone [facility] [address] [place] [address] Ashley Contreras MD 08/14/2024 Travel 08/03/2024 Telephone [facility] [address] [place] [address] Isabel Uribe NP 07/31/2024 1:00 PM EST Office Visit [facility] [address] [place] [address] Isabel Uribe NP Leg cramping (Primary Dx); Dry mouth 07/15/2024 Refill [facility] [address] [place] [address] Nina aNssar MD Folic acid deficiency from Last 3 Months Immunizations Name Administration [...] Sign Reading Time Taken Comments Blood Pressure 152/84 08/14/2024 11:44 AM EST Pulse 82 08/14/2024 11:44 AM EST Temperature 36.6 ??C (97.8 ??F) 08/14/2024 11:[address] Respiratory Rate 18 08/14/2024 11:44 AM EST Oxygen Saturation 100% 06/15/2024 4:02 PM EST Inhaled Oxygen Concentration - - Weight 104 kg (230 lb 3.2 oz) 08/14/2024 11:44 A M EST Height 167.6 cm (5' 6 ) 08/14/2024 11:44 AM EST Body Mass Index 37.16 08/14/2024 11:44 AM EST Plan of Treatment Upcoming Encounters Date Type Department Care Team (Late st Contact Info) Description 10/12/2024 8:00 AM EDT Office Visit [facility] ADULT DENTAL [address] [place], [place] [phone] Jonathon, Miley [address] [place] [address] Health Maintenance Due Date Last Done Comments [...] 06/20/2020, Additional history exists COVID-19 Vaccine ( season) 2024 03/16/2022, 11/09/2020, 10/20/2020 Influenza Vaccine (#1) 2024 , 03/08/2022, 03/13/2021, Additional history exists Depression Monitoring 04/29/2024 10/28/2023, 024 Dental X-Ray: Full Mouth 08/03/2024 08/02/2021, 02/09 Dental Prophylaxis 10/12/2024 04/13/2024, 0 11/18/2023, 01/07/2023, Additional history exists Alcohol/Substance Use Screening 10/27/2024 10/28/2023 Depression Screening 10/27/2024 10/28/2023, 10/28/19 24 SDOH Screening 10/27/2024 10/28/2023 Dental X-Ray: Bitewings [...] Procedure Name Priority Date/Time Associated Diagnosis Comments MAGNESIUM Routine 07/31/2024 1:54 PM EST Leg cramping BASIC METABOLIC PANEL Routine 07/31/2024 1:54 PM EST Leg cramping PROPHYLAXIS - ADULT Routine 04/13/2024 1 0:00 [...] Recently Relevant to Health Maintenance Results * Magnesium (07/31/2024 1:54 PM EST) Magnesium 2.0 1.6 - 2.6 mg/dL [facility] Blood Venous blood specimen / Unknown 07/31/2024 1:54 PM EST 07/31/2024 4:31 PM EST Isabel Uribe STERILIZER MACHINE OPERATOR LAB BLOOD ORDERABLES Final Resu lt [facility] [address] [place], [place] [phone] * (ABNORMAL) Basic Metabolic Panel (07/31/2024 1:54 PM EST) Sodium 138 135 - 145 mmol/L [facility] Potassium 4.0 3.3 - 5.1 mmol/L [facility] Chloride 100 96 - 108 mmol/L [facility] Carbon Dioxide 28 22 - 29 mmol/L [facility] Anion Gap 14 12 - 20 [facility] Urea Nitrogen (BUN) 15 9 - 16 mg/dL [facility] Creatinine, Serum 0.82 0.5 - 1.4 mg/dL [facility] Estimated Glomerular Filt Rate >60 [facility] Comment:Chronic Kidney Disea se: Estimated GFR < 60 mL/min/[id number] Kidney Disease: Estimated GFR < 15 mL/min/1.73m2 Glucose 99 60 - 115 mg/dL [facility] Calcium 10.3(H) 8.4 - 10.2 mg/dL [facility] Blood Venous blood specimen / Unknown 07/31/2024 1:54 PM EST 07/31/2024 4:31 PM EST us Isabel Uribe STERILIZER MACHINE OPERATOR LAB BLOOD ORDERABLES Final Resu lt Performing Organization Address [facility]/ZIP Co de Phone Number [facility] [address] [place] [address] [phone] * Lipid Panel, Standard (10/28/2023 12:11 PM EDT) Triglycerides 44 <150 mg/dL [facility] Comment:Desirable Triglyceri de: less than 150 mg/dLBorderline High Triglyceride 150-199 mg/dLHigh Triglyceride: 200-499 mg/dLVery High Triglyceride: greater than or equal to 5OO mg/dL Cholesterol 115 <200 mg/dL [facility] Comment:Desirable Cholestero l: less than 200 mg/dLBorderline High Cholesterol: 200-239 mg/dLHigh Cholesterol: greater than 239 mg/dL LDL Cholesterol Calculated 60 <100 mg/dL [facility] Comment:Desirable LDL: less than 100 mg/dLNear Optimal/Above Optimal LDL: 110- 129 mg/dLBorderline High LDL: 130-159 mg/dLHigh LDL: 160-189 mg/dLVery High LDL: greater than or equal to 190 mg/dL HDL Cholesterol 47 >40 mg/dL [facility] Comment:Desirable HDL: great er than 40 mg/dL Note: This HDL assay may give artificially low results in patients with liver disease. Blood Venous blood specimen / Unknown 10/28/2023 12:11 PM EDT 10/28/2023 4:22 PM EDT us Nina Nassar MD LAB BLOOD ORDERABLES Final Res ult Performing Organization Address City/[facility]/ZIP Co de Phone Number [facility] [address] [place] [address] [phone] * HEPATITIS C AB W/REFL TO HCV RNA, QN, PCR (09/13/2021 3:23 PM EDT) HEPATITIS C ANTIBODY NON-REACT PINKY NON-REACT [facility] INDEX 0.01 <1.00 [facility] Comment: ?? HCV antibody was non-reactive. There is no laboratory ?? evidence of HCV infection. ?? In most cases, no further action is required. However, if recent HCV exposure is suspected, a test for HCV RNA (test code 69367) is suggested. ?? For additional information please refer to [email or web address]/[email or web address] (This link is being provided for informational/ educational purposes only.) ?? 09/13/2021 3:23 PM EDT Nina Nassar MD HISTORICAL/NON ORDERABLE LABS Final Result Performing Organization Address [facility] Phone Number [facility] [address] * HIV 1/2 ANTIGEN/ANTIBODY,FOURTH GENERATION W/RFL (09/13/2021 3:23 PM EDT) HIV-1/2 ANTIGEN AND ANTIBODIES, 4TH GENERATION W/ REFLEX NON-REACT PINKY NON-REACT PINKY [facility] Comment: HIV-1 antigen and HIV-1/HIV-2 [...] ? For additional information please refer to http://[email or web address]/XLO575 (This link is being provided for informational/ educational purposes only.) ? The performance of this assay has not been clinically validated in patients less than 2 years old. ?? 09/13/2021 3:23 PM EDT Nina Nassar MD LAB BLOOD ORDERABLES Final Res ult Performing Organization Address [facility] Phone Number [facility] [address] from Last 3 Months or Most Recently Relevant to Health Maintenance [place] [address] [place] [address] C3 [facility] MEDICAID STAND ADULT Care Teams Hot Stone Setter Relationship Specialty Start Date End Date Nina Nassar MD [address] [place] [address] PCP - General Family Medicine 03/29/20
--- OUTSIDE RECORDS SUMMARY | 2024-09-24 18:01 | XMS_ITS | Encounter Summary ---
Author Organization [facility] Address [address] [place] [address] 7[address] [place] [address] Care Team Providers Care Transition Manager Name Role Phone Nina Nassar MD Primary Care Provider [phone] Encounter Details Date Type Department Care Team (Late st Contact Info) Description 12/26/2022 Orders Only [facility] [address] [place], [place] [phone] Bonnie Gomes MD [address] [place], [place] [phone] Chronic midline low back pain without sciatica [...] Description 10/12/2024 8:00 AM EDT Office Visit [facility] ADULT DENTAL [address] [place], [place] [phone] Miley Holt [address] [place] [address] documented as of this encounter Visit Diagnoses Diagnosis Chronic midline low back pain without sciatica- Primary documented in this encounter Additional Health Concerns Assessment Noted Time PHQ-9 Depression Total Score: 21 023 1:46 PM EDT documented as of this encounter Care Teams Transition Manager Relationship Specialty Start Date End Date Nina Nassar MD [address] [place] [address] PCP - General Family Medicine 03/29/20 documented as of this encounter
--- OUTSIDE RECORDS SUMMARY | 2024-09-24 18:01 | XMS_ITS | Encounter Summary ---
Author Organization [facility] Address [address] [place] [address] [address] [place] [address] Care Team Providers Care Lpn Instructor Name Role Phone Nina Nassar MD Primary Care Provider [phone] Reason for Visit * Reason Comments Med Refill Encounter Details Date Type Department Care Team (Late st Contact Info) Description 02/02/2024 Refill [facility]INE [address] [place], [place] [phone] Ashley Contreras MD [address] [place], [place] [phone] Xerosis of skin Social History Tobacco Use [...] Description 10/12/2024 8:00 AM EDT Office Visit [facility] ADULT DENTAL [address] [place] [address] Jonathon, Miley [address] [place] [address] documented as of this encounter Visit Diagnoses Diagnosis Xerosis of skin documented in this encounter Additional Health Concerns Assessment Noted Time PHQ-9 Depression Total Score: 14 024 10:35 AM EDT documented as of this encounter Care Teams Lpn Instructor Relationship Specialty Start Date End Date Nina Nassar MD [address] [place] [address] PCP - General Family Medicine 03/29/20 documented as of this encounter
--- OUTSIDE RECORDS SUMMARY | 2024-09-24 18:01 | XMS_ITS | Encounter Summary ---
Author Organization [facility] [facility] Address [address] [place] [address] 7t [place] [address] Care Team Providers Care Director Of Knowledge Management Name Role Phone Nina Nassar MD Primary Care Provider [phone] Encounter Details Date Type Department Care Team ([facility] st Contact Info) Description 03/06/2024 Orders Only [facility] MED[facility]INE [address] [place], [place] [phone] Nina Nassar MD [address] [place], [place] [phone] Social History Tobacco Use Types Packs/Day Years [...] the past 12 months, has t he [employer], gas, oil or water company threatened to [...] Description 10/12/2024 8:00 AM EDT Office Visit [facility] ADULT D[facility]AL [address] [place] [address] Jonathon, Miley [address] [place] [address] documented as of this encounter Procedures Procedure [...] EDT) CT PCR NOT DETECTED Not Detect. [facility] Comment:A not detected test result [...] psychologicalconsequences. NG PCR NOT DETECTED Not Detect. [facility] Comment:A not detected test result [...] PM EDT 03/25/2024 12:45 PM EDT Narrative [facility] - 03/25/2024 2:20 PM EDT Urine us Generic External Data Provider LAB MICROBIOLOGY - GENERAL ORDERABLES Final Result Performing Organization Address [facility]/State/ZIP Co de Phone Number [facility] [address] [facility] [place] [address] [phone] * US SCROTUM DOPPLER (03/25/2024 12:01 PM EDT) Anatomical Region Laterality Modality Abdomen Ultrasound 03/25/2024 12:0 1 PM EDT Narrative 05/01/2024 1:11 PM EST ? [facility] ?[address] ?[place] [address] ? Ultrasound Report ? Signed ? Patient: Contreras Schrader ?MR#: ?? [id number] ? : 1975 ?Acct:[id number] ? Age/Sex: 48 / M ?ADM Date: 03/25/24 ? Loc: HO.ED ? Attending Dr: ? Ordering Physician: Yumi Khan ?? Date of Service: 03/25/24 ?? Procedure(s): US scrotum doppler ?? Accession Number(s): [id number] ? cc: Nina Nassar; Yumi Khan ? [...] DD/ 1201 ? TD/TT: 03/25/24 1222 ? Blindstitch Lining Feller: ? Procedure Note Pooja, Nick - 05/01/2024 [place] [address] Ultrasound Report Signed Patient: Contreras Schrader#: [id number] : 1975Acct:[id number] Age/Sex: 48 / MADM Date: 03/25/24 Loc: HO.ED Attending Dr: Ordering Physician: Yumi Khan Date of Service: 03/25/24 Procedure(s): US scrotum doppler Accession Number(s): [id number] cc: Nina Nassar; Yumi Khan EXAMINATION: US [...] 05/01/24 1310 DD/ 1201 TD/TT: 03/25/24 1222 Blindstitch Lining Feller: [facility] External Provider IMG US PROCEDURES Final Result * US Scrotum (03/25/2024 12:01 PM EDT) Anatomical Region Laterality Modality Body Ultrasound 03/25/2024 12:0 1 PM EDT Narrative 03/25/2024 2:20 PM EDT ? [facility] ?[address] ?[place] [address] ? Ultrasound Report ? Signed ? Patient: Contreras Schrader ?MR#: ?? [id number] ? : 1975 ?Acct:[id number] ? Age/Sex: 48 / M ?ADM Date: 10/16/24 ? Loc: HO.ED ? Attending Dr: ? Ordering Physician: Blake Becker MD ?? Date of Service: 03/25/24 ?? Procedure(s): US scrotum ?? Accession Number(s): [id number] ? cc: Blake Becker MD; Nina Nassar [...] by Keri Lopes MD in OV> ? 11//24 1310 ? DD/ 1201 ? TD/TT: 03/25/24 1222 ? Blindstitch L[place] Feller: ? Procedure Note Donotuseinterpreter, Image - 05/01/[address] [address] Ultrasound Report Signed Patient: Contreras SchraderR#: [id number] : 1975Acct:[id number] Age/Sex: 48 / MADM Date: 03/25/24 Loc: HO.ED Attending Dr: Ordering Physician: Blake Becker MD Date of Service: 03/25/24 Procedure(s): US scrotum Accession Number(s): [id number] cc: Blake Becker MD; Nina Nassar EXAMINATION: [...] 05/01/24 1310 DD/ 1201 TD/TT: 03/25/24 1222 Blindstitch Lining Feller: [facility] External Provider IMG US PROCEDURES Edited Result - Final * Lipase (03/25/2024 9:38 AM EDT) Lipase 24 8 - 78 U/L [facility] 03/25/2024 9:38 AM EDT 03/25/2024 9:43 AM EDT Generic External Data Provider LAB BLOOD ORDERAB LES Final Result Performing Organization Address [facility] Co de Phone Number [facility] [address] [place] [phone] * Magnesium (03/25/2024 9:38 AM EDT) Magnesium 1.8 1.6 - 2.6 mg/dL [facility] 03/25/2024 9:38 AM EDT 03/25/2024 9:43 AM EDT Generic External Data Provider LAB BLOOD ORDERAB LES Final Result Performing Organization Address City/[facility] Co de Phone Number [facility] [address] [place] [phone] * (ABNORMAL) Hepatic Function Panel (03/25/2024 9:38 AM EDT) Bilirubin, Total 2.0(H) 0.0 - 1.0 mg/dL [facility] Bilirubin, Direct 0.6(H) 0.0 - 0.5 mg/dL [facility] Aspartate Amino Transferase 22 5 - 37 U/L [facility] Alanine Aminotransferase 16 0 - 40 U/L [facility] Total Protein 7.6 6.5 - 8.0 g/dL [facility] Albumin Level 4.5 3.5 - 5.0 g/dL [facility] Alkaline Phosphatase 69 39 - 117 U/L [facility] 03/25/2024 9:38 AM EDT 03/25/2024 9:43 AM EDT us Generic External Data Provider LAB BLOOD ORDERAB LES Final Result [facility] [address] [place] [address] [phone] * Basic Metabolic Panel (03/25/2024 9:38 AM EDT) Sodium 140 135 - 145 mmol/L [facility] Potassium 3.6 3.3 - 5.1 mmol/L [facility] Chloride 104 96 - 108 mmol/L [facility] Carbon Dioxide 28 22 - 29 mmol/L [facility] Anion Gap 12 12 - 20 [facility] Urea Nitrogen (BUN) 11 9 - 16 mg/dL [facility] Creatinine, Serum 0.80 0.5 - 1.4 mg/dL [facility] Creatinine Clr Calc Pharmacy 130.5 [facility] Comment:eGFR (calculated fro m the MDRD study equation) and eCrCl(calculated from the Cockcroft-Gault equation) are based ondifferent parameters and may not yield comparable results.If eCrCl result is absurd, please check patient'sheight/weight. Estimated Glomerular Filt Rate >60 [facility] Comment:NOTE: For -Am erican individuals, multiply the result by 1.210.Chronic Kidney Disease: Estimated GFR < 60 mL/min/[id number] Kidney Disease: Estimated GFR < 15 mL/min/1.73m2 Glucose 103 60 - 115 mg/dL [facility] Calcium 10.0 8.4 - 10.2 mg/dL [facility] 03/25/2024 9:38 AM EDT 03/25/2024 9:43 AM EDT us Generic External Data Provider LAB BLOOD ORDERAB LES Final Result [facility] [address] [place] [address] [phone] * (ABNORMAL) CBC auto differential (03/25/2024 9:38 AM EDT) White Blood Count 4.3(L) 4.8 - 10.8 X10*3/uL [facility] Red Blood Count 4.84 4.60 - 5.80 X10*6/uL [facility] Hemoglobin 13.2(L) 14.0 - 18.0 g/dl [facility] Hematocrit 39.9(L) 42.0 - 52.0 % [facility] Mean Corpuscular Volume 82.4 80.0 - 98.0 fL [facility] Mean Corpuscular Hemoglobin 27.3 27.0 - 33.0 pg [facility] Mean Corpuscular HGB Conc 33.1 31.0 - 36.0 g/dl [facility] Red Cell Distribution Width 12.8 11.0 - 16.0 % [facility] Platelet Count 152(L) 160 - 400 X10*3/uL [facility] Mean Platelet Volume 10.6 9.4 - 12.4 fL [facility] Neutrophils Percent Auto 58.5 45 - 73 % [facility] Imm Gran Pct Auto 0.2 0.0 - 0.4 % [facility] Lymphocytes Percent Auto 31.3 20 - 40 % [facility] Monocytes Percent Auto 8.6 2 - 11 % [facility] Eosinophils Percent Auto 1.2 0 - 4 % [facility] Basophils Percent Auto 0.2 0 - 2 % [facility] NRBC Pct Auto 0.0 0.0 - 0.2 /100WBC [facility] Neutrophils Absolute Auto 2.5 2.0 - 8.3 x10*3/uL [facility] Imm Gran Abs Auto 0.01 0.00 - 0.03 X10*3/uL [facility] Lymphocytes Absolute Auto 1.4 1.2 - 4.9 X10*3/uL [facility] Monocytes Absolute Auto 0.4 0.1 - 1.2 X10*3/uL [facility] Eosinophils Absolute Auto 0.1 0.0 - 0.4 X10*3/uL [facility] Basophils Absolute Auto 0.0 0.0 - 0.2 X10*3/uL [facility] NRBC Abs Auto 0.000 0.0 - 0.012 X10*3/uL [facility] 03/25/2024 9:38 AM EDT 03/25/2024 9:43 AM EDT us Generic External Data Provider LAB BLOOD ORDERAB LES Final Result Performing Organization Address [facility]/ZIP Co de Phone Number [facility] [address] [place] [phone] * Urinalysis w/reflex microscopic (03/25/2024 9:38 AM EDT) Color Urine Yellow [facility] Appearance Urine Clear [facility] PH 7.0 5.0 - 9.0 [facility] Glucose Urine UA Negative Negative mg/dL [facility] Urine Blood Negative Negative [facility] Specific [place] - Urine <=1.005 1.005 - 1.025 [facility] Urine Protein Negative Neg-Trace mg/dL [facility] Urine Ketones Negative Negative mg/dL [facility] Nitrite Urine Negative Negative [facility] Leukocyte Esterase Urine Negative Negative [facility] 03/25/2024 9:38 AM EDT 03/25/2024 9:43 AM EDT Narrative [facility] - 03/25/2024 9:49 AM EDT [id number], Clean Catch us Generic External Data Provider LAB URINE ORDERAB LES Final Result Performing Organization Address City/[facility]/ZIP Co de Phone Number [facility] [address] [place] [address] [phone] documented in this encounter Visit Diagnoses Not on filedocumented in this encounter Additional Health Concerns Assessment Noted Time PHQ-9 Depression Total Score: 14 024 10:35 AM EDT documented as of this encounter Care Teams Director Of Knowledge Management Relationship Specialty Start Date End Date Nina Nassar MD [address] [place] [address] PCP - General Family Medicine 03/29/20 documented as of this encounter
== END 2024-09-24 15:58 | disposition home or self-care (01) ==
LOC: HO.HCS 15:19
PROVIDERS: PCP General Practice; Visit Provider Nurse Practitioner Family
DX: I25.10 Atherosclerotic heart disease of native coronary artery without angina pectoris (principal); Z98.890 Other specified postprocedural states; E78.5 Hyperlipidemia, unspecified
CPT/HCPCS: 93010; 99214

== ENCOUNTER → 2024-09-24 15:19 | Outpatient (BNVA) | payer MEDICAID, SELFPAY | PROVIDERS: PCP General Practice; Visit Provider Nurse Practitioner Family | DX: E78.5 Hyperlipidemia, unspecified (principal); I25.10 Atherosclerotic heart disease of native coronary artery without angina pectoris; Z98.890 Other specified postprocedural states | CPT/HCPCS: 93005; 99212 ==

== ENCOUNTER 2024-09-26 07:29 | Outpatient (REF) | payer MEDICAID, SELFPAY ==
[2024-09-26 08:52] LABS: Alanine Aminotransferase 38 U/L (0-40); Albumin Level 4.5 g/dL (3.5-5.0); Alkaline Phosphatase 68 U/L (39-117); Aspartate Amino Transferase 34 U/L (5-37); Blood Urea Nitrogen 16 mg/dL (9-16); Cholesterol 108 mg/dL (<200); Estimated Glomerular Filt Rate > 60; Glucose Random 107 mg/dL (60-115); HDL Cholesterol 54 mg/dL (>40); LDL Cholesterol Calculated 45 mg/dL (<100); Total Protein 7.5 g/dL (6.5-8.0); Triglycerides 45 mg/dL (<150)
[2024-09-26 09:23] LABS: Anion Gap 13 (12-20); Carbon Dioxide 27 mmol/L (22-29); Chloride 104 mmol/L (96-108); Potassium 4.1 mmol/L (3.3-5.1); Sodium 140 mmol/L (135-145)
== END 2024-09-26 07:30 | disposition home or self-care (01) ==
LOC: HO.LAB 07:29
PROVIDERS: PCP General Practice; Visit Provider Nurse Practitioner Family
DX: I25.10 Atherosclerotic heart disease of native coronary artery without angina pectoris (principal)
CPT/HCPCS: 36415; 80053; 80061

== ENCOUNTER 2025-02-06 13:01 | Emergency (ER) | payer MEDICAID, SELFPAY ==
--- NOTE | ~2025-02-06 | CT_ITS ---
CLINICAL HISTORY: UTI fever right flank pain CT abdomen and pelvis with contrast Comparison: CT - CT ABDOMEN PELVIS W IV CON - 02/06/25 15:23 EDT Findings: The lung bases are clear. Unremarkable gallbladder and solid organs. No urolithiasis. No bowel obstruction, pneumoperitoneum, or pneumatosis. Pelvic contents unremarkable. Appendix is not seen. The bones are intact. IMPRESSION: No acute findings. This document has been electronically signed by: Genie Beard MD on 02/06/2025 16:06:22
--- NOTE | ~2025-02-06 | US_ITS ---
CLINICAL HISTORY: +deleon sign diarrhea r o cecile --- Additional Notes or Special Instructions: look at gb, ductus, liver, pancreas US abdomen limited Comparison: CT/REG/SR - CT ABDOMEN PELVIS W IV CON - 02/06/25 15:30 EDT Findings: The visualized pancreas is normal. The liver is normal in size and echotexture. There is no intrahepatic bile duct dilatation. The common duct is 2 mm in diameter. The gallbladder is normal. There is no sonographic Deleon sign. No ascites. IMPRESSION: Unremarkable limited abdominal ultrasound. This document has been electronically signed by: Genie Beard MD on 02/06/2025 17:11:24
--- NOTE | ~2025-02-06 | XR_ITS ---
CLINICAL HISTORY: L sided cp, fever 2 view chest x-ray Comparison: None provided Findings: The lungs are clear. Normal size heart. No acute fracture. IMPRESSION: 1. No acute findings. This document has been electronically signed by: Genie Beard MD on 02/06/2025 18:01:56
[2025-02-06 13:16] VITALS: BP 116/57; PULSE 84; RESP 18; TEMP 36.5; O2SAT 98; BMI 39.9
--- NOTE | 2025-02-06 13:17 | ED.GENADULT ---
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 He reports onset of diarrhea 4 days ago which resolved after taking imodium. His last BM was yesterday. He is passing flatus. Yesterday he began to have a subjective fever, chills, headache, nausea without vomiting, foul-smelling urine, and right lower back pain. Denies sick contacts. Denies recent travel. Related Data Home Medications ?Medication ?Instructions ?Recorded ?Confirmed aspirin 81 mg tablet,delayed 81 mg PO DAILY 07/26/20 09/24/24 release (Adult Low Dose Aspirin) ferrous sulfate 325 mg (65 mg 325 mg PO DAILY 10/25/20 09/24/24 iron) tablet fluticasone propionate 50 2 spray intranasal DAILY 10/25/20 09/24/24 mcg/actuation nasal spray,suspension (Flonase Allergy Relief) gabapentin 300 mg capsule 300 mg PO BID 10/25/20 09/24/24 cholecalciferol (vitamin D3) 50 50 mcg PO DAILY 12/21/20 09/24/24 mcg (2,000 unit) capsule folic acid 400 mcg tablet 0.4 mg PO DAILY 12/21/20 09/24/24 zolpidem 10 mg tablet 10 mg PO BEDTIME PRN Insomnia 12/21/20 09/24/24 omeprazole 20 mg capsule,delayed 20 mg PO BID 08/07/21 09/24/24 release verapamil 120 mg 24 hr 120 mg PO DAILY 08/07/21 09/24/24 capsule,extended release bupropion HCl 300 mg 24 hr tablet, 300 mg PO QAM 11/02/21 09/24/24 extended release hydroxyzine HCl 10 mg tablet 10 - 20 mg PO BID PRN itch 11/02/21 09/24/24 permethrin 5 % topical cream 1 appl topical DAILY 11/02/21 09/24/24 chlorthalidone 25 mg tablet 25 mg PO DAILY 11/20/21 09/24/24 escitalopram oxalate 20 mg tablet 20 mg PO DAILY 08/15/22 09/24/24 cyanocobalamin (vitamin B-12) 500 500 mcg PO DAILY 12/20/22 09/24/24 mcg tablet dicyclomine 20 mg tablet 20 mg PO gas 12/20/22 09/24/24 triamcinolone acetonide 0.1 % topical BID 12/20/22 09/24/24 topical ointment Previous Rx's ?Medication ?Instructions ?Recorded ibuprofen 600 mg tablet 600 mg PO Q6H PRN pain #30 tabs 04/11/21 ondansetron 4 mg disintegrating 4 mg PO Q6-8H PRN nausea and 04/11/21 tablet vomiting #14 tabs menthol 0.44 %-zinc oxide 20.6 % 1 appl topical BID PRN skin 08/07/21 topical ointment (Calmoseptine) irritation #113 grams bisacodyl 10 mg rectal suppository 10 mg TN DAILY PRN constipation 11/20/21 (Dulcolax (bisacodyl)) #20 ea sennosides 8.6 mg tablet (senna) 8.6 mg PO DAILY PRN for 04/23/22 constipation #30 tabs methylcellulose (laxative) 500 mg 500 mg PO BID #60 tabs 06/21/22 tablet (Citrucel) polyethylene glycol 3350 17 17 g PO DAILY 30 days #510 grams 06/21/22 gram/dose oral powder (Miralax) simethicone 125 mg chewable tablet 125 mg PO TID-QID PRN abdominal 06/21/22 (Gas Relief (simethicone)) distention #90 tabs rosuvastatin 10 mg tablet 10 mg PO DAILY #90 tabs 09/10/22 methylcellulose (laxative) 2 g PO DAILY PRN constipation #479 03/21/23 (Citrucel Sugar Free oral powder) grams docusate sodium 100 mg capsule 200 mg (2 x 100 mg) PO BEDTIME 06/01/24 #180 caps clotrimazole-betamethasone 1 1 appl topical BID #45 grams 07/20/24 %-0.05 % topical cream cefuroxime axetil 250 mg tablet 250 mg PO BID 10 days #20 tabs 02/06/25 Allergies Allergy/AdvReac Type Severity Reaction Status Date / Time No Known Allergies (No Known Allergy Verified 02/06/25 13:20 Allergies*) Review of Systems Review of Systems: Yes all other systems are reviewed and are negative [facility] Past Medical History Attestation statement: The following information was validated with the patient. Source: old records reviewed and nursing notes reviewed Medical History Testicular pain, left Rectal bleeding Anxiety and depression CAD (coronary artery disease) Left inguinal hernia Chronic back pain Atherosclerotic cardiovascular disease Surgical History Hx of colonoscopy History of surgery History of left inguinal hernia repair History of cardiac catheterization (~04/2015) Family History Family History Father Diabetes Social History Social History Household Members: Spouse Alcohol intake: never Patient Tobacco Use Status: Never used Tobacco Current occupational status: disabled Physical Exam ED Vital Signs: Vital Signs - 24 hr 02/06/25 13:16 02/06/25 14:37 02/06/25 16:09 Temperature 97.7 F 100.4 F 99.7 F Pulse Rate 84 72 Respiratory Rate 18 16 Blood Pressure 116/57 L 101/48 L Pulse Oximetry 98 100 Oxygen Delivery Method Nasal Cannula Room Air 02/06/25 16:53 02/06/25 19:07 Temperature 98.1 F 98.1 F Pulse Rate 65 65 Respiratory Rate 25 H 25 H Blood Pressure 114/63 114/63 Pulse Oximetry 100 100 Oxygen Delivery Method Room Air Room Air BMI result Body Mass Index 39.9 Vital signs stable General: Well appearing, in no acute distress. Skin: Warm, dry, intact. No rashes or lesions. Head: Normocephalic, atraumatic. EENT: Hearing is intact b/l. Conjunctiva clear. Sclera is anicteric. PERRLA. EOM intact. Moist mucous membranes.? Cardiac: Chest wall symmetric. RRR Lungs: Normal respiratory effort without accessory muscle use. CTA bilaterally Abdomen: Obese abdomen, soft, nondistended, nontender to palpation, no rebound or guarding. positive Deleon's sign. Active bowel sounds x4. No CVAT bilaterally. Back: No midline spinous or paraspinal tenderness. No step off deformity. Ext: Upper and lower extremities atraumatic, without tenderness, deformity, swelling or erythema Neuro: AOx3. Normal speech. Ambulating with steady gait. Course Course Course Narrative: RME, this is a rapid medical exam performed by Emmanuel Marcos please refer to primary provider for complete H&P- 49 year old male presents for evaluation of diarrhea and body aches. He also reports feet swelling. Symptoms started on Saturday. He reports shaking chills yesterday. Plan for labs, urinalysis, stool studies Reevaluation(s) Reevaluation #1: CBC without leukocytosis however there is a left shift with 90% neutrophils. Normocytic anemia, H and H appears to be stable when compared to priors and above transfusion threshold. Chemistry showing hypokalemia to 3.1, magnesium WNL at 1.8. No other acute electrolyte abnormality requiring intervention. BUN slightly elevated to 19 with normal creatinine, likely dehydrated. Total bilirubin elevated to 3, liver function otherwise at baseline. Lipase WNL at 22. Urine positive for UTI. Negative COVID, flu. Hypokalemia > IV repletion ordered BP 101/48 > IV fluids ordered Temp 100.4F > IV tylenol UTI > IV ceftriaxone ordered Blood cultures + imaging pending. Patient stable. 1723 -- CT a/p unremarkable. Ultrasound right upper quadrant unremarkable. Concern for gastroenteritis with associated UTI. > informed patient of workup results. Patient is now endorsing left sided chest pain that began yesterday. Describes this as a discomfort. he is slightly tachypneic to 22 with a fever. will add on ekg, trop, and chest xray to r/o PNA although my main concern is patient's UTI. 1800 -- Patient stable at the end of my shift. signout given to katina lindsey pending ekg, trop, cxr, repeat k+ and disposition. Reevaluation #2: I Donna Schwartz PA-C have accepted care of the patient at signed out pending repeat labs and discharge Delta troponin negative, repeat potassium 3.6 Medications Administered Discontinued Medications Generic Name Dose Route Start Last Admin Trade Name Freq PRN Reason Stop Dose Admin Ceftriaxone Sodium 1 gm 02/06/25 15:53 02/06/25 16:10 Ceftriaxone Sodium 1 Gm Vial IVPUSH 02/06/25 15:54 1 gm ONCE ONE Administration Sodium Chloride 1,000 mls @ 999 mls/hr 02/06/25 14:45 02/06/25 17:38 Ns IV 02/06/25 15:45 Infused .Q1H1M ROSSY Infusion Acetaminophen 1,000 mg in 100 mls @ 400 mls/hr 02/06/25 14:40 02/06/25 15:27 Ofirmev IV 02/06/25 14:54 Infused ONCE ONE Infusion Potassium Chloride 10 meq in 100 mls @ 100 mls/hr 02/06/25 15:00 02/06/25 16:58 Potassium Chloride/H20 IV 02/06/25 16:59 Infused Q1H ROSSY Infusion Iohexol 100 ml 02/06/25 16:04 02/06/25 16:04 Iohexol 350 Mg/Ml 100 Ml Infus..Btl IV 02/06/25 16:05 85 ml ONCE ONE Administration Morphine Sulfate 4 mg 02/06/25 16:19 02/06/25 16:33 Morphine Sulfate 4 Mg/Ml Cartridge IVPUSH 02/06/25 16:20 4 mg ONCE ONE Administration Protocol Ondansetron HCl 4 mg 02/06/25 14:53 02/06/25 15:14 Ondansetron Hcl 4 Mg/2 Ml Vial IVPUSH 02/06/25 14:54 4 mg ONCE ONE Administration Potassium Chloride 40 meq 02/06/25 17:29 02/06/25 17:39 Potassium Chloride Packet 20 Meq Packet PO 02/06/25 17:30 40 meq ONCE ONE Administration Medical Decision Making Medical Decision Making [facility] Narrative: 49 year old male with pmhx presents to the ED today for evaluation of multiple concerns. Patient is well-appearing. On exam, obese abdomen, soft, nondistended, nontender to palpation, no rebound or guarding. positive Deleon's sign. Active bowel sounds x4. No CVAT bilaterally. Differential diagnosis anemia, electrolyte abnormality, dehydration, gastroenteritis, gastritis, cholecystitis, biliary colic, UTI, pyelonephritis, nephrolithiasis, colitis, diverticulitis Plan for labs, GI panel/ c diff, UA, imaging, re-evaluation. Differential Diagnosis Differential Diagnoses: The differential diagnosis associated with the presentation includes as above. Admission/Observation Consideration of admission/observation: Escalation of care including admission/observation considered Lab Data [facility] Lab Attestation statement: I reviewed the patient's lab results. as above. 02/06/25 13:25 02/06/25 18:19 Labs: Lab Results 02/06/25 02/06/25 02/06/25 Range/Units 13:25 13:33 15:05 WBC 8.4 (4.8-10.8) X10*3/uL RBC 4.64 (4.60-5.80) X10*6/uL Hgb 12.8 L (14.0-18.0) g/dl Hct 37.1 L (42.0-52.0) % MCV 80.0 (80.0-98.0) fL MCH 27.6 (27.0-33.0) pg MCHC 34.5 (31.0-36.0) g/dl RDW 13.1 (11.0-16.0) % Plt Count 118 L (160-400) X10*3/uL MPV 10.4 (9.4-12.4) fL Immature Gran % (Auto) 0.4 (0.0-0.4) % Neut % (Auto) 90.1 H (45-73) % Lymph % (Auto) 4.4 L (20-40) % [place] % (Auto) 4.9 (2-11) % Eos % (Auto) 0.1 (0-4) % Baso % (Auto) 0.1 (0-2) % Lymph # (Auto) 0.4 L (1.2-4.9) X10*3/uL [place] # (Auto) 0.4 (0.1-1.2) X10*3/uL Eos # (Auto) 0.0 (0.0-0.4) X10*3/uL Baso # (Auto) 0.0 (0.0-0.2) X10*3/uL Abs Immat Gran (auto) 0.03 (0.00-0.03) X10*3/uL Absolute Neuts (auto) 7.6 (2.0-8.3) x10*3/uL Absolute Nucleated RBC 0.000 (0.0-0.012) X10*3/uL Nucleated RBC % (auto) 0.0 (0.0-0.2) /100WBC Smear Tech's Comments VERIFIED Sodium 136 (135-145) mmol/L Potassium 3.1 L D (3.3-5.1) mmol/L Chloride 99 (96-108) mmol/L Carbon Dioxide 25 (22-29) mmol/L Anion Gap 15 (12-20) BUN 19 H (9-16) mg/dL Creatinine 0.89 (0.5-1.4) mg/dL Estim Creat Clear Calc 120.6 Estimated GFR > 60 Random Glucose 148 H (60-115) mg/dL Lactic Acid 0.9 (0.5-2.0) mmol/L Calcium 8.7 D (8.4-10.2) mg/dL Magnesium 1.8 (1.6-2.6) mg/dL Total Bilirubin 3.0 H (0.0-1.0) mg/dL Direct Bilirubin 0.3 (0.0-0.5) mg/dL AST 43 H (5-37) U/L ALT 32 (0-40) U/L Alkaline Phosphatase 61 (39-117) U/L Troponin I High Sens < 2.7 (<3.5-35.0) ng/L B-Natriuretic Peptide 58 (<100) pg/mL Total Protein 6.9 (6.5-8.0) g/dL Albumin 4.2 (3.5-5.0) g/dL Lipase 22 (8-78) U/L Urine Color Yellow Urine Appearance Cloudy Urine pH 5.5 (5.0-9.0) Ur Specific Merrill 1.020 (1.005-1.025) Urine Protein Negative (Neg-Trace) mg/dL Urine Glucose (UA) Negative (Negative) mg/dL Urine Ketones 15 (Negative) mg/dL Urine Blood Small (1+) H (Negative) Urine Nitrite Positive H (Negative) Ur Leukocyte Esterase Large (3+) H (Negative) Urine RBC 3-5 H (0-2) /HPF Urine WBC >50 H (0-5) /HPF Ur Squamous Epith Cells 0-2 (0-2) /HPF Urine Bacteria 4+ (None Seen) Hyaline Casts 0-2 (0-2) /LPF COVID-19 (VALERY) Negative (Negative) COVID-19 Clin Com See Note Influenza Type A (RUTH) Negative (Negative) Influenza Type B (RUTH) Negative (Negative) Influenza A & B Note See Note 02/06/25 Range/Units 18:19 WBC (4.8-10.8) X10*3/uL RBC (4.60-5.80) X10*6/uL Hgb (14.0-18.0) g/dl Hct (42.0-52.0) % MCV (80.0-98.0) fL MCH (27.0-33.0) pg MCHC (31.0-36.0) g/dl RDW (11.0-16.0) % Plt Count (160-400) X10*3/uL MPV (9.4-12.4) fL Immature Gran % (Auto) (0.0-0.4) % Neut % (Auto) (45-73) % Lymph % (Auto) (20-40) % [place] % (Auto) (2-11) % Eos % (Auto) (0-4) % Baso % (Auto) (0-2) % Lymph # (Auto) (1.2-4.9) X10*3/uL [place] # (Auto) (0.1-1.2) X10*3/uL Eos # (Auto) (0.0-0.4) X10*3/uL Baso # (Auto) (0.0-0.2) X10*3/uL Abs Immat Gran (auto) (0.00-0.03) X10*3/uL Absolute Neuts (auto) (2.0-8.3) x10*3/uL Absolute Nucleated RBC (0.0-0.012) X10*3/uL Nucleated RBC % (auto) (0.0-0.2) /100WBC Smear Tech's Comments Sodium (135-145) mmol/L Potassium 3.6 (3.3-5.1) mmol/L Chloride (96-108) mmol/L Carbon Dioxide (22-29) mmol/L Anion Gap (12-20) BUN (9-16) mg/dL Creatinine (0.5-1.4) mg/dL Estim Creat Clear Calc Estimated GFR Random Glucose (60-115) mg/dL Lactic Acid (0.5-2.0) mmol/L Calcium (8.4-10.2) mg/dL Magnesium (1.6-2.6) mg/dL Total Bilirubin (0.0-1.0) mg/dL Direct Bilirubin (0.0-0.5) mg/dL AST (5-37) U/L ALT (0-40) U/L Alkaline Phosphatase (39-117) U/L Troponin I High Sens < 2.7 (<3.5-35.0) ng/L B-Natriuretic Peptide (<100) pg/mL Total Protein (6.5-8.0) g/dL Albumin (3.5-5.0) g/dL Lipase (8-78) U/L Urine Color Urine Appearance Urine pH (5.0-9.0) Ur Specific Merrill (1.005-1.025) Urine Protein (Neg-Trace) mg/dL Urine Glucose (UA) (Negative) mg/dL Urine Ketones (Negative) mg/dL Urine Blood (Negative) Urine Nitrite (Negative) Ur Leukocyte Esterase (Negative) Urine RBC (0-2) /HPF Urine WBC (0-5) /HPF Ur Squamous Epith Cells (0-2) /HPF Urine Bacteria (None Seen) Hyaline Casts (0-2) /LPF COVID-19 (VALERY) (Negative) COVID-19 Clin Com Influenza Type A (RUTH) (Negative) Influenza Type B (RUTH) (Negative) Influenza A & B Note Independent Interpretation I performed an independent interpretation of an: Ultrasound and CT Scan Interpretation: ct a/p without bowel obstruction Radiology Impression Discussion of test interpretation with radiology: I have reviewed the radiologist's reading. Radiologist Impression: CLINICAL HISTORY: UTI fever right flank pain CT abdomen and pelvis with contrast Comparison: CT - CT ABDOMEN PELVIS W IV CON - 02/06/25 15:23 EDT Findings: The lung bases are clear. Unremarkable gallbladder and solid organs. No urolithiasis. No bowel obstruction, pneumoperitoneum, or pneumatosis. Pelvic contents unremarkable. Appendix is not seen. The bones are intact. IMPRESSION: No acute findings. This document has been electronically signed by: Genie Beard MD on 02/06/2025 16:06:22 External Record Review External record reviewed: Inpatient record Prescription Management I considered prescription management with: Pain Medication and Antibiotic Social Determinants Patient?s care significantly limited by Social Determinants of Health including: Other Social Determinant of Health Critical Care Time Critical Care Time Critical Care Time: Yes Total Critical Care Time: 31 Attestation: Critical care time in the amount of 31 minutes has been provided to the patient in terms of direct patient care, frequent reevaluation on IV morphine, review and interpretation of medical data and results, and management of potentially life-threatening conditions. This is all outside of any medical procedures. Discharge Plan Discharge Clinical Impression: Hypokalemia, Acute UTI Patient Disposition: Home, Self-Care Instructions: Urinary Tract Infection in Men (ED), Potassium Content of Foods List (ED), Hypokalemia (ED) Additional Instructions: Your blood work did not reveal an elevated white count. It did show low potassium levels - these were repleted while ED. Your urine is positive for a urinary tract infection. Treatment for this is with antibiotics. Ceftin has been sent to your pharmacy for treatment. Take this as prescribed and to completion. The CT scan of your abdomen and ultrasound of your abdomen is reassuring. Return to the ED with any new or worsening symptoms. In the case of an emergency call 911. Prescriptions: New cefuroxime axetil 250 mg tablet 250 mg PO BID 10 Days Qty: 20 0RF No Action sennosides [senna] 8.6 mg tablet 8.6 mg PO DAILY PRN (Reason: for constipation) Qty: 30 0RF rosuvastatin 10 mg tablet 10 mg PO DAILY Qty: 90 3RF docusate sodium 100 mg capsule 200 mg PO BEDTIME Qty: 180 0RF escitalopram oxalate 20 mg tablet 20 mg PO DAILY ibuprofen 600 mg tablet 600 mg PO Q6H PRN (Reason: pain) Qty: 30 0RF ondansetron 4 mg tablet,disintegrating 4 mg PO Q6-8H PRN (Reason: nausea and vomiting) Qty: 14 0RF aspirin [Adult Low Dose Aspirin] 81 mg tablet,delayed release (DR/EC) 81 mg PO DAILY gabapentin 300 mg capsule 300 mg PO BID fluticasone propionate [Flonase Allergy Relief] 50 mcg/actuation spray,suspension 2 spray intranasal DAILY Rx Instructions: administer into each nostril ferrous sulfate 325 mg (65 mg iron) tablet 325 mg PO DAILY zolpidem 10 mg tablet 10 mg PO BEDTIME PRN (Reason: Insomnia) cholecalciferol (vitamin D3) 50 mcg (2,000 unit) capsule 50 mcg PO DAILY folic acid 400 mcg tablet 0.4 mg PO DAILY verapamil 120 mg capsule,ext rel. pellets 24 hr 120 mg PO DAILY omeprazole 20 mg capsule,delayed release(DR/EC) 20 mg PO BID menthol-zinc oxide [Calmoseptine] 0.44-20.6 % ointment 1 appl topical BID PRN (Reason: skin irritation) Qty: 113 1RF bupropion HCl 300 mg tablet extended release 24 hr 300 mg PO QAM hydroxyzine HCl 10 mg tablet 10 - 20 mg PO BID PRN (Reason: itch) permethrin 5 % cream 1 appl topical DAILY chlorthalidone 25 mg tablet 25 mg PO DAILY bisacodyl [Dulcolax (bisacodyl)] 10 mg suppository 10 mg TN DAILY PRN (Reason: constipation) Qty: 20 0RF polyethylene glycol 3350 [Miralax] 17 gram/dose powder 17 g PO DAILY 30 Days Qty: 510 2RF Citrucel 500 mg tablet 500 mg PO BID Qty: 60 5RF simethicone [Gas Relief (simethicone)] 125 mg tablet,chewable 125 mg PO TID-QID PRN (Reason: abdominal distention) Qty: 90 5RF clotrimazole-betamethasone 1-0.05 % cream 1 appl topical BID Qty: 45 1RF triamcinolone acetonide 0.1 % ointment topical BID cyanocobalamin (vitamin B-12) 500 mcg tablet 500 mcg PO DAILY dicyclomine 20 mg tablet 20 mg PO Citrucel Sugar Free Powder 2 g PO DAILY PRN (Reason: constipation) Qty: 479 3RF Stand Alone Forms: Work/School Release Interventions: ED Discharge Assessment Last Done: 02/06/25 19:07 Discharge Date/Time: 02/06/25 19:19 Print Language: [place]
[2025-02-06 13:33] LABS: Hematocrit 37.1 % (42.0-52.0); Hemoglobin 12.8 g/dl (14.0-18.0); Imm Gran Abs Auto 0.03 X10*3/uL (0.00-0.03); Imm Gran Pct Auto 0.4 % (0.0-0.4); Lymphocytes Absolute Auto 0.4 X10*3/uL (1.2-4.9); MANUAL DIFF FLAG SCAN; Mean Corpuscular HGB Conc 34.5 g/dl (31.0-36.0); Mean Corpuscular Hemoglobin 27.6 pg (27.0-33.0); Mean Corpuscular Volume 80.0 fL (80.0-98.0); NRBC Abs Auto 0.000 X10*3/uL (0.0-0.012); NRBC Pct Auto 0.0 /100WBC (0.0-0.2); Platelet Count 118 X10*3/uL (160-400); Red Blood Count 4.64 X10*6/uL (4.60-5.80); SCAN SMEAR FLAG 1; White Blood Count 8.4 X10*3/uL (4.8-10.8)
[2025-02-06 13:41] LABS: Appearance Urine Cloudy; Glucose Urine UA Negative (Negative); PH 5.5 (5.0-9.0); Specific Gravity - Urine 1.020 (1.005-1.025); UMIC TRIGGER UACC YES
--- OUTSIDE RECORDS SUMMARY | 2025-02-06 13:44 | XMS_ITS | Encounter Summary ---
Author Organization [employer] Address [address] [place] [address] [address] [place] [address] Care Team Providers Care Environmental Services Associate Name Role Phone Nina Nassar MD Primary Care Provider [phone] Encounter Details Date Type Department Care Team ([facility] st Contact Info) Description 10/20/2024 Orders Only [facility] MED & PEDS [address] [place], [place] [id number] ProviderCed MD Social History Tobacco Use Types Packs/Day Years [...] is your housing situation today? I have tatyraffaele donohue 03/25/[address] you [...] Care Team (Late st Contact Info) Description 03/12/2025 4:00 PM EDT Office Visit [facility] MEDICINE [address] [place] [address] Nina Nassar MD [address] [place] [address] 04/26/2025 8:00 AM EST Office Visit [facility] ADULT DENTAL [address] [place] [address] Miley Holt [address] [place] [address] documented as of this encounter Procedures Procedure Name Priority Date/Time Associated Diagnosis Comments COLONOSCOPY Routine 06/08/2022 3:31 PM EST documented in this encounter Results * Hm Colonoscopy (06/08/2022 3:31 PM EST) Colonoscopy Normal Normal Narrative Antonette Lawson - 06/08/2022 3:31 PM EST Recommended 5 years see legacy note 06/08/2022 us Historical Provider HEALTH MAINTENANCE Edited Result - Final documented in this encounter Visit Diagnoses Not on filedocumented in this encounter Additional Health Concerns Assessment Noted Time PHQ-9 Depression Total Score: 14 024 10:35 AM EDT documented as of this encounter Care Teams Environmental Services Associate Relationship Specialty Start Date End Date Nina Nassar MD [address] [place] [address] PCP - General Family Medicine 03/29/20 documented as of this encounter
--- OUTSIDE RECORDS SUMMARY | 2025-02-06 13:44 | XMS_ITS | Encounter Summary ---
Author Organization [employer] Address [address] [place] [address] 7 [place] [address] Care Team Providers Care Financial Aid Administrator Name Role Phone Nina Nassar MD Primary Care Provider [phone] Encounter Details Date Type Department Care Team ([facility] st Contact Info) Description 03/06/2024 Orders Only [facility] MEDICINE [address] [place], [place] [phone] Nina Nassar MD [address] [place], [place] [phone] Social History Tobacco Use Types Packs/Day Years [...] Description 03/12/2025 4:00 PM EDT Office Visit [facility] MEDICINE [address] [place] [address] Nina Nassar MD [address] [place] [address] 04/26/2025 8:00 AM EST Office Visit [facility] ADULT DENTAL [address] [place] [address] Miley Holt [address] [place] [address] documented as of this encounter Procedures Procedure Name Priority Date/Time Associated Diagnosis Comments LIPID PANEL, STANDARD Routine 09/26/2024 7:35 AM EDT COMPREHENSIVE METABOLIC PANEL Routine 09/26/2024 7:35 AM EDT CHLAMYDIA/N. GONORRHOEAE RNA, TMA, UROGENITAL Routine 03/25/2024 12:37 PM EDT US SCROTUM DOPPLER Routine 03/25/2024 12 :01 PM EDT US SCROTUM Routine 03/25/2024 12:01 PM EDT CBC WITH AUTO DIFFERENTIAL Routine 03/25/2024 9:38 AM EDT URINALYSIS WITH REFLEX MICROSCOPIC Routine 03/25/2024 9:38 AM EDT MAGNESIUM Routine 03/25/2024 9:38 AM EDT LIPASE Routine 03/25/2024 9:38 AM EDT HEPATIC FUNCTION PANEL Routine 9:38 AM EDT BASIC METABOLIC PANEL Routine 03/25/2024 9:38 AM EDT documented in this encounter Results * Lipid Panel, Standard (09/26/2024 7:35 AM EDT) Triglycerides 45 <150 mg/dL [facility] Comment:Desirable Triglyceri de: less than 150 mg/dLBorderline High Triglyceride 150-199 mg/dLHigh Triglyceride: 200-499 mg/dLVery High Triglyceride: greater than or equal to 5OO mg/dL Cholesterol 108 <200 mg/dL [facility] Comment:Desirable Cholestero l: less than 200 mg/dLBorderline High Cholesterol: 200-239 mg/dLHigh Cholesterol: greater than 239 mg/dL LDL Cholesterol Calculated 45 <100 mg/dL [facility] Comment:Desirable LDL: less than 100 mg/dLNear Optimal/Above Optimal LDL: 110- 129 mg/dLBorderline High LDL: 130-159 mg/dLHigh LDL: 160-189 mg/dLVery High LDL: greater than or equal to 190 mg/dL HDL Cholesterol 54 >40 mg/dL [facility] Comment:Desirable HDL: great er than 40 mg/dL Note: This HDL assay may give artificially low results in patients with liver disease. 09/26/2024 7:35 AM EDT 09/26/2024 7:35 AM EDT us Generic External Data Provider LAB BLOOD ORDERAB LES Final Result Performing Organization Address City/[facility]/ZIP Co de Phone Number [facility] [address] [place] [address] [phone] * Comprehensive Metabolic Panel (09/26/2024 7:35 AM EDT) Sodium 140 135 - 145 mmol/L [facility] Potassium 4.1 3.3 - 5.1 mmol/L [facility] Chloride 104 96 - 108 mmol/L [facility] Carbon Dioxide 27 22 - 29 mmol/L [facility] Anion Gap 13 12 - 20 [facility] Urea Nitrogen (BUN) 16 9 - 16 mg/dL [facility] Creatinine, Serum 0.91 0.5 - 1.4 mg/dL [facility] Estimated Glomerular Filt Rate >60 [facility] Comment:Chronic Kidney Disea se: Estimated GFR < 60 mL/min/1.10y0Mjehxr Kidney Disease: Estimated GFR < 15 mL/min/1.73m2 Glucose 107 60 - 115 mg/dL [facility] Calcium 10.0 8.4 - 10.2 mg/dL [facility] Bilirubin, Total 1.0 0.0 - 1.0 mg/dL [facility] Aspartate Amino Transferase 34 5 - 37 U/L [facility] Alanine Aminotransferase 38 0 - 40 U/L [facility] Total Protein 7.5 6.5 - 8.0 g/dL [facility] Albumin Level 4.5 3.5 - 5.0 g/dL [facility] Alkaline Phosphatase 68 39 - 117 U/L [facility] 09/26/2024 7:35 AM EDT 09/26/2024 7:35 AM EDT us Generic External Data Provider LAB BLOOD ORDERAB LES Final Result Performing Organization Address City/[facility]/ZIP Co de Phone Number [facility] [address] [place] [phone] [phone] * Chlamydia/N. Gonorrhoeae RNA, TMA, Urogenitial (03/25/2024 12:37 PM EDT) CT PCR NOT DETECTED Not Detect. [facility] Comment:A not detected test result [...] psychologicalconsequences. NG PCR NOT DETECTED Not Detect. [facility] Comment:A not detected test result [...] PM EDT 03/25/2024 12:45 PM EDT Narrative [facility] - 03/25/2024 2:20 PM EDT Urine us Generic External Data Provider LAB MICROBIOLOGY - GENERAL ORDERABLES Final Result [facility] [address] [place] [phone] * US SCROTUM DOPPLER (03/25/2024 12:01 PM EDT) Anatomical Region Laterality Modality Abdomen Ultrasound 03/25/2024 12:0 1 PM EDT Narrative 05/01/2024 1:11 PM [place] [id number] Ultrasound Report Signed Patient: Contreras Schrader MR#: [id number] : 1975 Acct:[id number] Age/Sex: 48 / M ADM Date: 03/25/24 Loc: HO.ED Attending Dr: Ordering Physician: Yumi Khan Date of Service: 03/25/24 Procedure(s): US scrotum doppler Accession Number(s): [id number] cc: Nina Nassar; Yumi Khan EXAMINATION: US [...] 05/01/24 1310 DD/ 1201 TD/TT: 03/25/24 1222 Fancy Wire Drawer: Procedure Note Donotuseinterpreter, Image - 05/01/2024 [place] [id number] Ultrasound Report Signed Patient: Contreras Schrader#: [id number] : 1975Acct:[id number] Age/Sex: 48 / MADM Date: 03/25/24 Loc: HO.ED Attending Dr: Ordering Physician: Yumi Khan Date of Service: 03/25/24 Procedure(s): US scrotum doppler Accession Number(s): [id number] cc: Nina Nassar; Yumi Khan EXAMINATION: US [...] 05/01/24 1310 DD/ 1201 TD/TT: 03/25/24 1222 Fancy Wire Drawer: us [facility] External Provider IMG US PROCEDURES Final Result * US Scrotum (03/25/2024 12:01 PM EDT) Anatomical Region Laterality Modality Body Ultrasound 03/25/2024 12:0 1 PM EDT Narrative 03/25/2024 2:20 PM EDT [place] [address] Ultrasound Report Signed Patient: oCntreras Schrader MR#: [id number] : 1975 Acct:[id number] Age/Sex: 48 / M ADM Date: 03/25/24 Loc: .ED Attending Dr: Ordering Physician: Blake Becker MD Date of Service: 03/25/24 Procedure(s): US scrotum Accession Number(s): [id number] cc: Blake Becker MD; Nina Nassar EXAMINATION: [...] 05/01/24 1310 DD/ 1201 TD/TT: 03/25/24 1222 Fancy Wire Drawer: Procedure Note Donotuseinterpreter, Image - 05/01/2024 [place] [address] Ultrasound Report Signed Patient: Contreras SchraderMartha#: [id number] : 1975Acct:[id number] Age/Sex: 48 / MADM Date: 03/25/24 Loc: HO.ED Attending Dr: Ordering Physician: Blake Becker MD Date of Service: 03/25/24 Procedure(s): US scrotum Accession Number(s): [id number] cc: Blake Becker MD; Nina Nassar EXAMINATION: [...] 05/01/24 1310 DD/ 1201 TD/TT: 03/25/24 1222 Fancy Wire Drawer: [facility] External Provider IMG US PROCEDURES Edited Result - Final * Lipase (03/25/2024 9:38 AM EDT) Lipase 24 8 - 78 U/L [facility] 03/25/2024 9:38 AM EDT 03/25/2024 9:43 AM EDT Generic External Data Provider LAB BLOOD ORDERAB LES Final Result [facility] [address] [place] [phone] * Magnesium (03/25/2024 9:38 AM EDT) [facility] Magnesium 1.8 1.6 - 2.6 mg/dL [facility] 03/25/2024 9:38 AM EDT 03/25/2024 9:43 AM EDT Generic External Data Provider LAB BLOOD ORDERAB LES Final Result [facility] [address] [place] [phone] [phone] * (ABNORMAL) Hepatic Function Panel (03/25/2024 9:38 AM EDT) [facility] Bilirubin, Total 2.0(H) 0.0 - 1.0 mg/dL [facility] Bilirubin, Direct 0.6(H) 0.0 - 0.5 mg/dL [facility] Aspartate Amino Transferase 22 5 - 37 U/L [facility] Alanine Aminotransferase 16 0 - 40 U/L [facility] Total Protein 7.6 6.5 - 8.0 g/dL [facility] Albumin Level 4.5 3.5 - 5.0 g/dL [facility] Alkaline Phosphatase 69 39 - 117 U/L [facility] 03/25/2024 9:38 AM EDT 03/25/2024 9:43 AM EDT Generic External Data Provider LAB BLOOD ORDERAB LES Final Result [facility] [address] [place] [phone] * Basic Metabolic Panel (03/25/2024 9:38 AM EDT) Pathologist [facility] Sodium 140 135 - 145 mmol/L [facility] Potassium 3.6 3.3 - 5.1 mmol/L [facility] Chloride 104 96 - 108 mmol/L [facility] Carbon Dioxide 28 22 - 29 mmol/L [facility] Anion Gap 12 12 - 20 [facility] Urea Nitrogen (BUN) 11 9 - 16 mg/dL [facility] Creatinine, Serum 0.80 0.5 - 1.4 mg/dL [facility] Creatinine Clr Calc Pharmacy 130.5 [facility] Comment:eGFR (calculated fro m the MDRD study equation) and eCrCl(calculated from the Cockcroft-Gault equation) are based ondifferent parameters and may not yield comparable results.If eCrCl result is absurd, please check patient'sheight/weight. Estimated Glomerular Filt Rate >60 [facility] Comment:NOTE: For -Am erican individuals, multiply the result by 1.210.Chronic Kidney Disease: Estimated GFR < 60 mL/min/1.19a1Cigkgj Kidney Disease: Estimated GFR < 15 mL/min/1.73m2 Glucose 103 60 - 115 mg/dL [facility] Calcium 10.0 8.4 - 10.2 mg/dL [facility] 03/25/2024 9:38 AM EDT 03/25/2024 9:43 AM EDT us Generic External Data Provider LAB BLOOD ORDERAB LES Final Result [facility] [address], [place] [phone] * (ABNORMAL) CBC auto differential (03/25/2024 9:38 AM EDT) White Blood Count 4.3(L) 4.8 - 10.8 X10*3/uL [facility] Red Blood Count 4.84 4.60 - 5.80 X10*6/uL [facility] Hemoglobin 13.2(L) 14.0 - 18.0 g/dl [facility] Hematocrit 39.9(L) 42.0 - 52.0 % [facility] Mean Corpuscular Volume 82.4 80.0 - 98.0 fL [facility] Mean Corpuscular Hemoglobin 27.3 27.0 - 33.0 pg [facility] Mean Corpuscular HGB Conc 33.1 31.0 - 36.0 g/dl [facility] Red Cell Distribution Width 12.8 11.0 - 16.0 % [facility] Platelet Count 152(L) 160 - 400 X10*3/uL [facility] Mean Platelet Volume 10.6 9.4 - 12.4 fL [facility] Neutrophils Percent Auto 58.5 45 - 73 % [facility] Imm Gran Pct Auto 0.2 0.0 - 0.4 % [facility] Lymphocytes Percent Auto 31.3 20 - 40 % [facility] Monocytes Percent Auto 8.6 2 - 11 % [facility] Eosinophils Percent Auto 1.2 0 - 4 % [facility] Basophils Percent Auto 0.2 0 - 2 % [facility] NRBC Pct Auto 0.0 0.0 - 0.2 /100WBC [facility] Neutrophils Absolute Auto 2.5 2.0 - 8.3 x10*3/uL [facility] Imm Gran Abs Auto 0.01 0.00 - 0.03 X10*3/uL [facility] Lymphocytes Absolute Auto 1.4 1.2 - 4.9 X10*3/uL [facility] Monocytes Absolute Auto 0.4 0.1 - 1.2 X10*3/uL [facility] Eosinophils Absolute Auto 0.1 0.0 - 0.4 X10*3/uL [facility] Basophils Absolute Auto 0.0 0.0 - 0.2 X10*3/uL [facility] NRBC Abs Auto 0.000 0.0 - 0.012 X10*3/uL [facility] 03/25/2024 9:38 AM EDT 03/25/2024 9:43 AM EDT us Generic External Data Provider LAB BLOOD ORDERAB LES Final Result [facility] [address] [place] [phone] * Urinalysis w/reflex microscopic (03/25/2024 9:38 AM EDT) Color Urine Yellow [facility] Appearance Urine Clear [facility] PH 7.0 5.0 - 9.0 [facility] Glucose Urine UA Negative Negative mg/dL [facility] Urine Blood Negative Negative [facility] Specific [place] - Urine <=1.005 1.005 - 1.025 [facility] Urine Protein Negative Neg-Trace mg/dL [facility] Urine Ketones Negative Negative mg/dL [facility] Nitrite Urine Negative Negative [facility] Leukocyte Esterase Urine Negative Negative [facility] 03/25/2024 9:38 AM EDT 03/25/2024 9:43 AM EDT Narrative [facility] - 03/25/2024 9:49 AM EDT [id number], [employer] us Generic External Data Provider LAB URINE ORDERAB LES Final Result [facility] [address] [place] [phone] documented in this encounter Visit Diagnoses Not on filedocumented in this encounter Additional Health Concerns Assessment Noted Time PHQ-9 Depression Total Score: 14 024 10:35 AM EDT documented as of this encounter Care Teams Financial Aid Administrator Relationship Specialty Start Date End Date Nina Nassar MD [address] [place] [phone] PCP - General Family Medicine 03/29/20 documented as of this encounter
--- OUTSIDE RECORDS SUMMARY | 2025-02-06 13:44 | XMS_ITS | Encounter Summary ---
Author Organization [employer] Address [address] [place] [address] 7 [place] [address] Care Team Providers Care Resp Ther Name Role Phone Nina Nassar MD Primary Care Provider [phone] Encounter Details Date Type Department Care Team (Late st Contact Info) Description 02/06/2025 Orders Only GENERIC EXTERNAL DATA DEPARTMENT Provider, Generic External Data Social History Tobacco Use Types Packs/Day Years [...] Description 03/12/2025 4:00 PM EDT Office Visit [facility] MEDICINE [address] [place] [address] Nina Nassar MD [address] [place] [address] 04/26/2025 8:00 AM EST Office Visit [facility] ADULT DENTAL [address] [place] [address] Miley Holt [address] [place] [address] Pending Results Name Type Priority Associated Diagnoses Date /Time CBC auto differential Lab Routine 1:25 PM EDT Urinalysis, Complete, with Reflex to Culture Lab Routine 02/06/2025 1:3 3 PM EDT documented as of this encounter Procedures Procedure Name Priority Date/Time Associated Diagnosis Comments URINALYSIS, COMPLETE, WITH REFLEX TO CULTURE Routine 02/06/2025 1:33 PM EDT CBC WITH AUTO DIFFERENTIAL Routine 02/06/2025 1:25 PM EDT documented in this encounter Visit Diagnoses Not on filedocumented in this encounter Additional Health Concerns Assessment Noted Time PHQ-9 Depression Total Score: 14 024 10:35 AM EDT documented as of this encounter Care Teams Resp Ther Relationship Specialty Start Date End Date Nina Nassar MD [address] [place] [address] PCP - General Family Medicine 03/29/20 documented as of this encounter
--- OUTSIDE RECORDS SUMMARY | 2025-02-06 13:44 | XMS_ITS | Encounter Summary ---
Author Organization [employer] Address [address] [place] [address] [place] [address] Care Team Providers Care Multiple Launch Rocket System Crewmember Name Role Phone Nina Nassar MD Primary Care Provider [phone] Reason for Visit * Reason Comments Med Refill Encounter Details Date Type Department Care Team ([facility] st Contact Info) Description 02/26/2024 Refill [facility] MEDICINE [address] [place], [place] [phone] Ashley Contreras MD [address] [place], [place] [phone] Xerosis of skin Social History Tobacco Use [...] Description 03/12/2025 4:00 PM EDT Office Visit [facility] MEDICINE [address] [place] [address] Nina Nassar MD [address] [place] [address] 04/26/2025 8:00 AM EST Office Visit [facility] ADULT DENTAL [address] [place] [address] Jonathon, Miley [address] [place] [address] documented as of this encounter Visit Diagnoses Diagnosis Xerosis of skin documented in this encounter Additional Health Concerns Assessment Noted Time PHQ-9 Depression Total Score: 14 024 10:35 AM EDT documented as of this encounter Care Teams Multiple Launch Rocket System Crewmember Relationship Specialty Start Date End Date Nina Nassar MD [address] [place] [phone] PCP - General Family Medicine 03/29/20 documented as of this encounter
--- OUTSIDE RECORDS SUMMARY | 2025-02-06 13:44 | XMS_ITS | Encounter Summary ---
Author Organization [employer] Address [address] [place] [address] 7 [place] [address] Care Team Providers Care Inventory Specialist Manager Name Role Phone iNna Nassar MD Primary Care Provider [phone] Encounter Details Date Type Department Care Team (Late st Contact Info) Description 01/22/2023 Abstract [facility] ADULT DENTAL [address] [place], [place] [phone] Miley Holt [address] [place] [address] Social History Tobacco Use Types Packs/Day Years [...] Description 03/12/2025 4:00 PM EDT Office Visit [facility] MEDICINE [address] [place], [place] [phone] Nina Nassar MD [address] [place], [place] [phone] 04/26/2025 8:00 AM EST Office Visit [facility] ADULT DENTAL [address] [place] [address] David Holtaris [address] [place] [address] documented as of this encounter Visit Diagnoses Not on filedocumented in this encounter Additional Health Concerns Assessment Noted Time PHQ-9 Depression Total Score: 21 023 1:46 PM EDT documented as of this encounter Care Teams Inventory Specialist Manager Relationship Specialty Start Date End Date Nina Nassar MD [address] [place] [address] PCP - General Family Medicine 03/29/20 documented as of this encounter
--- OUTSIDE RECORDS SUMMARY | 2025-02-06 13:44 | XMS_ITS | Encounter Summary ---
Author Organization [employer] [facility] Address [address] [place] [address] [place] [address] Care Team Providers Care Battery Assembler Dry Cell Name Role Phone Nina Nassar MD Primary Care Provider [phone] Encounter Details Date Type Department Care Team (Latest Contact Info) Description 08/27/2018 Abstract [facility] CONVERSIONS Dental, Provider, DDS Social History [...] Care Team ( st Contact Info) Description 03/12/2025 4:00 PM EDT Office Visit [facility] MEDICINE [address] [place] [address] Nina Nassar MD [address] [place] [address] 04/26/2025 8:00 AM EST Office Visit [facility] ADULT DENTAL [address] [place] [address] Miley Holt [address] [place] [address] documented as of this encounter Visit Diagnoses Not on filedocumented in this encounter Care Teams Battery Assembler Dry Cell Relationship Specialty Start Date End Date Nina Nassar MD [address] [place] [address] PCP - General Family Medicine 03/29/20 documented as of this encounter
--- OUTSIDE RECORDS SUMMARY | 2025-02-06 13:44 | XMS_ITS | Encounter Summary ---
Author Organization [employer] [facility] Address [address] [place] [address] Care Team Providers Care Transport Company Manager Name Role Phone Nina Nassar MD Primary Care Provider [phone] Encounter Details Date Type Department Care Team (Latest Contact Info) Description 06/20/2020 Abstract [facility] CONVERSIONS Dental, Provider, DDS Social History [...] Description 03/12/2025 4:00 PM EDT Office Visit [facility] MEDICINE [address] [place] [address] Nina Nassar MD [address] [place] [address] 04/26/2025 8:00 AM EST Office Visit [facility] ADULT DENTAL [address] [place] [address] Miley Holt [address] [place] [address] documented as of this encounter Visit Diagnoses Not on filedocumented in this encounter Care Teams Transport Company Manager Relationship Specialty Start Date End Date Nina Nassar MD [address] [place] [address] PCP - General Family Medicine 03/29/20 documented as of this encounter
--- OUTSIDE RECORDS SUMMARY | 2025-02-06 13:44 | XMS_ITS | Encounter Summary ---
Author Organization [employer] [facility] Address [address] [place] [address] Care Team Providers Care Dye Stand Loader Name Role Phone Nina Nassar MD Primary Care Provider [phone] Encounter Details Date Type Department Care Team (Latest Contact Info) Description 08/02/2021 Abstract [facility] CONVERSIONS Dental, Provider, DDS Social History Tobacco [...] Description 03/12/2025 4:00 PM EDT Office Visit [facility] MEDICINE [address] [place] [address] Nina Nassar MD [address] [place] [address] 04/26/2025 8:00 AM EST Office Visit [facility] ADULT DENTAL [address] [place] [address] Miley Holt [address] [place] [address] documented as of this encounter Visit Diagnoses Not on filedocumented in this encounter Care Teams Dye Stand Loader Relationship Specialty Start Date End Date Nina Nassar MD [address] [place] [address] PCP - General Family Medicine 03/29/20 documented as of this encounter
--- OUTSIDE RECORDS SUMMARY | 2025-02-06 13:44 | XMS_ITS | Encounter Summary ---
Author Organization [employer] Address [address] [place] [address] [place] [address] Care Team Providers Care Hr Analyst Name Role Phone Nina Nassar MD Primary Care Provider [phone] Reason for Visit * Reason Comments Med Refill Encounter Details Date Type Department Care Team ([facility] st Contact Info) Description 02/02/2024 Refill [facility] MEDICINE [address] [place], [place] [phone] Ashley Contreras MD [address] [place], [place] [phone] Xerosis of skin Social History Tobacco Use [...] Description 03/12/2025 4:00 PM EDT Office Visit [facility] MEDICINE [address] [place] [address] Nina Nassar MD [address] [place] [address] 04/26/2025 8:00 AM EST Office Visit [facility] ADULT DENTAL [address] [place] [address] Jonathon, Miley [address] [place] [address] documented as of this encounter Visit Diagnoses Diagnosis Xerosis of skin documented in this encounter Additional Health Concerns Assessment Noted Time PHQ-9 Depression Total Score: 14 024 10:35 AM EDT documented as of this encounter Care Teams Hr Analyst Relationship Specialty Start Date End Date Nina Nassar MD [address] [place] [phone] PCP - General Family Medicine 03/29/20 documented as of this encounter
--- OUTSIDE RECORDS SUMMARY | 2025-02-06 13:44 | XMS_ITS | Clinical Summary ---
Author Organization [employer] Address [address] [place] [address] 7t [place] [address] Care Team Providers Care Paving Machine Operator Name Role Phone Nina Nassar MD Primary Care Provider [phone] Allergies No known active allergies Medications docusate [...] GAS 180 tablet 3 10/16/19 24 Active cyanocobalamin (Vitamin B-12) 500 MCG tablet Take 1 tablet (500 mcg) by mouth Once per day. 90 tablet 3 10/28/19 24 Active aspirin (Aspirin Low Dose) 81 [...] or anxiety. 90 tablet 3 06/15/19 25 Active cephalexin (Keflex) 500 MG capsule TOME [...] PAIN 90 tablet 3 09/10/19 25 Active fluticasone (Flonase) 50 MCG/ACT nasal spray SHAKE LIQUID AND USE 2 SPRAYS IN EACH NOSTRIL EVERY DAY 48 mL 3 10/24/19 25 Active chlorthalidone (Hygroton) 25 MG tablet TAKE 1 TABLET BY MOUTH EVERY DAY IN THE MORNING 90 tablet 3 11/18/19 25 Active rosuvastatin (Crestor) 10 MG tablet TOME 1 TABLETA POR VIA ORAL TODOS LOS QURESHI EN LA MANANA 90 tablet 3 01/13/20 25 Active rosuvastatin (Crestor) 10 MG tablet TAKE 1 TABLET BY MOUTH EVERY MORNING 90 tablet 3 10/16/19 24 025 Discontinued econazole nitrate 1 % creamIndication s:Intertrigo Apply topically 2 times daily. 30 g 01/17/20 24 025 Active Problems Problem Noted Date Diagnosed Date Dental caries 10/16/2024 Gingival bleeding 04/13/2024 Tooth hypersensitivity 04/13/2024 Requires assistance with activities of daily meron ing (ADL) 05/04/2023 Assessment & Plan (05/04/2023 8:02 AM EST): Instructed patient to go to medical records to contact [facility] agency and re- establish care for assistance with bathing, washing, shopping, cooking Dental calculus 01/07/2023 Periodontal disease 01/07/2023 Localized gingival recession 01/07/2023 Right anterior shoulder pain 10/22/2022 Assessment & Plan (05/04/2023 8:09 AM EST): Xray with moderate AC joint arthritis Sp med and injection trial without benefit Declines PT for now due to transportation issues Will work on getting [facility] care re-established Gentle stretching at home Assessment [...] Encounters Date Type Department Care Team Description 02/06/2025 Orders Only GENERIC EXTERNAL DATA DEPARTMENT Provider, Generic External Data 01/11/2025 Refill [facility] MEDICINE [address] [place] [address] Nina Nassar MD 01/06/2025 Telephone [facility] MEDICINE [address] [place] [address] Nina Nassar MD recall 01/06/2025 Travel 11/17/2024 Refill [facility] MED[facility]INE [address] [place] [address] Nina Nassar MD from Last 3 Months Immunizations Immunization Administration Dates Next Due INFLUENZA INJECTABLE QUADRIV [...] Sign Reading Time Taken Comments Blood Pressure 132/68 10/16/2024 8:07 AM EDT Pulse 60 10/16/2024 8:07 AM EDT Temperature 36.6 C (97.8 F) 08/14/2024 11:44 AM EST Respiratory Rate 18 08/14/2024 11:44 AM EST [...] 03/12/2025 4:00 PM EDT Office Visit [facility] MEDICINE [address] [place] [address] Nina Nassar MD [address] [place] [address] 04/26/2025 8:00 AM EST Office Visit [facility] ADULT DENTAL [address] [place] [address] Miley Holt [address] [place] [address] Health Maintenance Due Date Last Done Comments CT Colonography 1977 FIT DNA/Cologuard 1977 FIT 1977 FOBT 1977 Sigmoidoscopy 1977 Disability Screening 1977 Alcohol/Substance Use Screening 1989 Family Planning (PISQ) 1992 Hepatitis B Vaccines (1 of 3 - 19+ 3-dose series) 1996 Pneumococcal Vaccine: Pediatrics (0 to 5 Years) and At-Risk Patients (6 to 49) Years (1 of 2 - PCV) 1996 Dental Oral Exam 07/11/2023 01/07/2023, , 06/20/2020, Additional history exists COVID-19 Vaccine ( season) 2024 03/16/2022, 11/09/2020, 10/20/2020 Depression Monitoring 04/29/2024 10/28/2023, 024 Dental X-Ray: Full Mouth 08/03/2024 08/02/2021, 02/09 SDOH Screening 10/27/2024 10/28/2023 Influenza Vaccine (#1) 2025 , 03/08/2022, 03/13/2021, Additional history exists Dental X-Ray: Bitewings 04/14/2025 04/13/20, 01/07/2023, 08/02/2021, Additional history exists Dental Prophylaxis 04/15/2025 10/12/2024, 1 06/13/2023, 11/18/2023, Additional history exists Tobacco Screening 10/16/2025 10/16/2024 Zoster Vaccines (1 of 2) 2027 Colonoscopy 06/08/2027 06/08/2022 Colorectal Cancer Screening 06/08/2027 DTaP/Tdap/Td Vaccines (2 - Td or Tdap) 08/05/2027 08/05/2017 Lipid Panel 09/26/2029 09/26/2024, 10/28/2023 RSV Patients and Patients Aged 60 [...] patient's age to complete this topic Meningococcal B Vaccine Aged Out No l onger eligible based on patient's age to complete [...] AUTO DIFFERENTIAL Routine 02/06/2025 1:25 PM EDT PROPHYLAXIS - ADULT Routine 10/12/2024 8 :00 AM EDT Dental calculus LIPID PANEL, STANDARD Routine 09/26/2024 7:35 AM EDT BITEWINGS - 4 RADIOGRAPHIC IMAGES Routine 04/13/2024 10:00 AM EST Dental calculus Periodontal disease Localized gingival recession Gingival bleeding PERIODIC ORAL EVALUATION - ESTABLISHED PATIENT Routine 01/07/2023 10:00 AM EDT HM COLONOSCOPY Routine 06/08/2022 3:31 PM EST ZZZ HISTORICAL HEPATITIS C AB W/REFL TO HCV RNA, QN, PCR Routine 09/13/2021 3:23 PM EDT HIV 1/2 ANTIGEN/ANTIBODY, FOURTH GENERATION W/RFL Routine 09/13/2021 3:23 PM EDT INTRAORAL - COMPLETE SERIES OF RADIOGRAPHIC IMAGES Routine 08/02/2021 12:00 AM EST from Last 3 Months or Most Recently Relevant to Health Maintenance Results * Lipid Panel, Standard (09/26/2024 7:35 AM EDT) Triglycerides 45 <150 mg/dL [facility] Comment:Desirable Triglyceri de: less than 150 mg/dLBorderline High Triglyceride 150-199 mg/dLHigh Triglyceride: 200-499 mg/dLVery High Triglyceride: greater than or equal to 5OO mg/dL Cholesterol 108 <200 mg/dL [facility] Comment:Desirable Cholestero l: less than 200 mg/dLBorderline High Cholesterol: 200-239 mg/dLHigh Cholesterol: greater than 239 mg/dL LDL Cholesterol Calculated 45 <100 mg/dL [facility] Comment:Desirable LDL: less than 100 mg/dLNear Optimal/Above Optimal LDL: 110- 129 mg/dLBorderline High LDL: 130-159 mg/dLHigh LDL: 160-189 mg/dLVery High LDL: greater than or equal to 190 mg/dL HDL Cholesterol 54 >40 mg/dL [facility] Comment:Desirable HDL: great er than 40 mg/dL Note: This HDL assay may give artificially low results in patients with liver disease. 09/26/2024 7:35 AM EDT 09/26/2024 7:35 AM EDT us Generic External Data Provider LAB BLOOD ORDERAB LES Final Result [facility] [address] [place] [phone] * Hm Colonoscopy (06/08/2022 3:31 PM EST) Colonoscopy Normal Normal Narrative Antonette Lawson - 06/08/2022 3:31 PM EST Recommended 5 years see legacy note 06/08/2022 us Historical Provider HEALTH MAINTENANCE Edited Result - Final * HEPATITIS C AB W/REFL TO HCV RNA, QN, PCR (09/13/2021 3:23 PM EDT) HEPATITIS C ANTIBODY NON-REACT PINKY NON-REACT PINKY [facility] INDEX 0.01 <1.00 [facility] Comment: HCV antibody was non-reactive. There is no laboratory evidence of HCV infection. In most cases, no further action is required. However, if recent HCV exposure is suspected, a test for HCV RNA (test code 14494) is suggested. For additional information please refer to http://education.[employer]faq/DSP12o0 (This link is being provided for informational/ educational purposes only.) 09/13/2021 3:23 PM EDT Nina Nassar MD HISTORICAL/NON ORDERABLE LABS Final Result Performing Organization Address [facility] de Phone Number [facility] [address] * HIV 1/2 ANTIGEN/ANTIBODY,FOURTH GENERATION W/RFL (09/13/2021 3:23 PM EDT) HIV-1/2 ANTIGEN AND ANTIBODIES, 4TH GENERATION W/ REFLEX NON-REACT PINKY NON-REACT PINKY [facility] Comment: HIV-1 antigen and HIV-1/HIV-2 antibodies were not detected. There is no laboratory evidence of HIV infection. PLEASE NOTE: This information has been disclosed to you from records whose confidentiality may be protected by state law. If your state requires such protection, then the state law prohibits you from making any further disclosure of the information without the specific written consent of the person to whom it pertains, or as otherwise permitted by law. A general authorization for the release of medical or other information is NOT sufficient for this purpose. For additional information please refer to http://education.[employer]/faq/BPR568 (This link is being provided for informational/ educational purposes only.) The performance of this assay has not been clinically validated in patients less than 2 years old. 09/13/2021 3:23 PM EDT Nina Nassar MD LAB BLOOD ORDERABLES Final Res ult Performing Organization Address [facility] de Phone Number [facility] [address] from Last 3 Months or Most Recently Relevant to Health Maintenance Insurance [employer] [facility] STAND ADULT Care Teams Paving Machine Operator Relationship Specialty Start Date End Date Nina Nassar MD [address] [place] [address] PCP - General Family Medicine 03/29/20
--- OUTSIDE RECORDS SUMMARY | 2025-02-06 13:44 | XMS_ITS | Encounter Summary ---
Author Organization [employer] Address [address] [place] [address] 7 [place] [address] Care Team Providers Care Transition Of Care Specialist Name Role Phone Nina Nassar MD Primary Care Provider [phone] Encounter Details Date Type Department Care Team ([facility] Contact Info) Description 12/26/2022 Orders Only [facility] MEDICINE [address] [place], [place] [phone] Bonnie Gomes MD [address] [place], [place] [phone] Chronic midline low back pain without sciatica [...] Upcoming Encounters Date Type Department Care Team ([facility] Contact Info) Description 03/12/2025 4:00 PM EDT Office Visit [facility] MEDICINE [address] [place], [place] [phone] Nina Nassar MD [address] [place] [address] 04/26/2025 8:00 AM EST Office Visit [facility] ADULT DENTAL [address] [place], [place] [phone] Miley Holt [address] [place] [address] documented as of this encounter Visit Diagnoses Diagnosis Chronic midline low back pain without sciatica- Primary documented in this encounter Additional Health Concerns Assessment Noted Time PHQ-9 Depression Total Score: 21 023 1:46 PM EDT documented as of this encounter Care Teams Transition Of Care Specialist Relationship Specialty Start Date End Date Nina Nassar MD [address] [place] [address] PCP - General Family Medicine 03/29/20 documented as of this encounter
[2025-02-06 13:47] LABS: Alanine Aminotransferase 32 U/L (0-40); Albumin Level 4.2 g/dL (3.5-5.0); Alkaline Phosphatase 61 U/L (39-117); Anion Gap 15 (12-20); Aspartate Amino Transferase 43 U/L (5-37); Blood Urea Nitrogen 19 mg/dL (9-16); COVID-19 Test Negative (Negative); Calcium 8.7 mg/dL (8.4-10.2); Carbon Dioxide 25 mmol/L (22-29); Chloride 99 mmol/L (96-108); Creatinine Clr Calc Pharmacy 120.6; Estimated Glomerular Filt Rate > 60; IDNOW Serial# 58CA691E; Lipase 22 U/L (8-78); Potassium 3.1 mmol/L (3.3-5.1); Sodium 136 mmol/L (135-145); Total Protein 6.9 g/dL (6.5-8.0)
[2025-02-06 13:48] LABS: UACC Culture Trigger YES
[2025-02-06 13:52] LABS: B Type Natriuretic Peptide 58 pg/mL (<100); IDNOW Serial# 55D5AD1C; Influenza B2 Negative (Negative)
--- NOTE | 2025-02-06 14:32 | PC.NURSE ---
Patient presents to Ed c/o diarrhea and nausea since saturday Patient reports fever, in ED temp 100.4 orally Patient reports at times difficulty urinating and strong odor present Patient c/o headache rated 5/10 denies SOB Provider in to see patient Plan of care on going
[2025-02-06 14:37] VITALS: BP 101/48; PULSE 72; RESP 16; TEMP 38; O2SAT 100
[2025-02-06] MEDS: Potassium Chloride/H20 10 MEQ/100 ML PIGGYBACK 100 MEQ IV ×2 (15:14→16:12)
[2025-02-06 15:16] LABS: Magnesium 1.8 mg/dL (1.6-2.6)
[2025-02-06] MEDS: iohexoL 350 MG/ML 100 ML INFUS..BTL IV (16:04)
[2025-02-06 16:09] VITALS: TEMP 37.6
[2025-02-06 16:53] VITALS: BP 114/63; PULSE 65; RESP 25; TEMP 36.7; O2SAT 100
--- NOTE | 2025-02-06 17:24 | ECG_ITS ---
Test Reason : CP Blood Pressure : */* mmHG Vent. Rate : 69 BPM Atrial Rate : 69 BPM P-R Int : 148 ms QRS Dur : 92 ms QT Int : 410 ms P-R-T Axes : 32 -22 -3 degrees QTcB Int : 439 ms Normal sinus rhythm Normal ECG When compared with ECG of 15-Sep-2018 16:40, Vent. rate has decreased by 42 bpm Referred By: Mitali Fleming Electronically Signed By: LIBIA EATON
[2025-02-06] MEDS: Potassium Chloride Packet 20 MEQ PACKET 40 MEQ PO (17:39)
[2025-02-06 17:59] LABS: Troponin-I High Sensitivity < 2.7 ng/L (<3.5-35.0)
--- NOTE | 2025-02-06 18:06 | MHC.EDTECH ---
ekg delay do to ekg machine in used by another technian. nurse aware
[2025-02-06 18:30] LABS: Potassium 3.6 mmol/L (3.3-5.1)
[2025-02-06 18:45] LABS: Troponin-I High Sensitivity < 2.7 ng/L (<3.5-35.0)
[2025-02-06 19:07] VITALS: BP 114/63; PULSE 65; RESP 25; TEMP 36.7; O2SAT 100
== END 2025-02-06 19:19 | disposition home or self-care (01) ==
PROVIDERS: Physician Assistant; Physician Assistant Medical; Emergency Provider Emergency Medicine; PCP General Practice
DX: N39.0 Urinary tract infection, site not specified (principal); R11.2 Nausea with vomiting, unspecified; M79.10 Myalgia, unspecified site; R07.89 Other chest pain; E87.6 Hypokalemia; R10.11 Right upper quadrant pain; R19.7 Diarrhea, unspecified; R50.9 Fever, unspecified; R06.82 Tachypnea, not elsewhere classified; R10.2 Pelvic and perineal pain; R51.9 Headache, unspecified; Z79.899 Other long term (current) drug therapy; Z03.818 Encounter for observation for suspected exposure to other biological agents ruled out; Z11.52 Encounter for screening for COVID-19
CPT/HCPCS: 36415; 71046; 74177; 76705; 80053; 81001; 82248; 83605; 83690; 83735; 83880; 84132; 84484; 85025; 87040; 87086; 87088; 87186; 87502; 87635; 93005; 96361; 96365; 96375; 99285; J0131; J0696; J2270; J2405; J3480; Q9967

== ENCOUNTER → 2025-02-06 14:49 | Outpatient (BNV) | payer MEDICAID, SELFPAY | PROVIDERS: Emergency Provider Emergency Medicine; PCP General Practice; Visit Provider Radiology Diagnostic Radiology | DX: R10.9 Unspecified abdominal pain (principal); R50.9 Fever, unspecified; N39.0 Urinary tract infection, site not specified; R19.7 Diarrhea, unspecified; R07.89 Other chest pain | CPT/HCPCS: 71046; 74177; 76705 ==

== ENCOUNTER → 2025-02-06 17:24 | Outpatient (BNV) | payer MEDICAID, SELFPAY | PROVIDERS: Emergency Provider Emergency Medicine; PCP General Practice; Visit Provider Internal Medicine | DX: R07.89 Other chest pain (principal) | CPT/HCPCS: 93010 ==

== ENCOUNTER 2025-03-12 19:01 | Outpatient (REF) | payer MEDICAID, SELFPAY ==
--- OUTSIDE RECORDS SUMMARY | 2025-03-12 16:00 | XMS_ITS | Encounter Summary ---
Author Organization [employer] Address [address] [place] [address] 7 [place] [address] Care Team Providers Care Software Engineering Project Manager Name Role Phone Nina Nassar MD Primary Care Provider [phone] Encounter Details Date Type Department Care Team ([facility] st Contact Info) Description 03/12/2025 4:00 PM EDT Office Visit [facility] MEDICINE [address] [place], [place] [phone] Nina Nassar MD [address] [place], [place] [phone] Hypokalemia (Primary Dx); Dysuria; Vitamin D deficiency [...] the past 12 months, has t he [employer], gas, oil or water company threatened to [...] Description 04/26/2025 8:00 AM EST Office Visit [facility] ADULT DENTAL [address] [place] [address] Miley Holt [address] [place] [address] Scheduled Orders Name Type Priority Associated Diagnoses Orde r Schedule Comprehensive Metabolic Panel Lab Routine Hypokalemia Expected: 03/12/2025 (Approximate), Expires: 03/12/2026 Culture, Urine, Routine Microbiology Routine Hypokalemia Dysuria Ordered: 03/12/2025 documented as of this encounter Procedures Procedure Name Priority Date/Time Associated Diagnosis Comments POCT URINALYSIS DIPSTICK Routine 03/12/2025 4:59 PM EDT Dysuria documented in this encounter Results * [...] OF CARE TEST ENTER/EDIT ORDERABLES Final Result documented in this encounter Visit Diagnoses Diagnosis Hypokalemia- Primary Hypopotassemia Dysuria Vitamin D deficiency documented in this encounter Additional Health Concerns Assessment Noted Time PHQ-9 Depression Total Score: 14 024 10:35 AM EDT documented as of this encounter Care Teams Software Engineering Project Manager Relationship Specialty Start Date End Date Nina Nassar MD [address] [place] [id number] PCP - General Family Medicine 03/29/20 documented as of this encounter
--- OUTSIDE RECORDS SUMMARY | 2025-03-12 19:04 | XMS_ITS | Encounter Summary ---
Author Organization [employer] Address [address] [place] [address] [address]t [place] [address] Care Team Providers Care Metalizing Machine Operator Automatic Name Role Phone Nina Nassar MD Primary Care Provider [phone] Encounter Details Date Type Department Care Team ([facility] st Contact Info) Description 10/20/2024 Orders Only [facility] [address] [place], [place] [phone] ProviderCed MD Social History Tobacco Use Types [...] Description 04/26/2025 8:00 AM EST Office Visit [facility] ADULT DENTAL [address] [place] [address] David Holtaris [address] [place] [address] documented as of this encounter Procedures Procedure [...] documented as of this encounter Care Teams Metalizing Machine Operator Automatic Relationship Specialty Start Date End Date Nina Nassar MD [address] [place] [address] PCP - General Family Medicine 03/29/20 documented as of this encounter
--- OUTSIDE RECORDS SUMMARY | 2025-03-12 19:04 | XMS_ITS | Clinical Summary ---
Author Organization [employer] Address [address] [place] [address] 7 [place] [address] Care Team Providers Care [place] Name Role Phone Nina Nassar MD Primary Care Provider [phone] Allergies No known active allergies Medications polyethylene glycol, PEG, 3350 (Glycolax) 17 GM/SCOOP powder DISSOLVE 1 CAPFUL IN LIQUID AND DRINK BY MOUTH DAILY FOR 30 DAYS 07/19/19 23 Active aspirin (Aspirin Low Dose) 81 MG EC tablet TAKE 1 TABLET BY MOUTH EVERY MORNING 90 tablet 3 01/20/20 24 Active gabapentin (Neurontin) 300 MG capsule TAKE 1 CAPSULE BY MOUTH TWICE A DAY 60 capsule 6 06/15/19 25 Active carboxymethylc ellulose sodium (Refresh Contacts) solution OPHTHalmic solution Administer 1 drop into both eyes 3 times daily. 12 mL 3 06/15/19 25 Active hydrOXYzine HCl (Atarax) 10 MG tablet Take 1 tablet (10 mg) by mouth every 12 (twelve) hours if needed for itching or anxiety. 90 tablet 3 06/15/19 25 Active folic acid (Folvite) 400 MCG tabletIndicati ons:Folic acid deficiency TAKE 1 TABLET (400 MCG) BY MOUTH IN THE MORNING. 90 tablet 3 07/15/19 25 Active acetaminophen (Tylenol) 500 MG tabletIndicati ons:Leg cramping Take 2 tablets (1,000 mg) by mouth every 6 (six) hours if needed for moderate pain for up to 25 doses. 50 tablet 07/31/19 25 Active triamcinolone (Kenalog) 0.1 % creamIndicatio ns:Xerosis of skin Mix with Cerave and apply after showers neck down. 80 g 2 08/15/19 25 Active ibuprofen 600 MG tabletIndicati ons:Other chronic pain TAKE 1 TABLET BY MOUTH THREE TIMES DAILY WITH FOOD NEEDED FOR PAIN 90 tablet 3 09/10/19 25 Active fluticasone (Flonase) 50 MCG/ACT nasal spray SHAKE LIQUID AND USE 2 SPRAYS IN EACH NOSTRIL EVERY DAY 48 mL 3 10/24/19 25 Active rosuvastatin (Crestor) 10 MG tablet TOME 1 TABLETA POR VIA ORAL TODOS LOS QURESHI EN LA SALINEANA 90 tablet 3 01/13/20 25 Active ferrous sulfate 325 (65 Fe) MG tabletIndicati ons:Iron deficiency anemia, unspecified iron deficiency anemia type TOME 1TAKE 1 TABLET BY MOUTH EVERY MORNING 90 tablet 3 02/18/20 25 Active sulfamethoxazo le-trimethopri m (Bactrim DS) 800-160 MG tablet Take 1 tablet by mouth 2 times daily for 5 days. 10 tablet 03/12/20 25 025 Active cholecalcifero l (D3 Super Strength) 50 MCG (1999 UT) capsuleIndicat ions:Vitamin D deficiency TAKE 1 CAPSULE BY MOUTH EVERY MORNING 90 capsule 3 03/12/20 25 Active chlorthalidone (Hygroton) 25 MG tablet Take 1 tablet (25 mg) by mouth in the morning. 90 tablet 3 03/12/20 25 Active buPROPion XL (Wellbutrin XL) 300 MG 24 hr tablet Take 1 tablet (300 mg) by mouth in the morning. 90 tablet 3 03/12/20 25 Active docusate sodium (Colace) 100 MG capsule Take 200 mg by mouth at bedtime. 06/13/19 23 025 Discontinued( erapy completed) escitalopram (Lexapro) 20 MG tablet Take 20 mg by mouth in the morning. 09/22/19 23 025 Discontinued( erapy completed) Citrucel 500 MG tablet Take 1 tablet by mouth 2 times daily. 09/11/19 23 025 Discontinued( erapy completed) Gas Relief Extra Strength 125 MG chewable tablet CHEW 1 TABLET BY MOUTH THREE TIMES DAILY TO FOUR TIMES DAILY NEEDED FOR DISTENTION 06/22/19 23 025 Discontinued( erapy completed) zolpidem (Ambien) 10 MG tablet Take 10 mg by mouth if needed at bedtime. 09/08/19 23 025 Discontinued( erapy completed) buPROPion XL (Wellbutrin XL) 300 MG 24 hr tablet TAKE 1 TABLET (300 MG) BY MOUTH IN THE MORNING 90 tablet 3 07/08/19 24 025 Discontinued(Re order (will not trigger notification to Pharmacy)) dicyclomine (Bentyl) 20 MG tablet TAKE 1 TABLET BY MOUTH UP TO 2 TIMES EVERY DAY FOR GAS 180 tablet 3 10/16/19 24 025 Discontinued( erapy completed) cyanocobalamin (Vitamin B-12) 500 MCG tablet Take 1 tablet (500 mcg) by mouth Once per day. 90 tablet 3 10/28/19 025 Discontinued( erapy completed) ferrous sulfate 325 (65 Fe) MG tabletIndicati ons:Iron deficiency anemia, unspecified iron deficiency anemia type TAKE 1 TABLET BY MOUTH EVERY MORNING 90 tablet 3 01/20/20 24 025 Discontinued cholecalcifero l (D3 Super Strength) 50 MCG (2000 UT) capsuleIndicat ions:Vitamin D deficiency TAKE 1 CAPSULE BY MOUTH EVERY MORNING 90 capsule 3 01/20/20 24 025 Discontinued(Re order (will not trigger notification to Pharmacy)) cephalexin (Keflex) 500 MG capsule TOME 1 C PSULA POR V A ORAL GARO VECES AL D A POR 7 D 12/02/19 24 025 Discontinued( erapy completed) hydrOXYzine HCl (Atarax) 25 MG tablet TAKE 1 TABLET (ORAL) DAILY ( NEEDED FOR ITCHING) FOR 10 DAYS 12/16/19 24 025 Discontinued( erapy completed) chlorthalidone (Hygroton) 25 MG tablet TAKE 1 TABLET BY MOUTH EVERY DAY IN THE MORNING 90 tablet 3 11/18/19 25 025 Discontinued(Re order (will not trigger notification to Pharmacy)) cefuroxime (Ceftin) 250 MG tablet TOME 1 TABLETA POR V A ORAL DOS VECES AL D A POR 10 D 02/07/20 25 025 Discontinued( erapy completed) Active Problems Problem Noted Date Diagnosed Date Dental caries 10/16/2024 Gingival bleeding 04/13/2024 Tooth hypersensitivity 04/13/2024 Requires assistance with activities of daily meron ing (ADL) 05/04/2023 Assessment & Plan (05/04/2023 8:02 AM EST): Instructed patient to go to medical records to contact [employer] agency and re- establish care for assistance with bathing, washing, shopping, cooking Dental calculus 01/07/2023 Periodontal disease 01/07/2023 Localized gingival recession 01/07/2023 Right anterior shoulder pain 10/22/2022 Assessment & Plan (05/04/2023 8:09 AM EST): Xray with moderate AC joint arthritis Sp med and injection trial without benefit Declines PT for now due to transportation issues Will work on getting [employer] care re-established Gentle stretching at home Assessment [...] Encounters Date Type Department Care Team Description 03/12/2025 4:00 PM EDT Office Visit [facility] [address] [place] [phone] Nina Nassar MD Hypokalemia (Primary Dx); Dysuria; Vitamin D deficiency 03/12/2025 Travel 03/11/2025 Telephone [facility] [address] [place] [phone] Nina Nassar MD chart prep 03/04/2025 Patient Outreach [facility] [address] [place] [phone] Nina Nassar MD Pre-visit Planning (SDOH screening negative and tobacco screening negative) 02/16/2025 Refill [facility] [address] [place] [phone] Nina Nassar MD Iron deficiency anemia, unspecified iron deficiency anemia type 02/06/2025 Orders Only GENERIC EXTERNAL DATA DEPARTMENT Provider, Generic External Data 01/11/2025 Refill [facility] [address] [place] [address] Nina Nassar MD 01/06/2025 Telephone [facility] [address] [facility] [place] [address] Nina Nassar MD recall 01/06/2025 Travel from Last 3 Months Immunizations Immunization Administration [...] your housing situation today? I have taty jayde 03/04/[address] you li [...] Mass Index 40.29 03/12/2025 4:17 PM EDT Plan of Treatment Upcoming Encounters Date Type Department Care Team (Late st Contact Info) Description 04/26/2025 8:00 AM EST Office Visit [facility] [address] [place] [address] David Holtaris [address] [place] [address] Health Maintenance Due Date Last Done Comments [...] 07/11/2023 01/07/2023, , 06/20/2020, Additional history exists Depression Monitoring 04/29/2024 10/28/2023, 024 Dental X-Ray: Full Mouth 08/03/2024 08/02/2021, 02/09 COVID-19 Vaccine ( season) 2025 03/16/2022, 11/09/2020, 10/20/2020 Influenza Vaccine (#1) 2025 , 03/08/2022, 03/13/2021, Additional history exists Dental X-Ray: Bitewings 04/14/2025 04/13/20 24, 01/07/2023, 08/02/2021, Additional history exists Dental Prophylaxis 04/15/2025 10/12/2024, 1 06/13/2023, 11/18/2023, Additional history exists SDOH Screening 03/04/2026 03/04/2025 Tobacco Screening 03/12/2026 03/12/2025 Zoster Vaccines (1 of 2) 2027 Colonoscopy [...] DIPSTICK Routine 03/12/2025 4:59 PM EDT Dysuria HIGH SENSITIVITY TROPONIN I Routine 02/06/2025 6:19 PM EDT POTASSIUM Routine 02/06/2025 6:19 PM EDT XR CHEST 2 VIEWS Routine 02/06/2025 6:0 1 PM EDT US ABDOMEN LIMITED Routine 02/06/2025 5: [address] ABDOMEN PELVIS W CONTRAST Routine 02/06/2025 4:06 PM EDT LACTIC ACID Routine 02/06/2025 3:05 PM EDT BLOOD CULTURE (SECOND) Routine 3:05 PM EDT BLOOD CULTURE (FIRST) Routine 02/06/2025 3:05 PM EDT URINALYSIS, COMPLETE, WITH REFLEX TO CULTURE Routine 02/06/2025 1:33 PM EDT HIGH SENSITIVITY TROPONIN I Routine 02/06/2025 1:25 PM EDT BILIRUBIN, DIRECT Routine 02/06/2025 1:2 5 PM EDT MAGNESIUM Routine 02/06/2025 1:25 PM EDT B TYPE NATRIURETIC PEPTIDE (BNP) Routine 02/06/2025 1:25 PM EDT SLIDE REVIEW Routine 02/06/2025 1:25 PM EDT COVID-19 ID NOW (CORDERO) Routine 02/06/2025 1:25 PM EDT LIPASE Routine 02/06/2025 1:25 PM EDT COMPREHENSIVE METABOLIC PANEL Routine 02/06/2025 1:25 PM EDT CBC WITH AUTO DIFFERENTIAL Routine 02/06/2025 1:25 PM EDT INFLUENZA A B2 ID NOW (CORDERO) Routine 02/06/2025 1:25 PM EDT CULTURE, URINE, ROUTINE Routine 02/06/2025 12:00 AM EDT PROPHYLAXIS - ADULT Routine 10/12/2024 8 [...] Recently Relevant to Health Maintenance Results * (ABNORMAL) POCT Urinalysis (03/12/2025 4:59 [...] CARE TEST ENTER/EDIT ORDERABLES Final Result * High Sensitivity Troponin I (02/06/2025 6:19 PM EDT) Only the most recent of2 resultswithin the time period is included. Pathologist [facility] TROPONIN I HIGH SENSITIVITY <2.7 <3.5 - 35.0 ng/L [facility] Comment:The Cordero high sens itivity Troponin-I results should beused in conjunction with other diagnostic information suchas ECG, clinical observations and information, and patientsymptoms to aid in the diagnosis of AK. 02/06/2025 6:19 PM EDT 02/06/2025 6:21 PM EDT us Generic External Data Provider LAB BLOOD ORDERAB LES Final Result Performing Organization Address [facility]/ZIP Co de Phone Number [facility] [address] [place] [phone] * Potassium (02/06/2025 6:19 PM EDT) Pathologist [facility] Potassium 3.6 3.3 - 5.1 mmol/L [facility] 02/06/2025 6:19 PM EDT 02/06/2025 6:21 PM EDT Generic External Data Provider LAB BLOOD ORDERAB LES Final Result Performing Organization Address [facility]/State/ZIP Co de Phone Number [facility] [address] [place] [phone] * XR Chest 2 Views (02/06/2025 6:01 PM EDT) Anatomical Region Laterality Modality Chest Radiographic Melissa ging 02/06/2025 6:01 PM EDT Narrative 02/06/2025 6:03 PM EDT [place] [address] XRay Report Signed Patient: Contreras Schrader MR#: [id number] : 1975 Acct:[id number] Age/Sex: 49 / M ADM Date: 02/06/25 Loc: HO.ED Attending Dr: Ordering Physician: Mitali Fleming Date of Service: 02/06/25 Procedure(s): XR chest 2V Accession Number(s): [id number] cc: Nina Nassar; Mitali Fleming CLINICAL HISTORY: L sided cp, fever 2 view chest x-ray Comparison: None provided Findings: The lungs are clear. Normal size heart. No acute fracture. IMPRESSION: 1. No acute findings. This document has been electronically signed by: Genie Beard MD on 02/06/2025 18:01:56 Dictated By: Genie Beard MD Signed By: <Electronically signed by Genie Beard MD in OV> 02/06/25 1802 DD/ 1801 TD/TT: 02/06/25 1801 Fluorescent Lighting Model Maker: Procedure Note Donotuseinterpreter, Image - 02/06/[address] [address] XRay Report Signed Patient: Contreras SchraderR#: [id number] : 1975Acct:[id number] Age/Sex: 49 / MADM Date: 02/06/25 Loc: HO.ED Attending Dr: Ordering Physician: Mitali Fleming Date of Service: 02/06/25 Procedure(s): XR chest 2V Accession Number(s): [id number] cc: Nina Nassar; Mitali Fleming CLINICAL HISTORY: L sided cp, fever 2 view chest x-ray Comparison: None provided Findings: The lungs are clear. Normal size heart. No acute fracture. IMPRESSION: 1. No acute findings. This document has been electronically signed by: Genie Beard MD on 02/06/2025 18:01:56 Dictated By: Genie Beard MD Signed By: <Electronically signed by Genie Beard MD in OV> 02/06/251801 DD/ 00 TD/TT: 02/06/251800 Fluorescent Lighting Model Maker: us [facility] External Provider IMG XR PROCEDURES Final Result * US Abdomen Limited (02/06/2025 5:11 PM EDT) Anatomical Region Laterality Modality Abdomen Ultrasound 02/06/2025 5:11 PM EDT Narrative 02/06/2025 5:13 PM EDT [place] [address] Ultrasound Report Signed Patient: Contreras Schrader MR#: [id number] : 1975 Acct:[id number] Age/Sex: 49 / M ADM Date: 02/06/25 Loc: .ED Attending Dr: Ordering Physician: Mitali Fleming Date of Service: 02/06/25 Procedure(s): US abdomen limited Accession Number(s): [id number] cc: Nina Nassar; Mitali Fleming CLINICAL HISTORY: +deleon sign diarrhea r o cecile --- Additional Notes or Special Instructions: look at gb, ductus, liver, pancreas US abdomen limited Comparison: CT/REG/SR - CT ABDOMEN PELVIS W IV CON - 02/06/25 15:30 EDT Findings: The visualized pancreas is normal. The liver is normal in size and echotexture. There is no intrahepatic bile duct dilatation. The common duct is 2 mm in diameter. The gallbladder is normal. There is no sonographic Deleon sign. No ascites. IMPRESSION: Unremarkable limited abdominal ultrasound. This document has been electronically signed by: Genie Beard MD on 02/06/2025 17:11:24 Dictated By: Genie Beard MD Signed By: <Electronically signed by Genie Beard MD in OV> 02/06/251711 DD/ 10 TD/TT: 02/06/251710 Fluorescent Lighting Model Maker: Procedure Note Donotuseinterpreter, Image - 02/06/[address] [address] Ultrasound Report Signed Patient: Contreras Schrader#: [id number] : 1975Acct:[id number] Age/Sex: 49 / MADM Date: 02/06/25 Loc: .ED Attending Dr: Ordering Physician: Mitali Fleming Date of Service: 02/06/25 Procedure(s): US abdomen limited Accession Number(s): [id number] cc: Nina Nassar; Mitali Fleming CLINICAL HISTORY: +deleon sign diarrhea r o cecile --- Additional Notes orSpecial Instructions: look at gb, ductus, liver, pancreas US abdomen limited Comparison: CT/REG/SR - CT ABDOMEN PELVIS W IV CON - 02/06/25 15:30 EDT Findings: The visualized pancreas is normal. The liver is normal in size and echotexture. There is no intrahepatic bile duct dilatation. The common duct is 2 mm in diameter. The gallbladder is normal. There is no sonographic Deleon sign. No ascites. IMPRESSION: Unremarkable limited abdominal ultrasound. This document has been electronically signed by: Genie Beard MD on 02/06/2025 17:11:24 Dictated By: Genie Beard MD Signed By: <Electronically signed by Genie Beard MD in OV> 02/06/251711 DD/ 10 TD/TT: 02/06/251710 Fluorescent Lighting Model Maker: us [facility] External Provider IMG US PROCEDURES Final Result * CT Abdomen Pelvis w/ Contrast (02/06/2025 4:06 PM EDT) Anatomical Region Laterality Modality Body, Pelvis, Abdomen Computed T omography 02/06/2025 4:06 PM EDT Narrative 02/06/2025 4:08 PM EDT [address] [address] [address] Scan Report Signed Patient: Contreras Schrader MR#: [id number] : 1975 Acct:[id number] Age/Sex: 49 / M ADM Date: 02/06/25 Loc: HO.ED Attending Dr: Ordering Physician: Mitali Fleming Date of Service: 02/06/25 Procedure(s): CT abdomen pelvis w IV con Accession Number(s): [id number] cc: Nina Nassar; Mitali Fleming Report Number: [id number]: Total DLP = 954.00 mGy-cm CLINICAL HISTORY: UTI fever right flank pain CT abdomen and pelvis with contrast Comparison: CT - CT ABDOMEN PELVIS W IV CON - 02/06/25 15:23 EDT Findings: The lung bases are clear. Unremarkable gallbladder and solid organs. No urolithiasis. No bowel obstruction, pneumoperitoneum, or pneumatosis. Pelvic contents unremarkable. Appendix is not seen. The bones are intact. IMPRESSION: No acute findings. This document has been electronically signed by: Genie Beard MD on 02/06/2025 16:06:22 Dictated By: Genie Beard MD Signed By: <Electronically signed by Genie Beard MD in OV> 02/06/25 1607 DD/ 1606 TD/TT: 02/06/25 1606 Fluorescent Lighting Model Maker: Procedure Note Donotuseinterpreter, Image - 02/06/[address] [address] [address] Scan Report Signed Patient: Contreras SchraderR#: [id number] : 1975Acct:[id number] Age/Sex: 49 / MADM Date: 02/06/25 Loc: HO.ED Attending Dr: Ordering Physician: Mitali Fleming Date of Service: 02/06/25 Procedure(s): CT abdomen pelvis w IV con Accession Number(s): [id number] cc: Nina Nassar; Mitali Fleming Report Number: [id number]: Total DLP = 954.00 mGy-cm CLINICAL HISTORY: UTI fever right flank pain CT abdomen and pelvis with contrast Comparison: CT - CT ABDOMEN PELVIS W IV CON - 02/06/25 15:23 EDT Findings: The lung bases are clear. Unremarkable gallbladder and solid organs. No urolithiasis. No bowel obstruction, pneumoperitoneum, or pneumatosis. Pelvic contents unremarkable. Appendix is not seen. The bones are intact. IMPRESSION: No acute findings. This document has been electronically signed by: Genie Beard MD on 02/06/2025 16:06:22 Dictated By: Genie Beard MD Signed By: <Electronically signed by Genie Beard MD in OV> 02/06/25 1607 DD/ 1606 TD/TT: 02/06/25 1606 Fluorescent Lighting Model Maker: [facility] External Provider IMG CT PROCEDURES Final Result * Blood Culture (First) (02/06/2025 3:05 PM EDT) Blood Venous blood specimen / Unknown 02/06/2025 3:05 PM EDT 02/06/2025 3:12 PM EDT Comment:Blood Narrative [facility] - 02/11/2025 5:13 PM EDT Blood Culture (First) No growth after 5 days. Specimen Source: Blood Generic External Data Provider LAB MICROBIOLOGY - GENERAL ORDERABLES Final Result [facility] [address] [place] [phone] * Blood Culture (Second) (02/06/2025 3:05 PM EDT) Blood Venous blood specimen / Unknown 02/06/2025 3:05 PM EDT 02/06/2025 3:12 PM EDT Comment:Blood Narrative [facility] - 02/11/2025 5:13 PM EDT Blood Culture (Second) No growth after 5 days. Specimen Source: Blood Generic External Data Provider LAB MICROBIOLOGY - GENERAL ORDERABLES Final Result Performing Organization Address [facility]/ZIP Co de Phone Number [facility] [address] [place] [phone] * Lactic Acid (02/06/2025 3:05 PM EDT) Pathologist [facility] Lactic Acid 0.9 0.5 - 2.0 mmol/L [facility] 02/06/2025 3:05 PM EDT 02/06/2025 3:12 PM EDT Generic External Data Provider LAB BLOOD ORDERAB LES Final Result Performing Organization Address [facility] de Phone Number [facility] [address] [place] [phone] * (ABNORMAL) Urinalysis, Complete, with Reflex to Culture (02/06/2025 1:33 PM EDT) Color Urine Yellow [facility] Appearance Urine Cloudy [facility] PH 5.5 5.0 - 9.0 [facility] Glucose Urine UA Negative Negative mg/dL [facility] Urine Blood Small (1+)(A) Negative [facility] Specific Bedias - Urine 1.020 1.005 - 1.025 [facility] Urine Protein Negative Neg-Trace mg/dL [facility] Urine Ketones 15 Negative mg/dL [facility] Nitrite Urine Positive(A) Negative [facility] Leukocyte Esterase Urine Large (3+)(A) Negative [facility] RBC Urine 3-5(A) 0 - 2 /HPF [facility] Urine WBC >50(A) 0 - 5 /HPF [facility] Urine Squamous Epithelial Cell 0-2 0 - 2 /HPF [facility] Urine Bacteria 4+ None Seen [facility] Hyaline Casts, Urine 0-2 0 - 2 /LPF [facility] 02/06/2025 1:33 PM EDT 02/06/2025 1:37 PM EDT Narrative [facility] - 02/06/2025 1:50 PM EDT [id number], Clean Catch Generic External Data Provider LAB URINE ORDERAB LES Final Result Performing Organization Address [facility]/ZIP Co de Phone Number [facility] [address] [place] [phone] * Influenza A B2 ID NOW (Cordero) (02/06/2025 1:25 PM EDT) IDNOW SERIAL# [id number] [facility] Influenza A Negative Negative [facility] Influenza B2 Negative Negative [facility] Influenza A B2 Note See Note [facility] Comment:The Cordero ID NOW In fluenza A B2 test is used for thequalitative detection of influenza A and B from patientswith signs and symptoms of respiratory infection.Negative results do not preclude influenza virus infectionand should not be used as the sole basis for diagnosis,treatment or other patient management decisions.There is a risk of false negative results due to thepresence of variants in the viral targets of the assay, lowlevels of virus in the specimen and co- infection withRespiratory Syncytial Virus. 02/06/2025 1:25 PM EDT 02/06/2025 1:29 PM EDT us Generic External Data Provider LAB MICROBIOLOGY - GENERAL ORDERABLES Final Result Performing Organization Address [facility] Co de Phone Number [facility] [address] [place] [phone] * Slide Review (02/06/2025 1:25 PM EDT) Slide Review VERIFIED [facility] 02/06/2025 1:25 PM EDT 02/06/2025 1:29 PM EDT Generic External Data Provider LAB BLOOD ORDERAB LES Final Result Performing Organization Address [facility] Co de Phone Number [facility] [address] [place] [phone] * COVID-19 ID NOW (CORDERO) (02/06/2025 1:25 PM EDT) IDNOW SERIAL# [id number] [facility] COVID-19 TEST Negative Negative [facility] COVID-19 NOTE See Note [facility] Comment: Results are for the identification of SARS-CoV2 RNA. TheSARS-CoV2 RNA is generally detectable in respiratory samplesduring the acute phase of infection. Positive results areindicative of the presence of SARS-CoV-2 RNA; clinicalcorrelation with patient history and other diagnosticinformation is necessary to determine patient infectionstatus. Positive results do not rule out bacterial infectionor co- infection with other viruses.Testing facilities within the [facility] and [facility] are required to report all positive results tothe appropriate public health authorities.Negative results should be treated as presumptive and, ifinconsistent with clinical signs and symptoms or necessaryfor patient management, should be tested with differentauthorized or cleared molecular tests. Negative results donot preclude SARS-CoV2 RNA infection and should not be usedas the sole basis for patient management decisions. Negativeresults should be considered in the context of a patient'srecent exposures, history and the presence of clinical signsand symptoms consistent with COVID-19.This test has been authorized by the FDA under an EmergencyUse Authorization (EUA) for use by authorized laboratories.Testing performed on the Cordero ID NOW utilizing NAAT. 02/06/2025 1:25 PM EDT 02/06/2025 1:29 PM EDT us Generic External Data Provider LAB MOLECULAR LAYNE GNOSTICS ORDERABLES Final Result Performing Organization Address [facility]/ZIP Co de Phone Number [facility] [address] [place] [address] [place] [phone] * (ABNORMAL) CBC auto differential (02/06/2025 1:25 PM EDT) White Blood Count 8.4 4.8 - 10.8 X10*3/uL [facility] Red Blood Count 4.64 4.60 - 5.80 X10*6/uL [facility] Hemoglobin 12.8(L) 14.0 - 18.0 g/dl [facility] Hematocrit 37.1(L) 42.0 - 52.0 % [facility] Mean Corpuscular Volume 80.0 80.0 - 98.0 fL [facility] Mean Corpuscular Hemoglobin 27.6 27.0 - 33.0 pg [facility] Mean Corpuscular HGB Conc 34.5 31.0 - 36.0 g/dl [facility] Red Cell Distribution Width 13.1 11.0 - 16.0 % [facility] Platelet Count 118(L) 160 - 400 X10*3/uL [facility] Mean Platelet Volume 10.4 9.4 - 12.4 fL [facility] Neutrophils Percent Auto 90.1(H) 45 - 73 % [facility] Imm Gran Pct Auto 0.4 0.0 - 0.4 % [facility] Lymphocytes Percent Auto 4.4(L) 20 - 40 % [facility] Monocytes Percent Auto 4.9 2 - 11 % [facility] Eosinophils Percent Auto 0.1 0 - 4 % [facility] Basophils Percent Auto 0.1 0 - 2 % [facility] NRBC Pct Auto 0.0 0.0 - 0.2 /100WBC [facility] Neutrophils Absolute Auto 7.6 2.0 - 8.3 x10*3/uL [facility] Imm Gran Abs Auto 0.03 0.00 - 0.03 X10*3/uL [facility] Lymphocytes Absolute Auto 0.4(L) 1.2 - 4.9 X10*3/uL [facility] Monocytes Absolute Auto 0.4 0.1 - 1.2 X10*3/uL [facility] Eosinophils Absolute Auto 0.0 0.0 - 0.4 X10*3/uL [facility] Basophils Absolute Auto 0.0 0.0 - 0.2 X10*3/uL [facility] NRBC Abs Auto 0.000 0.0 - 0.012 X10*3/uL [facility] 02/06/2025 1:25 PM EDT 02/06/2025 1:29 PM EDT Generic External Data Provider LAB BLOOD ORDERAB LES Edited Result - Final Performing Organization Address [facility]/ZIP Co de Phone Number [facility] [address] [place] [phone] * B Type Natriuretic Peptide (BNP) (02/06/2025 1:25 PM EDT) B Type Natriuretic Peptide 58 <100 pg/mL [facility] 02/06/2025 1:25 PM EDT 02/06/2025 1:29 PM EDT Generic External Data Provider LAB BLOOD ORDERAB LES Final Result Performing Organization Address [facility] Co de Phone Number [facility] [address] [place] [address] [phone] * Magnesium (02/06/2025 1:25 PM EDT) Magnesium 1.8 1.6 - 2.6 mg/dL [facility] 02/06/2025 1:25 PM EDT 02/06/2025 1:29 PM EDT Generic External Data Provider LAB BLOOD ORDERAB LES Final Result Performing Organization Address [facility] Co de Phone Number [facility] [address] [place] [phone] * Lipase (02/06/2025 1:25 PM EDT) Lipase 22 8 - 78 U/L [facility] 02/06/2025 1:25 PM EDT 02/06/2025 1:29 PM EDT Generic External Data Provider LAB BLOOD ORDERAB LES Final Result Performing Organization Address [facility]/ZIP Co de Phone Number [facility] [address] [place] [address] [phone] * Bilirubin, Direct (02/06/2025 1:25 PM EDT) [facility] Bilirubin, Direct 0.3 0.0 - 0.5 mg/dL [facility] Comment:Slight Icterus. 02/06/2025 1:25 PM EDT 02/06/2025 1:29 PM EDT Generic External Data Provider LAB BLOOD ORDERAB LES Final Result Performing Organization Address [facility] de Phone Number [facility] [address] [place] [address] [phone] * (ABNORMAL) Comprehensive Metabolic Panel (02/06/2025 1:25 PM EDT) [facility] Sodium 136 135 - 145 mmol/L [facility] Potassium 3.1(L) 3.3 - 5.1 mmol/L [facility] Chloride 99 96 - 108 mmol/L [facility] Carbon Dioxide 25 22 - 29 mmol/L [facility] Anion Gap 15 12 - 20 [facility] Urea Nitrogen (BUN) 19(H) 9 - 16 mg/dL [facility] Creatinine, Serum 0.89 0.5 - 1.4 mg/dL [facility] Creatinine Clr Calc Pharmacy 120.6 [facility] Comment:eGFR (calculated fro m the MDRD study equation) and eCrCl(calculated from the Cockcroft-Gault equation) are based ondifferent parameters and may not yield comparable results.If eCrCl result is absurd, please check patient'sheight/weight. Estimated Glomerular Filt Rate >60 [facility] Comment:Chronic Kidney Disea se: Estimated GFR < 60 mL/min/1.17l1Gerfjs Kidney Disease: Estimated GFR < 15 mL/min/1.73m2 Glucose 148(H) 60 - 115 mg/dL [facility] Calcium 8.7 8.4 - 10.2 mg/dL [facility] Bilirubin, Total 3.0(H) 0.0 - 1.0 mg/dL [facility] Comment:Slight Icterus. Aspartate Amino Transferase 43(H) 5 - 37 U/L [facility] Alanine Aminotransferase 32 0 - 40 U/L [facility] Total Protein 6.9 6.5 - 8.0 g/dL [facility] Albumin Level 4.2 3.5 - 5.0 g/dL [facility] Alkaline Phosphatase 61 39 - 117 U/L [facility] 02/06/2025 1:25 PM EDT 02/06/2025 1:29 PM EDT us Generic External Data Provider LAB BLOOD ORDERAB LES Final Result Performing Organization Address City/State/[facility] Co de Phone Number [facility] [address] [place] [address] [phone] * Culture, Urine, Routine (02/06/2025 12:00 AM EDT) Urine Urine specimen obtained by clean catch procedure / Unknown 02/06/2025 02/06/2025 Comment:UACC Narrative [facility] - 02/08/2025 7:44 AM EDT Escherichia coli Quant > 100,000 cfu/mL Escherichia coli: Ampicillin >=32(R) Escherichia coli: Cefazolin (Urine) 4(S) Escherichia coli: Cefepime 0.5(S) Escherichia coli: Ceftriaxone <=0.25(S) Escherichia coli: Ciprofloxacin 0.5(I) Escherichia coli: Gentamicin <=1(S) Escherichia coli: Nitrofurantoin <=16(S) Escherichia coli: Trimethoprim/Sulfamethoxazole >=320(R) Specimen Source: Urine clean catch Generic External Data Provider LAB MICROBIOLOGY - GENERAL ORDERABLES Final Result Performing Organization Address City/[facility]/ZIP Co de Phone Number [facility] [address] [place] [phone] * Lipid Panel, Standard (09/26/2024 7:35 AM EDT) Triglycerides 45 <150 mg/dL [facility] Comment:Desirable Triglyceri de: less than 150 mg/dLBorderline High Triglyceride 150-199 mg/dLHigh Triglyceride: 200-499 mg/dLVery High Triglyceride: greater than or equal to 5OO mg/dL Cholesterol 108 <200 mg/dL [facility] Comment:Desirable Cholestero l: less than 200 mg/dLBorderline High Cholesterol: 200-239 mg/dLHigh Cholesterol: greater than 239 mg/dL LDL Cholesterol Calculated 45 <100 mg/dL [facility] Comment:Desirable LDL: less than 100 mg/dLNear Optimal/Above Optimal LDL: 110- 129 mg/dLBorderline High LDL: 130-159 mg/dLHigh LDL: 160-189 mg/dLVery High LDL: greater than or equal to 190 mg/dL HDL Cholesterol 54 >40 mg/dL [facility] Comment:Desirable HDL: great er than 40 mg/dL Note: This HDL assay may give artificially low results in patients with liver disease. 09/26/2024 7:35 AM EDT 09/26/2024 7:35 AM EDT Generic External Data Provider LAB BLOOD ORDERAB LES Final Result Performing Organization Address City/[facility]/ZIP Co de Phone Number [facility] [address] [place] [phone] * Hm Colonoscopy (06/08/2022 3:31 PM EST) Colonoscopy Normal Normal Narrative Antonette Lawson - 06/08/2022 3:31 PM EST Recommended 5 years see legacy note 06/08/2022 us Historical Provider HEALTH MAINTENANCE Edited Result - Final * HEPATITIS C AB W/REFL TO HCV RNA, QN, PCR (09/13/2021 3:23 PM EDT) HEPATITIS C ANTIBODY NON-REACT PINKY NON-REACT PINKY [facility] INDEX 0.01 <1.00 [facility] Comment: HCV antibody was non-reactive. There is no laboratory evidence of HCV infection. In most cases, no further action is required. However, if recent HCV exposure is suspected, a test for HCV RNA (test code 99280) is suggested. For additional information please refer to http://[employer].[facility]/faq/SFM84k9 (This link is being provided for informational/ educational purposes only.) 09/13/2021 3:23 PM EDT Nina Nassar MD HISTORICAL/NON ORDERABLE LABS Final Result [facility] [address] * HIV 1/2 ANTIGEN/ANTIBODY,FOURTH GENERATION W/RFL (09/13/2021 3:23 PM EDT) HIV-1/2 ANTIGEN AND ANTIBODIES, 4TH GENERATION W/ REFLEX NON-REACT PINKY NON-REACT PINKY [facility] Comment: HIV-1 antigen and HIV-1/HIV-2 [...] purpose. For additional information please refer to http://[employer].[facility]/faq/WPY582 (This link is being provided for informational/ educational purposes only.) The performance of this assay has not been clinically validated in patients less than 2 years old. 09/13/2021 3:23 PM EDT us Nina Nassar MD LAB BLOOD ORDERABLES Final Res ult [facility] [address] from Last 3 Months or Most Recently Relevant to Health Maintenance Insurance [facility] 3 [place] ADULT Care Teams [place] Relationship Specialty Start Date End Date Nina Nassar MD [address] [place] [phone] PCP - General Family Medicine 03/29/20
--- OUTSIDE RECORDS SUMMARY | 2025-03-12 19:04 | XMS_ITS | Encounter Summary ---
Author Organization [employer] Address [address] [place] [address] [place] [address] Care Team Providers Care Extension Forester Name Role Phone Nina Nassar MD Primary Care Provider [phone] Reason for Visit * Reason Comments Med Refill Encounter Details Date Type Department Care Team ([facility] st Contact Info) Description 02/26/2024 Refill [facility] [address] [place], [place] [phone] Ashley Contreras MD [address] [place], [place] [phone] Xerosis of skin Social History Tobacco Use [...] Description 04/26/2025 8:00 AM EST Office Visit [facility] ADULT DENTAL [address] [place] [address] JonathonMiley [address] [place] [address] documented as of this encounter Visit Diagnoses Diagnosis Xerosis of skin documented in this encounter Additional Health Concerns Assessment Noted Time PHQ-9 Depression Total Score: 14 024 10:35 AM EDT documented as of this encounter Care Teams Extension Forester Relationship Specialty Start Date End Date Nina Nassar MD [address] [place] [address] PCP - General Family Medicine 03/29/20 documented as of this encounter
--- OUTSIDE RECORDS SUMMARY | 2025-03-12 19:04 | XMS_ITS | Encounter Summary ---
Author Organization [facility] Address [address] [place] [address] [place] [address] Care Team Providers Care Sheet Roller Operator Name Role Phone Nina Nassar MD Primary Care Provider [phone] Encounter Details Date Type Department Care Team (Late st Contact Info) Description 01/22/2023 Abstract [facility] ADULT DENTAL [address] [place] [address] Miley Holt [address] [place] [address] Social History Tobacco Use Types Packs/Day Years [...] Description 04/26/2025 8:00 AM EST Office Visit [facility] ADULT DENTAL [address] [place], [place] [phone] Miley Holt [address] [place] [address] documented as of this encounter Visit Diagnoses Not on filedocumented in this encounter Additional Health Concerns Assessment Noted Time PHQ-9 Depression Total Score: 21 023 1:46 PM EDT documented as of this encounter Care Teams Sheet Roller Operator Relationship Specialty Start Date End Date Nina Nassar MD [address] [place] [address] PCP - General Family Medicine 03/29/20 documented as of this encounter
--- OUTSIDE RECORDS SUMMARY | 2025-03-12 19:04 | XMS_ITS | Encounter Summary ---
Author Organization [employer] Address [address] [place] [address] [place] [address] Care Team Providers Care Maintenance And Operations Supervisor Name Role Phone Nina Nassar MD Primary Care Provider [phone] Reason for Visit * Reason Comments Med Refill Encounter Details Date Type Department Care Team ([facility] st Contact Info) Description 02/02/2024 Refill [facility] MED[facility]INE [address] [place], [place] [phone] Ashley Contreras MD [address] [place], [place] [phone] Xerosis of skin Social History Tobacco Use [...] Description 04/26/2025 8:00 AM EST Office Visit [facility] ADULT [facility]AL [address] [place] [address] JonathonMiley [address] [place] [address] documented as of this encounter Visit Diagnoses Diagnosis Xerosis of skin documented in this encounter Additional Health Concerns Assessment Noted Time PHQ-9 Depression Total Score: 14 024 10:35 AM EDT documented as of this encounter Care Teams Maintenance And Operations Supervisor Relationship Specialty Start Date End Date Nina Nassar MD [address] [place] [address] PCP - General Family Medicine 03/29/20 documented as of this encounter
--- OUTSIDE RECORDS SUMMARY | 2025-03-12 19:04 | XMS_ITS | Encounter Summary ---
Author Organization [employer] Address [address] [place] [address] 7 [place] [address] Care Team Providers Care Advertising Space Clerk Name Role Phone Nina Nassar MD Primary Care Provider [phone] Encounter Details Date Type Department Care Team (Late st Contact Info) Description 12/26/2022 Orders Only [facility] MEDICINE [address] [place], [place] [phone] Bonnie Gomes MD [address] [place], [place] [phone] Chronic midline low back pain without sciatica [...] Description 04/26/2025 8:00 AM EST Office Visit [facility] ADULT DENTAL [address] [place], [place] [phone] Miley Holt [address] [place] [address] documented as of this encounter Visit Diagnoses Diagnosis Chronic midline low back pain without sciatica- Primary documented in this encounter Additional Health Concerns Assessment Noted Time PHQ-9 Depression Total Score: 21 023 1:46 PM EDT documented as of this encounter Care Teams Advertising Space Clerk Relationship Specialty Start Date End Date Nina Nassar MD [address] [place] [address] PCP - General Family Medicine 03/29/20 documented as of this encounter
--- OUTSIDE RECORDS SUMMARY | 2025-03-12 19:04 | XMS_ITS | Encounter Summary ---
Author Organization [employer] Address [address] [place] [address] 7 [place] [address] Care Team Providers Care Corporate Development Intern Name Role Phone Nina Nassar MD Primary Care Provider [phone] Encounter Details Date Type Department Care Team ([facility] st Contact Info) Description 03/06/2024 Orders Only [facility] MEDICINE [address] [place], [place] [phone] Nina Nassar MD [address] [place], [place] [phone] Social History Tobacco Use Types Packs/Day Years [...] the past 12 months, has t he [employer], gas, oil or water company threatened to [...] Description 04/26/2025 8:00 AM EST Office Visit [facility] ADULT DENTAL [address] [place] [address] Jonathon, Miley [address] [place] [address] documented as of this encounter Procedures Procedure [...] 7:35 AM EDT) Triglycerides 45 <150 mg/dL [facility] Comment:Desirable Triglyceri de: less than 150 mg/dLBorderline High Triglyceride 150-199 mg/dLHigh Triglyceride: 200-499 mg/dLVery High Triglyceride: greater than or equal to 5OO mg/dL Cholesterol 108 <200 mg/dL [facility] Comment:Desirable Cholestero l: less than 200 mg/dLBorderline High Cholesterol: 200-239 mg/dLHigh Cholesterol: greater than 239 mg/dL LDL Cholesterol Calculated 45 <100 mg/dL [facility] Comment:Desirable LDL: less than 100 mg/dLNear Optimal/Above Optimal LDL: 110- 129 mg/dLBorderline High LDL: 130-159 mg/dLHigh LDL: 160-189 mg/dLVery High LDL: greater than or equal to 190 mg/dL HDL Cholesterol 54 >40 mg/dL [facility] Comment:Desirable HDL: great er than 40 mg/dL Note: This HDL assay may give artificially low results in patients with liver disease. 09/26/2024 7:35 AM EDT 09/26/2024 7:35 AM EDT us Generic External Data Provider LAB BLOOD ORDERAB LES Final Result [facility] [address] [place] [phone] * Comprehensive Metabolic Panel (09/26/2024 7:35 AM EDT) Sodium 140 135 - 145 mmol/L [facility] Potassium 4.1 3.3 - 5.1 mmol/L [facility] Chloride 104 96 - 108 mmol/L [facility] Carbon Dioxide 27 22 - 29 mmol/L [facility] Anion Gap 13 12 - 20 [facility] Urea Nitrogen (BUN) 16 9 - 16 mg/dL [facility] Creatinine, Serum 0.91 0.5 - 1.4 mg/dL [facility] Estimated Glomerular Filt Rate >60 [facility] Comment:Chronic Kidney Disea se: Estimated GFR < 60 mL/min/1.34q1Nklfrj Kidney Disease: Estimated GFR < 15 mL/min/1.73m2 Glucose 107 60 - 115 mg/dL [facility] Calcium 10.0 8.4 - 10.2 mg/dL [facility] Bilirubin, Total 1.0 0.0 - 1.0 mg/dL [facility] Aspartate Amino Transferase 34 5 - 37 U/L [facility] Alanine Aminotransferase 38 0 - 40 U/L [facility] Total Protein 7.5 6.5 - 8.0 g/dL [facility] Albumin Level 4.5 3.5 - 5.0 g/dL [facility] Alkaline Phosphatase 68 39 - 117 U/L [facility] 09/26/2024 7:35 AM EDT 09/26/2024 7:35 AM EDT us Generic External Data Provider LAB BLOOD ORDERAB LES Final Result [facility] [address] [place] [phone] [phone] * Chlamydia/N. Gonorrhoeae RNA, TMA, Urogenitial (03/25/2024 12:37 PM EDT) CT PCR NOT DETECTED Not Detect. [facility] Comment:A not detected test result [...] psychologicalconsequences. NG PCR NOT DETECTED Not Detect. [facility] Comment:A not detected test result [...] PM EDT 03/25/2024 12:45 PM EDT Narrative [facility] - 03/25/2024 2:20 PM EDT Urine us Generic External Data Provider LAB MICROBIOLOGY - GENERAL ORDERABLES Final Result [facility] [address] [place] [phone] * US SCROTUM DOPPLER (03/25/2024 12:01 PM EDT) Anatomical Region Laterality Modality Abdomen Ultrasound 03/25/2024 12:0 1 PM EDT Narrative 05/01/2024 1:[address] [address] Ultrasound Report Signed Patient: Contreras Schrader MR#: [id number] : 1975 Acct:[id number] Age/Sex: 48 / M ADM Date: 03/25/24 Loc: HO.ED Attending Dr: Ordering Physician: Yumi Khan Date of Service: 03/25/24 Procedure(s): US scrotum doppler Accession Number(s): [id number] cc: Nina Nassar; Yumi Khan EXAMINATION: US [...] 05/01/24 1310 DD/ 1201 TD/TT: 03/25/24 1222 Leaf Conditioner Helper: Procedure Note Donotuseinterpreter, Image - 05/01/2024 [place] [address] Ultrasound Report Signed Patient: Contreras SchraderR#: [id number] : 1975Acct:[id number] Age/Sex: 48 / MADM Date: 03/25/24 Loc: HO.ED Attending Dr: Ordering Physician: Yumi Khan Date of Service: 03/25/24 Procedure(s): US scrotum doppler Accession Number(s): [id number] cc: Nina Nassar; Yumi Khan EXAMINATION: US [...] 05/01/24 1310 DD/ 1201 TD/TT: 03/25/24 1222 Leaf Conditioner Helper: us [facility] External Provider IMG US PROCEDURES Final Result * US Scrotum (03/25/2024 12:01 PM EDT) Anatomical Region Laterality Modality Body Ultrasound 03/25/2024 12:0 1 PM EDT Narrative 03/25/2024 2:20 PM EDT [place] [address] Ultrasound Report Signed Patient: Contreras Schrader MR#: [id number] : 1975 Acct:[id number] Age/Sex: 48 / M ADM Date: 03/25/24 Loc: HO.ED Attending Dr: Ordering Physician: Blake Becker MD Date of Service: 03/25/24 Procedure(s): US scrotum Accession Number(s): [id number] cc: Blake Becker MD; Nina Nassar EXAMINATION: [...] 05/01/24 1310 DD/ 1201 TD/TT: 03/25/24 1222 Leaf Conditioner Helper: Procedure Note Donotuseinterpreter, Image - 05/01/2024 [place] [address] Ultrasound Report Signed Patient: Contreras SchraderR#: [id number] : 1975Acct:[id number] Age/Sex: 48 / MADM Date: 03/25/24 Loc: .ED Attending Dr: Ordering Physician: Blake Becker MD Date of Service: 03/25/24 Procedure(s): US scrotum Accession Number(s): [id number] cc: Blake Becker MD; Nina Nassar EXAMINATION: [...] 05/01/24 1310 DD/ 1201 TD/TT: 03/25/24 1222 Leaf Conditioner Helper: [facility] External Provider IMG US PROCEDURES Edited Result - Final * Lipase (03/25/2024 9:38 AM EDT) Lipase 24 8 - 78 U/L [facility] 03/25/2024 9:38 AM EDT 03/25/2024 9:43 AM EDT Generic External Data Provider LAB BLOOD ORDERAB LES Final Result [facility] [address] [place] [phone] * Magnesium (03/25/2024 9:38 AM EDT) Magnesium 1.8 1.6 - 2.6 mg/dL [facility] 03/25/2024 9:38 AM EDT 03/25/2024 9:43 AM EDT us Generic External Data Provider LAB BLOOD ORDERAB LES Final Result Performing Organization Address City/[facility]/ZIP Co de Phone Number [facility] [address] [place] [phone] * (ABNORMAL) Hepatic Function Panel (03/25/2024 9:38 AM EDT) Pathologist [facility] Bilirubin, Total 2.0(H) 0.0 - 1.0 mg/dL [facility] Bilirubin, Direct 0.6(H) 0.0 - 0.5 mg/dL [facility] Aspartate Amino Transferase 22 5 - 37 U/L [facility] Alanine Aminotransferase 16 0 - 40 U/L [facility] Total Protein 7.6 6.5 - 8.0 g/dL [facility] Albumin Level 4.5 3.5 - 5.0 g/dL [facility] Alkaline Phosphatase 69 39 - 117 U/L [facility] 03/25/2024 9:38 AM EDT 03/25/2024 9:43 AM EDT us Generic External Data Provider LAB BLOOD ORDERAB LES Final Result Performing Organization Address [facility] Co de Phone Number [facility] [address] [place] [phone] * Basic Metabolic Panel (03/25/2024 9:38 AM EDT) Sodium 140 135 - 145 mmol/L [facility] Potassium 3.6 3.3 - 5.1 mmol/L [facility] Chloride 104 96 - 108 mmol/L [facility] Carbon Dioxide 28 22 - 29 mmol/L [facility] Anion Gap 12 12 - 20 [facility] Urea Nitrogen (BUN) 11 9 - 16 mg/dL [facility] Creatinine, Serum 0.80 0.5 - 1.4 mg/dL [facility] Creatinine Clr Calc Pharmacy 130.5 [facility] Comment:eGFR (calculated fro m the MDRD study equation) and eCrCl(calculated from the Cockcroft-Gault equation) are based ondifferent parameters and may not yield comparable results.If eCrCl result is absurd, please check patient'sheight/weight. Estimated Glomerular Filt Rate >60 [facility] Comment:NOTE: For -Am erican individuals, multiply the result by 1.210.Chronic Kidney Disease: Estimated GFR < 60 mL/min/1.72v5Ddeftm Kidney Disease: Estimated GFR < 15 mL/min/1.73m2 Glucose 103 60 - 115 mg/dL [facility] Calcium 10.0 8.4 - 10.2 mg/dL [facility] 03/25/2024 9:38 AM EDT 03/25/2024 9:43 AM EDT us Generic External Data Provider LAB BLOOD ORDERAB LES Final Result [facility] [address] [place] [phone] * (ABNORMAL) CBC auto differential (03/25/2024 9:38 AM EDT) White Blood Count 4.3(L) 4.8 - 10.8 X10*3/uL [facility] Red Blood Count 4.84 4.60 - 5.80 X10*6/uL [facility] Hemoglobin 13.2(L) 14.0 - 18.0 g/dl [facility] Hematocrit 39.9(L) 42.0 - 52.0 % [facility] Mean Corpuscular Volume 82.4 80.0 - 98.0 fL [facility] Mean Corpuscular Hemoglobin 27.3 27.0 - 33.0 pg [facility] Mean Corpuscular HGB Conc 33.1 31.0 - 36.0 g/dl [facility] Red Cell Distribution Width 12.8 11.0 - 16.0 % [facility] Platelet Count 152(L) 160 - 400 X10*3/uL [facility] Mean Platelet Volume 10.6 9.4 - 12.4 fL [facility] Neutrophils Percent Auto 58.5 45 - 73 % [facility] Imm Gran Pct Auto 0.2 0.0 - 0.4 % [facility] Lymphocytes Percent Auto 31.3 20 - 40 % [facility] Monocytes Percent Auto 8.6 2 - 11 % [facility] Eosinophils Percent Auto 1.2 0 - 4 % [facility] Basophils Percent Auto 0.2 0 - 2 % [facility] NRBC Pct Auto 0.0 0.0 - 0.2 /100WBC [facility] Neutrophils Absolute Auto 2.5 2.0 - 8.3 x10*3/uL [facility] Imm Gran Abs Auto 0.01 0.00 - 0.03 X10*3/uL [facility] Lymphocytes Absolute Auto 1.4 1.2 - 4.9 X10*3/uL [facility] Monocytes Absolute Auto 0.4 0.1 - 1.2 X10*3/uL [facility] Eosinophils Absolute Auto 0.1 0.0 - 0.4 X10*3/uL [facility] Basophils Absolute Auto 0.0 0.0 - 0.2 X10*3/uL [facility] NRBC Abs Auto 0.000 0.0 - 0.012 X10*3/uL [facility] 03/25/2024 9:38 AM EDT 03/25/2024 9:43 AM EDT us Generic External Data Provider LAB BLOOD ORDERAB LES Final Result [facility] [address] [place] [phone] * Urinalysis w/reflex microscopic (03/25/2024 9:38 AM EDT) Color Urine Yellow [facility] Appearance Urine Clear [facility] PH 7.0 5.0 - 9.0 [facility] Glucose Urine UA Negative Negative mg/dL [facility] Urine Blood Negative Negative [facility] Specific [place] - Urine <=1.005 1.005 - 1.025 [facility] Urine Protein Negative Neg-Trace mg/dL [facility] Urine Ketones Negative Negative mg/dL [facility] Nitrite Urine Negative Negative [facility] Leukocyte Esterase Urine Negative Negative [facility] 03/25/2024 9:38 AM EDT 03/25/2024 9:43 AM EDT Narrative [facility] - 03/25/2024 9:49 AM EDT [id number], Clean Catch us Generic External Data Provider LAB URINE ORDERAB LES Final Result Performing Organization Address City/State/[facility] Co de Phone Number [facility] [address] [place] [phone] documented in this encounter Visit Diagnoses Not on filedocumented in this encounter Additional Health Concerns Assessment Noted Time PHQ-9 Depression Total Score: 14 024 10:35 AM EDT documented as of this encounter Care Teams Corporate Development Intern Relationship Specialty Start Date End Date Nina Nassar MD [address] [place] [address] PCP - General Family Medicine 03/29/20 documented as of this encounter
--- OUTSIDE RECORDS SUMMARY | 2025-03-12 19:05 | XMS_ITS | Encounter Summary ---
Author Organization [employer] Address [address] [place] [address] 7 [place] [address] Care Team Providers Care Dean Of Women Name Role Phone Nina Nassar MD Primary Care Provider [phone] Reason for Visit * Reason Onset Date Comments chart prep 03/11/2025 Encounter Details Date Type Department Care Team ([facility] st Contact Info) Description 03/11/2025 Telephone [facility] [address] [place], [place] [phone] Nina Nassar MD [address] [place], [place] [phone] chart prep Social History Tobacco Use Types Packs/Day Years [...] the past 12 months, has t he [employer], gas, oil or water company threatened to [...] AM EDT documented as of this encounter Miscellaneous Notes * Telephone Encounter - Bhargavi Hurt [place] - 03/11/2025 10:43 AM EDT Chart Prep Labs: not applicable Images: done Referrals: not applicable Vaccines due: Covid, Flu, PCV20, and Hep B Screenings: not applicable Overdue care gaps: SBIRT, PHQ-9, SAURABH-7, and Disability screen documented in this encounter Plan of Treatment Upcoming Encounters Date Type Department Care Team (Late st Contact Info) Description 04/26/2025 8:00 AM EST Office Visit [facility]ULT [facility] [address] [place] [address] JonathonDavidMiley [address] [place] [address] documented as of this encounter Visit Diagnoses Not on filedocumented in this encounter Additional Health Concerns Assessment Noted Time PHQ-9 Depression Total Score: 14 024 10:35 AM EDT documented as of this encounter Care Teams Dean Of Women Relationship Specialty Start Date End Date Nina Nassar MD [address] [place] [address] PCP - General Family Medicine 03/29/20 documented as of this encounter
--- OUTSIDE RECORDS SUMMARY | 2025-03-12 19:05 | XMS_ITS | Encounter Summary ---
Author Organization [employer] [facility] Address [address] [place] [address] [place] [address] Care Team Providers Care Inspecting Engineer Name Role Phone Nina Nassar MD Primary Care Provider [phone] Encounter Details Date Type Department Care Team (Latest Contact Info) Description 08/02/2021 Abstract [facility] CONVERSIONS Dental, Provider, DDS Social History [...] 04/26/2025 8:00 AM EST Office Visit [facility] ADULT DENTAL [address] [place] [address] Jonathon, Miley [address] [place] [address] documented as of this encounter Visit Diagnoses Not on filedocumented in this encounter Care Teams Inspecting Engineer Relationship Specialty Start Date End Date Nina Nassar MD [address] [place] [address] PCP - General Family Medicine 03/29/20 documented as of this encounter
--- OUTSIDE RECORDS SUMMARY | 2025-03-12 19:05 | XMS_ITS | Encounter Summary ---
Author Organization [employer] [facility] Address [address] [place] [address] [place] [address] Care Team Providers Care Management Development Specialist Name Role Phone Nina Nassar MD Primary Care Provider Encounter Details Date Type Department Care Team (Latest Contact Info) Description 08/27/2018 Abstract [facility] CONVERSIONS Dental, Provider, DDS Social History [...] Description 04/26/2025 8:00 AM EST Office Visit [facility] ADULT DENTAL [address] [place] [address] Jonathon, Miley [address] [place] [address] documented as of this encounter Visit Diagnoses Not on filedocumented in this encounter Care Teams Management Development Specialist Relationship Specialty Start Date End Date Nina Nassar MD [address] [place] [address] PCP - General Family Medicine 03/29/20 documented as of this encounter
--- OUTSIDE RECORDS SUMMARY | 2025-03-12 19:05 | XMS_ITS | Encounter Summary ---
Author Organization [employer] Address [address] [place] [address] 7 [place] [address] Care Team Providers Care Obstetrician And Gynaecologist Name Role Phone Nina Nassar MD Primary Care Provider [phone] Encounter Details Date Type Department Care Team (Latest Contact Info) Description 03/12/2025 Travel Social History Tobacco Use Types Packs/Day Years [...] Description 04/26/2025 8:00 AM EST Office Visit [facility] ADULT DENTAL [address] [place] [address] Jonathon, Miley [address] [place] [address] documented as of this encounter Visit Diagnoses Not on filedocumented in this encounter Additional Health Concerns Assessment Noted Time PHQ-9 Depression Total Score: 14 024 10:35 AM EDT documented as of this encounter Care Teams Obstetrician And Gynaecologist Relationship Specialty Start Date End Date Nina Nassar MD [address] [place] [address] PCP - General Family Medicine 03/29/20 documented as of this encounter
--- OUTSIDE RECORDS SUMMARY | 2025-03-12 19:05 | XMS_ITS | Encounter Summary ---
Author Organization [employer] [facility] Address [address] [place] [address] [place] [address] Care Team Providers Care Bridge Attacher Name Role Phone Nina Nassar MD Primary Care Provider Encounter Details Date Type Department Care Team (Latest Contact Info) Description 06/20/2020 Abstract [facility] CONVERSIONS Dental, Provider, DDS Social [...] 8:00 AM EST Office Visit [facility] ADULT DENTAL [address] [place] [address] Jonathon, Miley [address] [place] [address] documented as of this encounter Visit Diagnoses Not on filedocumented in this encounter Care Teams Bridge Attacher Relationship Specialty Start Date End Date Nina Nassar MD [address] [place] [address] PCP - General Family Medicine 03/29/20 documented as of this encounter
== END 2025-03-12 19:02 | disposition home or self-care (01) ==
LOC: HO.LNP 19:01
PROVIDERS: Visit Provider General Practice
DX: E87.6 Hypokalemia (principal); R30.0 Dysuria
CPT/HCPCS: 87086; 87088; 87186

== ENCOUNTER 2025-03-15 08:44 | Outpatient (REF) | payer MEDICAID, SELFPAY ==
--- OUTSIDE RECORDS SUMMARY | 2025-03-12 16:00 | XMS_ITS | Encounter Summary ---
Author Organization [employer] Address [address] [place] [address] 7 [place] [address] Care Team Providers Care Organizational Research Consultant Name Role Phone Nina Nassar MD Primary Care Provider [phone] Encounter Details Date Type Department Care Team ([facility] st Contact Info) Description 03/12/2025 4:00 PM EDT Office Visit [facility] MEDICINE [address] [place], [place] [phone] Nina Nassar MD [address] [place], [place] [phone] Hypokalemia (Primary Dx); Dysuria; Vitamin D deficiency Social History Tobacco Use Types Packs/Day [...] housing situation today? I have taty donohue 03/04/[address] you li ve. Do you have problems with any of the following? None of the above 03/04/2025 Food Insecurity Answer Date Recorded Within the past 12 months, y ou worried that your food would run out before you got money to buy more: Never True 03/04/2025 Within the past 12 months,th e food you bought just didn't last and you didn't have enough money to get more: Never True Transportation Answer Date Recorded In the past 12 months, has l ack of transportation kept you from medical appts, meetings, work or from getting things needed for daily living? No 03/04/2025 Utilities Answer Date Recorded In the past 12 months, has t he [employer], gas, oil or water company threatened to shut off services in your home? No 03/04/2025 Depression Answer Date Recorded Patient Health Questionnaire-2 Score 0 10/28/2023 Internet Access Answer Date Recorded Internet Access Q1 Yes 03/04/2025 Internet Access Q2 Not on file 03/04/2025 Sex and Gender Information Value Date Recorded Sex Assigned at Male 04/09/2022 10:33 AM EDT Legal Sex Male 10:33 AM EDT Gender Identity Male 04/09/2022 10:33 AM EDT Sexual Orientation Straight 04/09/2022 10 :33 AM EDT documented as of this encounter Last Filed Vital Signs Vital Sign Reading Time Taken Comments Blood Pressure 122/72 03/12/2025 4:17 PM EDT Pulse 80 03/12/2025 4:17 PM EDT Temperature 36.7 C (98.1 F) 03/12/2025 4:17 PM EDT Respiratory Rate 19 03/12/2025 4:17 PM EDT Oxygen Saturation 98% 03/12/2025 4:17 PM EDT Inhaled Oxygen Concentration - - Weight 113 kg (249 lb 9.6 oz) 03/12/2025 4:17 PM EDT Height 167.6 cm (5' 6 ) 03/12/2025 4:17 PM EDT Body Mass Index 40.29 03/12/2025 4:17 PM EDT documented in this encounter Plan of Treatment Upcoming Encounters Date Type Department Care Team (Late st Contact Info) Description 04/26/2025 8:00 AM EST Office Visit [facility] ADULT DENTAL [address] [place] [address] Miley Holt [address] [place] [address] Scheduled Orders Name Type Priority Associated Diagnoses Orde r Schedule Comprehensive Metabolic Panel Lab Routine Hypokalemia Expected: 03/12/2025 (Approximate), Expires: 03/12/2026 documented as of this encounter Procedures Procedure Name Priority Date/Time Associated Diagnosis Comments POCT URINALYSIS DIPSTICK Routine 03/12/2025 4:59 PM EDT Dysuria CULTURE, URINE, ROUTINE Routine 03/12/2025 4:50 PM EDT Hypokalemia Dysuria documented in this encounter Results * (ABNORMAL) POCT Urinalysis (03/12/2025 4:59 PM EDT) Color, UA Yellow Clarity, UA Cloudy Glucose, UA Negative Bilirubin, UA Negative Ketones, UA Positive Comment:trace Spec Grav, UA 1.020 Blood, UA Positive(A) Negative, None Detected Comment:trace-lysed pH, UA 7.5 Protein, UA 2+ 125++ Comment:100mg/dL Urobilinogen, UA 4.0 Leukocytes, UA Many(A) Negative, Rare, Trace Comment:Large Nitrite, UA Positive(A) Negative, None Detected Appearance, UA Yellow cloudy Urine 03/12/2025 4:59 PM EDT Nina Nassar MD POINT OF CARE TEST ENTER/EDIT ORDERABLES Final Result * Culture, Urine, Routine (03/12/2025 4:50 PM EDT) Urine Urine specimen obtained by clean catch procedure / Unknown 03/12/2025 4:50 PM EDT 03/12/2025 7:01 PM EDT Comment:[facility] [[email or web address]] Narrative [facility] - 03/14/2025 7:45 AM EDT Escherichia coli Quant > 100,000 cfu/mL Escherichia coli: Ampicillin >=32(R) Escherichia coli: Cefazolin (Urine) <=1(S) Escherichia coli: Cefepime 0.5(S) Escherichia coli: Ceftriaxone <=0.25(S) Escherichia coli: Ciprofloxacin 0.5(I) Escherichia coli: Gentamicin <=1(S) Escherichia coli: Nitrofurantoin <=16(S) Escherichia coli: Trimethoprim/Sulfamethoxazole >=320(R) Specimen Source: Urine clean catch Nina Nassar MD LAB MICROBIOLOGY - GENERAL ORD ERABLES Final Result [facility] [address] [place] [phone] [phone] documented in this encounter Visit Diagnoses Diagnosis Hypokalemia- Primary Hypopotassemia Dysuria Vitamin D deficiency documented in this encounter Additional Health Concerns Assessment Noted Time PHQ-9 Depression Total Score: 14 024 10:35 AM EDT documented as of this encounter Care Teams Organizational Research Consultant Relationship Specialty Start Date End Date Nina Nassar MD [address] [place] [id number] PCP - General Family Medicine 03/29/20 documented as of this encounter
--- OUTSIDE RECORDS SUMMARY | 2025-03-15 09:26 | XMS_ITS | Clinical Summary ---
Author Organization [employer] Address [address] [place] [address] 7 [place] [address] Care Team Providers Care Client Engagement Specialist Name Role Phone Nina Nassar MD Primary Care Provider [phone] Allergies No known active allergies Medications polyethylene [...] VIA ORAL TODOS [employer] FA[facility]H[employer] 90 tablet 3 01/13/20 25 Active ferrous [...] morning. 90 tablet 3 03/12/20 25 Active nitrofurantoin , macrocrystal-m onohydrate, (Macrobid) 100 MG capsule Take 1 capsule (100 mg) by mouth 2 times daily for 7 days. 14 capsule 03/15/20 25 025 Active docusate sodium (Colace) 100 MG capsule [...] FOUR TIMES DAILY NEEDED FOR DISTENTION 06/22/19 025 Discontinued( erapy completed) zolpidem (Ambien) 10 MG tablet Take 10 mg by mouth if needed at bedtime. 09/08/19 025 Discontinued( erapy completed) buPROPion XL (Wellbutrin XL) 300 MG 24 hr tablet TAKE 1 TABLET (300 MG) BY MOUTH IN THE MORNING 90 tablet 3 07/08/19 24 025 Discontinued(Re order (will not trigger notification to Pharmacy)) dicyclomine (Bentyl) 20 MG tablet TAKE 1 TABLET BY MOUTH UP TO 2 TIMES EVERY DAY FOR GAS 180 tablet 3 10/16/19 025 Discontinued( erapy completed) cyanocobalamin (Vitamin B-12) [...] A POR 10 D 02/07/20 25 025 Discontinued(Th erapy completed) Active Problems Problem Noted Date Diagnosed Date Dental caries 10/16/2024 Gingival bleeding 04/13/2024 Tooth hypersensitivity 04/13/2024 Requires assistance with activities of daily meron ing (ADL) 05/04/2023 Assessment & Plan (05/04/2023 8:02 AM EST): Instructed patient to go to medical records to contact [employer] agency and re- establish care for assistance with bathing, washing, shopping, cooking Dental calculus 01/07/2023 Periodontal disease 01/07/2023 Localized gingival recession 01/07/2023 Right anterior shoulder pain 10/22/2022 Assessment & Plan (05/04/2023 8:09 AM EST): Xray with moderate AC joint arthritis Sp med and injection trial without benefit Declines PT for now due to transportation issues Will work on getting [facility] care re-established Gentle stretching at home Assessment [...] Encounters Date Type Department Care Team Description 03/15/2025 Orders Only [facility] [address] [place] [phone] Nina Nassar MD 03/15/2025 Results Follow-Up [facility] [address] [place] [address] [place] [address] Nina Nassar MD Culture, Urine, Routine, POCT Urinalysis 03/12/2025 4:00 PM EDT Office Visit [facility] [address] [place], [place] [address] [address] Nina Nassar MD Hypokalemia (Primary Dx); Dysuria; Vitamin D deficiency 03/12/2025 Travel 03/11/2025 Telephone [facility] [address] [place] [address] Nina Nassar MD chart prep 03/04/2025 Patient Outreach [facility] [address] [place] [address] Nina Nassar MD Pre-visit Planning (SDOH screening negative and tobacco screening negative) 02/16/2025 Refill [facility] [address] [place] [address] Nina Nassar MD Iron deficiency anemia, unspecified iron deficiency anemia type 02/06/2025 Orders Only GENERIC EXTERNAL DATA DEPARTMENT Provider, Generic External Data 01/11/2025 Refill [facility] [address] [place] [address] Nina Nassar MD 01/06/[address] [address] Nina Nassar MD recall 01/06/2025 Travel from [...] Description 04/26/2025 8:00 AM EST Office Visit [facility] [address] [place] [address] Miley Holt [address] [place] [address] Health Maintenance Due Date Last Done Comments [...] Routine 03/12/2025 4:50 PM EDT Hypokalemia Dysuria HIGH SENSITIVITY TROPONIN I Routine 02/06/2025 6:19 PM EDT POTASSIUM Routine 02/06/2025 6:19 PM EDT XR CHEST 2 VIEWS Routine 02/06/2025 6:01 PM EDT US ABDOMEN LIMITED Routine 02/06/2025 [...] Culture, Urine, Routine (03/12/2025 4:50 PM EDT) Only the most recent of2 resultswithin the time period is included. Urine Urine specimen obtained by clean catch procedure / Unknown 03/12/2025 4:50 PM EDT 03/12/2025 7:01 PM EDT Comment:UA Narrative [facility] - 03/14/2025 7:45 AM EDT Escherichia coli Quant > 100,000 cfu/mL Escherichia coli: Ampicillin >=32(R) Escherichia coli: Cefazolin (Urine) <=1(S) Escherichia coli: Cefepime 0.5(S) Escherichia coli: Ceftriaxone <=0.25(S) Escherichia coli: Ciprofloxacin 0.5(I) Escherichia coli: Gentamicin <=1(S) Escherichia coli: Nitrofurantoin <=16(S) Escherichia coli: Trimethoprim/Sulfamethoxazole >=320(R) Specimen Source: Urine clean catch us Nina Nassar MD LAB MICROBIOLOGY - GENERAL ORD ERABLES Final Result Performing Organization Address [facility] Co de Phone Number [facility] [address] [place] [phone] * High Sensitivity Troponin I (02/06/2025 6:19 PM EDT) Only the most recent of2 resultswithin the time period is included. TROPONIN I HIGH SENSITIVITY <2.7 <3.5 - 35.0 ng/L [facility] Comment:The Cordero high sens itivity Troponin-I results should beused in conjunction with other diagnostic information suchas ECG, clinical observations and information, and patientsymptoms to aid in the diagnosis of [place]. 02/06/2025 6:19 PM EDT 02/06/2025 6:21 PM EDT us Generic External Data Provider LAB BLOOD ORDERAB LES Final Result Performing Organization Address [facility] Phone Number [facility] [address] [place] [phone] * Potassium (02/06/2025 6:19 PM EDT) Pathologist [facility] Potassium 3.6 3.3 - 5.1 mmol/L [facility] 02/06/2025 6:19 PM EDT 02/06/2025 6:21 PM EDT us Generic External Data Provider LAB BLOOD ORDERAB LES Final Result Performing Organization Address [facility] Co de Phone Number [facility] [address] [place] [phone] * XR Chest 2 Views (02/06/2025 6:01 PM EDT) Anatomical Region Laterality Modality Chest Radiographic Melissa ging 02/06/2025 6:01 PM EDT Narrative 02/06/2025 6:03 PM EDT [address] [address] XRay Report Signed Patient: Contreras Schrader MR#: [id number] : 1975 Acct:[id number] Age/Sex: 49 / M ADM Date: 02/06/25 Loc: HO.ED Attending Dr: Ordering Physician: Mitali Fleming Date of Service: 02/06/25 Procedure(s): XR chest 2V Accession Number(s): [id number] cc: Nina Nassar; Mitali Fleming CLINICAL HISTORY: [...] OV> 02/06/25 1802 DD/ 1801 TD/TT: 02/06/25 180 News Librarian: Procedure Note Donotuseinterpreter, Image - 02/06/[address] [address] XRay Report Signed Patient: Contreras SchraderR#: [id number] : 1975Acct:[id number] Age/Sex: 49 / MADM Date: 02/06/25 Loc: HO.ED Attending Dr: Ordering Physician: Mitali Fleming Date of Service: 02/06/25 Procedure(s): XR chest 2V Accession Number(s): [id number] cc: Nina Nassar; Mitali Fleming CLINICAL HISTORY: [...] 02/06/25 1802 DD/ 1801 TD/TT: 02/06/25 1801 News Librarian: us [facility] External Provider IMG XR PROCEDURES Final Result * US Abdomen Limited (02/06/2025 5:11 PM EDT) Anatomical Region Laterality Modality Abdomen Ultrasound 02/06/2025 5:11 PM EDT Narrative 02/06/2025 5:13 PM EDT [place] [address] Ultrasound Report Signed Patient: Contreras Schrader MR#: [id number] : 1975 Acct:[id number] Age/Sex: 49 / M ADM Date: 02/06/25 Loc: HO.ED Attending Dr: Ordering Physician: Mitali Fleming Date of Service: 02/06/25 Procedure(s): US abdomen limited Accession Number(s): [id number] cc: Nina Nassar; Mitali Fleming CLINICAL HISTORY: [...] in OV> 02/06/251711 DD/ 10 TD/TT: 02/06/251710 News Librarian: Procedure Note Arnoldoter, Image - 02/06/2025 [place] [address] Ultrasound Report Signed Patient: Contreras Schrader#: [id number] : 1975Acct:[id number] Age/Sex: 49 / MADM Date: 02/06/25 Loc: HO.ED Attending Dr: Ordering Physician: Mitali Fleming Date of Service: 02/06/25 Procedure(s): US abdomen limited Accession Number(s): [id number] cc: Nina Nassar; Mitali Fleming CLINICAL HISTORY: [...] in OV> 02/06/251711 DD/ 10 TD/TT: 02/06/251710 News Librarian: us [facility] External Provider IMG US PROCEDURES Final Result * CT Abdomen Pelvis w/ Contrast (02/06/2025 4:06 PM EDT) Anatomical Region Laterality Modality Body, Pelvis, Abdomen Computed T omography 02/06/2025 4:06 PM EDT Narrative 02/06/2025 4:08 PM EDT [address] [address] [address] Scan Report Signed Patient: Contreras Schrader MR#: [id number] : 1975 Acct:[id number] Age/Sex: 49 / M ADM Date: 02/06/25 Loc: HO.ED Attending Dr: Ordering Physician: Mitali Fleming Date of Service: 02/06/25 Procedure(s): CT abdomen pelvis w IV con Accession Number(s): [id number] cc: Nina Nassar; Mitali Fleming Report Number: [id number]: Total DLP = 954.00 mGy-cm CLINICAL HISTORY: [...] 02/06/25 1607 DD/ 1606 TD/TT: 02/06/25 1606 News Librarian: Procedure Note Donotuseinterpreter, Image - 02/06/[address] [address] [address] Scan Report Signed Patient: Contreras SchraderR#: [id number] : 1975Acct:[id number] Age/Sex: 49 / MADM Date: 02/06/25 Loc: HO.ED Attending Dr: Ordering Physician: Mitali Fleming Date of Service: 02/06/25 Procedure(s): CT abdomen pelvis w IV con Accession Number(s): [id number] cc: Nina Nassar; Mitali Fleming Report Number: [id number]: Total DLP = 954.00 mGy-cm CLINICAL HISTORY: [...] 02/06/25 1607 DD/ 1606 TD/TT: 02/06/25 1606 News Librarian: [facility] External Provider IMG CT PROCEDURES Final Result * Blood Culture (First) (02/06/2025 3:05 PM EDT) Blood Venous blood specimen / Unknown 02/06/2025 3:05 PM EDT 02/06/2025 3:12 PM EDT Comment:Blood [facility] - 02/11/2025 5:13 PM EDT Blood Culture (First) No growth after 5 days. Specimen Source: Blood Generic External Data Provider LAB MICROBIOLOGY - GENERAL ORDERABLES Final Result [facility] [address] [place] [phone] * Blood Culture (Second) (02/06/2025 3:05 PM EDT) Blood Venous blood specimen / Unknown 02/06/2025 3:05 PM EDT 02/06/2025 3:12 PM EDT Comment:Blood [facility] - 02/11/2025 5:13 PM EDT Blood Culture (Second) No growth after 5 days. Specimen Source: Blood us Generic External Data Provider LAB MICROBIOLOGY - GENERAL ORDERABLES Final Result Performing Organization Address City/[facility]/ZIP Co de Phone Number [facility] [address] [place] [phone] * Lactic Acid (02/06/2025 3:05 PM EDT) Lactic Acid 0.9 0.5 - 2.0 mmol/L [facility] 02/06/2025 3:05 PM EDT 02/06/2025 3:12 PM EDT Generic External Data Provider LAB BLOOD ORDERAB LES Final Result Performing Organization Address [facility] Co de Phone Number [facility] [address] [place] [phone] * (ABNORMAL) Urinalysis, Complete, with Reflex to Culture (02/06/2025 1:33 PM EDT) Color Urine Yellow [facility] Appearance Urine Cloudy [facility] PH 5.5 5.0 - 9.0 [facility] Glucose Urine UA Negative Negative mg/dL [facility] Urine Blood Small (1+)(A) Negative [facility] Specific [place] - Urine 1.020 1.005 - 1.025 [facility] Urine Protein Negative Neg-Trace mg/dL [facility] Urine Ketones 15 Negative mg/dL [facility] Nitrite Urine Positive(A) Negative [facility] Leukocyte Esterase Urine Large (3+)(A) Negative [facility] RBC Urine 3-5(A) 0 - 2 /HPF [facility] Urine WBC >50(A) 0 - 5 /HPF [facility] Urine Squamous Epithelial Cell 0-2 0 - 2 /HPF [facility] Urine Bacteria 4+ None Seen [facility] Hyaline Casts, Urine 0-2 0 - 2 /LPF [facility] 02/06/2025 1:33 PM EDT 02/06/2025 1:37 PM EDT Narrative [facility] - 02/06/2025 1:50 PM EDT [id number], Clean Catch us Generic External Data Provider LAB URINE ORDERAB LES Final Result Performing Organization Address [facility] de Phone Number [facility] [address] [place] [phone] * Influenza A B2 ID NOW (Cordero) (02/06/2025 1:25 PM EDT) IDNOW SERIAL# [id number] [facility] Influenza A Negative Negative [facility] Influenza B2 Negative Negative [facility] Influenza A B2 Note See Note [facility] Comment:The Cordero ID NOW In fluenza [...] GENERAL ORDERABLES Final Result Performing Organization Address [facility] Co de Phone Number [facility] [address] [place] [phone] * Slide Review (02/06/2025 1:25 PM EDT) Slide Review VERIFIED [facility] 02/06/2025 1:25 PM EDT 02/06/2025 1:29 PM EDT us Generic External Data Provider LAB BLOOD ORDERAB LES Final Result Performing Organization Address [facility]/ZIP Co de Phone Number [facility] [address] [place] [phone] * COVID-19 ID NOW (CORDERO) (02/06/2025 1:25 PM EDT) Pathologist [facility] IDNOW SERIAL# [id number] [facility] COVID-19 TEST Negative Negative [facility] COVID-19 NOTE See Note [facility] Comment: Results are for the identification of SARS-CoV2 RNA. TheSARS-CoV2 RNA is generally detectable in respiratory samplesduring the acute phase of infection. Positive results areindicative of the presence of SARS-CoV-2 RNA; clinicalcorrelation with patient history and other diagnosticinformation is necessary to determine patient infectionstatus. Positive results do not rule out bacterial infectionor co- infection with other viruses.Testing facilities within the [facility] and itsterritories are required to report all positive results [...] GNOSTICS ORDERABLES Final Result Performing Organization Address City/[facility]/ZIP Co de Phone Number [facility] [address] [place] [phone] * (ABNORMAL) CBC auto differential (02/06/2025 1:25 PM EDT) White Blood Count 8.4 4.8 - 10.8 X10*3/uL [facility] Red Blood Count 4.64 4.60 - 5.80 X10*6/uL [facility] Hemoglobin 12.8(L) 14.0 - 18.0 g/dl [facility] Hematocrit 37.1(L) 42.0 - 52.0 % [facility] Mean Corpuscular Volume 80.0 80.0 - 98.0 fL [facility] Mean Corpuscular Hemoglobin 27.6 27.0 - 33.0 pg [facility] Mean Corpuscular HGB Conc 34.5 31.0 - 36.0 g/dl [facility] Red Cell Distribution Width 13.1 11.0 - 16.0 % [facility] Platelet Count 118(L) 160 - 400 X10*3/uL [facility] Mean Platelet Volume 10.4 9.4 - 12.4 fL [facility] Neutrophils Percent Auto 90.1(H) 45 - 73 % [facility] Imm Gran Pct Auto 0.4 0.0 - 0.4 % [facility] Lymphocytes Percent Auto 4.4(L) 20 - 40 % [facility] Monocytes Percent Auto 4.9 2 - 11 % [facility] Eosinophils Percent Auto 0.1 0 - 4 % [facility] Basophils Percent Auto 0.1 0 - 2 % [facility] NRBC Pct Auto 0.0 0.0 - 0.2 /100WBC [facility] Neutrophils Absolute Auto 7.6 2.0 - 8.3 x10*3/uL [facility] Imm Gran Abs Auto 0.03 0.00 - 0.03 X10*3/uL [facility] Lymphocytes Absolute Auto 0.4(L) 1.2 - 4.9 X10*3/uL [facility] Monocytes Absolute Auto 0.4 0.1 - 1.2 X10*3/uL [facility] Eosinophils Absolute Auto 0.0 0.0 - 0.4 X10*3/uL [facility] Basophils Absolute Auto 0.0 0.0 - 0.2 X10*3/uL [facility] NRBC Abs Auto 0.000 0.0 - 0.012 X10*3/uL [facility] 02/06/2025 1:25 PM EDT 02/06/2025 1:29 PM EDT Generic External Data Provider LAB BLOOD ORDERAB LES Edited Result - Final Performing Organization Address City/[facility]/ZIP Co de Phone Number [facility] [address] [place] [phone] * B Type Natriuretic Peptide (BNP) (02/06/2025 1:25 PM EDT) B Type Natriuretic Peptide 58 <100 pg/mL [facility] 02/06/2025 1:25 PM EDT 02/06/2025 1:29 PM EDT Generic External Data Provider LAB BLOOD ORDERAB LES Final Result Performing Organization Address [facility] Co de Phone Number [facility] [address] [place] [phone] * Magnesium (02/06/2025 1:25 PM EDT) Magnesium 1.8 1.6 - 2.6 mg/dL [facility] 02/06/2025 1:25 PM EDT 02/06/2025 1:29 PM EDT Generic External Data Provider LAB BLOOD ORDERAB LES Final Result Performing Organization Address [facility] Co de Phone Number [facility] [address] [place] [phone] * Lipase (02/06/2025 1:25 PM EDT) Lipase 22 8 - 78 U/L [facility] 02/06/2025 1:25 PM EDT 02/06/2025 1:29 PM EDT us Generic External Data Provider LAB BLOOD ORDERAB LES Final Result Performing Organization Address [facility] Co de Phone Number [facility] [address] [place] [phone] * Bilirubin, Direct (02/06/2025 1:25 PM EDT) Bilirubin, Direct 0.3 0.0 - 0.5 mg/dL [facility] Comment:Slight Icterus. 02/06/2025 1:25 PM EDT 02/06/2025 1:29 PM EDT Generic External Data Provider LAB BLOOD ORDERAB LES Final Result Performing Organization Address [facility] de Phone Number [facility] [address] [place] [phone] * (ABNORMAL) Comprehensive Metabolic Panel (02/06/2025 1:25 PM EDT) Sodium 136 135 - 145 mmol/L [facility] Potassium 3.1(L) 3.3 - 5.1 mmol/L [facility] Chloride 99 96 - 108 mmol/L [facility] Carbon Dioxide 25 22 - 29 mmol/L [facility] Anion Gap 15 12 - 20 [facility] Urea Nitrogen (BUN) 19(H) 9 - 16 mg/dL [facility] Creatinine, Serum 0.89 0.5 - 1.4 mg/dL [facility] Creatinine Clr Calc Pharmacy 120.6 [facility] Comment:eGFR (calculated fro m the MDRD study equation) and eCrCl(calculated from the Cockcroft-Gault equation) are based ondifferent parameters and may not yield comparable results.If eCrCl result is absurd, please check patient'sheight/weight. Estimated Glomerular Filt Rate >60 [facility] Comment:Chronic Kidney Disea se: Estimated GFR < 60 mL/min/1.75y7Gvzlke Kidney Disease: Estimated GFR < 15 mL/min/1.73m2 Glucose 148(H) 60 - 115 mg/dL [facility] Calcium 8.7 8.4 - 10.2 mg/dL [facility] Bilirubin, Total 3.0(H) 0.0 - 1.0 mg/dL [facility] Comment:Slight Icterus. Aspartate Amino Transferase 43(H) 5 - 37 U/L [facility] Alanine Aminotransferase 32 0 - 40 U/L [facility] Total Protein 6.9 6.5 - 8.0 g/dL [facility] Albumin Level 4.2 3.5 - 5.0 g/dL [facility] Alkaline Phosphatase 61 39 - 117 U/L [facility] 02/06/2025 1:25 PM EDT 02/06/2025 1:29 PM EDT us Generic External Data Provider LAB BLOOD ORDERAB LES Final Result [facility] [address] [place] [phone] * Lipid Panel, Standard (09/26/2024 7:35 AM EDT) Triglycerides 45 <150 mg/dL [facility] Comment:Desirable Triglyceri de: less than 150 mg/dLBorderline High Triglyceride 150-199 mg/dLHigh Triglyceride: 200-499 mg/dLVery High Triglyceride: greater than or equal to 5OO mg/dL Cholesterol 108 <200 mg/dL [facility] Comment:Desirable Cholestero l: less than 200 mg/dLBorderline High Cholesterol: 200-239 mg/dLHigh Cholesterol: greater than 239 mg/dL LDL Cholesterol Calculated 45 <100 mg/dL [facility] Comment:Desirable LDL: less than 100 mg/dLNear Optimal/Above Optimal LDL: 110- 129 mg/dLBorderline High LDL: 130-159 mg/dLHigh LDL: 160-189 mg/dLVery High LDL: greater than or equal to 190 mg/dL HDL Cholesterol 54 >40 mg/dL [facility] Comment:Desirable HDL: great er than 40 mg/dL Note: This HDL assay may give artificially low results in patients with liver disease. 09/26/2024 7:35 AM EDT 09/26/2024 7:35 AM EDT Generic External Data Provider LAB BLOOD ORDERAB LES Final Result Performing Organization Address City/[facility]/ZIP Co de Phone Number [facility] [address] [place] [phone] * Hm Colonoscopy (06/08/2022 3:31 PM EST) Pathologist [facility] Colonoscopy Normal Normal Narrative Antonette Lawson - 06/08/2022 3:31 PM EST Recommended 5 years see legacy note 06/08/2022 Historical Provider HEALTH MAINTENANCE Edited Result - Final * HEPATITIS C AB W/REFL TO HCV RNA, QN, PCR (09/13/2021 3:23 PM EDT) Pathologist [facility] HEPATITIS C ANTIBODY NON-REACT [facility] NON-REACT [facility] INDEX 0.01 <1.00 [facility] Comment: HCV antibody was non-reactive. There is no laboratory evidence of HCV infection. In most cases, no further action is required. However, if recent HCV exposure is suspected, a test for HCV RNA (test code 62648) is suggested. For additional information please refer to http://education.[employer]/faq/BMB33g4 (This link is being provided for informational/ educational purposes only.) 09/13/2021 3:23 PM EDT us Nina Nassar MD HISTORICAL/NON ORDERABLE LABS Final Result Performing Organization Address City/[facility]/ZIP Co de Phone Number [facility] [address] * HIV 1/2 ANTIGEN/ANTIBODY,FOURTH GENERATION W/RFL (09/13/2021 3:23 PM EDT) Pathologist [facility] HIV-1/2 ANTIGEN AND ANTIBODIES, 4TH GENERATION W/ REFLEX NON-REACT PINKY NON-REACT PINK[facility] Comment: HIV-1 antigen and HIV-1/HIV-2 [...] purpose. For additional information please refer to http://education.[employer]/faq/BEN391 (This link is being provided for informational/ educational purposes only.) The performance of this assay has not been clinically validated in patients less than 2 years old. 09/13/2021 3:23 PM EDT us Nina Nassar MD LAB BLOOD ORDERABLES Final Res ult [facility] [address] from Last 3 Months or Most Recently Relevant to Health Maintenance Insurance [facility] Care Teams Client Engagement Specialist Relationship Specialty Start Date End Date Nina Nassar MD [address] [place] [phone] PCP - General Family Medicine 03/29/20
--- OUTSIDE RECORDS SUMMARY | 2025-03-15 09:27 | XMS_ITS | Encounter Summary ---
Author Organization [employer] Address [address] [place] [address] [place] [address] Care Team Providers Care Concrete Engineer Name Role Phone Nina Nassar MD Primary Care Provider Reason for Visit * Reason Onset Date Comments chart prep 03/11/2025 Encounter Details Date Type Department Care Team ([facility] st Contact Info) Description 03/11/2025 Telephone [facility] [address] [place], [place] [phone] Nina Nassar MD [address] [place], [place] [phone] chart prep Social History Tobacco Use Types [...] the past 12 months, has t he [employer] gas, oil or water company threatened to [...] Description 04/26/2025 8:00 AM EST Office Visit [facility] [address] [place] [address] JonathonDavidMiley [address] [place] [address] documented as of this encounter Visit Diagnoses Not on filedocumented in this encounter Additional Health Concerns Assessment Noted Time PHQ-9 Depression Total Score: 14 024 10:35 AM EDT documented as of this encounter Care Teams Concrete Engineer Relationship Specialty Start Date End Date Nina Nassar MD [address] [place] [address] PCP - General Family Medicine 03/29/20 documented as of this encounter
--- OUTSIDE RECORDS SUMMARY | 2025-03-15 09:27 | XMS_ITS | Encounter Summary ---
Author Organization [employer] [facility] Address [address] [place] [address] [place] [address] Care Team Providers Care Boat Assembler Name Role Phone Nina Nassar MD Primary Care Provider [phone] Encounter Details Date Type Department Care Team (Latest Contact Info) Description 08/02/2021 Abstract [facility] CONVERSIONS Dental, Provider, DDS Social History [...] Description 04/26/2025 8:00 AM EST Office Visit [facility] [address] [place] [address] Jonathon, Miley [address] [place] [address] documented as of this encounter Visit Diagnoses Not on filedocumented in this encounter Care Teams Boat Assembler Relationship Specialty Start Date End Date Nina Nassar MD 230 [place] [address] PCP - General Family Medicine 03/29/20 documented as of this encounter
--- OUTSIDE RECORDS SUMMARY | 2025-03-15 09:27 | XMS_ITS | Encounter Summary ---
Author Organization [employer] Address [address] [place] [address] 7t [place] [address] Care Team Providers Care Dressage Judge Name Role Phone Nina Nassar MD Primary Care Provider [phone] Encounter Details Date Type Department Care Team ([facility] st Contact Info) Description 10/20/2024 Orders Only [facility] [address] [place], [place] [phone] ProviderCed MD Social History Tobacco Use Types [...] 8:00 AM EST Office Visit [facility] [address] [place] [address] David Holtaris [address] [place] [address] documented as of this encounter Procedures Procedure [...] documented as of this encounter Care Teams Dressage Judge Relationship Specialty Start Date End Date Nina Nassar MD [address] [place] [address] PCP - General Family Medicine 03/29/20 documented as of this encounter
--- OUTSIDE RECORDS SUMMARY | 2025-03-15 09:27 | XMS_ITS | Encounter Summary ---
Author Organization [employer] Address [address] [place] [address] [place] [address] Care Team Providers Care Account Liaison Name Role Phone Nina Nassar MD Primary Care Provider [phone] Reason for Visit * Reason Comments Med Refill Encounter Details Date Type Department Care Team ([facility] st Contact Info) Description 02/02/2024 Refill [facility] [address] [place], [place] [phone] Ashley Contreras MD [address] [place], [place] [phone] Xerosis of skin Social History Tobacco Use [...] Description 04/26/2025 8:00 AM EST Office Visit [facility] [address] [place] [address] JonathonMiley [address] [place] [address] documented as of this encounter Visit Diagnoses Diagnosis Xerosis of skin documented in this encounter Additional Health Concerns Assessment Noted Time PHQ-9 Depression Total Score: 14 024 10:35 AM EDT documented as of this encounter Care Teams Account Liaison Relationship Specialty Start Date End Date Nina Nassar MD [address] [place] [address] PCP - General Family Medicine 03/29/20 documented as of this encounter
--- OUTSIDE RECORDS SUMMARY | 2025-03-15 09:27 | XMS_ITS | Encounter Summary ---
Author Organization [employer] Address [address] [place] [address] 7 [place] [address] Care Team Providers Care Cell Changer Name Role Phone Nina Nassar MD Primary Care Provider [phone] Encounter Details Date Type Department Care Team [...] Description 04/26/2025 8:00 AM EST Office Visit [facility] 230 [place] [address] Jonathon, Miley [address] [place] [address] documented as of this encounter Visit Diagnoses Not on filedocumented in this encounter Additional Health Concerns Assessment Noted Time PHQ-9 Depression Total Score: 14 024 10:35 AM EDT documented as of this encounter Care Teams Cell Changer Relationship Specialty Start Date End Date Nina Nassar MD 230 [place] [address] PCP - General Family Medicine 03/29/20 documented as of this encounter
--- OUTSIDE RECORDS SUMMARY | 2025-03-15 09:27 | XMS_ITS | Encounter Summary ---
Author Organization [employer] Address [address] [place] [address] 7 [place] [address] Care Team Providers Care Round Boner Name Role Phone Nina Nassar MD Primary Care Provider [phone] Encounter Details Date Type Department Care Team (Late st Contact Info) Description 12/26/2022 Orders Only [facility] [address] [place], [place] [phone] Bonnie Gomes MD 230 [place], [place] [phone] Chronic midline low back pain without sciatica [...] Description 04/26/2025 8:00 AM EST Office Visit [facility] ADULT D[facility] [address] [place], [place] [phone] Miley Holt [address] [place] [address] documented as of this encounter Visit Diagnoses Diagnosis Chronic midline low back pain without sciatica- Primary documented in this encounter Additional Health Concerns Assessment Noted Time PHQ-9 Depression Total Score: 21 023 1:46 PM EDT documented as of this encounter Care Teams Round Boner Relationship Specialty Start Date End Date Nina Nassar MD 230 [facility] [address] PCP - General Family Medicine 03/29/20 documented as of this encounter
--- OUTSIDE RECORDS SUMMARY | 2025-03-15 09:27 | XMS_ITS | Encounter Summary ---
Author Organization [employer] [facility] Address [address] [place] [address] [place] [address] Care Team Providers Care Child Attendant Name Role Phone Nina Nassar MD Primary Care Provider [phone] Encounter Details Date Type Department Care Team (Late st Contact Info) Description 01/22/2023 Abstract [facility]ULT [facility] 230 [place] [address] Miley Holt [address] [place] [address] Social History Tobacco Use Types Packs/Day Years [...] 8:00 AM EST Office Visit [facility] [address] [place], [place] [phone] Miley Holt 230 [place] [address] documented as of this encounter Visit Diagnoses Not on filedocumented in this encounter Additional Health Concerns Assessment Noted Time PHQ-9 Depression Total Score: 21 023 1:46 PM EDT documented as of this encounter Care Teams Child Attendant Relationship Specialty Start Date End Date Nina Nassar MD 230 [place] [address] PCP - General Family Medicine 03/29/20 documented as of this encounter
--- OUTSIDE RECORDS SUMMARY | 2025-03-15 09:27 | XMS_ITS | Encounter Summary ---
Author Organization [employer] [facility] Address [address] [place] [address] [place] [address] Care Team Providers Care Accounting Specialist Name Role Phone Nina Nassar MD Primary Care Provider [phone] Encounter Details Date Type Department Care Team (Latest Contact Info) Description 06/20/2020 Abstract [facility] CONVERSIONS Dental, Provider, DDS Social History Tobacco [...] Description 04/26/2025 8:00 AM EST Office Visit [facility]ULT [facility] 230 [place] [address] Jonathon, Miley 230 [place] [address] documented as of this encounter Visit Diagnoses Not on filedocumented in this encounter Care Teams Accounting Specialist Relationship Specialty Start Date End Date Nina Nassar MD 230 [place] [address] PCP - General Family Medicine 03/29/20 documented as of this encounter
--- OUTSIDE RECORDS SUMMARY | 2025-03-15 09:27 | XMS_ITS | Encounter Summary ---
Author Organization [employer] Address [address] [place] [address] [place] [address] Care Team Providers Care Clinical Dietetic Technician Name Role Phone Nina Nassar MD Primary Care Provider [phone] Reason for Visit * Reason Comments Med Refill Encounter Details Date Type Department Care Team ([facility] st Contact Info) Description 02/26/2024 Refill [facility] [address] [place], [place] [phone] Ashley Contreras MD [address] [place], [place] [phone] Xerosis of skin Social History Tobacco Use [...] 04/26/2025 8:00 AM EST Office Visit [facility]ULT D[facility] [address] [place] [address] JonathonMiley [address] [place] [address] documented as of this encounter Visit Diagnoses Diagnosis Xerosis of skin documented in this encounter Additional Health Concerns Assessment Noted Time PHQ-9 Depression Total Score: 14 024 10:35 AM EDT documented as of this encounter Care Teams Clinical Dietetic Technician Relationship Specialty Start Date End Date Nina Nassar MD [address] [place] [address] PCP - General Family Medicine 03/29/20 documented as of this encounter
--- OUTSIDE RECORDS SUMMARY | 2025-03-15 09:27 | XMS_ITS | Encounter Summary ---
Author Organization [facility] Address [address] [place] [address] [place] [address] Care Team Providers Care Correctional Guard Name Role Phone Nina Nassar MD Primary Care Provider [phone] Encounter Details Date Type Department Care Team (Latest Contact Info) Description 08/27/2018 Abstract [facility] CONVERSIONS Dental, Provider, DDS Social History [...] Description 04/26/2025 8:00 AM EST Office Visit [facility] [address] [place] [address] Jonathon, Miley [address] [place] [address] documented as of this encounter Visit Diagnoses Not on filedocumented in this encounter Care Teams Correctional Guard Relationship Specialty Start Date End Date Nina Nassar MD [address] [place] [address] PCP - General Family Medicine 03/29/20 documented as of this encounter
--- OUTSIDE RECORDS SUMMARY | 2025-03-15 09:27 | XMS_ITS | Encounter Summary ---
Author Organization [employer] Address [address] [place] [address] 7 [place] [address] Care Team Providers Care Health Policy Manager Name Role Phone Nina Nassar MD Primary Care Provider [phone] Encounter Details Date Type Department Care Team ([facility] st Contact Info) Description 03/06/2024 Orders Only [facility] MED[facility] 230 [place], [place] [phone] Nina Nassar MD [address] [place], [place] [phone] Social History Tobacco Use Types Packs/Day Years [...] the past 12 months, has t he [employer], gas, oil or water company threatened to [...] 8:00 AM EST Office Visit [facility] ADULT DENT[facility] [address] [place] [address] Jonathon, Miley [address] [place] [address] documented as of this encounter Procedures Procedure [...] 7:35 AM EDT) Triglycerides 45 <150 mg/dL [facility] Comment:Desirable Triglyceri de: less than 150 mg/dLBorderline High Triglyceride 150-199 mg/dLHigh Triglyceride: 200-499 mg/dLVery High Triglyceride: greater than or equal to 5OO mg/dL Cholesterol 108 <200 mg/dL [facility] Comment:Desirable Cholestero l: less than 200 mg/dLBorderline High Cholesterol: 200-239 mg/dLHigh Cholesterol: greater than 239 mg/dL LDL Cholesterol Calculated 45 <100 mg/dL [facility] Comment:Desirable LDL: less than 100 mg/dLNear Optimal/Above Optimal LDL: 110- 129 mg/dLBorderline High LDL: 130-159 mg/dLHigh LDL: 160-189 mg/dLVery High LDL: greater than or equal to 190 mg/dL HDL Cholesterol 54 >40 mg/dL [facility] Comment:Desirable HDL: great er than 40 mg/dL Note: This HDL assay may give artificially low results in patients with liver disease. 09/26/2024 7:35 AM EDT 09/26/2024 7:35 AM EDT us Generic External Data Provider LAB BLOOD ORDERAB LES Final Result [facility] [address] [place] [phone] * Comprehensive Metabolic Panel (09/26/2024 7:35 AM EDT) Sodium 140 135 - 145 mmol/L [facility] Potassium 4.1 3.3 - 5.1 mmol/L [facility] Chloride 104 96 - 108 mmol/L [facility] Carbon Dioxide 27 22 - 29 mmol/L [facility] Anion Gap 13 12 - 20 [facility] Urea Nitrogen (BUN) 16 9 - 16 mg/dL [facility] Creatinine, Serum 0.91 0.5 - 1.4 mg/dL [facility] Estimated Glomerular Filt Rate >60 [facility] Comment:Chronic Kidney Disea se: Estimated GFR < 60 mL/min/1.18o1Trjhpi Kidney Disease: Estimated GFR < 15 mL/min/1.73m2 Glucose 107 60 - 115 mg/dL [facility] Calcium 10.0 8.4 - 10.2 mg/dL [facility] Bilirubin, Total 1.0 0.0 - 1.0 mg/dL [facility] Aspartate Amino Transferase 34 5 - 37 U/L [facility] Alanine Aminotransferase 38 0 - 40 U/L [facility] Total Protein 7.5 6.5 - 8.0 g/dL [facility] Albumin Level 4.5 3.5 - 5.0 g/dL [facility] Alkaline Phosphatase 68 39 - 117 U/L [facility] 09/26/2024 7:35 AM EDT 09/26/2024 7:35 AM EDT us Generic External Data Provider LAB BLOOD ORDERAB LES Final Result [facility] [address] [place] [address] [phone] * Chlamydia/N. Gonorrhoeae RNA, TMA, Urogenitial (03/25/2024 12:37 PM EDT) CT PCR NOT DETECTED Not Detect. [facility] Comment:A not detected test result does [...] psychologicalconsequences. NG PCR NOT DETECTED Not Detect. [facility] Comment:A not detected test result does [...] PM EDT 03/25/2024 12:45 PM EDT Narrative [facility] - 03/25/2024 2:20 PM EDT Urine us Generic External Data Provider LAB MICROBIOLOGY - GENERAL ORDERABLES Final Result [facility] [address] [place] [phone] * US SCROTUM DOPPLER (03/25/2024 12:01 PM EDT) Anatomical Region Laterality Modality Abdomen Ultrasound 03/25/2024 12:0 1 PM EDT Narrative 05/01/2024 1:[address] [address] Ultrasound Report Signed Patient: Contreras Schrader MR#: [id number] : 1975 Acct:[id number] Age/Sex: 48 / M ADM Date: 03/25/24 Loc: HO.ED Attending Dr: Ordering Physician: Yumi Khan Date of Service: 03/25/24 Procedure(s): US scrotum doppler Accession Number(s): [id number] cc: Nina Nassar; Yumi Khan EXAMINATION: US [...] 05/01/24 1310 DD/ 1201 TD/TT: 03/25/24 1222 It Telecom Technician: Procedure Note Donotuseinterpreter, Image - 05/01/2024 [place] [address] Ultrasound Report Signed Patient: Contreras SchraderR#: [id number] : 1975Acct:[id number] Age/Sex: 48 / MADM Date: 03/25/24 Loc: HO.ED Attending Dr: Ordering Physician: Yumi Khan Date of Service: 03/25/24 Procedure(s): US scrotum doppler Accession Number(s): [id number] cc: Nina Nassar; Yumi Khan EXAMINATION: US [...] 05/01/24 1310 DD/ 1201 TD/TT: 03/25/24 1222 It Telecom Technician: us [facility] External Provider IMG US PROCEDURES Final Result * US Scrotum (03/25/2024 12:01 PM EDT) Anatomical Region Laterality Modality Body Ultrasound 03/25/2024 12:0 1 PM EDT Narrative 03/25/2024 2:20 PM EDT [place] [address] Ultrasound Report Signed Patient: Contreras Schrader MR#: [id number] : 1975 Acct:[id number] Age/Sex: 48 / M ADM Date: 03/25/24 Loc: HO.ED Attending Dr: Ordering Physician: Blake Becker MD Date of Service: 03/25/24 Procedure(s): US scrotum Accession Number(s): [id number] cc: Blake Becker MD; Nina Nassar EXAMINATION: [...] 05/01/24 1310 DD/ 1201 TD/TT: 03/25/24 1222 It Telecom Technician: Procedure Note Donotuseinterpreter, Image - 05/01/2024 [place] [address] Ultrasound Report Signed Patient: Contreras SchraderR#: [id number] : 1975Acct:[id number] Age/Sex: 48 / MADM Date: 03/25/24 Loc: .ED Attending Dr: Ordering Physician: Blake Becker MD Date of Service: 03/25/24 Procedure(s): US scrotum Accession Number(s): [id number] cc: Blake Becker MD; Nina Nassar EXAMINATION: [...] 05/01/24 1310 DD/ 1201 TD/TT: 03/25/24 1222 It Telecom Technician: [facility] External Provider IMG US PROCEDURES Edited Result - Final * Lipase (03/25/2024 9:38 AM EDT) Lipase 24 8 - 78 U/L [facility] 03/25/2024 9:38 AM EDT 03/25/2024 9:43 AM EDT Generic External Data Provider LAB BLOOD ORDERAB LES Final Result [facility] [address] [place] [phone] * Magnesium (03/25/2024 9:38 AM EDT) Magnesium 1.8 1.6 - 2.6 mg/dL [facility] 03/25/2024 9:38 AM EDT 03/25/2024 9:43 AM EDT us Generic External Data Provider LAB BLOOD ORDERAB LES Final Result Performing Organization Address City/[facility]/ZIP Co de Phone Number [facility] [address] [place] [phone] * (ABNORMAL) Hepatic Function Panel (03/25/2024 9:38 AM EDT) Pathologist [facility] Bilirubin, Total 2.0(H) 0.0 - 1.0 mg/dL [facility] Bilirubin, Direct 0.6(H) 0.0 - 0.5 mg/dL [facility] Aspartate Amino Transferase 22 5 - 37 U/L [facility] Alanine Aminotransferase 16 0 - 40 U/L [facility] Total Protein 7.6 6.5 - 8.0 g/dL [facility] Albumin Level 4.5 3.5 - 5.0 g/dL [facility] Alkaline Phosphatase 69 39 - 117 U/L [facility] 03/25/2024 9:38 AM EDT 03/25/2024 9:43 AM EDT us Generic External Data Provider LAB BLOOD ORDERAB LES Final Result Performing Organization Address [facility] Co de Phone Number [facility] [address] [place] [phone] * Basic Metabolic Panel (03/25/2024 9:38 AM EDT) Sodium 140 135 - 145 mmol/L [facility] Potassium 3.6 3.3 - 5.1 mmol/L [facility] Chloride 104 96 - 108 mmol/L [facility] Carbon Dioxide 28 22 - 29 mmol/L [facility] Anion Gap 12 12 - 20 [facility] Urea Nitrogen (BUN) 11 9 - 16 mg/dL [facility] Creatinine, Serum 0.80 0.5 - 1.4 mg/dL [facility] Creatinine Clr Calc Pharmacy 130.5 [facility] Comment:eGFR (calculated fro m the MDRD study equation) and eCrCl(calculated from the Cockcroft-Gault equation) are based ondifferent parameters and may not yield comparable results.If eCrCl result is absurd, please check patient'sheight/weight. Estimated Glomerular Filt Rate >60 [facility] Comment:NOTE: For -Am erican individuals, multiply the result by 1.210.Chronic Kidney Disease: Estimated GFR < 60 mL/min/1.37b7Wpypmw Kidney Disease: Estimated GFR < 15 mL/min/1.73m2 Glucose 103 60 - 115 mg/dL [facility] Calcium 10.0 8.4 - 10.2 mg/dL [facility] 03/25/2024 9:38 AM EDT 03/25/2024 9:43 AM EDT us Generic External Data Provider LAB BLOOD ORDERAB LES Final Result [facility] [address] [place] [phone] * (ABNORMAL) CBC auto differential (03/25/2024 9:38 AM EDT) White Blood Count 4.3(L) 4.8 - 10.8 X10*3/uL [facility] Red Blood Count 4.84 4.60 - 5.80 X10*6/uL [facility] Hemoglobin 13.2(L) 14.0 - 18.0 g/dl [facility] Hematocrit 39.9(L) 42.0 - 52.0 % [facility] Mean Corpuscular Volume 82.4 80.0 - 98.0 fL [facility] Mean Corpuscular Hemoglobin 27.3 27.0 - 33.0 pg [facility] Mean Corpuscular HGB Conc 33.1 31.0 - 36.0 g/dl [facility] Red Cell Distribution Width 12.8 11.0 - 16.0 % [facility] Platelet Count 152(L) 160 - 400 X10*3/uL [facility] Mean Platelet Volume 10.6 9.4 - 12.4 fL [facility] Neutrophils Percent Auto 58.5 45 - 73 % [facility] Imm Gran Pct Auto 0.2 0.0 - 0.4 % [facility] Lymphocytes Percent Auto 31.3 20 - 40 % [facility] Monocytes Percent Auto 8.6 2 - 11 % [facility] Eosinophils Percent Auto 1.2 0 - 4 % [facility] Basophils Percent Auto 0.2 0 - 2 % [facility] NRBC Pct Auto 0.0 0.0 - 0.2 /100WBC [facility] Neutrophils Absolute Auto 2.5 2.0 - 8.3 x10*3/uL [facility] Imm Gran Abs Auto 0.01 0.00 - 0.03 X10*3/uL [facility] Lymphocytes Absolute Auto 1.4 1.2 - 4.9 X10*3/uL [facility] Monocytes Absolute Auto 0.4 0.1 - 1.2 X10*3/uL [facility] Eosinophils Absolute Auto 0.1 0.0 - 0.4 X10*3/uL [facility] Basophils Absolute Auto 0.0 0.0 - 0.2 X10*3/uL [facility] NRBC Abs Auto 0.000 0.0 - 0.012 X10*3/uL [facility] 03/25/2024 9:38 AM EDT 03/25/2024 9:43 AM EDT us Generic External Data Provider LAB BLOOD ORDERAB LES Final Result [facility] [address] [place] [phone] * Urinalysis w/reflex microscopic (03/25/2024 9:38 AM EDT) Color Urine Yellow [facility] Appearance Urine Clear [facility] PH 7.0 5.0 - 9.0 [facility] Glucose Urine UA Negative Negative mg/dL [facility] Urine Blood Negative Negative [facility] Specific [place] - Urine <=1.005 1.005 - 1.025 [facility] Urine Protein Negative Neg-Trace mg/dL [facility] Urine Ketones Negative Negative mg/dL [facility] Nitrite Urine Negative Negative [facility] Leukocyte Esterase Urine Negative Negative [facility] 03/25/2024 9:38 AM EDT 03/25/2024 9:43 AM EDT Narrative [facility] - 03/25/2024 9:49 AM EDT [id number], [employer] us Generic External Data Provider LAB URINE ORDERAB LES Final Result Performing Organization Address City/State/[facility] Co de Phone Number [facility] [address] [place] [phone] documented in this encounter Visit Diagnoses Not on filedocumented in this encounter Additional Health Concerns Assessment Noted Time PHQ-9 Depression Total Score: 14 024 10:35 AM EDT documented as of this encounter Care Teams Health Policy Manager Relationship Specialty Start Date End Date Nina Nassar MD [address] [place] [address] PCP - General Family Medicine 03/29/20 documented as of this encounter
--- OUTSIDE RECORDS SUMMARY | 2025-03-15 09:27 | XMS_ITS | Encounter Summary ---
Author Organization [employer] Address [address] [place] [address] 7 [place] [address] Care Team Providers Care Air Export Logistics Manager Name Role Phone Nina Nassar MD Primary Care Provider Encounter Details Date Type Department Care Team ([facility] st Contact Info) Description 03/15/2025 Orders Only [facility] MEDICINE [address] [place], [place] [phone] Nina Nassar MD [address] [place], [place] [phone] Social History Tobacco Use Types Packs/Day Years [...] Description 04/26/2025 8:00 AM EST Office Visit [facility] ADULT DENT[facility] [address] [place] [address] Miley Holt [address] [place] [address] documented as of this encounter Visit Diagnoses Not on filedocumented in this encounter Additional Health Concerns Assessment Noted Time PHQ-9 Depression Total Score: 14 024 10:35 AM EDT documented as of this encounter Care Teams Air Export Logistics Manager Relationship Specialty Start Date End Date Nina Nassar MD [address] [place] [address] PCP - General Family Medicine 03/29/20 documented as of this encounter
--- OUTSIDE RECORDS SUMMARY | 2025-03-15 09:27 | XMS_ITS | Encounter Summary ---
Author Organization [employer] Address [address] [place] [address] 7 [place] [address] Care Team Providers Care Mechanical Engineering Lecturer Name Role Phone Nina Nassar MD Primary Care Provider [phone] Encounter Details Date Type Department Care Team ([facility] st Contact Info) Description 03/15/2025 Results Follow-Up [facility] MEDICINE [address] [place], [place] [phone] Nina Nassar MD [address] [place] [address] Culture, Urine, Routine, POCT Urinalysis Social History Tobacco Use Types Packs/Day Years [...] as of this encounter Miscellaneous Notes * Result Encounter Note - Nina Nassar MD - 03/15/2025 9:17 AM EDT Please let patient know that his E coli UTI is resistant to the antibiotics that I sent for him (Bactrim) and so I am changing it to Macrobid. Please switch antibiotics as soon as possible. documented in this encounter Plan of Treatment Upcoming Encounters Date Type Department Care Team (Late st Contact Info) Description 04/26/2025 8:00 AM EST Office Visit [facility] ADULT DENTAL [address] [place], [place] [phone] Jonathon, Miley [address] [place], [place] [phone] documented as of this encounter Visit Diagnoses Not on filedocumented in this encounter Additional Health Concerns Assessment Noted Time PHQ-9 Depression Total Score: 14 024 10:35 AM EDT documented as of this encounter Care Teams Mechanical Engineering Lecturer Relationship Specialty Start Date End Date Nina Nassar MD [address] [place] [address] PCP - General Family Medicine 03/29/20 documented as of this encounter
[2025-03-15 11:48] LABS: Alanine Aminotransferase 34 U/L (0-40); Albumin Level 4.6 g/dL (3.5-5.0); Alkaline Phosphatase 68 U/L (39-117); Anion Gap 11 (12-20); Aspartate Amino Transferase 32 U/L (5-37); Blood Urea Nitrogen 14 mg/dL (9-16); Calcium 9.2 mg/dL (8.4-10.2); Carbon Dioxide 25 mmol/L (22-29); Chloride 107 mmol/L (96-108); Estimated Glomerular Filt Rate > 60; Potassium 3.7 mmol/L (3.3-5.1); Sodium 139 mmol/L (135-145); Total Protein 7.8 g/dL (6.5-8.0)
== END 2025-03-15 08:45 | disposition home or self-care (01) ==
LOC: HO.HHCL 08:44
PROVIDERS: General Practice; PCP Registered Nurse; Visit Provider Registered Nurse
DX: E87.6 Hypokalemia (principal)
CPT/HCPCS: 36415; 80053

== ENCOUNTER 2025-04-16 16:19 | Outpatient (REF) | payer MEDICAID, SELFPAY ==
--- OUTSIDE RECORDS SUMMARY | 2025-04-16 10:15 | XMS_ITS | Encounter Summary ---
Author Organization [employer] Address [address] [place] [address] 7 [place] [address] Care Team Providers Care Forestry Adviser Name Role Phone Nina Nassar MD Primary Care Provider [phone] Reason for Visit * Reason Comments UTI Encounter Details Date Type Department Care Team ([facility] st Contact Info) Description 04/16/2025 10:15 AM EST Office Visit [facility] MEDICINE [address] [place] [phone] Name, MD Claude [address] [place] [address] Urinary tract infection with hematuria, site unspecified (Primary Dx); Dysuria Social History Tobacco Use Types Packs/Day Years [...] Sign Reading Time Taken Comments Blood Pressure 130/82 04/16/2025 10:26 AM EST Pulse 74 04/16/2025 10:26 AM EST Temperature 36.1 C (96.9 F) 04/16/2025 10:26 AM EST Respiratory Rate 14 04/16/2025 10:26 AM EST Oxygen Saturation 99% 04/16/2025 10:26 AM EST Inhaled Oxygen Concentration - - Weight 114 kg (252 lb 6.4 oz) 04/16/2025 10:26 A M EST Height 167.6 cm (5' 6 ) 04/16/2025 10:26 AM EST Body Mass Index 40.74 04/16/2025 10:26 AM EST documented in this encounter Progress Notes * Claude Arellano MD - 04/16/2025 10:15 AM EST Subjective Patient ID: Contreras Han is a 49 y.o. male who presents for UTI. Patient comes for a sick visit complaining of 2 weeks of dysuria, urinary frequency, foul-smelling urine. He was treated for UTI last month with Macrobid and he had a complicated UTI in January. He denies any history of BPH, the patient is monogamous and has not been sexually active in more than a month. He denies urethral discharge, no history of STDs, no anal sex, no fevers or chills, no CV angle discomfort. Review of Systems Constitutional: Negative for chills, fatigue and fever. HENT: Negative for sore throat. Respiratory: Negative for chest tightness and shortness of breath. The patient complains of a couple of days of occasional nonproductive cough Cardiovascular: Negative for chest pain, palpitations and leg swelling. Gastrointestinal: Negative for abdominal pain and blood in stool. Objective Vitals: 04/16/25 1026 BP: 130/82 BP Location: Left arm Patient Position: Sitting BP Cuff Size: Large adult Pulse: 74 Resp: 14 Temp: 96.9 ??F (36.1 ??C) TempSrc: Temporal SpO2: 99% Weight: 252 lb 6.4 oz (114 kg) Height: 5' 6 (1.676 m) Physical Exam Constitutional: Appearance: Normal appearance. Cardiovascular: Rate and Rhythm: Normal rate and regular rhythm. Heart sounds: No murmur heard. Pulmonary: Effort: Pulmonary effort is normal. No respiratory distress. Breath sounds: No wheezing, rhonchi or rales. Abdominal: Palpations: Abdomen is soft. Tenderness: There is no abdominal tenderness. Musculoskeletal: Right lower leg: No edema. Left lower leg: No edema. Neurological: Mental Status: He is alert. Latest Reference Range & Units 04/16/25 10:27 Color, UA Light Yellow Specific [place], UA 1.020 pH, UA 7.5 Ketones, UA Negative Protein, UA Negative Nitrite, UA Negative, None Detected Positive ! RBC, UA Negative, None Detected Positive ! Clarity, UA Cloudy Glucose, UA Negative Leukocytes, UA Negative, Rare, Trace Trace Bilirubin UA Negative Urobilinogen, UA 0.2 Appearance, UA light yellow !: Data is abnormal Lab Results Component Value Date GLUCOSE 101 03/15/2025 NA 139 03/15/2025 K 3.7 03/15/2025 CO2 25 03/15/2025 CL 107 03/15/2025 BUN 14 03/15/2025 CREATININE 0.92 03/15/2025 Culture, Urine, Routine Order: [id number] Collected 03/12/2025 16:50 Status: Final result Dx: Dysuria; Hypokalemia Test Result Released: No (inaccessible in MyChart) Specimen Information: Urine, Clean Catch Specimen Comment: [facility] 1 Result Note View Follow-Up Encounter Narrative Performed by: [facility] Escherichia coli Quant > 100,000 cfu/mL Escherichia coli: Ampicillin >=32(R) Escherichia coli: Cefazolin (Urine) <=1(S) Escherichia coli: Cefepime 0.5(S) Escherichia coli: Ceftriaxone <=0.25(S) Escherichia coli: Ciprofloxacin 0.5(I) Escherichia coli: Gentamicin <=1(S) Escherichia coli: Nitrofurantoin <=16(S) Escherichia coli: Trimethoprim/Sulfamethoxazole >=320(R) Specimen Source: Urine clean catch Specimen Collected: 03/12/25 16:50 Last Resulted: 03/14/25 07:45 Assessment/Plan Diagnoses and all orders for this visit: Urinary tract infection with hematuria, site unspecified Comments: Patient history and urine dipstick are consistent with urinary tract infection. He does not have any fevers or chills. I will treat for possible complicated UTI based on the results of last urine culture with oral third-generation cephalosporin for 14 days. He is recommended to drink lots of water.I will send urine for GC chlamydia as well. He is encouraged to call if he does not feel much better in the next couple of days. Further recommendation based on the response to the antibiotic and theresults of the urine culture and STD testing. Orders: - POCT Urinalysis - Urinalysis, Complete, with Reflex to Culture; Future - Chlamydia/N. Gonorrhoeae RNA, TMA, Urogenitial Dysuria Other orders - cefixime (Suprax) capsule; Take 1 capsule (400 mg) by mouth Once per day for 14 days. Future Appointments Date Time Provider Department Center 04/26/2025 8:00 AM Miley BARRAZA [facility] documented in this encounter Plan of Treatment Upcoming Encounters Date Type Department Care Team (Late st Contact Info) Description 04/26/2025 8:00 AM EST Office Visit [facility] ADULT DENTAL [address] [place] [address] Miley Holt [address] [place] [address] Scheduled Orders Name Type Priority Associated Diagnoses Orde r Schedule Urinalysis, Complete, with Reflex to Culture Lab Routine Urinary tract infection with hematuria, site unspecified Expected: 04/16/2025 (Approximate), Expires: 04/16/2026 Chlamydia/N. Gonorrhoeae RNA, TMA, Urogenitial Microbiology Routine Urinary tract infection with hematuria, site unspecified Ordered: 04/16/2025 documented as of this encounter Procedures Procedure Name Priority Date/Time Associated Diagnosis Comments POCT URINALYSIS DIPSTICK Routine 04/16/2025 10:27 AM EST Urinary tract infection with hematuria, site unspecified documented in this encounter Results * (ABNORMAL) POCT Urinalysis (04/16/2025 10:27 AM EST) Color, UA Light Yellow Clarity, UA Cloudy Glucose, UA Negative Bilirubin, UA Negative Ketones, UA Negative Spec Grav, UA 1.020 Blood, UA Positive(A) Negative, None Detected Comment:trace-intact pH, UA 7.5 Protein, UA Negative Urobilinogen, UA 0.2 Leukocytes, UA Trace Negative, Rare, Trace Comment:small Nitrite, UA Positive(A) Negative, None Detected Appearance, UA light yellow QC Media Lot # [id number] Lot# Expiration Date 63, Urine (Urine, Random) 04/16/2025 10:27 AM EST us Claude Name POINT OF CARE TEST ENTER/EDIT OR DERABLES Final Result documented in this encounter Visit Diagnoses Diagnosis Urinary tract infection with hematuria, site unspecified- Primary Dysuria documented in this encounter Additional Health Concerns Assessment Noted Time PHQ-9 Depression Total Score: 14 05/ 024 10:35 AM EDT documented as of this encounter Care Teams Forestry Adviser Relationship Specialty Start Date End Date Nina Nassar MD [address] [place] [address] PCP - General Family Medicine 03/29/20 documented as of this encounter
--- OUTSIDE RECORDS SUMMARY | 2025-04-16 16:51 | XMS_ITS | Encounter Summary ---
Author Organization [employer] Address [address] [place] [address] [place] [address] Care Team Providers Care Network Program Manager Name Role Phone Nina Nassar MD Primary Care Provider [phone] Reason for Visit * Reason Comments Med Refill Encounter Details Date Type Department Care Team ([facility] st Contact Info) Description 02/26/2024 Refill [facility] MEDICINE [address] [place], [place] [phone] Ashley Contreras MD [address] [place], [place] [phone] Xerosis of skin Social History Tobacco Use [...] Description 04/26/2025 8:00 AM EST Office Visit [facility] ADULT DENTAL [address] [place] [address] JonathonMiley [address] [place] [address] documented as of this encounter Visit Diagnoses Diagnosis Xerosis of skin documented in this encounter Additional Health Concerns Assessment Noted Time PHQ-9 Depression Total Score: 14 024 10:35 AM EDT documented as of this encounter Care Teams Network Program Manager Relationship Specialty Start Date End Date Nina Nassar MD [address] [place] [address] PCP - General Family Medicine 03/29/20 documented as of this encounter
--- OUTSIDE RECORDS SUMMARY | 2025-04-16 16:51 | XMS_ITS | Encounter Summary ---
Author Organization [employer] Address [address] [place] [address] 7 [place] [address] Care Team Providers Care Environmental Manager Name Role Phone Nina Nassar MD Primary Care Provider [phone] Encounter Details Date Type Department Care Team (Late st Contact Info) Description 12/26/2022 Orders Only [facility] MEDICINE [address] [place], [place] [phone] Bonnie Gomes MD [address] [place], [place] [phone] Chronic midline low back pain without sciatica [...] 04/26/2025 8:00 AM EST Office Visit [facility] ADULT DENTAL [address] [place], [place] [phone] Miley Holt [address] [place] [address] documented as of this encounter Visit Diagnoses Diagnosis Chronic midline low back pain without sciatica- Primary documented in this encounter Additional Health Concerns Assessment Noted Time PHQ-9 Depression Total Score: 21 023 1:46 PM EDT documented as of this encounter Care Teams Environmental Manager Relationship Specialty Start Date End Date Nina Nassar MD 230 [place] [address] PCP - General Family Medicine 03/29/20 documented as of this encounter
--- OUTSIDE RECORDS SUMMARY | 2025-04-16 16:51 | XMS_ITS | Encounter Summary ---
Author Organization [employer] Address [address] [place] [address] [place] [address] Care Team Providers Care Cigarette Packing Machine Operator Name Role Phone Nina Nassar MD Primary Care Provider [phone] Reason for Visit * Reason Onset Date Comments Results 04/15/2025 Encounter Details Date Type Department Care Team ([facility] Contact Info) Description 04/15/2025 Telephone [facility] MEDICINE [address] [place], [place] [phone] Nina Nassar MD [address] [place], [place] [phone] Results Social History Tobacco Use Types Packs/Day Years [...] encounter Miscellaneous Notes * Telephone Encounter - Yecenia Gaines RN - 04/15/2025 1:43 PM EST TC placed to patient [phone] in regards to below message however no answer, RN left VM requesting CB to red team nurses. TC placed to spouse [phone] (on HIPAA) to inform potassium level from 03/15/25 was 3.7 (WNL). Spouse verbalized understanding. Spouse to f/u PRN. * Telephone Encounter - Claude Allen - 04/15/2025 10:42 AM EST Tc from pt spouse requesting for pt to be contacted with the results of the potassium. Contact pt at [phone] documented in this encounter Plan of Treatment Upcoming Encounters Date Type Department Care Team (Late st Contact Info) Description 04/26/2025 8:00 AM EST Office Visit [facility] ADULT DENTAL [address] [place] [address] Miley Holt [address] [place] [address] documented as of this encounter Visit Diagnoses Not on filedocumented in this encounter Additional Health Concerns Assessment Noted Time PHQ-9 Depression Total Score: 14 024 10:35 AM EDT documented as of this encounter Care Teams Cigarette Packing Machine Operator Relationship Specialty Start Date End Date Nina Nassar MD [address] [place] [address] PCP - General Family Medicine 03/29/20 documented as of this encounter
--- OUTSIDE RECORDS SUMMARY | 2025-04-16 16:51 | XMS_ITS | Encounter Summary ---
Author Organization [employer] Address [address] [place] [address] [place] [address] Care Team Providers Care Assisted Living Manager Name Role Phone Nina Nassar MD Primary Care Provider [phone] Reason for Visit * Reason Onset Date Comments Nurse Triage 04/15/2025 Encounter Details Date Type Department Care Team ([facility] st Contact Info) Description 04/15/2025 Telephone [facility] MEDICINE [address] [place], [place] [phone] Nina Nassar MD [address] [place], [place] [phone] Nurse Triage Social History Tobacco Use Types Packs/Day Years [...] t he electric, gas, oil or water [employer] threatened to shut off services in your [...] encounter Miscellaneous Notes * Telephone Encounter - Anna Disla RN - 04/15/2025 1:19 PM EST TC placed to patient using BLS #ID [id number]. Patient reported pain with urination and foul-smelling urine. HX of UTI. Patient denies any visible blood in the urine. RN advised patient to come into [facility] for further evaluation. Patient declined d/t working at this time. RN scheduled an appt with a provider on 04/16 with a provider. Patient verbalized understanding. Protocol Used: Urination Pain - Male (Adult) Protocol-Based Disposition: Go to Office or Video Visit Now Positive Triage Questions: * Side (flank) or lower back pain present * All other males with painful urination, or patient wants to be seen * All higher-acuity triage questions were negative Care Advice Discussed: * Reassurance and Education - Urination Pain * Drink Extra Fluids * Reasons To Call Back - Fever over 100.4 F (38.0 C) occurs - Side (flank) or lower back pain occurs - You become worse * Telephone Encounter - Claude Allen - 04/15/2025 10:45 AM EST Symptom: Urine Symptoms Outcome: Schedule an urgent appointment (within 4 hours) or talk to a nurse or provider soon Reason: Pain when passing urine (peeing) The caller accepted this outcome. Pt spouse reports that pt also has a foul urine smell. Contact pt at [phone] documented in this encounter Plan of Treatment Upcoming Encounters Date Type Department Care Team (Late st Contact Info) Description 04/26/2025 8:00 AM EST Office Visit [facility] ADULT DENTAL [address] [place] [address] JonathonMiley [address] [place] [address] documented as of this encounter Visit Diagnoses Not on filedocumented in this encounter Additional Health Concerns Assessment Noted Time PHQ-9 Depression Total Score: 14 024 10:35 AM EDT documented as of this encounter Care Teams Assisted Living Manager Relationship Specialty Start Date End Date Nina Nassar MD [address] [place] [address] PCP - General Family Medicine 03/29/20 documented as of this encounter
--- OUTSIDE RECORDS SUMMARY | 2025-04-16 16:51 | XMS_ITS | Clinical Summary ---
Author Organization [employer] Address [address] [place] [address] [address] [place] [address] Care Team Providers Care Bulkhead Carpenter Name Role Phone Nina Nassar MD Primary Care Provider [phone] Allergies No known active allergies Medications polyethylene glycol, PEG, 3350 (Glycolax) 17 GM/SCOOP powder DISSOLVE 1 CAPFUL IN LIQUID AND DRINK BY MOUTH DAILY FOR 30 DAYS 3 Active gabapentin (Neurontin) 300 MG capsule TAKE 1 CAPSULE BY MOUTH TWICE A DAY 60 capsule 6 5 Active carboxymethylcel lulose sodium (Refresh Contacts) solution OPHTHalmic solution Administer 1 drop into both eyes 3 times daily. 12 mL 3 5 Active hydrOXYzine HCl (Atarax) 10 MG tablet Take 1 tablet (10 mg) by mouth every 12 (twelve) hours if needed for itching or anxiety. 90 tablet 3 5 Active folic acid (Folvite) 400 MCG tabletIndication s:Folic acid deficiency TAKE 1 TABLET (400 MCG) BY MOUTH IN THE MORNING. 90 tablet 3 5 Active acetaminophen (Tylenol) 500 MG tabletIndication s:Leg cramping Take 2 tablets (1,000 mg) by mouth every 6 (six) hours if needed for moderate pain for up to 25 doses. 50 tablet 5 Active triamcinolone (Kenalog) 0.1 % creamIndications :Xerosis of skin Mix with Cerave and apply after showers neck down. 80 g 2 5 Active ibuprofen 600 MG tabletIndication s:Other chronic pain TAKE 1 TABLET BY MOUTH THREE TIMES DAILY WITH FOOD NEEDED FOR PAIN 90 tablet 3 5 Active fluticasone (Flonase) 50 MCG/ACT nasal spray SHAKE LIQUID AND USE 2 SPRAYS IN EACH NOSTRIL EVERY DAY 48 mL 3 5 Active rosuvastatin (Crestor) 10 MG tablet TOME 1 TABLETA POR VIA ORAL TODOS LOS QURESHI EN LA SHERBORNANA 90 tablet 3 5 Active ferrous sulfate 325 (65 Fe) MG tabletIndication s:Iron deficiency anemia, unspecified iron deficiency anemia type TOME 1TAKE 1 TABLET BY MOUTH EVERY MORNING 90 tablet 3 5 Active cholecalciferol (D3 Super Strength) 50 MCG (2000 UT) capsuleIndicatio ns:Vitamin D deficiency TAKE 1 CAPSULE BY MOUTH EVERY MORNING 90 capsule 3 5 Active chlorthalidone (Hygroton) 25 MG tablet Take 1 tablet (25 mg) by mouth in the morning. 90 tablet 3 5 Active buPROPion XL (Wellbutrin XL) 300 MG 24 hr tablet Take 1 tablet (300 mg) by mouth in the morning. 90 tablet 3 5 Active aspirin (Aspirin Low Dose) 81 MG EC tablet TAKE 1 TABLET BY MOUTH EVERY MORNING 90 tablet 3 5 Active cefixime (Suprax) capsule Take 1 capsule (400 mg) by mouth Once per day for 14 days. 14 capsule 5 04/30/20 25 Active sulfamethoxazole -trimethoprim (Bactrim DS) 800-160 MG tablet Take 1 tablet by mouth 2 times daily for 5 days. 10 tablet 5 03/17/20 25 nitrofurantoin, macrocrystal-mon ohydrate, (Macrobid) 100 MG capsule Take 1 capsule (100 mg) by mouth 2 times daily for 7 days. 14 capsule 5 03/22/20 25 Active Problems Problem Noted Date Diagnosed Date Dysuria 03/15/2025 Assessment & Plan (03/15/2025 9:58 AM EDT): UA grossly positive for UTI in clinic, and consistent with exam. No signs or symptoms of pyelonephritis at this time. Empirically started on Bactrim, thought culture later refutes use of this antibiotic due to E coli resistance to Bactrim and Cipro and intermediate sensitivity to cephalosporins. Switch to Macrobid. Patient notified of the need for switchi of antibiotics, and need to have his blood drawn to recheck potassium levels. Dental caries 10/16/2024 Gingival bleeding 04/13/2024 Tooth hypersensitivity 04/13/2024 Requires assistance with activities of daily meron ing (ADL) 05/04/2023 Assessment & Plan (05/04/2023 8:02 AM EST): Instructed patient to go to medical records to contact [facility] agency and re- establish care for assistance with bathing, washing, shopping, cooking Dental calculus 01/07/2023 Periodontal disease 01/07/2023 Localized gingival recession 01/07/2023 Right anterior shoulder pain 10/22/2022 Assessment & Plan (05/04/2023 8:09 AM EST): Xray with moderate AC joint arthritis Sp med and injection trial without benefit Declines PT for now due to transportation issues Will work on getting [facility] [employer] care re-established Gentle stretching at home Assessment [...] Encounters Date Type Department Care Team Description 04/16/2025 10:15 AM EST Office Visit [facility] [address] [place] [phone] Name, MD Claude Urinary tract infection with hematuria, site unspecified (Primary Dx); Dysuria 04/16/2025 Travel 04/15/2025 Telephone [facility] [address] [place] [phone] Nina Nassar MD Nurse Triage 04/15/[address] [address] Nina Nassar MD Results 03/16/2025 Refill [facility] [address] [place] [phone] iNna Nassar MD 03/15/2025 Orders Only [facility] [address] [place] [phone] Nina Nassar MD 03/15/2025 Results Follow-Up [address] [address] Nina Nassar MD Culture, Urine, Routine, POCT Urinalysis 03/12/2025 4:00 PM EDT Office Visit [address] [address] Nina Nassar MD Dysuria (Primary Dx); Hypokalemia; Vitamin D deficiency 03/12/2025 Travel 03/11/2025 Telephone [facility] [address] [place] [phone] Nina Nassar MD chart prep 03/04/2025 Patient Outreach [address] [address] Nina Nassar MD Pre-visit Planning (SDOH screening negative and tobacco screening negative) 02/16/[address] [address] Nina Nassar MD Iron deficiency anemia, unspecified iron deficiency anemia type 02/06/2025 Orders Only GENERIC EXTERNAL DATA DEPARTMENT Provider, Generic External Data from Last 3 Months Immunizations Immunization Administration [...] Mass Index 40.74 04/16/2025 10:26 AM EST Plan of Treatment Upcoming Encounters Date Type Department Care Team (Late st Contact Info) Description 04/26/2025 8:00 AM EST Office Visit [facility] [address] [place] [address] Jonathon, Miley [address] [place] [address] Health Maintenance Due Date Last Done Comments [...] 03/16/2022, 11/09/2020, 10/20/2020 Influenza Vaccine (#1) 2025 3, 03/08/2022, 03/13/2021, Additional history exists Dental X-Ray: Bitewings 04/14/2025 04/13/20 24, 01/07/2023, 08/02/2021, Additional history exists Dental Prophylaxis 04/15/2025 10/12/2024, 1 06/13/2023, 11/18/2023, Additional history exists SDOH Screening 03/04/2026 03/04/2025 Tobacco Screening 04/16/2026 04/16/2025 Zoster Vaccines (1 of 2) 2027 Colonoscopy [...] Urinary tract infection with hematuria, site unspecified COMPREHENSIVE METABOLIC PANEL Routine 03/15/2025 8:51 AM EDT Hypokalemia POCT URINALYSIS DIPSTICK Routine 03/12/2025 4:59 PM [...] Health Maintenance Results * (ABNORMAL) POCT Urinalysis (04/16/2025 10:27 AM EST) Only the most recent of2 resultswithin the time period is included. Color, UA Light Yellow Clarity, UA Cloudy Glucose, UA Negative Bilirubin, UA Negative Ketones, UA Negative Spec Grav, UA 1.020 Blood, UA Positive(A) Negative, None Detected Comment:trace-intact pH, UA 7.5 Protein, UA Negative Urobilinogen, UA 0.2 Leukocytes, UA Trace Negative, Rare, Trace Comment:small Nitrite, UA Positive(A) Negative, None Detected Appearance, UA light yellow QC Media Lot # [id number] Lot# Expiration Date [id number] Urine (Urine, Random) 04/16/2025 10:27 AM EST us Claude Arellano MD POINT OF CARE TEST ENTER/EDIT OR DERABLES Final Result * (ABNORMAL) Comprehensive Metabolic Panel (03/15/2025 8:51 AM EDT) Only the most recent of2 resultswithin the time period is included. Sodium 139 135 - 145 mmol/L [facility] Potassium 3.7 3.3 - 5.1 mmol/L [facility] Chloride 107 96 - 108 mmol/L [facility] Carbon Dioxide 25 22 - 29 mmol/L [facility] Anion Gap 11(L) 12 - 20 [facility] Urea Nitrogen (BUN) 14 9 - 16 mg/dL [facility] Creatinine, Serum 0.92 0.5 - 1.4 mg/dL [facility] Estimated Glomerular Filt Rate >60 [facility] Comment:Chronic Kidney Disea se: Estimated GFR < 60 mL/min/[id number] Kidney Disease: Estimated GFR < 15 mL/min/1.73m2 Glucose 101 60 - 115 mg/dL [facility] Calcium 9.2 8.4 - 10.2 mg/dL [facility] Bilirubin, Total 1.0 0.0 - 1.0 mg/dL [facility] Aspartate Amino Transferase 32 5 - 37 U/L [facility] Alanine Aminotransferase 34 0 - 40 U/L [facility] Total Protein 7.8 6.5 - 8.0 g/dL [facility] Albumin Level 4.6 3.5 - 5.0 g/dL [facility] Alkaline Phosphatase 68 39 - 117 U/L [facility] Blood Venous blood specimen / Unknown 03/15/2025 8:51 AM EDT 03/15/2025 11:17 AM EDT us Nina Nassar MD LAB BLOOD ORDERABLES Final Res ult [facility] [address] [place] [phone] * Culture, Urine, Routine (03/12/2025 4:50 PM EDT) Only the most recent of2 resultswithin the time period is included. Urine Urine specimen obtained by clean catch procedure / Unknown 03/12/2025 4:50 PM EDT 03/12/2025 7:01 PM EDT Comment:UACC Narrative [facility] - 03/14/2025 7:45 AM EDT [...] ORD ERABLES Final Result Performing Organization Address [facility] de Phone Number [facility] [address] [place] [phone] * High Sensitivity Troponin I (02/06/2025 6:19 PM EDT) Only the most recent of2 resultswithin the time period is included. TROPONIN I HIGH SENSITIVITY <2.7 <3.5 - 35.0 ng/L [facility] Comment:The Cordero high sens itivity Troponin-I results should beused in conjunction with other diagnostic information suchas ECG, clinical observations and information, and patientsymptoms to aid in the diagnosis of NV. 02/06/2025 6:19 PM EDT 02/06/2025 6:21 PM EDT us Generic External Data Provider LAB BLOOD ORDERAB LES Final Result Performing Organization Address [facility] Co de Phone Number [facility] [address] [place] [phone] * Potassium (02/06/2025 6:19 PM EDT) Potassium 3.6 3.3 - 5.1 mmol/L [facility] 02/06/2025 6:19 PM EDT 02/06/2025 6:21 PM EDT us Generic External Data Provider LAB BLOOD ORDERAB LES Final Result Performing Organization Address City/State/[facility] Co de Phone Number [facility] [address] [place] [phone] * XR Chest 2 Views (02/06/2025 6:01 PM EDT) Anatomical Region Laterality Modality Chest Radiographic Melissa ging 02/06/2025 6:01 PM EDT Narrative 02/06/2025 6:03 PM EDT [address] [address] XRay Report Signed Patient: Contreras Schrader MR#: [id number] : 1975 Acct:[id number] Age/Sex: 49 / M ADM Date: 02/06/25 Loc: HO.ED Attending Dr: Ordering Physician: Mitali Fleming Date of Service: 02/06/25 Procedure(s): XR chest 2V Accession Number(s): [id number] cc: Nina Nassar; Mitali Fleming CLINICAL HISTORY: [...] Genie Beard MD in OV> 02/06/251801 DD/ 180 TD/TT: 02/06/25 180 Tank Car Inspector: Procedure Note Donotuseinterpreter, Image - 02/06/[address] [address] XRay Report Signed Patient: Contreras SchraderR#: [id number] : 1975Acct:[id number] Age/Sex: 49 / MADM Date: 02/06/25 Loc: HO.ED Attending Dr: Ordering Physician: Mitali Fleming Date of Service: 02/06/25 Procedure(s): XR chest 2V Accession Number(s): [id number] cc: Nina Nassar; Mitali Fleming CLINICAL HISTORY: [...] Beard MD in OV> 02/06/25 1802 DD/ 180 TD/TT: 02/06/25 180 Tank Car Inspector: [facility] External Provider IMG XR PROCEDURES Final Result * US Abdomen Limited (02/06/2025 5:11 PM EDT) Anatomical Region Laterality Modality Abdomen Ultrasound 02/06/2025 5:11 PM EDT Narrative 02/06/2025 5:13 PM EDT [address] [address] Ultrasound Report Signed Patient: Contreras Schrader MR#: [id number] : 1975 Acct:[id number] Age/Sex: 49 / M ADM Date: 02/06/25 Loc: HO.ED Attending Dr: Ordering Physician: Mitali Fleming Date of Service: 02/06/25 Procedure(s): US abdomen limited Accession Number(s): [id number] cc: Nina Nassar; Mitali Fleming CLINICAL HISTORY: [...] Genie Beard MD in OV> 02/06/251711 DD/ 171 TD/TT: 02/06/251710 Tank Car Inspector: Procedure Note Donotuseinterpreter, Image - 02/06/2025 [place] [address] Ultrasound Report Signed Patient: Contreras Schrader#: [id number] : 1975Acct:[id number] Age/Sex: 49 / MADM Date: 02/06/25 Loc: HO.ED Attending Dr: Ordering Physician: Mitali Fleming Date of Service: 02/06/25 Procedure(s): US abdomen limited Accession Number(s): [id number] cc: Nina Nassar; Mitali Fleming CLINICAL HISTORY: [...] by Genie Beard MD in OV> 02/06/25 1712 DD/ 1711 TD/TT: 02/06/25 1711 Tank Car Inspector: us [facility] External Provider IMG US PROCEDURES Final Result * CT Abdomen Pelvis w/ Contrast (02/06/2025 4:06 PM EDT) Anatomical Region Laterality Modality Body, Pelvis, Abdomen Computed T omography 02/06/2025 4:06 PM EDT Narrative 02/06/2025 4:08 PM EDT [place] [address] CT Scan Report Signed Patient: Contreras Schrader MR#: [id number] : 1975 Acct:[id number] Age/Sex: 49 / M ADM Date: 02/06/25 Loc: HO.ED Attending Dr: Ordering Physician: Mitali Fleming Date of Service: 02/06/25 Procedure(s): CT abdomen pelvis w IV con Accession Number(s): [id number] cc: Nina Nassar; Mitali Fleming Report Number: [id number]: Total DLP = 954.00 mGy-cm CLINICAL HISTORY: [...] 02/06/25 1607 DD/ 1606 TD/TT: 02/06/25 1606 Tank Car Inspector: Procedure Note Donotuseinterpreter, Image - 02/06/[address] [address] [address] Scan Report Signed Patient: Contreras Schrader#: [id number] : 1975Acct:[id number] Age/Sex: 49 / MADM Date: 02/06/25 Loc: HO.ED Attending Dr: Ordering Physician: Mitali Fleming Date of Service: 02/06/25 Procedure(s): CT abdomen pelvis w IV con Accession Number(s): [id number] cc: Nina Nassar; Mitali Fleming Report Number: [id number]: Total DLP = 954.00 mGy-cm CLINICAL HISTORY: [...] 02/06/25 1607 DD/ 1606 TD/TT: 02/06/25 1606 Tank Car Inspector: [facility] External Provider IMG CT PROCEDURES Final Result * Blood Culture (First) (02/06/2025 3:05 PM EDT) Blood Venous blood specimen / Unknown 02/06/2025 3:05 PM EDT 02/06/2025 3:12 PM EDT Comment:Blood Narrative [facility] - 02/11/2025 5:13 PM EDT Blood Culture (First) No growth after 5 days. Specimen Source: Blood Generic External Data Provider LAB MICROBIOLOGY - GENERAL ORDERABLES Final Result Performing Organization Address [facility]/ZIP Co de Phone Number [facility] [address] [place] [phone] * Blood Culture (Second) (02/06/2025 3:05 PM EDT) Blood Venous blood specimen / Unknown 02/06/2025 3:05 PM EDT 02/06/2025 3:12 PM EDT Comment:Blood Narrative [facility] - 02/11/2025 5:13 PM EDT Blood Culture (Second) No growth after 5 days. Specimen Source: Blood Generic External Data Provider LAB MICROBIOLOGY - GENERAL ORDERABLES Final Result Performing Organization Address [facility] Co de Phone Number [facility] [address] [place] [phone] * Lactic Acid (02/06/2025 3:05 PM EDT) Lactic Acid 0.9 0.5 - 2.0 mmol/L [facility] 02/06/2025 3:05 PM EDT 02/06/2025 3:12 PM EDT Generic External Data Provider LAB BLOOD ORDERAB LES Final Result Performing Organization Address [facility] Co de Phone Number [facility] [address] [place] [phone] * (ABNORMAL) Urinalysis, Complete, with Reflex to Culture (02/06/2025 1:33 PM EDT) Color Urine Yellow [facility] Appearance Urine Cloudy [facility] PH 5.5 5.0 - 9.0 [facility] Glucose Urine UA Negative Negative mg/dL [facility] Urine Blood Small (1+)(A) Negative [facility] Specific [place] - Urine 1.020 1.005 - 1.025 [facility] Urine Protein Negative Neg-Trace mg/dL [facility] Urine Ketones 15 Negative mg/dL [facility] Nitrite Urine Positive(A) Negative [facility] Leukocyte Esterase Urine Large (3+)(A) Negative [facility] RBC Urine 3-5(A) 0 - 2 /HPF [facility] Urine WBC >50(A) 0 - 5 /HPF [facility] Urine Squamous Epithelial Cell 0-2 0 - 2 /HPF [facility] Urine Bacteria 4+ None Seen [facility] Hyaline Casts, Urine 0-2 0 - 2 /LPF [facility] 02/06/2025 1:33 PM EDT 02/06/2025 1:37 PM EDT Narrative [facility] - 02/06/2025 1:50 PM EDT [id number], Clean Catch us Generic External Data Provider LAB URINE ORDERAB LES Final Result [facility] [address] [place] [phone] * Influenza A B2 ID NOW (TAKO) (02/06/2025 1:25 PM EDT) IDNOW SERIAL# [id number] [facility] Influenza A Negative Negative [facility] Influenza B2 Negative Negative [facility] Influenza A B2 Note See Note [facility] Comment:The Cordero ID NOW In fluenza [...] PM EDT Generic External Data Provider LAB MICROBIOLOGY - GENERAL ORDERABLES Final Result Performing Organization Address City/[facility]/ZIP Co de Phone Number [facility] [address] [place] [phone] * Slide Review (02/06/2025 1:25 PM EDT) Slide Review VERIFIED [facility] 02/06/2025 1:25 PM EDT 02/06/2025 1:29 PM EDT Generic External Data Provider LAB BLOOD ORDERAB LES Final Result Performing Organization Address [facility] de Phone Number [facility] [address] [place] [phone] * COVID-19 ID NOW ([facility]) (02/06/2025 1:25 PM EDT) IDNOW SERIAL# [id number] [facility] COVID-19 TEST Negative Negative [facility] COVID-19 NOTE See Note [facility] Comment: Results are for the identification of SARS-CoV2 RNA. TheSARS-CoV2 RNA is generally detectable in respiratory samplesduring the acute phase of infection. Positive results areindicative of the presence of SARS-CoV-2 RNA; clinicalcorrelation with patient history and other diagnosticinformation is necessary to determine patient infectionstatus. Positive results do not rule out bacterial infectionor co- infection with other viruses.Testing facilities within the [facility] and [facility] hospitalies are required to report all positive [...] use by authorized laboratories.Testing performed on the TAKO ID NOW utilizing NAAT. 02/06/2025 1:25 PM EDT 02/06/2025 1:29 PM EDT us Generic External Data Provider LAB MOLECULAR LAYNE GNOSTICS ORDERABLES Final Result [facility] [address] [place] [phone] * (ABNORMAL) CBC auto differential (02/06/2025 1:25 PM EDT) White Blood Count 8.4 4.8 - 10.8 X10*3/uL [facility] Red Blood Count 4.64 4.60 - 5.80 X10*6/uL [facility] Hemoglobin 12.8(L) 14.0 - 18.0 g/dl [facility] Hematocrit 37.1(L) 42.0 - 52.0 % [facility] Mean Corpuscular Volume 80.0 80.0 - 98.0 fL [facility] Mean Corpuscular Hemoglobin 27.6 27.0 - 33.0 pg [facility] Mean Corpuscular HGB Conc 34.5 31.0 - 36.0 g/dl [facility] Red Cell Distribution Width 13.1 11.0 - 16.0 % [facility] Platelet Count 118(L) 160 - 400 X10*3/uL [facility] Mean Platelet Volume 10.4 9.4 - 12.4 fL [facility] Neutrophils Percent Auto 90.1(H) 45 - 73 % [facility] Imm Gran Pct Auto 0.4 0.0 - 0.4 % [facility] Lymphocytes Percent Auto 4.4(L) 20 - 40 % [facility] Monocytes Percent Auto 4.9 2 - 11 % [facility] Eosinophils Percent Auto 0.1 0 - 4 % [facility] Basophils Percent Auto 0.1 0 - 2 % [facility] NRBC Pct Auto 0.0 0.0 - 0.2 /100WBC [facility] Neutrophils Absolute Auto 7.6 2.0 - 8.3 x10*3/uL [facility] Imm Gran Abs Auto 0.03 0.00 - 0.03 X10*3/uL [facility] Lymphocytes Absolute Auto 0.4(L) 1.2 - 4.9 X10*3/uL [facility] Monocytes Absolute Auto 0.4 0.1 - 1.2 X10*3/uL [facility] Eosinophils Absolute Auto 0.0 0.0 - 0.4 X10*3/uL [facility] Basophils Absolute Auto 0.0 0.0 - 0.2 X10*3/uL [facility] NRBC Abs Auto 0.000 0.0 - 0.012 X10*3/uL [facility] 02/06/2025 1:25 PM EDT 02/06/2025 1:29 PM EDT Generic External Data Provider LAB BLOOD ORDERAB LES Edited Result - Final Performing Organization Address [facility]/ZIP Co de Phone Number [facility] [address] [place] [phone] * B Type Natriuretic Peptide (BNP) (02/06/2025 1:25 PM EDT) B Type Natriuretic Peptide 58 <100 pg/mL [facility] 02/06/2025 1:25 PM EDT 02/06/2025 1:29 PM EDT us Generic External Data Provider LAB BLOOD ORDERAB LES Final Result Performing Organization Address [facility] Co de Phone Number [facility] [address] [place] [phone] * Magnesium (02/06/2025 1:25 PM EDT) Pathologist [facility] Magnesium 1.8 1.6 - 2.6 mg/dL [facility] 02/06/2025 1:25 PM EDT 02/06/2025 1:29 PM EDT Generic External Data Provider LAB BLOOD ORDERAB LES Final Result Performing Organization Address [facility] Co de Phone Number [facility] [address] [place] [phone] * Lipase (02/06/2025 1:25 PM EDT) Lipase 22 8 - 78 U/L [facility] 02/06/2025 1:25 PM EDT 02/06/2025 1:29 PM EDT Generic External Data Provider LAB BLOOD ORDERAB LES Final Result Performing Organization Address [facility] Phone Number [facility] [address] [place] [phone] * Bilirubin, Direct (02/06/2025 1:25 PM EDT) Bilirubin, Direct 0.3 0.0 - 0.5 mg/dL [facility] Comment:Slight Icterus. 02/06/2025 1:25 PM EDT 02/06/2025 1:29 PM EDT Generic External Data Provider LAB BLOOD ORDERAB LES Final Result Performing Organization Address [facility] Co de Phone Number [facility] [address] [place] [phone] * Lipid Panel, Standard (09/26/2024 7:35 AM EDT) Triglycerides 45 <150 mg/dL [facility] Comment:Desirable Triglyceri de: less than 150 mg/dLBorderline High Triglyceride 150-199 mg/dLHigh Triglyceride: 200-499 mg/dLVery High Triglyceride: greater than or equal to 5OO mg/dL Cholesterol 108 <200 mg/dL [facility] Comment:Desirable Cholestero l: less than 200 mg/dLBorderline High Cholesterol: 200-239 mg/dLHigh Cholesterol: greater than 239 mg/dL LDL Cholesterol Calculated 45 <100 mg/dL [facility] Comment:Desirable LDL: less than 100 mg/dLNear Optimal/Above Optimal LDL: 110- 129 mg/dLBorderline High LDL: 130-159 mg/dLHigh LDL: 160-189 mg/dLVery High LDL: greater than or equal to 190 mg/dL HDL Cholesterol 54 >40 mg/dL [facility] Comment:Desirable HDL: great er than 40 mg/dL Note: This HDL assay may give artificially low results in patients with liver disease. 09/26/2024 7:35 AM EDT 09/26/2024 7:35 AM EDT us Generic External Data Provider LAB BLOOD ORDERAB LES Final Result [facility] [address] [place] [phone] * Hm Colonoscopy (06/08/2022 3:31 PM [...] a test for HCV RNA (test code 27397) is suggested. For additional information please refer to http://education.Liztic/faq/MTB06r5 (This link is being provided for informational/ educational purposes only.) 09/13/2021 3:23 PM EDT Nina Nassar MD HISTORICAL/NON ORDERABLE LABS Final Result Performing Organization Address [facility] de Phone Number [facility] [address] * HIV 1/2 ANTIGEN/ANTIBODY,FOURTH GENERATION W/RFL (09/13/2021 3:23 PM EDT) HIV-1/2 ANTIGEN AND ANTIBODIES, 4TH GENERATION W/ REFLEX NON-REACT PINKY NON-REACT PINKY [facility] Comment: HIV-1 antigen and [...] purpose. For additional information please refer to http://education.[employer]/faq/NSP367 (This link is being provided for informational/ educational purposes only.) The performance of this assay has not been clinically validated in patients less than 2 years old. 09/13/2021 3:23 PM EDT Nina Nassar MD LAB BLOOD ORDERABLES Final Res ult Performing Organization Address [facility] de Phone Number [facility] [address] from Last 3 Months or Most Recently Relevant to Health Maintenance Insurance HSN PARTIAL [facility] STAND ADULT Care Teams Bulkhead Carpenter Relationship Specialty Start Date End Date Nina Nassar MD [address] [place] [address] PCP - General Family Medicine 03/29/20
--- OUTSIDE RECORDS SUMMARY | 2025-04-16 16:51 | XMS_ITS | Encounter Summary ---
Author Organization [employer] Address [address] [place] [address] [place] [address] Care Team Providers Care Candles Pourer Name Role Phone Nina Nassar MD Primary Care Provider [phone] Reason for Visit * Reason Comments Med Refill Encounter Details Date Type Department Care Team ([facility] st Contact Info) Description 02/02/2024 Refill [facility] MEDICINE [address] [place], [place] [phone] Ashley Contreras MD [address] [place], [place] [phone] Xerosis of skin Social History Tobacco Use [...] [facility] ADULT DENTAL [address] [place] [address] JonathonMiley [address] [place] [address] documented as of this encounter Visit Diagnoses Diagnosis Xerosis of skin documented in this encounter Additional Health Concerns Assessment Noted Time PHQ-9 Depression Total Score: 14 024 10:35 AM EDT documented as of this encounter Care Teams Candles Pourer Relationship Specialty Start Date End Date Nina Nassar MD [address] [place] [address] PCP - General Family Medicine 03/29/20 documented as of this encounter
--- OUTSIDE RECORDS SUMMARY | 2025-04-16 16:52 | XMS_ITS | Encounter Summary ---
Author Organization [facility] Address [address] [place] [address] [place] [address] Care Team Providers Care Scheduling Assistant Name Role Phone Nina Nassar MD Primary Care Provider Encounter Details Date Type Department Care Team (Latest Contact Info) Description 08/02/2021 Abstract [facility] CONVERSIONS Dental, Provider, DDS Social History Tobacco [...] 8:00 AM EST Office Visit [facility] ADULT DENTAL [address] [place] [address] Jonathon, Miley [address] [place] [address] documented as of this encounter Visit Diagnoses Not on filedocumented in this encounter Care Teams Scheduling Assistant Relationship Specialty Start Date End Date Nina Nassar MD [address] [place] [address] PCP - General Family Medicine 03/29/20 documented as of this encounter
--- OUTSIDE RECORDS SUMMARY | 2025-04-16 16:52 | XMS_ITS | Encounter Summary ---
Author Organization [facility] Address [address] [place] [address] 7 [place] [address] Care Team Providers Care Unit Assistant Name Role Phone Nina Nassar MD Primary Care Provider [phone] Encounter Details Date Type Department Care Team (Latest Contact Info) Description 06/20/2020 Abstract [facility] CONVERSIONS Dental, Provider, DDS Social [...] 8:00 AM EST Office Visit [facility] ADULT DENTAL [address] [place] [address] Jonathon, Miley [address] [place] [address] documented as of this encounter Visit Diagnoses Not on filedocumented in this encounter Care Teams Unit Assistant Relationship Specialty Start Date End Date Nina Nassar MD [address] [place] [address] PCP - General Family Medicine 03/29/20 documented as of this encounter
--- OUTSIDE RECORDS SUMMARY | 2025-04-16 16:52 | XMS_ITS | Encounter Summary ---
Author Organization [employer] Address [address] [place] [address] 7t [place] [address] Care Team Providers Care Screw Cutter Name Role Phone Nina Nassar MD Primary Care Provider [phone] Encounter Details Date Type Department Care Team ([facility] st Contact Info) Description 10/20/2024 Orders Only [facility] MED & PEDS [address] [place], [place] [phone] ProviderCed MD Social History Tobacco Use Types [...] Description 04/26/2025 8:00 AM EST Office Visit [facility] ADULT DENTAL [address] [place] [address] David Holtaris [address] [place] [address] documented as of this encounter Procedures Procedure [...] documented as of this encounter Care Teams Screw Cutter Relationship Specialty Start Date End Date Nina Nassar MD [address] [place] [address] PCP - General Family Medicine 03/29/20 documented as of this encounter
--- OUTSIDE RECORDS SUMMARY | 2025-04-16 16:52 | XMS_ITS | Encounter Summary ---
Author Organization [employer] Address [address] [place] [address] 7 [place] [address] Care Team Providers Care Jukebox Coin Collector Name Role Phone Nina Nassar MD Primary Care Provider [phone] Encounter Details Date Type Department Care Team ([facility] st Contact Info) Description 03/15/2025 Orders Only [facility] MEDICINE [address] [place], [place] [phone] Nina Nassar MD [address] [place], [place] [phone] Social History Tobacco Use Types Packs/Day Years [...] AM EST Office Visit [facility] ADULT DENTAL [address] [place] [address] Miley Holt [address] [place] [address] documented as of this encounter Visit Diagnoses Not on filedocumented in this encounter Additional Health Concerns Assessment Noted Time PHQ-9 Depression Total Score: 14 024 10:35 AM EDT documented as of this encounter Care Teams Jukebox Coin Collector Relationship Specialty Start Date End Date Nina Nassar MD [address] [place] [address] PCP - General Family Medicine 03/29/20 documented as of this encounter
--- OUTSIDE RECORDS SUMMARY | 2025-04-16 16:52 | XMS_ITS | Encounter Summary ---
Author Organization [employer] Address [address] [place] [address] [place] [address] Care Team Providers Care Duct Cleaner Name Role Phone Nina Nassar MD Primary Care Provider [phone] Encounter Details Date Type Department Care Team (Late st Contact Info) Description 01/22/2023 Abstract [facility] ADULT DENTAL [address] [place] [address] Miley Holt [address] [place] [address] Social History Tobacco Use Types Packs/Day Years [...] Description 04/26/2025 8:00 AM EST Office Visit [facility] ADULT DENTAL [address] [place], [place] [phone] Miley Holt [address] [place] [address] documented as of this encounter Visit Diagnoses Not on filedocumented in this encounter Additional Health Concerns Assessment Noted Time PHQ-9 Depression Total Score: 21 023 1:46 PM EDT documented as of this encounter Care Teams Duct Cleaner Relationship Specialty Start Date End Date Nina Nassar MD [address] [place] [address] PCP - General Family Medicine 03/29/20 documented as of this encounter
--- OUTSIDE RECORDS SUMMARY | 2025-04-16 16:52 | XMS_ITS | Encounter Summary ---
Author Organization [employer] Address [address] [place] [address] 7 [place] [address] Care Team Providers Care Core Blower Operator Name Role Phone Nina Nassar MD Primary Care Provider [phone] Encounter Details Date Type Department Care Team ([facility] st Contact Info) Description 03/06/2024 Orders Only [facility] MEDICINE [address] [place], [place] [phone] Nina Nassar MD [address] [place], [place] [phone] Social History Tobacco Use Types Packs/Day Years [...] the past 12 months, has t he [employer], gas, oil or water company threatened to [...] 8:00 AM EST Office Visit [facility] ADULT DENTAL [address] [place] [address] Jonathon, Miley [address] [place] [address] documented as of this encounter Procedures Procedure [...] 7:35 AM EDT) Triglycerides 45 <150 mg/dL [facility] Comment:Desirable Triglyceri de: less than 150 mg/dLBorderline High Triglyceride 150-199 mg/dLHigh Triglyceride: 200-499 mg/dLVery High Triglyceride: greater than or equal to 5OO mg/dL Cholesterol 108 <200 mg/dL [facility] Comment:Desirable Cholestero l: less than 200 mg/dLBorderline High Cholesterol: 200-239 mg/dLHigh Cholesterol: greater than 239 mg/dL LDL Cholesterol Calculated 45 <100 mg/dL [facility] Comment:Desirable LDL: less than 100 mg/dLNear Optimal/Above Optimal LDL: 110- 129 mg/dLBorderline High LDL: 130-159 mg/dLHigh LDL: 160-189 mg/dLVery High LDL: greater than or equal to 190 mg/dL HDL Cholesterol 54 >40 mg/dL [facility] Comment:Desirable HDL: great er than 40 mg/dL Note: This HDL assay may give artificially low results in patients with liver disease. 09/26/2024 7:35 AM EDT 09/26/2024 7:35 AM EDT us Generic External Data Provider LAB BLOOD ORDERAB LES Final Result [facility] [address] [place] [phone] * Comprehensive Metabolic Panel (09/26/2024 7:35 AM EDT) Sodium 140 135 - 145 mmol/L [facility] Potassium 4.1 3.3 - 5.1 mmol/L [facility] Chloride 104 96 - 108 mmol/L [facility] Carbon Dioxide 27 22 - 29 mmol/L [facility] Anion Gap 13 12 - 20 [facility] Urea Nitrogen (BUN) 16 9 - 16 mg/dL [facility] Creatinine, Serum 0.91 0.5 - 1.4 mg/dL [facility] Estimated Glomerular Filt Rate >60 [facility] Comment:Chronic Kidney Disea se: Estimated GFR < 60 mL/min/1.53c6Abzimw Kidney Disease: Estimated GFR < 15 mL/min/1.73m2 Glucose 107 60 - 115 mg/dL [facility] Calcium 10.0 8.4 - 10.2 mg/dL [facility] Bilirubin, Total 1.0 0.0 - 1.0 mg/dL [facility] Aspartate Amino Transferase 34 5 - 37 U/L [facility] Alanine Aminotransferase 38 0 - 40 U/L [facility] Total Protein 7.5 6.5 - 8.0 g/dL [facility] Albumin Level 4.5 3.5 - 5.0 g/dL [facility] Alkaline Phosphatase 68 39 - 117 U/L [facility] 09/26/2024 7:35 AM EDT 09/26/2024 7:35 AM EDT us Generic External Data Provider LAB BLOOD ORDERAB LES Final Result [facility] [address] [place] [address] [phone] * Chlamydia/N. Gonorrhoeae RNA, TMA, Urogenitial (03/25/2024 12:37 PM EDT) CT PCR NOT DETECTED Not Detect. [facility] Comment:A not detected test result [...] psychologicalconsequences. NG PCR NOT DETECTED Not Detect. [facility] Comment:A not detected test result [...] PM EDT 03/25/2024 12:45 PM EDT Narrative [facility] - 03/25/2024 2:20 PM EDT Urine us Generic External Data Provider LAB MICROBIOLOGY - GENERAL ORDERABLES Final Result [facility] [address] [place] [phone] * US SCROTUM DOPPLER (03/25/2024 12:01 PM EDT) Anatomical Region Laterality Modality Abdomen Ultrasound 03/25/2024 12:0 1 PM EDT Narrative 05/01/2024 1:[address] [address] Ultrasound Report Signed Patient: Contreras Schrader MR#: [id number] : 1975 Acct:[id number] Age/Sex: 48 / M ADM Date: 03/25/24 Loc: HO.ED Attending Dr: Ordering Physician: Yumi Khan Date of Service: 03/25/24 Procedure(s): US scrotum doppler Accession Number(s): [id number] cc: Nina Nassar; Yumi Khan EXAMINATION: US [...] 05/01/24 1310 DD/ 1201 TD/TT: 03/25/24 1222 Technical Sales Specialist: Procedure Note Donotuseinterpreter, Image - 05/01/2024 [place] [address] Ultrasound Report Signed Patient: Contreras SchraderR#: [id number] : 1975Acct:[id number] Age/Sex: 48 / MADM Date: 03/25/24 Loc: HO.ED Attending Dr: Ordering Physician: Yumi Khan Date of Service: 03/25/24 Procedure(s): US scrotum doppler Accession Number(s): [id number] cc: Nina Nassar; Yumi Khna EXAMINATION: US SCROTUM CLINICAL INFORMATION: 48-year-old male [...] 05/01/24 1310 DD/ 1201 TD/TT: 03/25/24 1222 Technical Sales Specialist: us [facility] External Provider IMG US PROCEDURES Final Result * US Scrotum (03/25/2024 12:01 PM EDT) Anatomical Region Laterality Modality Body Ultrasound 03/25/2024 12:0 1 PM EDT Narrative 03/25/2024 2:20 PM EDT [place] [address] Ultrasound Report Signed Patient: Contreras Schrader MR#: [id number] : 1975 Acct:[id number] Age/Sex: 48 / M ADM Date: 03/25/24 Loc: HO.ED Attending Dr: Ordering Physician: Blake Becker MD Date of Service: 03/25/24 Procedure(s): US scrotum Accession Number(s): [id number] cc: Blake Becker MD; Nina Nassar EXAMINATION: [...] 05/01/24 1310 DD/ 1201 TD/TT: 03/25/24 1222 Technical Sales Specialist: Procedure Note Donotuseinterpreter, Image - 05/01/2024 [place] [address] Ultrasound Report Signed Patient: Contreras SchraderR#: [id number] : 1975Acct:[id number] Age/Sex: 48 / MADM Date: 03/25/24 Loc: .ED Attending Dr: Ordering Physician: Blake Becker MD Date of Service: 03/25/24 Procedure(s): US scrotum Accession Number(s): [id number] cc: Blake Becker MD; Nina Nassar EXAMINATION: [...] 05/01/24 1310 DD/ 1201 TD/TT: 03/25/24 1222 Technical Sales Specialist: [facility] External Provider IMG US PROCEDURES Edited Result - Final * Lipase (03/25/2024 9:38 AM EDT) Lipase 24 8 - 78 U/L [facility] 03/25/2024 9:38 AM EDT 03/25/2024 9:43 AM EDT Generic External Data Provider LAB BLOOD ORDERAB LES Final Result [facility] [address] [place] [phone] * Magnesium (03/25/2024 9:38 AM EDT) Magnesium 1.8 1.6 - 2.6 mg/dL [facility] 03/25/2024 9:38 AM EDT 03/25/2024 9:43 AM EDT us Generic External Data Provider LAB BLOOD ORDERAB LES Final Result Performing Organization Address City/[facility]/ZIP Co de Phone Number [facility] [address] [place] [phone] * (ABNORMAL) Hepatic Function Panel (03/25/2024 9:38 AM EDT) Pathologist [facility] Bilirubin, Total 2.0(H) 0.0 - 1.0 mg/dL [facility] Bilirubin, Direct 0.6(H) 0.0 - 0.5 mg/dL [facility] Aspartate Amino Transferase 22 5 - 37 U/L [facility] Alanine Aminotransferase 16 0 - 40 U/L [facility] Total Protein 7.6 6.5 - 8.0 g/dL [facility] Albumin Level 4.5 3.5 - 5.0 g/dL [facility] Alkaline Phosphatase 69 39 - 117 U/L [facility] 03/25/2024 9:38 AM EDT 03/25/2024 9:43 AM EDT us Generic External Data Provider LAB BLOOD ORDERAB LES Final Result Performing Organization Address [facility] Co de Phone Number [facility] [address] [place] [phone] * Basic Metabolic Panel (03/25/2024 9:38 AM EDT) Sodium 140 135 - 145 mmol/L [facility] Potassium 3.6 3.3 - 5.1 mmol/L [facility] Chloride 104 96 - 108 mmol/L [facility] Carbon Dioxide 28 22 - 29 mmol/L [facility] Anion Gap 12 12 - 20 [facility] Urea Nitrogen (BUN) 11 9 - 16 mg/dL [facility] Creatinine, Serum 0.80 0.5 - 1.4 mg/dL [facility] Creatinine Clr Calc Pharmacy 130.5 [facility] Comment:eGFR (calculated fro m the MDRD study equation) and eCrCl(calculated from the Cockcroft-Gault equation) are based ondifferent parameters and may not yield comparable results.If eCrCl result is absurd, please check patient'sheight/weight. Estimated Glomerular Filt Rate >60 [facility] Comment:NOTE: For -Am erican individuals, multiply the result by 1.210.Chronic Kidney Disease: Estimated GFR < 60 mL/min/1.93q4Aqgfvc Kidney Disease: Estimated GFR < 15 mL/min/1.73m2 Glucose 103 60 - 115 mg/dL [facility] Calcium 10.0 8.4 - 10.2 mg/dL [facility] 03/25/2024 9:38 AM EDT 03/25/2024 9:43 AM EDT us Generic External Data Provider LAB BLOOD ORDERAB LES Final Result [facility] [address] [place] [phone] * (ABNORMAL) CBC auto differential (03/25/2024 9:38 AM EDT) White Blood Count 4.3(L) 4.8 - 10.8 X10*3/uL [facility] Red Blood Count 4.84 4.60 - 5.80 X10*6/uL [facility] Hemoglobin 13.2(L) 14.0 - 18.0 g/dl [facility] Hematocrit 39.9(L) 42.0 - 52.0 % [facility] Mean Corpuscular Volume 82.4 80.0 - 98.0 fL [facility] Mean Corpuscular Hemoglobin 27.3 27.0 - 33.0 pg [facility] Mean Corpuscular HGB Conc 33.1 31.0 - 36.0 g/dl [facility] Red Cell Distribution Width 12.8 11.0 - 16.0 % [facility] Platelet Count 152(L) 160 - 400 X10*3/uL [facility] Mean Platelet Volume 10.6 9.4 - 12.4 fL [facility] Neutrophils Percent Auto 58.5 45 - 73 % [facility] Imm Gran Pct Auto 0.2 0.0 - 0.4 % [facility] Lymphocytes Percent Auto 31.3 20 - 40 % [facility] Monocytes Percent Auto 8.6 2 - 11 % [facility] Eosinophils Percent Auto 1.2 0 - 4 % [facility] Basophils Percent Auto 0.2 0 - 2 % [facility] NRBC Pct Auto 0.0 0.0 - 0.2 /100WBC [facility] Neutrophils Absolute Auto 2.5 2.0 - 8.3 x10*3/uL [facility] Imm Gran Abs Auto 0.01 0.00 - 0.03 X10*3/uL [facility] Lymphocytes Absolute Auto 1.4 1.2 - 4.9 X10*3/uL [facility] Monocytes Absolute Auto 0.4 0.1 - 1.2 X10*3/uL [facility] Eosinophils Absolute Auto 0.1 0.0 - 0.4 X10*3/uL [facility] Basophils Absolute Auto 0.0 0.0 - 0.2 X10*3/uL [facility] NRBC Abs Auto 0.000 0.0 - 0.012 X10*3/uL [facility] 03/25/2024 9:38 AM EDT 03/25/2024 9:43 AM EDT us Generic External Data Provider LAB BLOOD ORDERAB LES Final Result [facility] [address] [place] [phone] * Urinalysis w/reflex microscopic (03/25/2024 9:38 AM EDT) Color Urine Yellow [facility] Appearance Urine Clear [facility] PH 7.0 5.0 - 9.0 [facility] Glucose Urine UA Negative Negative mg/dL [facility] Urine Blood Negative Negative [facility] Specific [place] - Urine <=1.005 1.005 - 1.025 [facility] Urine Protein Negative Neg-Trace mg/dL [facility] Urine Ketones Negative Negative mg/dL [facility] Nitrite Urine Negative Negative [facility] Leukocyte Esterase Urine Negative Negative [facility] 03/25/2024 9:38 AM EDT 03/25/2024 9:43 AM EDT Narrative [facility] - 03/25/2024 9:49 AM EDT [id number], [employer] us Generic External Data Provider LAB URINE ORDERAB LES Final Result Performing Organization Address City/State/[facility] Co de Phone Number [facility] [address] [place] [address] [phone] documented in this encounter Visit Diagnoses Not on filedocumented in this encounter Additional Health Concerns Assessment Noted Time PHQ-9 Depression Total Score: 14 024 10:35 AM EDT documented as of this encounter Care Teams Core Blower Operator Relationship Specialty Start Date End Date Nina Nassar MD [address] [place] [address] PCP - General Family Medicine 03/29/20 documented as of this encounter
--- OUTSIDE RECORDS SUMMARY | 2025-04-16 16:52 | XMS_ITS | Encounter Summary ---
Author Organization [employer] [facility] Address [address] [place] [address] 7 [place] [address] Care Team Providers Care Warehouse Record Clerk Name Role Phone Nina Nassar MD Primary Care Provider [phone] Encounter Details Date Type Department Care Team (Latest Contact Info) Description 08/27/2018 Abstract [facility] CONVERSIONS Dental, Provider, DDS Social History Tobacco [...] 8:00 AM EST Office Visit [facility] ADULT DENTAL [address] [place] [address] Jonathon, Miley [address] [place] [address] documented as of this encounter Visit Diagnoses Not on filedocumented in this encounter Care Teams Warehouse Record Clerk Relationship Specialty Start Date End Date Nina Nassar MD [address] [place] [address] PCP - General Family Medicine 03/29/20 documented as of this encounter
--- OUTSIDE RECORDS SUMMARY | 2025-04-16 16:52 | XMS_ITS | Encounter Summary ---
Author Organization [employer] Address [address] [place] [address] 7 [place] [address] Care Team Providers Care Wheelchair Van Driver Name Role Phone Nina Nassar MD Primary Care Provider [phone] Encounter Details Date Type Department Care Team (Latest Contact Info) Description 04/16/2025 Travel Social History Tobacco Use Types Packs/Day [...] Description 04/26/2025 8:00 AM EST Office Visit [facility]ULT [facility] [address] [place] [address] Jonathon, Miley [address] [place] [address] documented as of this encounter Visit Diagnoses Not on filedocumented in this encounter Additional Health Concerns Assessment Noted Time PHQ-9 Depression Total Score: 14 024 10:35 AM EDT documented as of this encounter Care Teams Wheelchair Van Driver Relationship Specialty Start Date End Date Nina Nassar MD [address] [place] [address] PCP - General Family Medicine 03/29/20 documented as of this encounter
[2025-04-16 17:05] LABS: Appearance Urine Cloudy; Glucose Urine UA Negative (Negative); PH 8.0 (5.0-9.0); Specific Gravity - Urine 1.015 (1.005-1.025); UMIC TRIGGER UACC YES
[2025-04-16 17:11] LABS: UACC Culture Trigger YES
[2025-04-16 21:47] LABS: CT PCR Urine NOT DETECTED (Not Detect.); NG PCR Urine NOT DETECTED (Not Detect.)
== END 2025-04-16 16:20 | disposition home or self-care (01) ==
LOC: HO.HHCLNP 16:19
PROVIDERS: Visit Provider Internal Medicine Geriatric Medicine
DX: R30.0 Dysuria (principal); Z20.2 Contact with and (suspected) exposure to infections with a predominantly sexual mode of transmission
CPT/HCPCS: 81001; 87086; 87088; 87186; 87491; 87591